=== PATIENT | male | born 1950 | race Hispanic/Latino ===

== ENCOUNTER 2017-04-22 15:45 | Inpatient (IN) | payer MEDICARE ==
[2017-04-22 16:40] LABS: BASO # 0.1 K/uL (0.0-0.2); BASO % 0.5 % (0.0-2.0); EOS % 0.2 % (0.0-4.0); HEMATOCRIT 32.9 % (35.0-51.0); LYMPH # 1.3 K/uL (1.0-4.3); LYMPH % 11.3 % (20.0-40.0); MEAN CELL VOLUME 86.1 fL (80.0-94.0); MEAN CORPUSCULAR HGB CONC 32.6 g/dL (33.0-37.0); MEAN PLATELET VOLUME 7.4 fL (7.2-11.7); MONO # 0.9 K/uL (0.0-0.8); MONO % 7.9 % (0.0-10.0); NRBC % 0.2 % (0.0-2.0); RED CELL DISTRIBUTION WIDTH 19.2 % (11.5-14.5); WHITE BLOOD COUNT 11.7 K/uL (4.8-10.8)
[2017-04-22 16:50] LABS: CHLORIDE 90 mmol/L (98-107); POTASSIUM 3.5 mmol/L (3.6-5.2); SODIUM 130 mmol/L (132-148)
[2017-04-22 16:53] LABS: ALKALINE PHOSPHATASE 100 U/L (38-126); ALT/SGPT 28 U/L (21-72); AST/SGOT 25 U/L (17-59); BILIRUBIN,TOTAL 1.3 mg/dL (0.2-1.3); BLOOD UREA NITROGEN 17 mg/dL (9-20); CALCIUM 11.2 mg/dl (8.6-10.4); CARBON DIOXIDE 32 mmol/L (22-30); GFR AFRICAN-AMERICAN > 60; GLUCOSE,RANDOM 96 mg/dL (75-110); TOTAL PROTEIN 6.9 g/dL (6.3-8.3)
[2017-04-22 16:54] LABS: ALCOHOL SERUM < 10 mg/dl (0-10)
[2017-04-22] MEDS ORDERED: Sodium Chloride 0.9% 500 ML IV ONE ×2 (17:06→18:47)
--- NOTE | 2017-04-22 17:09 | C.PDOC ---
History Of Present Illness 67 y/o male presents to ED because "my doctor told me to come in". Patient denies chest pain, shortness of breath, headache, dizziness, fever, or any other active physical complaints at this time. Pt is a poor historian. Time Seen by Provider: 04/22/17 16:01 Chief Complaint (Nursing): Shortness Of Breath History Per: Patient History/Exam Limitations: no limitations Onset/Duration Of Symptoms: Gradual Current Symptoms Are (Timing): Still Present Current Respiratory Medications: See Home Med List Severity: None Pain Scale Rating Of: 0 Associated Symptoms: denies: Fever, Chills, Sweating, Chest Pain, Bloody Cough, Heart Racing, Leg/Calf Pain, Ankle/Leg Swelling, Dizziness, Light-headedness, Anxiety, Tingling In Hands Or Face, Musle Spasms In Hands Or Feet Reports Recently: Treated By A Physician Recent travel outside of the [place]: No Additional History Per: Patient Past Medical History Reviewed: Historical Data, Nursing Documentation, Vital Signs Vital Signs: Last Vital Signs Temp 97.8 F 04/22/17 16:05 Pulse 86 04/22/17 18:15 Resp 16 04/22/17 18:15 BP 110/67 04/22/17 18:15 Pulse Ox 95 04/22/17 18:24 Family History: States: Unknown Family Hx - Social History Hx Alcohol Use: No Hx Substance Use: No Review Of Systems Except As Marked, All Systems Reviewed And Found Negative. Constitutional: Negative for: Fever, Chills Cardiovascular: Negative for: Chest Pain, Palpitations Respiratory: Negative for: Cough, Shortness of Breath Gastrointestinal: Negative for: Nausea, Vomiting, Abdominal Pain Neurological: Negative for: Headache, Dizziness Physical Exam - Physical Exam Appears: Non-toxic, Chronically Ill, Other (Appears to be short of breath) Skin: Normal Color, Warm, Dry Head: Atraumatic, Normacephalic Eye(s): bilateral: Normal Inspection Nose: Normal Oral Mucosa: Moist Neck: Normal ROM, Supple Chest: Symmetrical Cardiovascular: Rhythm Regular, No Murmur Respiratory: Decreased Breath Sounds (right side), No Rales, No Rhonchi, No Wheezing Gastrointestinal/Abdominal: Soft, No Tenderness Extremity: Normal ROM, No Pedal Edema, No Swelling Neurological/Psych: Oriented x3, Normal Speech ED Course And Treatment - Laboratory Results Result Diagrams: 04/22/17 16:34 04/22/17 16:34 ECG: Interpreted By Me, Viewed By Me ECG Rhythm: Sinus Tachycardia ECG Interpretation: No Acute Changes Rate From EC (bpm) O2 Sat by Pulse Oximetry: 95 (RA) Pulse Ox Interpretation: Normal Progress Note: Blood work, UA, angio chest CT ordered and reviewed. Pt was given IV fluids and Albuterol treatment. Case discussed and labs evalauted by Dr Thorne, agreed upon plan and treatment. Disposition - Disposition Disposition Time: 18:59 Condition: STABLE Forms: [employer] ([place]) - Clinical Impression Clinical Impression: Lung mass - PA / SCHEDULE ANALYST / Resident Statement MD/DO has reviewed & agrees with the documentation as recorded. - Scribe Statement The provider has reviewed the documentation as recorded by the Scribe Alonso Masters All medical record entries made by the Scribe were at my direction and personally dictated by me. I have reviewed the chart and agree that the record accurately reflects my personal performance of the history, physical exam, medical decision making, and the department course for this patient. I have also personally directed, reviewed, and agree with the discharge instructions and disposition.
[2017-04-22] MEDS ORDERED: Albuterol 0.083% Inhal Sol (2.5 mg/3 mL) UD IH STA (17:21)
[2017-04-22] MEDS ORDERED: Iodixanol 320 MG/ML 100 ML BOTTLE IV ONE (17:27)
[2017-04-22 17:43] LABS: ABG ALLEN TEST P; DRAW SITE LR
[2017-04-22 19:41] LABS: RBC URINE 4 /hpf (0-3); URINE BACTERIA OCC (<OCC); URINE BILIRUBIN NEGATIVE (NEGATIVE); URINE BLOOD 1+ (NEGATIVE); URINE COLOR Yellow (YELLOW); URINE GLUCOSE (UA) NORMAL (Normal); URINE KETONE TRACE mg/dL (NEGATIVE); URINE LEUKOCYTE ESTERASE NEG Leu/uL (Negative); URINE PROTEIN NEGATIVE (NEGATIVE); URINE UROBILINOGEN NORMAL mg/dL (0.2-1.0); WBC URINE 2 /hpf (0-5)
--- NOTE | 2017-04-22 21:26 | CT ---
EXAM: CT Angiography Chest With Intravenous Contrast EXAM DATE/TIME: 04/22/2017 5:01 PM CLINICAL HISTORY: 67 years old, male; Signs and symptoms; Shortness of breath; Additional info: SOB TECHNIQUE: Axial computed tomographic angiography images of the chest with intravenous contrast using pulmonary embolism protocol. All CT scans at this facility use one or more dose reduction techniques, viz.: automated exposure control; ma/kV adjustment per patient size (including targeted exams where dose is matched to indication; i.e. head); or iterative reconstruction technique. MIP reconstructed images were created and reviewed. Coronal and sagittal reformatted images were created and reviewed. CONTRAST: 100 mL of visipaque 320 administered intravenously. COMPARISON: There are no prior studies for comparison. FINDINGS: Heart, aorta and Pulmonary arteries: Heart size is normal. There is no pericardial effusion. Ascending aorta is mildly dilated, 4 cm in diameter. There is reflux of contrast into the inferior vena cava. Main pulmonary arteries unremarkable. There is perfusion of left pulmonary arteries. There is poor perfusion of the right lower lobe arteries which are encased and attenuated. There is poor perfusion of the middle lobe vessels with filling defects. Right upper lobe pulmonary artery branches are unremarkable. Lungs and pleural spaces: Trachea and main bronchi are patent. Left upper and lower lobe bronchi are patent. Right upper lobe bronchi are unremarkable.. There is encasement and occlusion of the bronchus intermedius. There is postobstructive pneumonia in the right lower lobe with probable loculated effusion. There is partial atelectasis of the right middle lobe. There are diffuse emphysematous changes bilaterally. Appearance suggests both paraseptal and centrilobular change. Right upper lobe is well aerated. Left lung is hyperinflated. There is no left effusion. There is minimal dependent atelectasis at the left base. Mediastinum: The esophagus is unremarkable. There is right hilar and subcarinal mass like adenopathy. There are mildly enlarged paratracheal and precarinal nodes. Thyroid: Thyroid is not optimally demonstrated. Bones/joints: Bony structures are osteopenic.There are degenerative changes in the osseus structures. Soft tissues: unremarkable Upper abdomen: There are no acute abnormalities in the visualized portion of the abdomen. Gallbladder is partially distended. There may be small stones. There is mild diffuse thickening of the adrenals IMPRESSION: Large right hilar and subcarinal mass with encasement and occlusion of the bronchus intermedius, partial right middle lobe atelectasis, postobstructive right lower lobe pneumonia with effusion; emphysema; ascending aortic aneurysm, no dissection; right middle lobe pulmonary emboli, attenuation of right lower lobe vessels Findings are highly suggestive of malignancy.
[2017-04-22] MEDS: Enoxaparin 60 mg Syringe SC SCH (22:40)
--- NOTE | 2017-04-23 02:31 | HP ---
HISTORY OF PRESENT ILLNESS: This is a 67-year-old white male, who came to the emergency room because of increasing shortness of breath. The patient complains of headache and dizziness. The patient has known asthma. The patient was admitted at [facility] 1 week ago for right lower lobe mass. The patient has CT-guided biopsy done 1 week ago which was only showing necrotic material. Not definitive for any malignancy. The patient signed out AMA that time. The patient came back again with the same complaints. The patient has significant weight loss and cachexia. PAST MEDICAL HISTORY: History of lung mass, right-sided pleural effusion, COPD. No hypertension, no diabetes. FAMILY HISTORY: No known inherited disease. SOCIAL HISTORY: Smoking present. No alcohol, no IVDA. ALLERGIES: NO KNOWN ALLERGY. MEDICATIONS: The patient is apparently not on any medication. PHYSICAL EXAMINATION GENERAL: This is a 67-year-old white male, tachypneic, dyspneic. VITAL SIGNS: Temperature 97.8, pulse 86, respirations 16, blood pressure 110/57 mmHg, pulse ox is 95% on room air. HEENT: Normal. NECK: JVP is flat. Carotids, no bruits. LUNGS: Has wheezing. HEART: S1 and S2 normal. No gallop. No murmur. ABDOMEN: Soft and nontender. No organomegaly. CENTRAL NERVOUS SYSTEM: No focal neurological deficits. No edema of the legs. LABORATORY DATA: On admission, white count is slightly elevated. Other workup is acceptable. The patient had CT scan of the chest done which shows right lower lobe mass, large and obstructing bronchus. The patient also has pleural effusion. IMPRESSION: 1. Lung mass, rule out malignancy. 2. Chronic obstructive pulmonary disease. 3. Shortness of breath. PLAN: The patient will be admitted to the floor. We will get consult with Dr. Morales. The patient needs biopsy of the lung again. Other workup as needed. Freda Masters MD
--- NOTE | 2017-04-23 10:07 | CP.PCM.CON ---
History of Present Illness - History of Present Illness History of Present Illness: Pulm consult note for Dr. Morales: Pulm was consulted for PE. Patient is a 67 year old male with no past medical history. He reports that he "was sent by primary". He was recently admitted for a concerning large lung mass whihc he had biopsied but then left the hospital against medical advice. He is now back with a PE in the right middle lobe. The patient was refusing to talk saying his answers and have changed since his last admission. PMHx - COPD, lung mass, aneurysm Meds - men's multivitamin Surg - none Allergies - NKDA Famhx - unknown, no fam hx of cancer Social - heavy smoker 10 cigarettes daily for 40+ years, denies alcohol or drug use. 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 Seamus Masters Review of Systems - Constitutional Constitutional: absent: Chills, Fever - Cardiovascular Cardiovascular: absent: Chest Pain, Chest Pain at Rest - Respiratory Respiratory: absent: Cough, Dyspnea, Dyspnea on Exertion Past Patient History - Past Medical History & Family History Past Medical History?: Yes - Past Social History Smoking Status: Light Smoker < 10 Cigarettes Daily - MUSCULOSKELETAL/RHEUMATOLOGICAL Hx Falls: No - PSYCHIATRIC Hx Substance Use: No Meds Allergies/Adverse Reactions: Allergies Allergy/AdvReac Type Severity Reaction Status Date / Time No Known Allergies Allergy Unverified 04/22/17 16:00 - Medications Medications: Current Medications Albuterol/Ipratropium (Duoneb 3 Mg/0.5 Mg (3 Ml) Ud) 3 ml INH RQ6 [facility] Enoxaparin Sodium (Lovenox) 60 mg SC Q12 [facility] Last Admin: 04/22/17 22:40 Dose: 60 mg Fluticasone/Salmeterol (Advair Diskus 250/50) 1 puff INH RQ12 [facility] Tiotropium [place] (Spiriva) 18 mcg INH RQ24 [facility] Physical Exam - Constitutional Appears: Non-toxic, No Acute Distress, Unkempt, Cachectic, Chronically Ill - Head Exam Head Exam: ATRAUMATIC, NORMAL INSPECTION - Respiratory Exam Respiratory Exam: Decreased Breath Sounds, Rhonchi, NORMAL BREATHING PATTERN. absent: Accessory Muscle Use, Clear to Auscultation Bilateral, Wheezes, Respiratory Distress Additional comments: on NC - Cardiovascular Exam Cardiovascular Exam: Irregular Rhythm, +S1, +S2 - GI/Abdominal Exam GI & Abdominal Exam: Normal Bowel Sounds, Soft. absent: Distended, Firm, Guarding, Tenderness - Extremities Exam Extremities exam: Positive for: normal inspection - Neurological Exam Neurological exam: Alert, Normal Gait, Oriented x3 - Psychiatric Exam Psychiatric exam: Agitated, Normal Affect - Skin Skin Exam: Dry, Intact, Normal Color, Warm Results - Vital Signs Recent Vital Signs: Last Vital Signs Temp 97.6 F 04/23/17 08:59 Pulse 80 04/23/17 08:59 Resp 20 04/23/17 08:59 BP 131/76 04/23/17 08:59 Pulse Ox 100 04/23/17 08:59 - Labs Result Diagrams: 04/22/17 16:34 04/22/17 16:34 Labs: Laboratory Results - last 24 hr 04/22/17 04/22/17 04/22/17 16:34 16:34 17:35 WBC 11.7 H RBC 3.83 L Hgb 10.7 L Hct 32.9 L MCV 86.1 MCH 28.0 MCHC 32.6 L RDW 19.2 H Plt Count 306 MPV 7.4 Neut % (Auto) 80.1 H Lymph % (Auto) 11.3 L [place] % (Auto) 7.9 Eos % (Auto) 0.2 Baso % (Auto) 0.5 Neut # 9.4 H Lymph # 1.3 [place] # 0.9 H Eos # 0.0 Baso # 0.1 Puncture Site Lr pCO2 29 L pO2 99 HCO3 26.3 ABG pH 7.52 H ABG Total CO2 24.6 ABG O2 Saturation 99.6 H ABG Base Excess 1.7 Luciano Test P ABG Potassium 2.0 L* Glucose 75 Lactate 0.9 Liter Flow 2.0 Crit Value Called To Er Crit Value Called By Ga Crit Value Read Back Y Blood Gas Notified Time 1741 Sodium 130 L 143.0 Potassium 3.5 L Chloride 90 L 115.0 H Carbon Dioxide 32 H Anion Gap 12 BUN 17 Creatinine 0.6 L Est GFR ( Amer) > 60 Est GFR (Non-Af Amer) > 60 Random Glucose 96 Calcium 11.2 H Total Bilirubin 1.3 AST 25 ALT 28 Alkaline Phosphatase 100 NT-Pro-B Natriuret Pep 1120 H Total Protein 6.9 Albumin 3.5 Globulin 3.5 Albumin/Globulin Ratio 1.0 Arterial Blood Potassium 2.0 L* Urine Color Urine Clarity Urine pH Ur Specific [place] Urine Protein Urine Glucose (UA) Urine Ketones Urine Blood Urine Nitrate Urine Bilirubin Urine Urobilinogen Ur Leukocyte Esterase Urine WBC (Auto) Urine RBC (Auto) Ur Squamous Epith Cells Urine Bacteria Urine Sperm (Auto) Urine Opiates Screen Urine Methadone Screen Ur Barbiturates Screen Ur Phencyclidine Scrn Ur Amphetamines Screen U Benzodiazepines Scrn U Oth Cocaine Metabols U Cannabinoids Screen Alcohol, Quantitative < 10 04/22/17 04/22/17 19:29 19:29 WBC RBC Hgb Hct MCV MCH MCHC RDW Plt Count MPV Neut % (Auto) Lymph % (Auto) [place] % (Auto) Eos % (Auto) Baso % (Auto) Neut # Lymph # [place] # Eos # Baso # Puncture Site pCO2 pO2 HCO3 ABG pH ABG Total CO2 ABG O2 Saturation ABG Base Excess [place] Test ABG Potassium Glucose Lactate Liter Flow Crit Value Called To Crit Value Called By Crit Value Read Back Blood Gas Notified Time Sodium Potassium Chloride Carbon Dioxide Anion Gap BUN Creatinine Est GFR ( Amer) Est GFR (Non-Af Amer) Random Glucose Calcium Total Bilirubin AST ALT Alkaline Phosphatase NT-Pro-B Natriuret Pep Total Protein Albumin Globulin Albumin/Globulin Ratio Arterial Blood Potassium Urine Color Yellow Urine Clarity Clear Urine pH 6.0 Ur Specific [place] 1.029 Urine Protein Negative Urine Glucose (UA) Normal Urine Ketones Trace Urine Blood 1+ H Urine Nitrate Negative Urine Bilirubin Negative Urine Urobilinogen Normal Ur Leukocyte Esterase Neg Urine WBC (Auto) 2 Urine RBC (Auto) 4 H Ur Squamous Epith Cells 1 Urine Bacteria Occ H Urine Sperm (Auto) Rare H Urine Opiates Screen Negative Urine Methadone Screen Negative Ur Barbiturates Screen Negative Ur Phencyclidine Scrn Negative Ur Amphetamines Screen Negative U Benzodiazepines Scrn Negative U Oth Cocaine Metabols Negative U Cannabinoids Screen Negative Alcohol, Quantitative Assessment & Plan (1) Pulmonary embolism Assessment and Plan: CT showed PE in right middle lobe Patient is not in any distress likely secondary to malignancy in lung Lovenox 60mg SC Q12 Will need anticoagulation with discharge but patient compliance with medications will need to be considered. Status: Acute (2) COPD (chronic obstructive pulmonary disease) Assessment and Plan: Duonebs prn Advair 250/50 Q12 [facility] Spiriva 10mcg INH daily Solu Medrol IV Q8 Patient with a heavy smoking history Status: Acute (3) Lung mass Assessment and Plan: Was biopsied on last visit (CT guided) Pathology showed necrotic tissue along with atypical keratinized squamous epithelial cells. Will need repeat CT guided biopsy. Status: Acute
--- NOTE | 2017-04-23 12:23 | CP.PCM.PN ---
Subjective - Date & Time of Evaluation Date of Evaluation: 04/23/17 Time of Evaluation: 12:21 - Subjective Subjective: MILD SOB AND COUGH. NO FEVER. Objective - Vital Signs/Intake and Output Vital Signs (last 24 hours): Temp Pulse Resp BP Pulse Ox 97.6 F 80 20 131/76 100 04/23/17 08:59 04/23/17 08:59 04/23/17 08:59 04/23/17 08:59 04/23/17 08:59 Intake and Output: 04/23/17 04/23/17 06:59 18:59 Intake Total 0 Balance 0 - Medications Medications: Current Medications Albuterol/Ipratropium (Duoneb 3 Mg/0.5 Mg (3 Ml) Ud) 3 ml INH RQ6 [facility] Enoxaparin Sodium (Lovenox) 60 mg SC Q12 [facility] Last Admin: 04/22/17 22:40 Dose: 60 mg Fluticasone/Salmeterol (Advair Diskus 250/50) 1 puff INH RQ12 [facility] Tiotropium [place] (Spiriva) 18 mcg INH RQ24 [facility] - Labs Labs: 04/22/17 16:34 04/22/17 16:34 - Constitutional Appears: No Acute Distress, Chronically Ill - Eye Exam Eye Exam: Normal appearance, PERRL - ENT Exam ENT Exam: Mucous Membranes Moist - Neck Exam Neck Exam: Normal Inspection - Respiratory Exam Respiratory Exam: Decreased Breath Sounds, Clear to Ausculation Bilateral. absent: Accessory Muscle Use - Cardiovascular Exam Cardiovascular Exam: REGULAR RHYTHM, +S1, +S2 - GI/Abdominal Exam GI & Abdominal Exam: Soft, Normal Bowel Sounds - Extremities Exam Extremities Exam: Full ROM, Normal Capillary Refill, Normal Inspection. absent : Joint Swelling, Pedal Edema - Back Exam Back Exam: NORMAL INSPECTION - Neurological Exam Neurological Exam: Alert, Awake, CN II-XII Intact, Normal Gait, Oriented x3 Assessment and Plan - Assessment and Plan (Free Text) Assessment: LUNG MASS. COPD. WT LOSS. Plan: FOR REPEAT CT GUIDED BIOPSY. HEMATOLOGY EVAL.
[2017-04-23] MEDS: Albuterol-Ipratrop 3 mg / 0.5 (3 ml) UD INH SCH ×2 (13:39→20:40)
[2017-04-23] MEDS: Enoxaparin 60 mg Syringe SC SCH ×2 (14:39→21:14)
[2017-04-23] MEDS: MethylPREDNISolone 40 mg Vial IVP SCH ×2 (14:40→21:14)
--- NOTE | 2017-04-23 19:06 | CARD ---
APPROVED REPORT EKG Measurement Heart [id number] <Conclusion> Sinus rhythm with premature atrial complexes Otherwise normal ECG
--- NOTE | 2017-04-23 19:07 | CARD ---
APPROVED REPORT EKG Measurement Heart [id number] [place] [id number] <Conclusion> Sinus tachycardia with premature atrial complexes Otherwise normal ECG
[2017-04-23] MEDS: Fluticasone-Salmeterol 250-50mcg Diskus INH SCH (20:38)
[2017-04-24] MEDS: Albuterol-Ipratrop 3 mg / 0.5 (3 ml) UD INH SCH ×4 (01:18→20:17)
[2017-04-24] MEDS: MethylPREDNISolone 40 mg Vial IVP SCH ×3 (05:21→22:10)
[2017-04-24] MEDS: Tiotropium 18 mcg Cap For Inhalation INH SCH (08:15)
[2017-04-24] MEDS: Fluticasone-Salmeterol 250-50mcg Diskus INH SCH ×2 (08:15→20:17)
[2017-04-24] MEDS: Enoxaparin 60 mg Syringe SC SCH ×2 (09:53→22:10)
--- NOTE | 2017-04-24 11:16 | CP.PCM.PN ---
Subjective - Date & Time of Evaluation Date of Evaluation: 04/24/17 Time of Evaluation: 11:13 - Subjective Subjective: FEELS BETTER. NO SOB. AFEBRILE. Objective - Vital Signs/Intake and Output Vital Signs (last 24 hours): Temp Pulse Resp BP Pulse Ox 97.3 F L 76 20 128/82 100 04/24/17 07:43 04/24/17 08:43 04/24/17 07:43 04/24/17 07:43 04/24/17 07:43 Intake and Output: 04/24/17 04/24/17 06:59 18:59 Intake Total 240 Balance 240 - Medications Medications: Current Medications Albuterol/Ipratropium (Duoneb 3 Mg/0.5 Mg (3 Ml) Ud) 3 ml INH RQ6 [facility] Last Admin: 04/24/17 08:15 Dose: 3 ml Enoxaparin Sodium (Lovenox) 60 mg SC Q12 [facility] Last Admin: 04/24/17 09:53 Dose: 60 mg Ceftriaxone Sodium 1 gm/ (Sodium Chloride) 100 mls @ 100 mls/hr IVPB DAILY [facility] Methylprednisolone (Solu-Medrol) 40 mg IVP Q8 [facility] Last Admin: 04/24/17 05:21 Dose: 40 mg Fluticasone/Salmeterol (Advair Diskus 250/50) 1 puff INH RQ12 [facility] Last Admin: 04/24/17 08:15 Dose: 1 puff Tiotropium [place] (Spiriva) 18 mcg INH RQ24 [facility] Last Admin: 04/24/17 08:15 Dose: 18 mcg - Labs Labs: 04/22/17 16:34 04/22/17 16:34 - Constitutional Appears: No Acute Distress, Chronically Ill - Eye Exam Eye Exam: Normal appearance, PERRL - ENT Exam ENT Exam: Mucous Membranes Moist - Respiratory Exam Respiratory Exam: Decreased Breath Sounds, NORMAL BREATHING PATTERN - Cardiovascular Exam Cardiovascular Exam: REGULAR RHYTHM, +S1, +S2 - GI/Abdominal Exam GI & Abdominal Exam: Soft, Normal Bowel Sounds. absent: Tenderness - Back Exam Back Exam: NORMAL INSPECTION - Neurological Exam Neurological Exam: Alert, Awake, CN II-XII Intact, Normal Gait, Oriented x3 - Psychiatric Exam Psychiatric exam: Normal Affect, Normal Mood Assessment and Plan - Assessment and Plan (Free Text) Assessment: LUNG MASS. PNEUMONIA. PUL EMBOLISM. Plan: FOR CT GUIDED LUNG BIOPSY. LOVENOX FOR P. EMBOLISM. GOLDEN.
[2017-04-25] MEDS: Albuterol-Ipratrop 3 mg / 0.5 (3 ml) UD INH SCH ×4 (01:30→19:55)
[2017-04-25] MEDS: MethylPREDNISolone 40 mg Vial IVP SCH ×3 (05:10→22:05)
[2017-04-25 07:27] LABS: BASO % 0.1 % (0.0-2.0); HEMATOCRIT 33.3 % (35.0-51.0); LYMPH # 0.5 K/uL (1.0-4.3); MEAN CELL VOLUME 86.9 fL (80.0-94.0); MEAN CORPUSCULAR HEMOGLOBIN 27.6 pg (27.0-31.0); MEAN CORPUSCULAR HGB CONC 31.7 g/dL (33.0-37.0); MEAN PLATELET VOLUME 7.9 fL (7.2-11.7); MONO # 0.5 K/uL (0.0-0.8); MONO % 3.8 % (0.0-10.0); PLATELET COUNT 320 K/uL (130-400); WHITE BLOOD COUNT 12.2 K/uL (4.8-10.8)
[2017-04-25] MEDS: Fluticasone-Salmeterol 250-50mcg Diskus INH SCH ×2 (07:35→19:55)
[2017-04-25] MEDS: Tiotropium 18 mcg Cap For Inhalation INH SCH (07:35)
[2017-04-25 07:39] LABS: CHLORIDE 90 mmol/L (98-107); POTASSIUM 3.9 mmol/L (3.6-5.2); SODIUM 132 mmol/L (132-148)
[2017-04-25 07:42] LABS: ALB/GLOB RATIO 0.8 (1.0-2.1); ALKALINE PHOSPHATASE 84 U/L (38-126); ALT/SGPT 32 U/L (21-72); AST/SGOT 20 U/L (17-59); BILIRUBIN,TOTAL 0.4 mg/dL (0.2-1.3); BLOOD UREA NITROGEN 16 mg/dL (9-20); CARBON DIOXIDE 34 mmol/L (22-30); GFR AFRICAN-AMERICAN > 60; GLUCOSE,RANDOM 117 mg/dL (75-110); TOTAL PROTEIN 7.6 g/dL (6.3-8.3)
[2017-04-25 07:43] LABS: CALCIUM 10.8 mg/dl (8.6-10.4)
[2017-04-25 08:48] LABS: NEUTROPHIL 94 % (50-75); TOTAL CELLS COUNTED 100
[2017-04-25] MEDS: Enoxaparin 60 mg Syringe SC SCH ×2 (11:19→22:04)
--- NOTE | 2017-04-25 13:47 | CP.PCM.CON ---
History of Present Illness - History of Present Illness History of Present Illness: 67 year old male with no past medical history. He reports that he "was sent by primary". He was recently admitted for a concerning large lung mass whc he had biopsied but then left the hospital against medical advice. He is now back with a PE in the right middle lobe. Patient denies fever but c/o cough and congestion PMHx - COPD, lung mass, aneurysm Meds - men's multivitamin Surg - none Allergies - NKDA Famhx - unknown, no fam hx of cancer Social - heavy smoker 10 cigarettes daily for 40+ years, denies alcohol or drug use. 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 Review of Systems - Constitutional Constitutional: As Per HPI, Anorexia, Malaise, Weight Loss, Weakness - EENT Eyes: absent: As Per HPI, Blind Spots, Blurred Vision, Change in Vision, Decreased Night Vision, Diplopia, Discharge, Dry Eye, Exophthalmos, Floaters, Irritation, Itchy Eyes, Loss of Peripheral Vision, Pain, Photophobia, Requires Corrective Lenses, Sees Flashes, Spots in Vision, Tunnel Vision, Other Visual Disturbances, Loss of Vision, Other Ears: absent: As Per HPI, Decreased Hearing, Ear Discharge, Ear Pain, Tinnitus, Abnormal Hearing, Disequilibrium, Dizziness, Other Nose/Mouth/Throat: absent: As Per HPI, Epistaxis, Nasal Congestion, Nasal Discharge, Nasal Obstruction, Nasal Trauma, Nose Pain, Post Nasal Drip, Sinus Pain, Sinus Pressure, Bleeding Gums, Change in Voice, Dental Pain, Dry Mouth, Dysphagia, Halitosis, Hoarsness, Lip Swelling, Mouth Lesions, Mouth Pain, Odynophagia, Sore Throat, Throat Swelling, Tongue Swelling, Facial Pain, Neck Pain, Neck Mass, Other - Cardiovascular Cardiovascular: As Per HPI - Respiratory Respiratory: As Per HPI, Cough, Dyspnea, Dyspnea on Exertion. absent: Hemoptysis - Gastrointestinal Gastrointestinal: absent: As Per HPI, Abdominal Pain, Belching, Bloating, Change in Bowel Habits, Change in Stool Character, Coffee Ground Emesis, Constipation, Cramping, Diarrhea, Dyspepsia, Dysphagia, Early Satiety, Excessive Flatus, Fecal Incontinence, Heartburn, Hematemesis, Hematochezia, Loose Stools, Melena, Nausea, Odynophagia, Temesmus, Vomiting, Other - Genitourinary Genitourinary: absent: As Per HPI, Change in Urinary Stream, Difficulty Urinating, Dysuria, Flank Pain, Hematuria, Pyuria, Nocturia, Urinary Incontinence, Urinary Frequency, Urinary Hesitance, Urinary Urgency, Voiding Freq/Small Amts, Freq UTI, Hx Renal/Bladder Calculi, Hx /Renal Surgery, Bladder Distension, Other - Musculoskeletal Musculoskeletal: absent: As Per HPI, Abnormal Gait, Arthralgias, Atrophy, Back Pain, Deformity, Joint Swelling, Limited Range of Motion, Loss of Height, Muscle Cramps, Muscle Weakness, Myalgias, Neck Pain, Numbness, Radiating Pain into Limb, Stiffness, Tingling, Other - Integumentary Integumentary: absent: As Per HPI, Acne, Alopecia, Bleeding Lesions, Change in Hair, Change in Nails, Change in Pigmentation, Changing Lesions, Dry Skin, Erythema, Furuncle, Hirsutism, Lesions, New Lesions, Non-Healing Lesions, Photosensitivity, Pruritus, Rash, Skin Pain, Skin Ulcer, Sores, Striae, Swelling , Unusual Bruising, Wounds, Jaundice, Other - Neurological Neurological: absent: As Per HPI, Abnormal Gait, Abnormal Hearing, Abnormal Movements, Abnormal Speech, Behavioral Changes, Burning Sensations, Confusion, Convulsions, Disequilibrium, Dizziness, Numbness, Focal Weakness, Frequent Falls , Headaches, Lack of Coordination, Loss of Vision, Memory Loss, Paresthesias, Radicular Pain, Restless Legs, Sensory Deficit, Syncope, Tingling, Tremor, Vertigo, Weakness, Other Visual Disturbances, Other - Psychiatric Psychiatric: absent: As Per HPI, Abnormal Sleep Pattern, Anhedonia, Anxiety, Auditory Hallucinations, Behavioral Changes, Change in Appetite, Change in Libido, Confusion, Depression, Difficulty Concentrating, Hallucinations, Homicidal Ideation, Hopelessness, Irritability, Memory Loss, Mood Swings, Panic Attacks, Paranoia, Suicidal Ideation, Visual Hallucinations, Tactile Hallucinations, Other - Endocrine Endocrine: absent: As Per HPI, Change in Body Appearance, Change in Libido, Cold Intolorance, Deepening of Voice, Excessive Sweating, Fatigue, Flushing, Heat Intolorance, Increase in Ring/Shoe/Hat Size, Palpitations, Polydipsia, Polyphagia, Polyuria, Other - Hematologic/Lymphatic Hematologic: absent: As Per HPI, Easy Bleeding, Easy Bruising, Lymphadenopathy, Other Past Patient History - Past Medical History & Family History Past Medical History?: Yes - Past Social History Smoking Status: Light Smoker < 10 Cigarettes Daily - MUSCULOSKELETAL/RHEUMATOLOGICAL Hx Falls: No - PSYCHIATRIC Hx Substance Use: No Meds Allergies/Adverse Reactions: Allergies Allergy/AdvReac Type Severity Reaction Status Date / Time No Known Allergies Allergy Unverified 04/22/17 16:00 - Medications Medications: Current Medications Albuterol/Ipratropium (Duoneb 3 Mg/0.5 Mg (3 Ml) Ud) 3 ml INH RQ6 [facility] Last Admin: 04/25/17 13:15 Dose: 3 ml Enoxaparin Sodium (Lovenox) 60 mg SC Q12 [facility] Last Admin: 04/25/17 11:19 Dose: 60 mg Ceftriaxone Sodium 1 gm/ (Dextrose) 100 mls @ 100 mls/hr IVPB DAILY [facility] Last Admin: 04/25/17 11:14 Dose: 100 mls/hr Methylprednisolone (Solu-Medrol) 40 mg IVP Q8 [facility] Last Admin: 04/25/17 05:10 Dose: 40 mg Fluticasone/Salmeterol (Advair Diskus 250/50) 1 puff INH RQ12 [facility] Last Admin: 04/25/17 07:35 Dose: 1 puff Tiotropium [place] (Spiriva) 18 mcg INH RQ24 [facility] Last Admin: 04/25/17 07:35 Dose: 18 mcg Physical Exam - Constitutional Appears: Non-toxic, Cachectic, Chronically Ill - Head Exam Head Exam: ATRAUMATIC, NORMAL INSPECTION, NORMOCEPHALIC - Eye Exam Eye Exam: EOMI, PERRL. absent: Scleral icterus - ENT Exam ENT Exam: Mucous Membranes Dry, Normal External Ear Exam, Normal Oropharynx - Neck Exam Neck exam: Negative for: Lymphadenopathy - Respiratory Exam Respiratory Exam: Decreased Breath Sounds, Prolonged Expiratory Phase, Rhonchi. absent: Respiratory Distress, Stridor - Cardiovascular Exam Cardiovascular Exam: REGULAR RHYTHM, +S1, +S2 - GI/Abdominal Exam GI & Abdominal Exam: Diminished Bowel Sounds, Distended, Soft. absent: Guarding , Rebound, Rigid, Tenderness - Rectal Exam Rectal Exam: Deferred - Exam Exam: NORMAL INSPECTION - Extremities Exam Extremities exam: Positive for: pedal pulses present. Negative for: calf tenderness, pedal edema, tenderness - Back Exam Back exam: absent: CVA tenderness (L), CVA tenderness (R), paraspinal tenderness - Neurological Exam Neurological exam: Alert, CN II-XII Intact, Oriented x3, Reflexes Normal - Psychiatric Exam Psychiatric exam: Depressed - Skin Skin Exam: Dry, Intact Results - Vital Signs Recent Vital Signs: Last Vital Signs Temp 97.6 F 04/25/17 07:35 Pulse 86 04/25/17 10:00 Resp 20 04/25/17 07:35 BP 123/76 04/25/17 07:35 Pulse Ox 100 04/25/17 07:35 - Labs Result Diagrams: 04/25/17 07:11 04/25/17 07:11 Labs: Laboratory Results - last 24 hr 04/25/17 04/25/17 07:11 07:11 WBC 12.2 H RBC 3.83 L Hgb 10.6 L Hct 33.3 L MCV 86.9 MCH 27.6 MCHC 31.7 L RDW 19.0 H Plt Count 320 MPV 7.9 Neut % (Auto) 92.1 H Lymph % (Auto) 4.0 L Ida % (Auto) 3.8 Eos % (Auto) 0.0 Baso % (Auto) 0.1 Neut # 11.2 H Lymph # 0.5 L Ida # 0.5 Eos # 0.0 Baso # 0.0 Neutrophils % (Manual) 94 H Lymphocytes % (Manual) 3 L Monocytes % (Manual) 3 Platelet Estimate Normal Hypochromasia (manual) Slight Poikilocytosis (manual Slight Anisocytosis (manual) Slight Sodium 132 Potassium 3.9 Chloride 90 L Carbon Dioxide 34 H Anion Gap 12 BUN 16 Creatinine 0.5 L Est GFR ( Amer) > 60 Est GFR (Non-Af Amer) > 60 Random Glucose 117 H Calcium 10.8 H Total Bilirubin 0.4 AST 20 ALT 32 Alkaline Phosphatase 84 Total Protein 7.6 Albumin 3.3 L Globulin 4.3 H Albumin/Globulin Ratio 0.8 L Assessment & Plan (1) COPD (chronic obstructive pulmonary disease) Status: Acute (2) Lung mass Status: Acute (3) Pulmonary embolism Status: Acute - Assessment and Plan (Free Text) Assessment: r/o pneumonia cont iv antibiotics pulm eval dr Morales
[2017-04-25] MEDS: Piperacill/Tazo 3.375gm in Dex 3.375 GM/50 ML BAG IVPB SCH ×2 (14:34→22:05)
--- NOTE | 2017-04-25 21:51 | CP.PCM.PN ---
Subjective - Date & Time of Evaluation Date of Evaluation: 04/25/17 Time of Evaluation: 14:00 - Subjective Subjective: CONDITION SAME. CH COUGH. AFEBRILE. MILD SOB. Objective - Vital Signs/Intake and Output Vital Signs (last 24 hours): Temp Pulse Resp BP Pulse Ox 97.7 F 90 20 128/80 97 04/25/17 17:09 04/25/17 17:09 04/25/17 17:09 04/25/17 17:09 04/25/17 17:09 - Medications Medications: Current Medications Albuterol/Ipratropium (Duoneb 3 Mg/0.5 Mg (3 Ml) Ud) 3 ml INH RQ6 [facility] Last Admin: 04/25/17 19:55 Dose: 3 ml Enoxaparin Sodium (Lovenox) 60 mg SC Q12 [facility] Last Admin: 04/25/17 11:19 Dose: 60 mg Piperacillin Sod/Tazobactam Sod (Zosyn 3.375 Gm Iv Premix) 3.375 gm in 50 mls @ 100 mls/hr IVPB Q8H [facility] Last Admin: 04/25/17 14:34 Dose: 100 mls/hr Methylprednisolone (Solu-Medrol) 40 mg IVP Q8 [facility] Last Admin: 04/25/17 14:32 Dose: 40 mg Fluticasone/Salmeterol (Advair Diskus 250/50) 1 puff INH RQ12 [facility] Last Admin: 04/25/17 19:55 Dose: 1 puff Tiotropium [place] (Spiriva) 18 mcg INH RQ24 [facility] Last Admin: 04/25/17 07:35 Dose: 18 mcg - Labs Labs: 04/25/17 07:11 04/25/17 07:11 - Constitutional Appears: No Acute Distress, Chronically Ill - Eye Exam Eye Exam: Normal appearance, PERRL - ENT Exam ENT Exam: Mucous Membranes Moist - Respiratory Exam Respiratory Exam: Decreased Breath Sounds, NORMAL BREATHING PATTERN - Cardiovascular Exam Cardiovascular Exam: REGULAR RHYTHM, +S1, +S2 - GI/Abdominal Exam GI & Abdominal Exam: Soft, Normal Bowel Sounds - Back Exam Back Exam: NORMAL INSPECTION - Neurological Exam Neurological Exam: Alert, Awake, CN II-XII Intact, Normal Gait, Oriented x3 - Psychiatric Exam Psychiatric exam: Normal Affect, Normal Mood Assessment and Plan - Assessment and Plan (Free Text) Assessment: R/O CA LUNGS. PNEUMONIA. COPD. Plan: CT PRESENT TREATMENT. BIOPSY IN AM.
[2017-04-26] MEDS: Albuterol-Ipratrop 3 mg / 0.5 (3 ml) UD INH SCH ×4 (02:18→20:04)
[2017-04-26] MEDS: MethylPREDNISolone 40 mg Vial IVP SCH ×3 (05:36→21:34)
[2017-04-26] MEDS: Piperacill/Tazo 3.375gm in Dex 3.375 GM/50 ML BAG IVPB SCH (05:36)
[2017-04-26] MEDS: Fluticasone-Salmeterol 250-50mcg Diskus INH SCH ×2 (07:22→20:05)
[2017-04-26] MEDS: Tiotropium 18 mcg Cap For Inhalation INH SCH (07:23)
[2017-04-26] MEDS: Enoxaparin 60 mg Syringe SC SCH ×2 (10:59→21:35)
--- NOTE | 2017-04-26 11:15 | CP.PCM.PN ---
Subjective - Date & Time of Evaluation Date of Evaluation: 04/26/17 Time of Evaluation: 06:00 - Subjective Subjective: growing enterobacter sputum iv rx adjusted nad afebrile dr shabbir smith Objective - Vital Signs/Intake and Output Vital Signs (last 24 hours): Temp Pulse Resp BP Pulse Ox 97.8 F 96 H 18 127/77 97 04/26/17 08:39 04/26/17 08:39 04/26/17 08:39 04/26/17 08:39 04/26/17 08:39 Intake and Output: 04/26/17 04/26/17 06:59 18:59 Intake Total 150 Output Total 400 Balance -250 - Medications Medications: Current Medications Albuterol/Ipratropium (Duoneb 3 Mg/0.5 Mg (3 Ml) Ud) 3 ml INH RQ6 [facility] Last Admin: 04/26/17 07:22 Dose: 3 ml Enoxaparin Sodium (Lovenox) 60 mg SC Q12 [facility] Last Admin: 04/25/17 22:04 Dose: 60 mg Ciprofloxacin (Cipro 400mg/200ml Dsw) 400 mg in 200 mls @ 133 mls/hr IVPB Q12H [facility] Methylprednisolone (Solu-Medrol) 40 mg IVP Q8 [facility] Last Admin: 04/26/17 05:36 Dose: 40 mg Fluticasone/Salmeterol (Advair Diskus 250/50) 1 puff INH RQ12 [facility] Last Admin: 04/26/17 07:22 Dose: Not Given Tiotropium [place] (Spiriva) 18 mcg INH RQ24 [facility] Last Admin: 04/26/17 07:23 Dose: Not Given - Labs Labs: 04/25/17 07:11 04/25/17 07:11 - Constitutional Appears: Non-toxic, Cachectic, Chronically Ill - Head Exam Head Exam: NORMOCEPHALIC - Eye Exam Eye Exam: PERRL. absent: Scleral icterus - ENT Exam ENT Exam: Mucous Membranes Dry - Neck Exam Neck Exam: absent: Lymphadenopathy - Respiratory Exam Respiratory Exam: Decreased Breath Sounds - Cardiovascular Exam Cardiovascular Exam: REGULAR RHYTHM - GI/Abdominal Exam GI & Abdominal Exam: Distended, Soft Assessment and Plan (1) COPD (chronic obstructive pulmonary disease) Status: Acute (2) Lung mass Status: Acute (3) Pulmonary embolism Status: Acute - Assessment and Plan (Free Text) Assessment: add cipro
--- NOTE | 2017-04-26 12:58 | CP.PCM.PN ---
Subjective - Date & Time of Evaluation Date of Evaluation: 04/26/17 Time of Evaluation: 12:55 - Subjective Subjective: PT FOR CT GUIDED BIOPSY, CANCELLED BECAUSE PT WAS FED. AFEBRILE. FOR BIOPSY IN AM. SPUTUM POSITIVE FOR ENTEROBACTOR. Objective - Vital Signs/Intake and Output Vital Signs (last 24 hours): Temp Pulse Resp BP Pulse Ox 97.8 F 96 H 18 127/77 97 04/26/17 08:39 04/26/17 08:39 04/26/17 08:39 04/26/17 08:39 04/26/17 08:39 Intake and Output: 04/26/17 04/26/17 06:59 18:59 Intake Total 150 Output Total 400 Balance -250 - Medications Medications: Current Medications Albuterol/Ipratropium (Duoneb 3 Mg/0.5 Mg (3 Ml) Ud) 3 ml INH RQ6 [facility] Last Admin: 04/26/17 07:22 Dose: 3 ml Enoxaparin Sodium (Lovenox) 60 mg SC Q12 [facility] Last Admin: 04/26/17 10:59 Dose: 60 mg Ciprofloxacin (Cipro 400mg/200ml Dsw) 400 mg in 200 mls @ 133 mls/hr IVPB Q12H [facility] Methylprednisolone (Solu-Medrol) 40 mg IVP Q8 [facility] Last Admin: 04/26/17 05:36 Dose: 40 mg Fluticasone/Salmeterol (Advair Diskus 250/50) 1 puff INH RQ12 [facility] Last Admin: 04/26/17 07:22 Dose: Not Given Tiotropium [place] (Spiriva) 18 mcg INH RQ24 [facility] Last Admin: 04/26/17 07:23 Dose: Not Given - Labs Labs: 04/25/17 07:11 04/25/17 07:11 - Constitutional Appears: No Acute Distress, Chronically Ill - Eye Exam Eye Exam: Normal appearance Pupil Exam: PERRL - ENT Exam ENT Exam: Normal Exam - Neck Exam Neck Exam: Normal Inspection - Respiratory Exam Respiratory Exam: Decreased Breath Sounds, NORMAL BREATHING PATTERN - Cardiovascular Exam Cardiovascular Exam: REGULAR RHYTHM, +S1, +S2 - GI/Abdominal Exam GI & Abdominal Exam: Soft, Normal Bowel Sounds - Extremities Exam Extremities Exam: Full ROM, Normal Capillary Refill, Normal Inspection. absent : Joint Swelling, Pedal Edema - Back Exam Back Exam: NORMAL INSPECTION - Neurological Exam Neurological Exam: Alert, Awake, CN II-XII Intact, Normal Gait, Oriented x3 Assessment and Plan - Assessment and Plan (Free Text) Assessment: PNEUMONIA. LUNG MASS. COPD. Plan: FOR BIOPSY.
[2017-04-26] MEDS: Ciprofloxacin 400mg/200ml D5W 400 MG/200 ML BAG IVPB SCH (13:43)
--- NOTE | 2017-04-26 17:30 | CP.PCM.PN ---
Subjective - Date & Time of Evaluation Date of Evaluation: 04/26/17 Time of Evaluation: 10:50 - Subjective Subjective: the patient seen and examined Dyspnea on minimal exertion For lung biopsy Objective - Vital Signs/Intake and Output Vital Signs (last 24 hours): Temp Pulse Resp BP Pulse Ox 97.8 F 93 H 20 136/65 96 04/26/17 16:00 04/26/17 16:00 04/26/17 16:00 04/26/17 16:00 04/26/17 16:00 Intake and Output: 04/26/17 04/26/17 06:59 18:59 Intake Total 700 Output Total 800 Balance -100 - Medications Medications: Current Medications Albuterol/Ipratropium (Duoneb 3 Mg/0.5 Mg (3 Ml) Ud) 3 ml INH RQ6 [facility] Last Admin: 04/26/17 13:05 Dose: Not Given Enoxaparin Sodium (Lovenox) 60 mg SC Q12 [facility] Last Admin: 04/26/17 10:59 Dose: 60 mg Ciprofloxacin (Cipro 400mg/200ml Dsw) 400 mg in 200 mls @ 133 mls/hr IVPB Q12H [facility] Last Admin: 04/26/17 13:43 Dose: 133 mls/hr Methylprednisolone (Solu-Medrol) 40 mg IVP Q8 [facility] Last Admin: 04/26/17 13:42 Dose: 40 mg Fluticasone/Salmeterol (Advair Diskus 250/50) 1 puff INH RQ12 [facility] Last Admin: 04/26/17 07:22 Dose: Not Given Tiotropium [place] (Spiriva) 18 mcg INH RQ24 [facility] Last Admin: 04/26/17 07:23 Dose: Not Given - Labs Labs: 04/25/17 07:11 04/25/17 07:11 - Head Exam Head Exam: ATRAUMATIC - Eye Exam Eye Exam: Normal appearance - ENT Exam ENT Exam: Mucous Membranes Moist - Neck Exam Neck Exam: Normal Inspection - Respiratory Exam Respiratory Exam: Decreased Breath Sounds - Cardiovascular Exam Cardiovascular Exam: REGULAR RHYTHM - GI/Abdominal Exam GI & Abdominal Exam: Soft, Normal Bowel Sounds - Extremities Exam Extremities Exam: Normal Inspection - Neurological Exam Neurological Exam: Alert, Oriented x3 Assessment and Plan (1) COPD (chronic obstructive pulmonary disease) Assessment & Plan: cont nebulizer treatment and steroids Status: Acute (2) Lung mass Assessment & Plan: for lung biopsy today Status: Acute (3) Pulmonary embolism Assessment & Plan: Continue anticoagulation Status: Acute
[2017-04-27] MEDS: Ciprofloxacin 400mg/200ml D5W 400 MG/200 ML BAG IVPB SCH ×2 (00:38→11:45)
[2017-04-27] MEDS: Albuterol-Ipratrop 3 mg / 0.5 (3 ml) UD INH SCH ×3 (01:38→13:26)
[2017-04-27] MEDS: MethylPREDNISolone 40 mg Vial IVP SCH ×2 (06:19→13:55)
[2017-04-27] MEDS: Tiotropium 18 mcg Cap For Inhalation INH SCH (07:30)
[2017-04-27] MEDS: Fluticasone-Salmeterol 250-50mcg Diskus INH SCH (07:30)
[2017-04-27] MEDS ORDERED: Midazolam 2 MG/2 ML VIAL ONE (12:22)
--- NOTE | 2017-04-27 12:27 | CP.PCM.PN ---
Subjective - Date & Time of Evaluation Date of Evaluation: 04/27/17 Time of Evaluation: 07:00 - Subjective Subjective: cultures noted await bx Objective - Vital Signs/Intake and Output Vital Signs (last 24 hours): Temp Pulse Resp BP Pulse Ox 97.4 F L 82 99 H 127/70 100 04/27/17 07:50 04/27/17 07:50 04/27/17 07:50 04/27/17 07:50 04/26/17 23:53 Intake and Output: 04/27/17 04/27/17 06:59 18:59 Intake Total 600 Output Total 500 Balance 100 - Medications Medications: Current Medications Albuterol/Ipratropium (Duoneb 3 Mg/0.5 Mg (3 Ml) Ud) 3 ml INH RQ6 [facility] Last Admin: 04/27/17 07:30 Dose: 3 ml Enoxaparin Sodium (Lovenox) 60 mg SC Q12 [facility] Last Admin: 04/26/17 21:35 Dose: Not Given Ciprofloxacin (Cipro 400mg/200ml Dsw) 400 mg in 200 mls @ 133 mls/hr IVPB Q12H [facility] Last Admin: 04/27/17 11:45 Dose: 133 mls/hr Methylprednisolone (Solu-Medrol) 40 mg IVP Q8 [facility] Last Admin: 04/27/17 06:19 Dose: 40 mg Fluticasone/Salmeterol (Advair Diskus 250/50) 1 puff INH RQ12 [facility] Last Admin: 04/27/17 07:30 Dose: 1 puff Tiotropium [place] (Spiriva) 18 mcg INH RQ24 [facility] Last Admin: 04/27/17 07:30 Dose: 18 mcg - Labs Labs: 04/25/17 07:11 04/25/17 07:11 - Constitutional Appears: Non-toxic, Cachectic, Chronically Ill - Head Exam Head Exam: NORMOCEPHALIC - Eye Exam Eye Exam: PERRL - ENT Exam ENT Exam: Mucous Membranes Dry - Neck Exam Neck Exam: absent: Lymphadenopathy - Respiratory Exam Respiratory Exam: Decreased Breath Sounds - Cardiovascular Exam Cardiovascular Exam: REGULAR RHYTHM - GI/Abdominal Exam GI & Abdominal Exam: Distended, Soft - Rectal Exam Rectal Exam: Deferred - Exam Exam: NORMAL INSPECTION - Extremities Exam Extremities Exam: absent: Pedal Edema - Back Exam Back Exam: absent: CVA tenderness (L), CVA tenderness (R) - Neurological Exam Neurological Exam: Alert, Awake, Oriented x3 - Psychiatric Exam Psychiatric exam: Normal Mood - Skin Skin Exam: Dry Assessment and Plan (1) COPD (chronic obstructive pulmonary disease) Status: Acute (2) Lung mass Status: Acute (3) Pulmonary embolism Status: Acute
--- NOTE | 2017-04-27 12:36 | CP.PCM.PN ---
Subjective - Date & Time of Evaluation Date of Evaluation: 04/27/17 Time of Evaluation: 12:34 - Subjective Subjective: WENT FOR BIOPSY. CONDITION SAME. Objective - Vital Signs/Intake and Output Vital Signs (last 24 hours): Temp Pulse Resp BP Pulse Ox 97.4 F L 82 99 H 127/70 100 04/27/17 07:50 04/27/17 07:50 04/27/17 07:50 04/27/17 07:50 04/26/17 23:53 Intake and Output: 04/27/17 04/27/17 06:59 18:59 Intake Total 600 Output Total 500 Balance 100 - Medications Medications: Current Medications Albuterol/Ipratropium (Duoneb 3 Mg/0.5 Mg (3 Ml) Ud) 3 ml INH RQ6 [facility] Last Admin: 04/27/17 07:30 Dose: 3 ml Enoxaparin Sodium (Lovenox) 60 mg SC Q12 [facility] Last Admin: 04/26/17 21:35 Dose: Not Given Ciprofloxacin (Cipro 400mg/200ml Dsw) 400 mg in 200 mls @ 133 mls/hr IVPB Q12H [facility] Last Admin: 04/27/17 11:45 Dose: 133 mls/hr Methylprednisolone (Solu-Medrol) 40 mg IVP Q8 [facility] Last Admin: 04/27/17 06:19 Dose: 40 mg Fluticasone/Salmeterol (Advair Diskus 250/50) 1 puff INH RQ12 [facility] Last Admin: 04/27/17 07:30 Dose: 1 puff Tiotropium [place] (Spiriva) 18 mcg INH RQ24 [facility] Last Admin: 04/27/17 07:30 Dose: 18 mcg - Labs Labs: 04/25/17 07:11 04/25/17 07:11 - Constitutional Appears: No Acute Distress, Chronically Ill - Eye Exam Eye Exam: Normal appearance Pupil Exam: PERRL - ENT Exam ENT Exam: Mucous Membranes Moist, Normal Exam - Respiratory Exam Respiratory Exam: Clear to Ausculation Bilateral, NORMAL BREATHING PATTERN - Cardiovascular Exam Cardiovascular Exam: REGULAR RHYTHM, +S1, +S2 - GI/Abdominal Exam GI & Abdominal Exam: Soft, Normal Bowel Sounds - Extremities Exam Extremities Exam: Full ROM, Normal Capillary Refill, Normal Inspection. absent : Joint Swelling, Pedal Edema - Back Exam Back Exam: NORMAL INSPECTION - Neurological Exam Neurological Exam: Alert, Awake, CN II-XII Intact, Normal Gait, Oriented x3 - Psychiatric Exam Psychiatric exam: Normal Affect, Normal Mood Assessment and Plan - Assessment and Plan (Free Text) Assessment: LUNG MASS. COPD. Plan: CT PRESENT MEDS. MAY DISCHARGE HOME IF STABLE POST BIOPSY.
[2017-04-27 13:09] VITALS: BP 116/72; PULSE 93; RESP 20; TEMP 97.7; O2SAT 96
--- NOTE | 2017-04-27 13:10 | PCM.SURG1 ---
Surgeon's Initial Post Op Note - Surgeon's Notes Surgeon: Ahmet Garcia MD Seo Intern: NONE Type of Anesthesia: IV Sedation Pre-Operative Diagnosis: Right Lung mass Operative Findings: Ct showed a large lung mass Post-Operative Diagnosis: Right lung mass Operation Performed: CT guided core biopsy Specimen/Specimens Removed: 18 guage core biopsy Estimated Blood Loss: EBL {In ML}: 0 Blood Products Given: N/A Drains Used: No Drains Post-Op Condition: Fair Date of Surgery/Procedure: 04/27/17 Time of Surgery/Procedure: 13:00
[2017-04-27] MEDS: Enoxaparin 60 mg Syringe SC SCH (13:55)
--- NOTE | 2017-04-27 14:49 | CP.PCM.PN ---
Subjective - Date & Time of Evaluation Date of Evaluation: 04/27/17 Time of Evaluation: 14:48 - Subjective Subjective: FULL NOTE WILL BE DICTATED Objective - Vital Signs/Intake and Output Vital Signs (last 24 hours): Temp Pulse Resp BP Pulse Ox 97.7 F 93 H 20 116/72 96 04/27/17 13:04 04/27/17 13:04 04/27/17 13:04 04/27/17 13:04 04/27/17 13:04 Intake and Output: 04/27/17 04/27/17 06:59 18:59 Intake Total 600 Output Total 500 Balance 100 - Medications Medications: Current Medications Albuterol/Ipratropium (Duoneb 3 Mg/0.5 Mg (3 Ml) Ud) 3 ml INH RQ6 [facility] Last Admin: 04/27/17 13:26 Dose: 3 ml Enoxaparin Sodium (Lovenox) 60 mg SC Q12 [facility] Last Admin: 04/27/17 13:55 Dose: Not Given Ciprofloxacin (Cipro 400mg/200ml Dsw) 400 mg in 200 mls @ 133 mls/hr IVPB Q12H [facility] Last Admin: 04/27/17 11:45 Dose: 133 mls/hr Methylprednisolone (Solu-Medrol) 40 mg IVP Q8 [facility] Last Admin: 04/27/17 13:55 Dose: 40 mg Fluticasone/Salmeterol (Advair Diskus 250/50) 1 puff INH RQ12 [facility] Last Admin: 04/27/17 07:30 Dose: 1 puff Tiotropium [place] (Spiriva) 18 mcg INH RQ24 [facility] Last Admin: 04/27/17 07:30 Dose: 18 mcg - Labs Labs: 04/25/17 07:11 04/25/17 07:11
--- NOTE | 2017-04-27 16:36 | RAD ---
PROCEDURE: CHEST RADIOGRAPH, 1 VIEW HISTORY: Status post right lung mass COMPARISON: Chest radiographs 03/26/2017 FINDINGS: LUNGS: Hazy density at the mid to inferior right lung zone again identified unchanged in appearance. COPD changes are less apparent due to underpenetration. No left-sided infiltrate. No pneumothorax bilaterally. PLEURA: Appears are pleural effusion not completely excluded. None is seen the left. CARDIOVASCULAR: Stable cardiomediastinal silhouette. OSSEOUS STRUCTURES: No significant abnormalities. VISUALIZED UPPER ABDOMEN: Normal. OTHER FINDINGS: None. IMPRESSION: No pneumothorax bilaterally. Prominent but hazy density mid to inferior right lung zone unchanged.
--- NOTE | 2017-04-27 16:54 | CP.PCM.PN ---
Subjective - Date & Time of Evaluation Date of Evaluation: 04/27/17 Time of Evaluation: 13:00 - Subjective Subjective: Patient seen and examined. Status post lung biopsy Denies shortness of breath Wants to leave/sign out AMA Objective - Vital Signs/Intake and Output Vital Signs (last 24 hours): Temp Pulse Resp BP Pulse Ox 97.7 F 93 H 20 116/72 96 04/27/17 13:04 04/27/17 13:04 04/27/17 13:04 04/27/17 13:04 04/27/17 13:04 Intake and Output: 04/27/17 04/27/17 06:59 18:59 Intake Total 600 Output Total 500 Balance 100 - Labs Labs: 04/25/17 07:11 04/25/17 07:11 - Head Exam Head Exam: ATRAUMATIC, NORMOCEPHALIC - ENT Exam ENT Exam: Mucous Membranes Moist - Neck Exam Neck Exam: Normal Inspection - Respiratory Exam Respiratory Exam: Decreased Breath Sounds - Cardiovascular Exam Cardiovascular Exam: REGULAR RHYTHM - GI/Abdominal Exam GI & Abdominal Exam: Soft, Normal Bowel Sounds - Extremities Exam Extremities Exam: Normal Inspection - Neurological Exam Neurological Exam: Alert Assessment and Plan (1) COPD (chronic obstructive pulmonary disease) Assessment & Plan: Patient advised to take rescue inhaler/ advair Status: Acute (2) Lung mass Assessment & Plan: Status post lung biopsy, follow-up report Status: Acute (3) Pulmonary embolism Assessment & Plan: Started on eliquis Status: Acute
--- NOTE | 2017-04-28 09:35 | PN ---
DATE: The patient was seen in the floor in room #571, bed A. HISTORY OF PRESENT ILLNESS: Chart, labs, imaging study, medications etc., reviewed, confirmed and discussed with the patient and all involved. Mr. Marie is a 67-year-old gentleman who was admitted with shortness of breath and chest pain. The patient was found to have acute pulmonary embolism and the patient has been started on anticoagulation with Lovenox for his pulmonary embolism. The patient is also found to have a right lung mass for which a repeat biopsy was performed by Dr. Ahmet Hall on 04/22/2017. The pathology for the same is pending. The patient is noncompliant and has not been coming for followup with his doctor. The patient had a previous biopsy that was not conclusive. I was told that the patient signed against the medical advice last admission and was not a very cooperative patient. The CT scan of the chest with contrast done on 04/22/2017 showed that the patient has acute right middle lobe pulmonary embolism. The patient has encasement/occlusion of the bronchus intermedius on the right side. The patient also had post-obstructive pneumonia. The patient also had atelectasis of the right middle lobe and diffuse emphysematous changes bilaterally. The patient also has a history of COPD. It was also found that the patient has a large right hilar and subcarinal mass adenopathy on the right side, which was highly suspicious for the lung malignancy. This was discussed in great detail with the patient and consequences of not following up regularly and continuing anticoagulation were explained to the patient. The patient is generally doing well and clinically getting better. The patient again now wants to sign against the medical advise and threatening to walk out if he is not discharged. The patient denies any chest pain, shortness of breath or palpitation now. The patient denies any headache or neurological symptoms. The patient denies any nausea, vomiting, abdominal pain, fever or diarrhea. The patient denies night sweats, fever or weight loss. The patient denies any hemoptysis. REVIEW OF SYSTEMS: As stated above. PHYSICAL EXAMINATION GENERAL: The patient is alert, awake, oriented, and ambulatory. VITAL SIGNS: The patient is afebrile. Pulse is 78, respirations are 16, and blood pressure is 120/74. HEENT: Anicteric,unremarkable. NECK: Supple. No adenopathy. CHEST: Bilateral air, somewhat decreased on the right side. No rhonchi. No rales. ABDOMEN: Soft and nontender. Bowel sounds present. No palpable hepatosplenomegaly. EXTREMITIES: No clubbing. No pedal edema. No cyanosis. NEUROLOGIC: Alert, awake, oriented and nonfocal. BACK: Examination of the back did not reveal any deformity or tenderness. ASSESSMENT AND PLAN: Mr. Marie is a 67-year-old gentleman who was admitted with acute right pulmonary embolism and large right hilar and mediastinal mass. The patient was found to have anemia with hemoglobin of 10.8. The patient also was found to have hypercalcemia with level of 10.8. The repeat lung biopsy was done by Dr. Ahmet Hall to rule out malignancy of the lung. I discussed the care of plan with the patient with Dr. Chaim Masters and all involved. I recommended that the patient will need treatment for hypercalcemia with hydration and possibly biphosphate with zoledronic acid. The patient will need a whole body PET/CT scan for staging purposes. The patient also may need CT scan of the brain and a bone scan to rule out brain and bone metastasis respectively. Once we have the lung biopsy report, I will make further recommendations for the kind of lung cancer it comes out in pathology. The patient was given an appointment to see me on 05/06/2017 at 11:00 a.m. I gave him my business card along with the date and time of appointment. The patient was reluctant and told me that he will think about that he has so many things to do and may not come. I explained the consequences to the patient. I also told the patient to have a followup with Dr. Chaim Masters. All above was communicated to the admitting physician, Dr. Chaim Masters, about the treatment plan and the patient's noncompliance. The patient also will need to continue anticoagulation for at least 6 months either with Lovenox or start Coumadin and taper off the Lovenox and maintain INR between 2 and 3. The important of maintaining anticoagulation was stressed enough and emphasized to the patient. Hopefully, the patient will come for followup. I told the patient to call if he cannot keep the appointment, we will give single alternative appointment. The patient will need a medical social consultant intervention and followup on his care. Lashaun Curry MD
--- NOTE | 2017-04-29 07:50 | CT ---
PROCEDURE: Date of procedure: 04/27/2017 Procedure: 1. CT-guided lung mass biopsy, CPT [address] Guidance for biopsy, [address] Medications: The patient was sedated by anesthesiologist along with physiologic monitoring. HISTORY: Right lower lung mass, previous biopsy was not diagnostic. TECHNIQUE: Following informed consent, the Pt's chest was marked. The Pt was placed prone on the CT table and procedure time out was performed. A noncontrast CT scan was performed. Noncontrast CT scan confirmed the presence of a large right lower lobe mass. A skin localizer was placed on the patient's right back and a repeat CT scan was performed. The skin was marked, prepped, and draped in the usual sterile fashion. After the skin was anesthetized with lidocaine and the patient sedated by the anesthesiologist, an 18 gauge core needle was advanced percutaneously under direct CT guidance into the mass. Upon confirmation of needle position, three 18-gauge core specimens were obtained and sent for routine pathology. The needle was removed and a xeroform dressing was applied. A post biopsy CT scan showed no pneumothorax. IMPRESSION: CT guided core biopsy right lung mass.
--- NOTE | 2017-05-04 13:17 | DS ---
HISTORY OF PRESENT ILLNESS: This is a 67-year-old white male who came to the Emergency Room. The patient was admitted one week prior to this admission. The patient has right lower lung mass for which CT-guided biopsy was done. The patient signed out against medical advice at that time. The patient continued to have shortness of breath and was loosing weight. The patient came to the hospital because the first biopsy was inconclusive showing only necrotic tissue. The patient needs repeat biopsy, so came to the Emergency Room. No history of hypertension, diabetes. The patient on respiratory treatment. PHYSICAL EXAMINATION: GENERAL: On admission, the patient was awake, alert, oriented, tachypneic, dyspneic. VITAL SIGNS: Normal. LUNGS: Poor air entry. HEART: Within normal. The patient's echocardiogram was normal sinus rhythm. Chest x-ray showed right lower lobe infiltrate and postoperative pneumonia. The patient also has right lower lobe mass, large. The patient has CAT scan and confirmed the diagnoses. The patient had a second lung biopsy done by CT-guided procedure. The patient signed out against medical advice. FINAL DIAGNOSES: 1. Right lower lobe lung mass. Rule out cancer of lungs. 2. Chronic obstructive pulmonary disease. PLAN: The patient will be followed by Dr. Curry and me in the office. Freda Masters MD
== END 2017-04-27 16:39 | disposition home or self-care (01) | DRG 180 ==
LOC: C.ER 15:45 → C.9E 19:13 → C.3T 22:15 → C.9E 22:41 → C.5S 22:50
PROVIDERS: ADMIT Internal Medicine; ATTEND Internal Medicine
PROC: 0BBF3ZX Excision of Right Lower Lung Lobe, Percutaneous Approach, Diagnostic (ICD-10-PCS; principal; 2017-04-27)
DX: C34.31 Malignant neoplasm of lower lobe, right bronchus or lung (principal); I26.99 Other pulmonary embolism without acute cor pulmonale; R64 Cachexia; J18.9 Pneumonia, unspecified organism; J44.0 Chronic obstructive pulmonary disease with (acute) lower respiratory infection; J95.89 Other postprocedural complications and disorders of respiratory system, not elsewhere classified; E83.52 Hypercalcemia; F17.210 Nicotine dependence, cigarettes, uncomplicated; D64.9 Anemia, unspecified; R91.8 Other nonspecific abnormal finding of lung field; Z91.19 Patient's noncompliance with other medical treatment and regimen; Y83.9 Surgical procedure, unspecified as the cause of abnormal reaction of the patient, or of later complication, without mention of misadventure at the time of the procedure; R63.4 Abnormal weight loss

== ENCOUNTER 2017-05-24 15:38 | Inpatient (IN) | payer MEDICARE ==
--- NOTE | 2017-05-24 16:46 | C.PDOC ---
Time Seen by Provider: 05/24/17 16:25 Chief Complaint (Nursing): Weakness/Neurological Deficit Past Medical History Vital Signs: Last Vital Signs Temp 97.2 F L 05/24/17 15:41 Pulse 111 H 05/24/17 15:41 Resp 20 05/24/17 15:41 BP 108/71 05/24/17 15:41 Pulse Ox 97 05/24/17 15:41 - Medical History PMH: Asthma, COPD Denies: Chronic Kidney Disease - [facility] Procedures EXCISION OF RIGHT LOWER LUNG LOBE, PERC APPROACH, DIAGN (04/22/17) EXCISION OF RIGHT LUNG, ENDO, DIAGN (04/13/17) Family History: States: Unknown Family Hx - Social History Hx Tobacco Use: Yes Hx Alcohol Use: Yes Hx Substance Use: No - Immunization History Hx Tetanus Toxoid Vaccination: No Hx Influenza Vaccination: No Hx Pneumococcal Vaccination: No ED Course And Treatment O2 Sat by Pulse Oximetry: 97 Disposition - Disposition
--- NOTE | 2017-05-24 16:55 | C.PDOC ---
History Of Present Illness 67 year old male with a PMHx of lung CA presents to the ED with complaints of increased generalized weakness and deterioration. Patient was referred to ED by Dr. Curry for evaluation. Patient was diagnosed April 2017 with lung CA and is pending start of chemotherapy. Patient lives alone and there is concern patient is unable to take care of himself at home. Patient does not have a homekeeper of visiting RN. As per neighbor, patient is becoming very short of breath when only taking a few steps. Patient denies fever, chills, chest pain, or other complaints at this time. Time Seen by Provider: 05/24/17 16:25 Chief Complaint (Nursing): Weakness/Neurological Deficit History Per: Patient History/Exam Limitations: no limitations Onset/Duration Of Symptoms: Unknown Current Symptoms Are (Timing): Still Present Reports Recently: Treated By A Physician (Dr. Curry) Recent travel outside of the [place]: No Additional History Per: Prior Records Past Medical History Reviewed: Historical Data, Nursing Documentation, Vital Signs Vital Signs: Last Vital Signs Temp 97.2 F L 05/24/17 15:41 Pulse 111 H 05/24/17 15:41 Resp 20 05/24/17 15:41 BP 108/71 05/24/17 15:41 Pulse Ox 97 05/24/17 18:11 - Medical History PMH: Asthma, COPD - [facility] Procedures EXCISION OF RIGHT LOWER LUNG LOBE, PERC APPROACH, DIAGN (04/22/17) EXCISION OF RIGHT LUNG, ENDO, DIAGN (04/13/17) Family History: States: Unknown Family Hx - Social History Hx Tobacco Use: Yes Hx Alcohol Use: Yes Hx Substance Use: No - Immunization History Hx Tetanus Toxoid Vaccination: No Hx Influenza Vaccination: No Hx Pneumococcal Vaccination: No Review Of Systems Constitutional: Positive for: Weakness (general weakness ), Other (deterioration ) Cardiovascular: Negative for: Chest Pain, Palpitations Respiratory: Positive for: Shortness of Breath. Negative for: Cough Gastrointestinal: Negative for: Nausea, Vomiting, Abdominal Pain, Diarrhea Physical Exam - Physical Exam Appears: Non-toxic, Other (Patient appears cachectic ) Skin: Warm, Dry, No Rash Head: Atraumatic, Normacephalic, No Tenderness Eye(s): bilateral: Normal Inspection, PERRL, EOMI Oral Mucosa: Moist Neck: Supple Chest: No Deformity Cardiovascular: Rhythm Regular, No Murmur Respiratory: No Rales, No Rhonchi, No Wheezing, Other (+ retractions; lungs clear to auscultation ) Gastrointestinal/Abdominal: Soft, No Tenderness, No Distention, No Guarding, No Rebound Extremity: Normal ROM, No Tenderness, No Pedal Edema, No Calf Tenderness, Capillary Refill (<2 seconds ), No Deformity, No Swelling Neurological/Psych: Oriented x3 ED Course And Treatment - Laboratory Results Result Diagrams: 05/24/17 17:14 05/24/17 17:14 ECG: Interpreted By Me, Viewed By Me ECG Rhythm: Atrial Fibrillation (with rapid ventricular response) Rate From EC (BPM) O2 Sat by Pulse Oximetry: 97 (RA) Pulse Ox Interpretation: Normal Progress Note: EKG, CXR, blood work, and labs were ordered. Progress - Re-Evaluation Re-evaluation Note: 05/24/17 16:59 D/W DR HALL: WORSENING SOB, UNABLE TO CARE FOR SELF SINCE DIAGNOSIS. WILL CONSULT Disposition - Disposition Disposition: HOSPITALIZED Disposition Time: 18:10 Condition: STABLE - POA Present On Arrival: None - Clinical Impression Clinical Impression: Lung mass, Generalized weakness, CHF exacerbation - Scribe Statement The provider has reviewed the documentation as recorded by the Scribe Shanta Loredo All medical record entries made by the Scribe were at my direction and personally dictated by me. I have reviewed the chart and agree that the record accurately reflects my personal performance of the history, physical exam, medical decision making, and the department course for this patient. I have also personally directed, reviewed, and agree with the discharge instructions and disposition. Decision To Admit - Pt Status Changed To: Hospital Disposition Of: Observation - . Bed Request Type: Regular Admitting Physician: Freda Masters Patient Diagnosis: Lung mass, Generalized weakness, CHF exacerbation
[2017-05-24 17:26] LABS: BASO % 0.3 % (0.0-2.0); HEMATOCRIT 37.4 % (35.0-51.0); LYMPH # 1.2 K/uL (1.0-4.3); LYMPH % 7.3 % (20.0-40.0); MEAN CELL VOLUME 89.6 fL (80.0-94.0); MEAN CORPUSCULAR HEMOGLOBIN 28.7 pg (27.0-31.0); MEAN PLATELET VOLUME 7.5 fL (7.2-11.7); MONO # 1.1 K/uL (0.0-0.8); MONO % 6.7 % (0.0-10.0); PLATELET COUNT 397 K/uL (130-400); WHITE BLOOD COUNT 15.8 K/uL (4.8-10.8)
[2017-05-24 17:32] LABS: INR 1.6
[2017-05-24] MEDS ORDERED: Lactated Ringer's 1,000 ML IV ONE (17:33)
[2017-05-24 17:35] LABS: BLOOD UREA NITROGEN 16 mg/dL (9-20); CALCIUM 11.4 mg/dl (8.6-10.4); CARBON DIOXIDE 39 mmol/L (22-30); CHLORIDE 87 mmol/L (98-107); GFR AFRICAN-AMERICAN > 60; GLUCOSE,RANDOM 108 mg/dL (75-110); POTASSIUM 3.5 mmol/L (3.6-5.2); SODIUM 132 mmol/L (132-148)
[2017-05-24] MEDS ORDERED: Lactated Ringer's 1,000 ML ONE (17:42)
[2017-05-24 17:52] LABS: RBC URINE 1 /hpf (0-3); URINE BACTERIA OCC (<OCC); URINE BILIRUBIN NEGATIVE (NEGATIVE); URINE BLOOD NEGATIVE (NEGATIVE); URINE COLOR Amber (YELLOW); URINE GLUCOSE (UA) NORMAL (Normal); URINE KETONE NEGATIVE (NEGATIVE); URINE LEUKOCYTE ESTERASE 1+ Leu/uL (Negative); URINE PROTEIN 2+ mg/dL (NEGATIVE); WBC URINE 4 /hpf (0-5)
[2017-05-24 18:09] LABS: NEUTROPHIL 90 % (50-75); TOTAL CELLS COUNTED 100
[2017-05-24 18:14] LABS: LARGE PLATELETS PRESENT
[2017-05-24] MEDS ORDERED: Digoxin 500 mcg/2ml (0.5 mg/2ml) Inj IVP ONE ×4 (21:18→23:05)
[2017-05-24] MEDS ORDERED: Digoxin 500 mcg/2ml (0.5 mg/2ml) Inj ONE ×3 (21:25→23:17)
[2017-05-24] MEDS ORDERED: Sodium Chloride 0.9% 1,000 ML IV SCH (21:30)
--- NOTE | 2017-05-25 06:27 | RAD ---
PROCEDURE: CHEST RADIOGRAPH, 1 VIEW HISTORY: Shortness of breath COMPARISON: X-ray dated 04/27/2017 FINDINGS: LUNGS: Persistent mass in the right mid to lower lung zone. Small right pleural effusion. Biapical pleural thickening. PLEURA: As above. CARDIOVASCULAR: Mild calcification at the aortic knob. OSSEOUS STRUCTURES: No significant abnormalities. VISUALIZED UPPER ABDOMEN: Normal. OTHER FINDINGS: None. IMPRESSION: Persistent mass in the right mid to lower lung zone. Small right pleural effusion. Biapical pleural thickening.
--- NOTE | 2017-05-25 06:39 | HP ---
HISTORY OF PRESENT ILLNESS: This is a 67-year-old white male, who was brought to the Emergency Room. The patient was referred by Dr. Curry for evaluation. The patient has a history of CA of the lungs. Recently, he was having increased generalized weakness and deterioration of the condition. The patient denies having any fever. 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 The patient also complains of dyspnea on exertion. No history of chest pain. No history of nausea, vomiting, or abdominal pain. The patient has poor appetite. The patient has a history of loss of weight. REVIEW OF SYSTEMS: GENERAL: The patient is cachectic. CARDIOVASCULAR SYSTEM: Negative for chest pain. RESPIRATORY SYSTEM: Positive for shortness of breath and cough. GASTROINTESTINAL SYSTEM: Negative for nausea, vomiting, or abdominal pain. CENTRAL NERVOUS SYSTEM: No focal neurological complaints offered. The patient has generalized weakness. EXTREMITIES: No edema of the legs. GENITOURINARY: No urinary complaints. MEDICATIONS: The patient's medications are reviewed by me. ALLERGIES: NO KNOWN ALLERGY. SOCIAL HISTORY: The patient is an ex-smoker. PAST MEDICAL HISTORY: History of CA of lungs, atherosclerotic heart disease, and pneumonia. PHYSICAL EXAMINATION: GENERAL: This is a 67-year-old white male, tachypneic, dyspneic. VITAL SIGNS: Temperature 97.2, pulse 111, respirations 20, blood pressure 108/71 mmHg, pulse ox is 97% on room air. HEENT: Normal. NECK: JVP is flat. Carotids, no bruits. LUNGS: Bilateral rales present. Poor air entry. No wheezing. HEART: S1 and S2 normal. Tachycardic. No gallop. No murmur. ABDOMEN: Soft and nontender. No organomegaly. CENTRAL NERVOUS SYSTEM: No focal neurological deficits. EXTREMITIES: No edema of the legs. LABORATORY DATA: On admission, white cell count is elevated at 15.8, hemoglobin is 12, potassium is 3.5. ProBNP is elevated. IMPRESSION: 1. Carcinoma of the lungs, rule out pneumonia. 2. Congestive heart failure with exacerbation. 3. Generalized fatigue. PLAN: The patient will be admitted to the floor. We will hydrate the patient. We will get Hematology evaluation done; probably the patient will need chemotherapy. The patient may need long term placement. We will continue all the medication. Freda Masters MD [facility] # [id number]
[2017-05-25] MEDS ORDERED: Enoxaparin 40 mg Syringe SC SCH (10:00)
--- NOTE | 2017-05-25 13:04 | CP.PCM.PN ---
Subjective - Date & Time of Evaluation Date of Evaluation: 05/25/17 Time of Evaluation: 13:01 - Subjective Subjective: CONDITION REMAINS SAME. SOB PRESENT. GENERAL DEBILITY. AFEBRILE. A. FIB CA LUNG. Objective - Vital Signs/Intake and Output Vital Signs (last 24 hours): Temp Pulse Resp BP Pulse Ox 98.2 F 88 20 115/81 100 05/25/17 08:51 05/25/17 08:51 05/25/17 08:51 05/25/17 08:51 05/25/17 08:51 Intake and Output: 05/25/17 05/25/17 06:59 18:59 Intake Total 620 Balance 620 - Medications Medications: Current Medications Apixaban (Eliquis) 5 mg PO DAILY [facility] Diltiazem HCl (Cardizem) 30 mg PO TID [facility] Enoxaparin Sodium (Lovenox) 40 mg SC DAILY [facility] Last Admin: 05/25/17 10:12 Dose: 40 mg Pneumococcal Polyvalent Vaccine (Pneumovax 23 Vaccine) 0.5 ml IM .ONCE ONE Stop: 05/27/17 10:01 - Labs Labs: 05/24/17 17:14 05/24/17 17:14 PT 17.8 SECONDS (9.7-12.2) H 05/24/17 17:14 INR 1.6 05/24/17 17:14 APTT 27 SECONDS (21-34) 05/24/17 17:14 - Constitutional Appears: In Acute Distress, Chronically Ill - Eye Exam Eye Exam: Normal appearance, PERRL - ENT Exam ENT Exam: Mucous Membranes Moist - Respiratory Exam Respiratory Exam: Decreased Breath Sounds, NORMAL BREATHING PATTERN - Cardiovascular Exam Cardiovascular Exam: Irregular Rhythm, +S1, +S2 - GI/Abdominal Exam GI & Abdominal Exam: Soft, Normal Bowel Sounds - Extremities Exam Extremities Exam: Full ROM, Normal Capillary Refill, Normal Inspection. absent : Joint Swelling, Pedal Edema - Back Exam Back Exam: NORMAL INSPECTION - Psychiatric Exam Psychiatric exam: Anxious Assessment and Plan - Assessment and Plan (Free Text) Assessment: CA LUNG. A. FIB. RESPIRATORY FAILURE. Plan: FOR ONCOLOGY EVAL. NEEDS CHEMOTHERAPY CARDIZEM PO. NEEDS ZAC OR PERMANENT NH PLACEMENT.
--- NOTE | 2017-05-25 21:49 | CARD ---
APPROVED REPORT EKG Measurement Heart [id number] <Conclusion> Atrial fibrillation with rapid ventricular response Low voltage QRS Septal infarct, age undetermined Abnormal ECG
[2017-05-26 07:54] LABS: BLOOD UREA NITROGEN 15 mg/dL (9-20); CALCIUM 10.7 mg/dl (8.6-10.4); CHLORIDE 83 mmol/L (98-107); GFR AFRICAN-AMERICAN > 60; GLUCOSE,RANDOM 99 mg/dL (75-110); POTASSIUM 3.8 mmol/L (3.6-5.2); SODIUM 132 mmol/L (132-148)
[2017-05-26 08:04] LABS: BASO % 0.1 % (0.0-2.0); EOS % 0.1 % (0.0-4.0); HEMATOCRIT 37.1 % (35.0-51.0); LYMPH # 0.9 K/uL (1.0-4.3); LYMPH % 7.1 % (20.0-40.0); MEAN CELL VOLUME 91.4 fL (80.0-94.0); MEAN CORPUSCULAR HEMOGLOBIN 29.4 pg (27.0-31.0); MEAN CORPUSCULAR HGB CONC 32.2 g/dL (33.0-37.0); MEAN PLATELET VOLUME 7.8 fL (7.2-11.7); MONO # 1.1 K/uL (0.0-0.8); MONO % 8.6 % (0.0-10.0); NRBC % 0.1 % (0.0-2.0); PLATELET COUNT 321 K/uL (130-400); RED CELL DISTRIBUTION WIDTH 17.7 % (11.5-14.5); WHITE BLOOD COUNT 12.7 K/uL (4.8-10.8)
[2017-05-26 09:11] LABS: CARBON DIOXIDE 40 mmol/L (22-30)
[2017-05-26 10:18] LABS: NEUTROPHIL 83 % (50-75); TOTAL CELLS COUNTED 100
--- NOTE | 2017-05-26 12:34 | CP.PCM.PN ---
Subjective - Date & Time of Evaluation Date of Evaluation: 05/26/17 Time of Evaluation: 12:31 - Subjective Subjective: SOB PRESENT. AFEBRILE. TELEMETRY RSR. CA LUNG. Objective - Vital Signs/Intake and Output Vital Signs (last 24 hours): Temp Pulse Resp BP Pulse Ox 97.6 F 90 20 110/76 97 05/26/17 07:00 05/26/17 09:05 05/26/17 07:00 05/26/17 07:00 05/26/17 07:00 Intake and Output: 05/26/17 05/26/17 06:59 18:59 Output Total 100 Balance -100 - Medications Medications: Current Medications Apixaban (Eliquis) 5 mg PO BID [facility] Last Admin: 05/26/17 10:40 Dose: 5 mg Diltiazem HCl (Cardizem) 30 mg PO TID [facility] Last Admin: 05/26/17 10:41 Dose: 30 mg Pneumococcal Polyvalent Vaccine (Pneumovax 23 Vaccine) 0.5 ml IM .ONCE ONE Stop: 05/27/17 10:01 - Labs Labs: 05/26/17 07:18 05/26/17 07:18 PT 17.8 SECONDS (9.7-12.2) H 05/24/17 17:14 INR 1.6 05/24/17 17:14 APTT 27 SECONDS (21-34) 05/24/17 17:14 - Constitutional Appears: In Acute Distress, Chronically Ill - Eye Exam Eye Exam: Normal appearance, PERRL - ENT Exam ENT Exam: Mucous Membranes Moist - Respiratory Exam Respiratory Exam: Decreased Breath Sounds, Wheezes, NORMAL BREATHING PATTERN - Cardiovascular Exam Cardiovascular Exam: REGULAR RHYTHM, +S1, +S2 - GI/Abdominal Exam GI & Abdominal Exam: Soft, Normal Bowel Sounds - Extremities Exam Extremities Exam: Full ROM, Normal Capillary Refill, Normal Inspection. absent : Joint Swelling, Pedal Edema - Neurological Exam Neurological Exam: Alert, Awake, CN II-XII Intact, Normal Gait, Oriented x3 - Psychiatric Exam Psychiatric exam: Anxious Assessment and Plan - Assessment and Plan (Free Text) Assessment: CA LUNGS RESP FAILURE. Plan: FOR ONCOLOGY AND PUL EVAL. RESP TREATMENT.
--- NOTE | 2017-05-26 15:46 | CP.PCM.CON ---
<Basil Mcintosh Michaelle - Last Filed: 05/26/17 19:23> History of Present Illness - History of Present Illness History of Present Illness: General Surgery: Dr Garcia Pt is a 67M sent to ED by Dr Curry. Pt has a history of squamous cell lung cancer, and presents with recent onset of generalized weakness and shortness of breath. Pt currently being evaluated for pneumonia vs acute CHF exacerbation. Pt is being set up with radiation/oncology, and surgery was consulted for medical port placement. Attempted to interview pt for more a thorough H&P for the second time today, but he was rather irate and requested I return tomorrow. Will schedule for chemo-port placement on wednesday and discuss with pt further tomorrow. Review of Systems - Review of Systems Systems not reviewed;Unavailable: Uncooperative Past Patient History - Infectious Disease Hx of Infectious Diseases: None - Past Medical History & Family History Past Medical History?: Yes - Past Social History Smoking Status: Heavy Smoker > 10 Cigarettes Daily - CARDIAC Hx Cardiac Disorders: No - PULMONARY Hx Chronic Obstructive Pulmonary Disease (COPD): Yes - NEUROLOGICAL Hx Neurological Disorder: No - HEENT Hx HEENT Problems: No - RENAL Hx Chronic Kidney Disease: No - ENDOCRINE/METABOLIC Hx Endocrine Disorders: No - HEMATOLOGICAL/ONCOLOGICAL Hx Blood Disorders: No - INTEGUMENTARY Hx Dermatological Problems: Yes Other/Comment: sacral excoriation - MUSCULOSKELETAL/RHEUMATOLOGICAL Hx Musculoskeletal Disorders: No Hx Falls: No - GASTROINTESTINAL Hx Gastrointestinal Disorders: No - GENITOURINARY/GYNECOLOGICAL Hx Genitourinary Disorders: No - PSYCHIATRIC Hx Psychophysiologic Disorder: No Hx Substance Use: No - SURGICAL HISTORY Hx Surgeries: No - ANESTHESIA Hx Anesthesia: No Meds Allergies/Adverse Reactions: Allergies Allergy/AdvReac Type Severity Reaction Status Date / Time No Known Allergies Allergy Verified 05/24/17 15:46 - Medications Medications: Current Medications Apixaban (Eliquis) 5 mg PO BID [facility] Last Admin: 05/26/17 10:40 Dose: 5 mg Diltiazem HCl (Cardizem) 30 mg PO TID [facility] Last Admin: 05/26/17 10:41 Dose: 30 mg Pneumococcal Polyvalent Vaccine (Pneumovax 23 Vaccine) 0.5 ml IM .ONCE ONE Stop: 05/27/17 10:01 Physical Exam - Constitutional Appears: Chronically Ill - Head Exam Head Exam: NORMOCEPHALIC - Eye Exam Eye Exam: Normal appearance - Respiratory Exam Respiratory Exam: absent: Accessory Muscle Use, Respiratory Distress - Neurological Exam Neurological exam: Alert - Psychiatric Exam Psychiatric exam: Agitated - Skin Skin Exam: Normal Color Results - Vital Signs Recent Vital Signs: Last Vital Signs Temp 97.6 F 05/26/17 07:00 Pulse 90 05/26/17 09:05 Resp 20 05/26/17 07:00 BP 110/76 05/26/17 07:00 Pulse Ox 97 05/26/17 07:00 - Labs Result Diagrams: 05/26/17 07:18 05/26/17 07:18 Labs: Laboratory Results - last 24 hr 05/26/17 05/26/17 07:18 07:18 WBC 12.7 H RBC 4.06 L Hgb 11.9 L Hct 37.1 MCV 91.4 MCH 29.4 MCHC 32.2 L RDW 17.7 H Plt Count 321 MPV 7.8 Neut % (Auto) 84.1 H Lymph % (Auto) 7.1 L [place] % (Auto) 8.6 Eos % (Auto) 0.1 Baso % (Auto) 0.1 Neut # 10.7 H Lymph # 0.9 L [place] # 1.1 H Eos # 0.0 Baso # 0.0 Neutrophils % (Manual) 83 H Band Neutrophils % 2 Lymphocytes % (Manual) 4 L Monocytes % (Manual) 11 H Platelet Estimate Normal Anisocytosis (manual) Slight Sodium 132 Potassium 3.8 Chloride 83 L Carbon Dioxide 40 H* Anion Gap 13 BUN 15 Creatinine 0.6 L Est GFR ( Amer) > 60 Est GFR (Non-Af Amer) > 60 Random Glucose 99 Calcium 10.7 H Assessment & Plan - Assessment and Plan (Free Text) Assessment: 67M with squamous cell lung cance Plan: will plan for chemo-port placement in [place] wednesday d/w Dr Radha Mcintosh, PGY3 <Jose Garcia B - Last Filed: 05/28/17 15:57> Meds - Medications Medications: Current Medications Albuterol/Ipratropium (Duoneb 3 Mg/0.5 Mg (3 Ml) Ud) 3 ml INH RQ6 [facility] Last Admin: 05/28/17 14:49 Dose: 3 ml Apixaban (Eliquis) 5 mg PO BID [facility] Last Admin: 05/27/17 09:36 Dose: 5 mg Diltiazem HCl (Cardizem) 30 mg PO TID [facility] Last Admin: 05/28/17 13:10 Dose: Not Given Sodium Chloride (Sodium Chloride 0.9%) 1,000 mls @ 150 mls/hr IV .Q6H40M [facility] Last Admin: 05/28/17 13:21 Dose: Not Given Zoledronic Acid (Zometa) 4 mg IV ONCE ONE Stop: 05/29/17 09:01 Results - Vital Signs Recent Vital Signs: Last Vital Signs Temp 98.0 F 05/28/17 08:18 Pulse 101 H 05/28/17 13:10 Resp 18 05/28/17 08:18 BP 100/69 05/28/17 13:10 Pulse Ox 98 05/28/17 08:18 - Labs Result Diagrams: 05/28/17 06:41 05/28/17 06:41 Labs: Laboratory Results - last 24 hr 05/27/17 05/27/17 05/28/17 07:14 17:28 06:41 WBC 15.2 H RBC 4.02 L Hgb 11.8 L Hct 36.2 MCV 90.0 MCH 29.3 MCHC 32.5 L RDW 17.5 H Plt Count 267 MPV 7.9 Sodium Potassium Chloride Carbon Dioxide Anion Gap BUN Creatinine Est GFR ( Amer) Est GFR (Non-Af Amer) Random Glucose Calcium Ionized Calcium 7.0 H Total Bilirubin AST ALT Alkaline Phosphatase Total Protein Albumin Globulin Albumin/Globulin Ratio Blood Type A POSITIVE Antibody Screen Negative 05/28/17 06:41 WBC RBC Hgb Hct MCV MCH MCHC RDW Plt Count MPV Sodium 130 L Potassium 3.6 Chloride 86 L Carbon Dioxide 40 H* Anion Gap 8 L BUN 14 Creatinine 0.5 L Est GFR ( Amer) > 60 Est GFR (Non-Af Amer) > 60 Random Glucose 126 H Calcium 9.8 Ionized Calcium Total Bilirubin 1.2 AST 19 ALT 32 Alkaline Phosphatase 80 Total Protein 5.5 L Albumin 2.8 L Globulin 2.7 Albumin/Globulin Ratio 1.0 Blood Type Antibody Screen Attending/Attestation - Attestation I have personally seen and examined this patient.: Yes I have fully participated in the care of the patient.: Yes I have reviewed all pertinent clinical information: Yes Notes (Text): Pt was seen and examined at bedside Agree with above note and assessment Pt with SCC of Lung Radiation tomorrow Portacath insertion on wednesday Reg diet c/w current mx Plan d.w pt in detail Risk and benefit explained in detail.
--- NOTE | 2017-05-26 18:23 | CP.PCM.CON ---
History of Present Illness - History of Present Illness History of Present Illness: reason for consultation: history of COPD and lung CA 67 year old male with a PMHx of lung CA presents to the ED with complaints of increased generalized weakness and deterioration. Patient was referred to ED by Dr. Curry for evaluation. Patient was diagnosed April 2017 with lung CA and is pending start of chemotherapy. Patient lives alone and there is concern patient is unable to take care of himself at home Review of Systems - Review of Systems All systems: reviewed and no additional remarkable complaints except ( Generalized weakness and shortness of breath) Past Patient History - Infectious Disease Hx of Infectious Diseases: None - Past Medical History & Family History Past Medical History?: Yes - Past Social History Smoking Status: Heavy Smoker > 10 Cigarettes Daily - CARDIAC Hx Cardiac Disorders: No - PULMONARY Hx Chronic Obstructive Pulmonary Disease (COPD): Yes - NEUROLOGICAL Hx Neurological Disorder: No - HEENT Hx HEENT Problems: No - RENAL Hx Chronic Kidney Disease: No - ENDOCRINE/METABOLIC Hx Endocrine Disorders: No - HEMATOLOGICAL/ONCOLOGICAL Hx Blood Disorders: No - INTEGUMENTARY Hx Dermatological Problems: Yes Other/Comment: sacral excoriation - MUSCULOSKELETAL/RHEUMATOLOGICAL Hx Musculoskeletal Disorders: No Hx Falls: No - GASTROINTESTINAL Hx Gastrointestinal Disorders: No - GENITOURINARY/GYNECOLOGICAL Hx Genitourinary Disorders: No - PSYCHIATRIC Hx Psychophysiologic Disorder: No Hx Substance Use: No - SURGICAL HISTORY Hx Surgeries: No - ANESTHESIA Hx Anesthesia: No Meds Allergies/Adverse Reactions: Allergies Allergy/AdvReac Type Severity Reaction Status Date / Time No Known Allergies Allergy Verified 05/24/17 15:46 - Medications Medications: Current Medications Apixaban (Eliquis) 5 mg PO BID [facility] Last Admin: 05/26/17 17:45 Dose: 5 mg Diltiazem HCl (Cardizem) 30 mg PO TID [facility] Last Admin: 05/26/17 15:16 Dose: 30 mg Pneumococcal Polyvalent Vaccine (Pneumovax 23 Vaccine) 0.5 ml IM .ONCE ONE Stop: 05/27/17 10:01 Physical Exam - Head Exam Head Exam: ATRAUMATIC, NORMOCEPHALIC - Eye Exam Eye Exam: Normal appearance - Neck Exam Neck exam: Positive for: Normal Inspection - Respiratory Exam Respiratory Exam: Decreased Breath Sounds Results - Vital Signs Recent Vital Signs: Last Vital Signs Temp 97.7 F 12/06/17 15:46 Pulse 76 05/26/17 16:54 Resp 18 05/26/17 15:46 BP 103/69 05/26/17 15:46 Pulse Ox 100 05/26/17 15:46 - Labs Result Diagrams: 05/26/17 07:18 05/26/17 07:18 Labs: Laboratory Results - last 24 hr 05/26/17 05/26/17 07:18 07:18 WBC 12.7 H RBC 4.06 L Hgb 11.9 L Hct 37.1 MCV 91.4 MCH 29.4 MCHC 32.2 L RDW 17.7 H Plt Count 321 MPV 7.8 Neut % (Auto) 84.1 H Lymph % (Auto) 7.1 L [place] % (Auto) 8.6 Eos % (Auto) 0.1 Baso % (Auto) 0.1 Neut # 10.7 H Lymph # 0.9 L [place] # 1.1 H Eos # 0.0 Baso # 0.0 Neutrophils % (Manual) 83 H Band Neutrophils % 2 Lymphocytes % (Manual) 4 L Monocytes % (Manual) 11 H Platelet Estimate Normal Anisocytosis (manual) Slight Sodium 132 Potassium 3.8 Chloride 83 L Carbon Dioxide 40 H* Anion Gap 13 BUN 15 Creatinine 0.6 L Est GFR ( Amer) > 60 Est GFR (Non-Af Amer) > 60 Random Glucose 99 Calcium 10.7 H Assessment & Plan (1) COPD (chronic obstructive pulmonary disease) Status: Acute Comment: start nebulizer treatment (2) Pulmonary embolism Status: Acute Comment: continue anticoagulation
[2017-05-26] MEDS: Albuterol-Ipratrop 3 mg / 0.5 (3 ml) UD INH SCH (20:40)
[2017-05-27] MEDS: Albuterol-Ipratrop 3 mg / 0.5 (3 ml) UD INH SCH ×4 (01:18→19:45)
--- NOTE | 2017-05-27 07:20 | CP.PCM.CON ---
History of Present Illness - History of Present Illness History of Present Illness: consult dictated BILATERAL CEREBRAL DYSUFUNCTIN -> METS/INFLAMATORY/METABOLIC DERANGEMENT PARTIAL COMPLEX SEIZURES -> EEG/MRI LEFT HEMIPARESIS -> CAROTID DOPPLER /MRI/ CONT ELIQUIS FOR NOW DVT PROPHYLAXIS Past Patient History - Infectious Disease Hx of Infectious Diseases: None - Past Medical History & Family History Past Medical History?: Yes - Past Social History Smoking Status: Heavy Smoker > 10 Cigarettes Daily - CARDIAC Hx Cardiac Disorders: No - PULMONARY Hx Chronic Obstructive Pulmonary Disease (COPD): Yes - NEUROLOGICAL Hx Neurological Disorder: No - HEENT Hx HEENT Problems: No - RENAL Hx Chronic Kidney Disease: No - ENDOCRINE/METABOLIC Hx Endocrine Disorders: No - HEMATOLOGICAL/ONCOLOGICAL Hx Blood Disorders: No - INTEGUMENTARY Hx Dermatological Problems: Yes Other/Comment: sacral excoriation - MUSCULOSKELETAL/RHEUMATOLOGICAL Hx Musculoskeletal Disorders: No Hx Falls: No - GASTROINTESTINAL Hx Gastrointestinal Disorders: No - GENITOURINARY/GYNECOLOGICAL Hx Genitourinary Disorders: No - PSYCHIATRIC Hx Psychophysiologic Disorder: No Hx Substance Use: No - SURGICAL HISTORY Hx Surgeries: No - ANESTHESIA Hx Anesthesia: No Meds Allergies/Adverse Reactions: Allergies Allergy/AdvReac Type Severity Reaction Status Date / Time No Known Allergies Allergy Verified 05/24/17 15:46 - Medications Medications: Current Medications Albuterol/Ipratropium (Duoneb 3 Mg/0.5 Mg (3 Ml) Ud) 3 ml INH RQ6 [facility] Last Admin: 05/27/17 01:18 Dose: Not Given Apixaban (Eliquis) 5 mg PO BID [facility] Last Admin: 05/26/17 17:45 Dose: 5 mg Diltiazem HCl (Cardizem) 30 mg PO TID [facility] Last Admin: 05/26/17 20:18 Dose: 30 mg Pneumococcal Polyvalent Vaccine (Pneumovax 23 Vaccine) 0.5 ml IM .ONCE ONE Stop: 05/27/17 10:01 Results - Vital Signs Recent Vital Signs: Last Vital Signs Temp 97.6 F 05/26/17 23:20 Pulse 80 05/27/17 00:00 Resp 20 05/26/17 23:20 BP 114/79 05/26/17 23:20 Pulse Ox 100 05/26/17 23:20 - Labs Result Diagrams: 05/26/17 07:18 05/26/17 07:18 Labs: Laboratory Results - last 24 hr 05/26/17 05/26/17 07:18 07:18 WBC 12.7 H RBC 4.06 L Hgb 11.9 L Hct 37.1 MCV 91.4 MCH 29.4 MCHC 32.2 L RDW 17.7 H Plt Count 321 MPV 7.8 Neut % (Auto) 84.1 H Lymph % (Auto) 7.1 L [place] % (Auto) 8.6 Eos % (Auto) 0.1 Baso % (Auto) 0.1 Neut # 10.7 H Lymph # 0.9 L [place] # 1.1 H Eos # 0.0 Baso # 0.0 Neutrophils % (Manual) 83 H Band Neutrophils % 2 Lymphocytes % (Manual) 4 L Monocytes % (Manual) 11 H Platelet Estimate Normal Anisocytosis (manual) Slight Sodium 132 Potassium 3.8 Chloride 83 L Carbon Dioxide 40 H* Anion Gap 13 BUN 15 Creatinine 0.6 L Est GFR ( Amer) > 60 Est GFR (Non-Af Amer) > 60 Random Glucose 99 Calcium 10.7 H
[2017-05-27 08:30] LABS: MAGNESIUM 1.6 mg/dL (1.6-2.3); PHOSPHOROUS 2.7 mg/dL (2.5-4.5)
--- NOTE | 2017-05-27 08:34 | CP.PCM.CON ---
History of Present Illness - History of Present Illness History of Present Illness: Mr Marie is a 67 year old male who is known to our department. We saw him as an outpatient for his lung cancer recently. He presented with shortness of breath. A CT of the chest on April 13, 2017 revealed an extensive mass in the right lower lobe invading the mediastinum and left atrium. There was invasion of the right pulmonary vein and branches. There was a right posterior 8th rib fracture and destructive changes. He was also found to have a pulmonary embolus for which he was treated with lovenox A right lung biopsy on April 15, 2017 revealed necrotic tissue. He was readmitted on April 22, 2017 with shortness of breath. A repeat CT of the chest on April 22, 2017 revealed a large right hilar and subcarinal mass. There was encasement of the bronchus intermedius. There was post-obstructive changes in the right lower lobe with embolus. A repeat lung biopsy was performed on April which showed squamous cell carcinoma. He had a CT/PET scan which revealed uptake in the right lower lobe mass with central necrosis invading the mediastinum and hilum. There was a 1.4cm right upper lobe lesion. He had a stage IIIB lung cancer. We had initially planned to treat him with chemoradiation, however the size of the tumor and invasion of the heart made this not feasible. Since we saw him, he got readmitted to [facility] with continued failure to thrive as well as worsening shortness of breath. We spoke at length with Dr Curry about palliative radiation instead given his worsening pulmonary symptoms and the scope of his disease. Review of Systems - Constitutional Constitutional: Weight Loss, Weakness - Respiratory Respiratory: Dyspnea, Dyspnea on Exertion Past Patient History - Infectious Disease Hx of Infectious Diseases: None - Past Medical History & Family History Past Medical History?: Yes - Past Social History Smoking Status: Heavy Smoker > 10 Cigarettes Daily Home Situation {Lives}: With Family - CARDIAC Hx Cardiac Disorders: No - PULMONARY Hx Chronic Obstructive Pulmonary Disease (COPD): Yes - NEUROLOGICAL Hx Neurological Disorder: No - HEENT Hx HEENT Problems: No - RENAL Hx Chronic Kidney Disease: No - ENDOCRINE/METABOLIC Hx Endocrine Disorders: No - HEMATOLOGICAL/ONCOLOGICAL Hx Blood Disorders: No - INTEGUMENTARY Hx Dermatological Problems: Yes Other/Comment: sacral excoriation - MUSCULOSKELETAL/RHEUMATOLOGICAL Hx Musculoskeletal Disorders: No Hx Falls: No - GASTROINTESTINAL Hx Gastrointestinal Disorders: No - GENITOURINARY/GYNECOLOGICAL Hx Genitourinary Disorders: No - PSYCHIATRIC Hx Psychophysiologic Disorder: No Hx Substance Use: No - SURGICAL HISTORY Hx Surgeries: No - ANESTHESIA Hx Anesthesia: No Meds Allergies/Adverse Reactions: Allergies Allergy/AdvReac Type Severity Reaction Status Date / Time No Known Allergies Allergy Verified 05/24/17 15:46 - Medications Medications: Current Medications Albuterol/Ipratropium (Duoneb 3 Mg/0.5 Mg (3 Ml) Ud) 3 ml INH RQ6 [facility] Last Admin: 05/27/17 07:43 Dose: Not Given Apixaban (Eliquis) 5 mg PO BID [facility] Last Admin: 05/26/17 17:45 Dose: 5 mg Diltiazem HCl (Cardizem) 30 mg PO TID [facility] Last Admin: 05/26/17 20:18 Dose: 30 mg Pneumococcal Polyvalent Vaccine (Pneumovax 23 Vaccine) 0.5 ml IM .ONCE ONE Stop: 05/27/17 10:01 Physical Exam - Constitutional Appears: Cachectic, Chronically Ill - Eye Exam Eye Exam: EOMI - ENT Exam ENT Exam: Mucous Membranes Moist - Respiratory Exam Respiratory Exam: Decreased Breath Sounds - Cardiovascular Exam Cardiovascular Exam: Tachycardia - GI/Abdominal Exam GI & Abdominal Exam: Normal Bowel Sounds Results - Vital Signs Recent Vital Signs: Last Vital Signs Temp 97.6 F 05/26/17 23:20 Pulse 80 05/27/17 00:00 Resp 20 05/26/17 23:20 BP 114/79 05/26/17 23:20 Pulse Ox 100 05/26/17 23:20 - Labs Result Diagrams: 05/26/17 07:18 05/26/17 07:18 Labs: Laboratory Results - last 24 hr 05/26/17 05/26/17 05/27/17 07:18 07:18 07:14 Neutrophils % (Manual) 83 H Band Neutrophils % 2 Lymphocytes % (Manual) 4 L Monocytes % (Manual) 11 H Platelet Estimate Normal Anisocytosis (manual) Slight Carbon Dioxide 40 H* Anion Gap 13 Ammonia 21 Assessment & Plan - Assessment and Plan (Free Text) Assessment: Mr Marie is a 67 year old gentleman with a locally advanced non-small cell lung cancer with rib, mediastinal as well as early heart invasion. We spoke at length with Dr Curry. Given the size and extent of his disease, we will be offering palliative radiation which he will begin today. He will also be getting systemic therapy with Dr Curry
--- NOTE | 2017-05-27 09:11 | CON ---
DATE: REASON FOR THE CONSULTATION: Change in mental status. CHIEF COMPLAINTS: The patient was brought in to [facility] emergency room with history of further workup for his diagnosed lung cancer associating with generalized weakness and shortness of breath. From neurological point of view, I was called in to evaluate his new change in mental status. HISTORY OF PRESENT ILLNESS: Mr. Ranjit Marie is a cachectic right-handed male presenting with change in mental status, which was observed during the hospitalization. No association of involuntary movements. No association of fall, head injuries, loss of consciousness, bowel or bladder incontinence. No similar episodes happened as per the documentation in the past. The patient was diagnosed lung CA in 2017, been admitted, scheduled for chemotherapy during the hospitalization. PAST MEDICAL HISTORY: Significant for lung cancer, COPD. PERSONAL HISTORY: He is a smoker as well as history of alcohol in the past. REVIEW OF SYSTEMS: A 12-point systems had been reviewed. From neuro, change in mental status. CURRENT MEDICATIONS: Cardizem, DuoNeb, Eliquis. PHYSICAL EXAMINATION: VITAL SIGNS: Blood pressure 114/79 with mean arterial pressure of 90, respiratory rate 20, temperature 97.6, pulse rate 80 regular. NECK: Supple. No carotid bruit. HEART: Sounds are regular. CHEST: Fair air entry. EXTREMITIES: Left leg seems to be externally rotated. Examination of the finger shows stage III clubbing. NEUROLOGICAL: Mental status examination: He is awake, alert, oriented to person. He knows he is in the hospital, but the name of the hospital, he corrected himself and taken time stating as [facility]. He does not know the year, but he knows the president's name. He does not know the prior president to the current president. Simple calculations, he could not be able to do it. Significant right and left confusion. Cranial nerve examination: Responds to visual threat. Pupils react to light. Extraocular movement normal. No nystagmus. No facial sensory deficit. No facial asymmetry. Hearing is normal. Tongue is midline. Good gag. Motor examination: Outstretched hands with eyes closed, no drift, mild tremor noted. Tone is such increased on his left side to compare with the right side. Deep tendon reflexes are absent. Plantars are upgoing on his left side. Sensory examination: Responds to pain symmetrically on both sides. Mild distal sensory motor neuropathy. Coordination: [id number] test is intact. Gait is deferred at this time. WORKUP: WBC 12.7, hemoglobin 11.9, hematocrit 37.7, platelet 321. PT 17.8, INR 1.6, PTT 27. Sodium 132, potassium 3.8, chloride 83, bicarbonate 40, BUN 15, creatinine 0.6, GFR more than 60, glucose 99, calcium 10.7, BNP more than 3000. Urinalysis shows 2+ proteinuria with occasional bacteria and hyaline casts. EKG, normal sinus rhythm. His chest x-ray is reported as persistent mass over the right mid and the lower lung zone with small right pleural effusion. CONCLUSION: Mr. Ranjit Marie, as per the neurological examination, he is presenting with, 1. Bilateral cerebral dysfunction, which is probably secondary to his underlying disease complicated with electrolyte imbalance versus infectious process or associated metastatic process from his primary cancer. 2. It could be partial complex seizures because of the presentation. 3. Right subcortical dysfunction manifesting as mild left hemiparesis. This could be from metastatic process or ischemic process. 4. Peripheral neuropathy. 5. Lung cancer, awaiting for his chemotherapy assessment. RECOMMENDATION: 1. Prior to Port-A-Cath placement, the patient should have MRI of the brain with and without gadolinium to rule out any metastatic process. 2. Blood workup as per the order. 3. EEG should be done to rule out any paroxysmal activities or focal slowing. In the meantime, continue the present management. The patient will be followed closely with you. Daniel Sebastian MD
[2017-05-27] MEDS ORDERED: Influenza Vaccine 60 mcg/0.5 mL SYR (4YR UP) IM ONE (10:00)
[2017-05-27] MEDS ORDERED: Pneumococcal 23-Valent Vaccine IM ONE (10:00)
--- NOTE | 2017-05-27 13:25 | CP.PCM.PN ---
Subjective - Date & Time of Evaluation Date of Evaluation: 05/27/17 Time of Evaluation: 13:22 - Subjective Subjective: CONDITION REMAINS SAME. SOB. EVALUATED BY DR. FERNANDES AND DR. MUNIZ. FOR RADIATION EVAL. LENO CATH. FOR CT HEAD. Objective - Vital Signs/Intake and Output Vital Signs (last 24 hours): Temp Pulse Resp BP Pulse Ox 98.4 F 82 20 109/73 97 05/27/17 08:00 05/27/17 08:00 05/27/17 08:00 05/27/17 08:00 05/27/17 08:00 Intake and Output: 05/27/17 05/27/17 06:59 18:59 Output Total 500 Balance -500 - Medications Medications: Current Medications Albuterol/Ipratropium (Duoneb 3 Mg/0.5 Mg (3 Ml) Ud) 3 ml INH RQ6 [facility] Last Admin: 05/27/17 07:43 Dose: Not Given Apixaban (Eliquis) 5 mg PO BID [facility] Last Admin: 05/27/17 09:36 Dose: 5 mg Diltiazem HCl (Cardizem) 30 mg PO TID [facility] Last Admin: 05/27/17 09:36 Dose: 30 mg - Labs Labs: 05/26/17 07:18 05/26/17 07:18 PT 17.8 SECONDS (9.7-12.2) H 05/24/17 17:14 INR 1.6 05/24/17 17:14 APTT 27 SECONDS (21-34) 05/24/17 17:14 - Constitutional Appears: In Acute Distress, Chronically Ill - Eye Exam Eye Exam: Normal appearance, PERRL - ENT Exam ENT Exam: Mucous Membranes Moist - Respiratory Exam Respiratory Exam: Decreased Breath Sounds, NORMAL BREATHING PATTERN - Cardiovascular Exam Cardiovascular Exam: REGULAR RHYTHM, +S1, +S2 - GI/Abdominal Exam GI & Abdominal Exam: Soft, Normal Bowel Sounds - Extremities Exam Extremities Exam: Full ROM, Normal Capillary Refill, Normal Inspection. absent : Joint Swelling, Pedal Edema - Neurological Exam Neurological Exam: Alert, Awake, CN II-XII Intact, Normal Gait, Oriented x3 - Psychiatric Exam Psychiatric exam: Anxious Assessment and Plan - Assessment and Plan (Free Text) Assessment: CA LUNGS. COPD. Plan: FOR CHEMO.
--- NOTE | 2017-05-27 14:10 | CP.PCM.PN ---
<Vamshi Hutchison - Last Filed: 05/27/17 19:18> Subjective - Date & Time of Evaluation Date of Evaluation: 05/27/17 Time of Evaluation: 08:08 - Subjective Subjective: Surgery Progress note. Dr. Garcia Pt seen and examined at bedside. No acute events overnight. Patient denies any F /C. No N/V/D. no new complaints. Objective - Vital Signs/Intake and Output Vital Signs (last 24 hours): Temp Pulse Resp BP Pulse Ox 98.4 F 82 20 109/73 97 05/27/17 08:00 05/27/17 08:00 05/27/17 08:00 05/27/17 08:00 05/27/17 08:00 Intake and Output: 05/27/17 05/27/17 06:59 18:59 Output Total 500 Balance -500 - Medications Medications: Current Medications Albuterol/Ipratropium (Duoneb 3 Mg/0.5 Mg (3 Ml) Ud) 3 ml INH RQ6 [facility] Last Admin: 05/27/17 13:38 Dose: 3 ml Apixaban (Eliquis) 5 mg PO BID [facility] Last Admin: 05/27/17 09:36 Dose: 5 mg Diltiazem HCl (Cardizem) 30 mg PO TID [facility] Last Admin: 05/27/17 09:36 Dose: 30 mg - Labs Labs: 05/26/17 07:18 05/26/17 07:18 PT 17.8 SECONDS (9.7-12.2) H 05/24/17 17:14 INR 1.6 05/24/17 17:14 APTT 27 SECONDS (21-34) 05/24/17 17:14 - Constitutional Appears: Well, No Acute Distress - Head Exam Head Exam: ATRAUMATIC, NORMAL INSPECTION, NORMOCEPHALIC - Eye Exam Eye Exam: EOMI - ENT Exam ENT Exam: Mucous Membranes Moist Assessment and Plan - Assessment and Plan (Free Text) Assessment: 67yo M with Squamous Cell nghia cancer. Surgery consulted for Chemo-Port placement - Hold Eliquis - Plan for OR Wednesday, 05/31 - NPO past midnight Wednesday Further recs as per Dr. Radha Hutchison PGY1 surgery pager:[phone] <Jose Garcia - Last Filed: 05/28/17 16:01> Objective - Vital Signs/Intake and Output Vital Signs (last 24 hours): Temp Pulse Resp BP Pulse Ox 98.0 F 101 H 18 100/69 98 05/28/17 08:18 05/28/17 13:10 05/28/17 08:18 05/28/17 13:10 05/28/17 08:18 Intake and Output: 05/28/17 05/28/17 06:59 18:59 Intake Total 400 1500 Output Total 600 Balance -200 1500 - Medications Medications: Current Medications Albuterol/Ipratropium (Duoneb 3 Mg/0.5 Mg (3 Ml) Ud) 3 ml INH RQ6 [facility] Last Admin: 05/28/17 14:49 Dose: 3 ml Apixaban (Eliquis) 5 mg PO BID [facility] Last Admin: 05/27/17 09:36 Dose: 5 mg Diltiazem HCl (Cardizem) 30 mg PO TID [facility] Last Admin: 05/28/17 13:10 Dose: Not Given Sodium Chloride (Sodium Chloride 0.9%) 1,000 mls @ 150 mls/hr IV .Q6H40M [facility] Last Admin: 05/28/17 13:21 Dose: Not Given Zoledronic Acid (Zometa) 4 mg IV ONCE ONE Stop: 05/29/17 09:01 - Labs Labs: 05/28/17 06:41 05/28/17 06:41 PT 17.8 SECONDS (9.7-12.2) H 05/24/17 17:14 INR 1.6 05/24/17 17:14 APTT 27 SECONDS (21-34) 05/24/17 17:14 Attending/Attestation - Attestation I have personally seen and examined this patient.: Yes I have fully participated in the care of the patient.: Yes I have reviewed all pertinent clinical information, including history, physical exam and plan: Yes Notes (Text): Pt was seen and examined at bedside Agree with above note and assessment Pt is on Eliquis. Hold eliquis now OR for Wednesday or Wednesday c/w current mx DC plan Plan d.w pt in detail
--- NOTE | 2017-05-27 14:41 | CP.PCM.PN ---
Subjective - Date & Time of Evaluation Date of Evaluation: 05/27/17 Time of Evaluation: 09:00 - Subjective Subjective: PATIENT SEEN AND EXAMINED dENIES COUGH, DENIES FEVER CHILLS fOR RADIATION THERAPY TODAY Objective - Vital Signs/Intake and Output Vital Signs (last 24 hours): Temp Pulse Resp BP Pulse Ox 98.4 F 82 20 109/73 97 05/27/17 08:00 05/27/17 08:00 05/27/17 08:00 05/27/17 08:00 05/27/17 08:00 Intake and Output: 05/27/17 05/27/17 06:59 18:59 Output Total 500 Balance -500 - Medications Medications: Current Medications Albuterol/Ipratropium (Duoneb 3 Mg/0.5 Mg (3 Ml) Ud) 3 ml INH RQ6 [facility] Last Admin: 05/27/17 13:38 Dose: 3 ml Apixaban (Eliquis) 5 mg PO BID [facility] Last Admin: 05/27/17 09:36 Dose: 5 mg Diltiazem HCl (Cardizem) 30 mg PO TID [facility] Last Admin: 05/27/17 09:36 Dose: 30 mg - Labs Labs: 05/26/17 07:18 05/26/17 07:18 PT 17.8 SECONDS (9.7-12.2) H 05/24/17 17:14 INR 1.6 05/24/17 17:14 APTT 27 SECONDS (21-34) 05/24/17 17:14 - Head Exam Head Exam: ATRAUMATIC, NORMOCEPHALIC - Eye Exam Eye Exam: Normal appearance - ENT Exam ENT Exam: Mucous Membranes Moist - Neck Exam Neck Exam: Normal Inspection - Respiratory Exam Respiratory Exam: Decreased Breath Sounds - Cardiovascular Exam Cardiovascular Exam: REGULAR RHYTHM - GI/Abdominal Exam GI & Abdominal Exam: Soft, Normal Bowel Sounds - Extremities Exam Extremities Exam: Normal Inspection - Neurological Exam Neurological Exam: Alert Assessment and Plan (1) COPD (chronic obstructive pulmonary disease) Assessment & Plan: CONTINUE NEBULIZETREATMENT FOR RADIATION THERAPY Status: Acute (2) Pulmonary embolism Status: Acute
[2017-05-27] MEDS ORDERED: Iodixanol 320 MG/ML 100 ML BOTTLE IV ONE (15:25)
[2017-05-28] MEDS: Albuterol-Ipratrop 3 mg / 0.5 (3 ml) UD INH SCH ×4 (01:20→19:40)
--- NOTE | 2017-05-28 06:49 | CP.PCM.PN ---
Subjective - Date & Time of Evaluation Date of Evaluation: 05/28/17 Time of Evaluation: 06:44 - Subjective Subjective: Clinically stable...being evaluated by neurologist..and Radiation MD Objective - Vital Signs/Intake and Output Vital Signs (last 24 hours): Temp Pulse Resp BP Pulse Ox 98.0 F 107 H 20 104/73 96 05/27/17 23:35 05/27/17 23:35 05/27/17 23:35 05/27/17 23:35 05/27/17 23:35 Intake and Output: 05/27/17 05/28/17 18:59 06:59 Intake Total 350 Output Total 600 Balance -250 - Medications Medications: Current Medications Albuterol/Ipratropium (Duoneb 3 Mg/0.5 Mg (3 Ml) Ud) 3 ml INH RQ6 [facility] Last Admin: 05/28/17 01:20 Dose: Not Given Apixaban (Eliquis) 5 mg PO BID [facility] Last Admin: 05/27/17 09:36 Dose: 5 mg Diltiazem HCl (Cardizem) 30 mg PO TID [facility] Last Admin: 05/27/17 17:58 Dose: 30 mg Sodium Chloride (Sodium Chloride 0.9%) 1,000 mls @ 150 mls/hr IV .Q6H40M [facility] Zoledronic Acid (Zometa) 4 mg IV ONCE ONE Stop: 05/29/17 09:01 - Labs Labs: 05/26/17 07:18 05/26/17 07:18 PT 17.8 SECONDS (9.7-12.2) H 05/24/17 17:14 INR 1.6 05/24/17 17:14 APTT 27 SECONDS (21-34) 05/24/17 17:14 Assessment and Plan - Assessment and Plan (Free Text) Assessment: @ ADVANCED UNRESECTABLE SYMPTOMATIC ADENOCARCINOMA OF LUNG. EGFR /ALK TESTING : PENDING..PALLIATIVE RADIATION EVALUATION @HYPERCALCEMIA 2* TO MALIGNANCY : IV FLUIDS AND ZOMETA TREATMENTS ORDERED. @NEURO STATUS: MRI R/O METS PORT PLACEMENT PLANNED ON WEDNESDAY ... WILL FOLLOW...
[2017-05-28] MEDS: Sodium Chloride 0.9% 1,000 ML IV SCH ×4 (06:51→21:40)
[2017-05-28 06:52] LABS: HEMATOCRIT 36.2 % (35.0-51.0); MEAN CORPUSCULAR HEMOGLOBIN 29.3 pg (27.0-31.0); MEAN CORPUSCULAR HGB CONC 32.5 g/dL (33.0-37.0); MEAN PLATELET VOLUME 7.9 fL (7.2-11.7); RED CELL DISTRIBUTION WIDTH 17.5 % (11.5-14.5); WHITE BLOOD COUNT 15.2 K/uL (4.8-10.8)
--- NOTE | 2017-05-28 08:16 | CP.PCM.PN ---
<Vamshi Hutchison - Last Filed: 05/28/17 08:13> Subjective - Date & Time of Evaluation Date of Evaluation: 05/28/17 Time of Evaluation: 07:30 - Subjective Subjective: Surgery progress note. Dr. Garcia Pt seen and examined at bedside. No acute events overnight. Patient states that he is very upset and would like to sign-out against medical advice. Does not provide any reasons for why he is upset upon questioning. He does not offer any other complaints. Objective - Vital Signs/Intake and Output Vital Signs (last 24 hours): Temp Pulse Resp BP Pulse Ox 98.0 F 107 H 20 104/73 96 05/27/17 23:35 05/27/17 23:35 05/27/17 23:35 05/27/17 23:35 05/27/17 23:35 Intake and Output: 05/28/17 05/28/17 06:59 18:59 Intake Total 400 Output Total 600 Balance -200 - Medications Medications: Current Medications Albuterol/Ipratropium (Duoneb 3 Mg/0.5 Mg (3 Ml) Ud) 3 ml INH RQ6 [facility] Last Admin: 05/28/17 07:49 Dose: 3 ml Apixaban (Eliquis) 5 mg PO BID [facility] Last Admin: 05/27/17 09:36 Dose: 5 mg Diltiazem HCl (Cardizem) 30 mg PO TID [facility] Last Admin: 05/27/17 17:58 Dose: 30 mg Sodium Chloride (Sodium Chloride 0.9%) 1,000 mls @ 150 mls/hr IV .Q6H40M [facility] Last Admin: 05/28/17 06:51 Dose: 150 mls/hr Zoledronic Acid (Zometa) 4 mg IV ONCE ONE Stop: 05/29/17 09:01 - Labs Labs: 05/28/17 06:41 05/26/17 07:18 PT 17.8 SECONDS (9.7-12.2) H 05/24/17 17:14 INR 1.6 05/24/17 17:14 APTT 27 SECONDS (21-34) 05/24/17 17:14 - Constitutional Appears: Non-toxic, No Acute Distress - Head Exam Head Exam: ATRAUMATIC, NORMAL INSPECTION, NORMOCEPHALIC - Eye Exam Eye Exam: EOMI - ENT Exam ENT Exam: Mucous Membranes Moist - Respiratory Exam Respiratory Exam: NORMAL BREATHING PATTERN. absent: Accessory Muscle Use, Respiratory Distress - Extremities Exam Extremities Exam: Normal Inspection. absent: Calf Tenderness - Neurological Exam Neurological Exam: Alert, Altered - Psychiatric Exam Psychiatric exam: Agitated - Skin Skin Exam: Dry, Intact, Normal Color, Warm Assessment and Plan - Assessment and Plan (Free Text) Assessment: 67yo M with squamous cell Lung CA. Chemo-port placement pending - Hold Eliquis - Plan for OR Wednesday, 05/31 - NPO past mn wednesday Further recs as per Dr. Radha Hutchison PGY1 surgery pager: [phone] <Jose Garcia - Last Filed: 05/28/17 16:03> Objective - Vital Signs/Intake and Output Vital Signs (last 24 hours): Temp Pulse Resp BP Pulse Ox 98.0 F 101 H 18 100/69 98 05/28/17 08:18 05/28/17 13:10 05/28/17 08:18 05/28/17 13:10 05/28/17 08:18 Intake and Output: 05/28/17 05/28/17 06:59 18:59 Intake Total 400 1500 Output Total 600 Balance -200 1500 - Medications Medications: Current Medications Albuterol/Ipratropium (Duoneb 3 Mg/0.5 Mg (3 Ml) Ud) 3 ml INH RQ6 [facility] Last Admin: 05/28/17 14:49 Dose: 3 ml Apixaban (Eliquis) 5 mg PO BID [facility] Last Admin: 05/27/17 09:36 Dose: 5 mg Diltiazem HCl (Cardizem) 30 mg PO TID [facility] Last Admin: 05/28/17 13:10 Dose: Not Given Sodium Chloride (Sodium Chloride 0.9%) 1,000 mls @ 150 mls/hr IV .Q6H40M [facility] Last Admin: 05/28/17 13:21 Dose: Not Given Zoledronic Acid (Zometa) 4 mg IV ONCE ONE Stop: 05/29/17 09:01 - Labs Labs: 05/28/17 06:41 05/28/17 06:41 PT 17.8 SECONDS (9.7-12.2) H 05/24/17 17:14 INR 1.6 05/24/17 17:14 APTT 27 SECONDS (21-34) 05/24/17 17:14 Attending/Attestation - Attestation I have personally seen and examined this patient.: Yes I have fully participated in the care of the patient.: Yes I have reviewed all pertinent clinical information, including history, physical exam and plan: Yes Notes (Text): Pt was seen and examined at bedside Agree with above note and assessment Denis stopped yesterday OR tomorrow for Portacath NPO, IVF Consent Plan d.w pt in detail Risk and benefit explained in detail.
[2017-05-28 08:41] LABS: ALKALINE PHOSPHATASE 80 U/L (38-126); ALT/SGPT 32 U/L (21-72); AST/SGOT 19 U/L (17-59); BILIRUBIN,TOTAL 1.2 mg/dL (0.2-1.3); BLOOD UREA NITROGEN 14 mg/dL (9-20); CALCIUM 9.8 mg/dl (8.6-10.4); CARBON DIOXIDE 40 mmol/L (22-30); CHLORIDE 86 mmol/L (98-107); GFR AFRICAN-AMERICAN > 60; GLUCOSE,RANDOM 126 mg/dL (75-110); POTASSIUM 3.6 mmol/L (3.6-5.2); SODIUM 130 mmol/L (132-148); TOTAL PROTEIN 5.5 g/dL (6.3-8.3)
[2017-05-28] MEDS ORDERED: Iodixanol 320 mg/ml 150 ml Bottle IV ONE (11:31)
--- NOTE | 2017-05-28 12:26 | CARD ---
APPROVED REPORT EKG Measurement Heart [id number] <Conclusion> Atrial fibrillation with rapid ventricular response Low voltage QRS Nonspecific ST and T wave abnormality Abnormal ECG
--- NOTE | 2017-05-28 12:49 | CT ---
PROCEDURE: CT HEAD WITH AND WITHOUT CONTRAST HISTORY: Ca lung COMPARISON: None available. TECHNIQUE: Axial computed tomography images were obtained through the head/brain with and without intravenous contrast enhancement. Contrast dose: 1740.52 Radiation dose: Total exam DLP = 1740.52 mGy-cm. This CT exam was performed using one or more of the following dose reduction techniques: Automated exposure control, adjustment of the mA and/or kV according to patient size, and/or use of iterative reconstruction technique. FINDINGS: HEMORRHAGE: No intracranial hemorrhage. BRAIN: No mass, mass effect or edema. No abnormal intracranial enhancement. Mild age-appropriate diffuse atrophy. Minimal periventricular white matter lucency consistent with chronic microvascular ischemic change. VENTRICLES: Unremarkable. No hydrocephalus. CALVARIUM: Unremarkable. SINUSES: Unremarkable as visualized. No significant inflammatory changes. MASTOID AIR CELLS: Unremarkable as visualized. No mastoid effusion. OTHER FINDINGS: None. IMPRESSION: No evidence of intracranial metastasis. Unremarkable contrast-enhanced CT examination of the head.
--- NOTE | 2017-05-28 12:58 | CP.PCM.PN ---
Subjective - Date & Time of Evaluation Date of Evaluation: 05/28/17 Time of Evaluation: 12:56 - Subjective Subjective: condition same. mild sob. [place]ihue. Objective - Vital Signs/Intake and Output Vital Signs (last 24 hours): Temp Pulse Resp BP Pulse Ox 98.0 F 80 18 111/73 98 05/28/17 08:18 05/28/17 08:18 05/28/17 08:18 05/28/17 08:18 05/28/17 08:18 Intake and Output: 05/28/17 05/28/17 06:59 18:59 Intake Total 400 Output Total 600 Balance -200 - Medications Medications: Current Medications Albuterol/Ipratropium (Duoneb 3 Mg/0.5 Mg (3 Ml) Ud) 3 ml INH RQ6 [facility] Last Admin: 05/28/17 07:49 Dose: 3 ml Apixaban (Eliquis) 5 mg PO BID [facility] Last Admin: 05/27/17 09:36 Dose: 5 mg Diltiazem HCl (Cardizem) 30 mg PO TID [facility] Last Admin: 05/28/17 11:12 Dose: Not Given Sodium Chloride (Sodium Chloride 0.9%) 1,000 mls @ 150 mls/hr IV .Q6H40M [facility] Last Admin: 05/28/17 06:51 Dose: 150 mls/hr Zoledronic Acid (Zometa) 4 mg IV ONCE ONE Stop: 05/29/17 09:01 - Labs Labs: 05/28/17 06:41 05/28/17 06:41 PT 17.8 SECONDS (9.7-12.2) H 05/24/17 17:14 INR 1.6 05/24/17 17:14 APTT 27 SECONDS (21-34) 05/24/17 17:14 - Constitutional Appears: No Acute Distress, Chronically Ill - Eye Exam Eye Exam: Normal appearance, PERRL - ENT Exam ENT Exam: Mucous Membranes Moist, Normal Exam - Respiratory Exam Respiratory Exam: Decreased Breath Sounds, NORMAL BREATHING PATTERN - Cardiovascular Exam Cardiovascular Exam: REGULAR RHYTHM, +S1, +S2 - GI/Abdominal Exam GI & Abdominal Exam: Soft, Normal Bowel Sounds - Extremities Exam Extremities Exam: Full ROM, Normal Capillary Refill, Normal Inspection. absent : Joint Swelling, Pedal Edema Assessment and Plan - Assessment and Plan (Free Text) Assessment: ca lungs. copd. Plan: for [facility] wednesday. ct resp treatment.
[2017-05-28] MEDS ORDERED: Digoxin 500 mcg/2ml (0.5 mg/2ml) Inj IVP ONE (21:57)
[2017-05-29] MEDS: Sodium Chloride 0.9% 1,000 ML IV SCH ×5 (00:46→22:10)
[2017-05-29] MEDS: Albuterol-Ipratrop 3 mg / 0.5 (3 ml) UD INH SCH ×4 (01:34→19:29)
[2017-05-29 08:08] LABS: HEMATOCRIT 35.2 % (35.0-51.0); MEAN CELL VOLUME 91.7 fL (80.0-94.0); MEAN CORPUSCULAR HEMOGLOBIN 29.5 pg (27.0-31.0); MEAN CORPUSCULAR HGB CONC 32.2 g/dL (33.0-37.0); MEAN PLATELET VOLUME 7.6 fL (7.2-11.7); RED CELL DISTRIBUTION WIDTH 17.3 % (11.5-14.5); WHITE BLOOD COUNT 11.8 K/uL (4.8-10.8)
[2017-05-29 08:13] LABS: INR 1.6
--- NOTE | 2017-05-29 08:43 | CP.PCM.PN ---
<Vamshi Hutchison - Last Filed: 05/29/17 08:40> Subjective - Date & Time of Evaluation Date of Evaluation: 05/29/17 Time of Evaluation: 08:40 - Subjective Subjective: surgery Progress note. Dr. Garcia Pt seen and examined at bedside. Patient upset upon questioning. He wants to go home. Denies any symptoms. Objective - Vital Signs/Intake and Output Vital Signs (last 24 hours): Temp Pulse Resp BP Pulse Ox 97.4 F L 100 H 20 101/69 98 05/29/17 07:50 05/29/17 07:50 05/29/17 07:50 05/29/17 07:50 05/29/17 07:50 Intake and Output: 05/29/17 05/29/17 06:59 18:59 Intake Total 2800 Output Total 600 Balance 2200 - Medications Medications: Current Medications Albuterol/Ipratropium (Duoneb 3 Mg/0.5 Mg (3 Ml) Ud) 3 ml INH RQ6 [facility] Last Admin: 05/29/17 01:34 Dose: 3 ml Apixaban (Eliquis) 5 mg PO BID [facility] Last Admin: 05/27/17 09:36 Dose: 5 mg Diltiazem HCl (Cardizem) 30 mg PO TID [facility] Last Admin: 05/28/17 21:39 Dose: Not Given Sodium Chloride (Sodium Chloride 0.9%) 1,000 mls @ 150 mls/hr IV .Q6H40M [facility] Last Admin: 05/29/17 07:00 Dose: Not Given Phytonadione (Vitamin K Tab) 5 mg PO ONCE ONE Stop: 05/29/17 10:01 Zoledronic Acid (Zometa) 4 mg IV ONCE ONE Stop: 05/29/17 09:01 - Labs Labs: 05/29/17 07:54 05/28/17 06:41 PT 18.8 SECONDS (9.7-12.2) H 05/29/17 07:54 INR 1.6 05/29/17 07:54 APTT 34 SECONDS (21-34) 05/29/17 07:54 - Constitutional Appears: Non-toxic, No Acute Distress, Older Than Stated Age - ENT Exam ENT Exam: Mucous Membranes Moist - Cardiovascular Exam Cardiovascular Exam: RRR. absent: JVD - GI/Abdominal Exam GI & Abdominal Exam: Soft. absent: Distended, Firm, Guarding, Rigid, Tenderness - Extremities Exam Extremities Exam: Normal Inspection. absent: Calf Tenderness - Neurological Exam Neurological Exam: Alert, Awake, Oriented x3 - Skin Skin Exam: Dry, Intact, Normal Color, Warm Assessment and Plan - Assessment and Plan (Free Text) Assessment: 67yo M with squamous cell Lung CA. Chemo-port placement pending - Hold Eliquis - OR cancelled today due INR 1.6. Administer vit K - Plan for OR Wednesday, 05/31 - NPO past mn wednesday Further recs as per Dr. Radha Hutchison PGY1 surgery pager: [phone] <Jose Garcia - Last Filed: 05/31/17 15:42> Objective - Vital Signs/Intake and Output Vital Signs (last 24 hours): Temp Pulse Resp BP Pulse Ox 97.8 F 101 H 28 H 108/72 100 05/31/17 13:15 05/31/17 13:15 05/31/17 13:15 05/31/17 13:15 05/31/17 13:15 Intake and Output: 05/31/17 05/31/17 06:59 18:59 Intake Total 1400 Balance 1400 - Medications Medications: Current Medications Albuterol/Ipratropium (Duoneb 3 Mg/0.5 Mg (3 Ml) Ud) 3 ml INH RQ6 [facility] Last Admin: 05/31/17 14:16 Dose: 3 ml Apixaban (Eliquis) 5 mg PO BID [facility] Last Admin: 05/27/17 09:36 Dose: 5 mg Digoxin (Lanoxin) 0.25 mg PO DAILY@1800 [facility] Last Admin: 05/30/17 17:35 Dose: 0.25 mg Diltiazem HCl (Cardizem) 30 mg PO TID [facility] Last Admin: 05/31/17 13:49 Dose: 30 mg Oxycodone/Acetaminophen (Percocet 5/325 Mg Tab) 1 tab PO Q6H PRN PRN Reason: Pain, moderate (4-7) Stop: 06/03/17 11:55 Zoledronic Acid (Zometa) 4 mg IV ONCE ONE Stop: 05/29/17 09:01 - Labs Labs: 05/31/17 07:19 05/31/17 07:19 PT 17.2 SECONDS (9.7-12.2) H 05/31/17 07:19 INR 1.5 05/31/17 07:19 APTT 33 SECONDS (21-34) 05/31/17 07:19 Attending/Attestation - Attestation I have personally seen and examined this patient.: Yes I have fully participated in the care of the patient.: Yes I have reviewed all pertinent clinical information, including history, physical exam and plan: Yes Notes (Text): Pt was seen and examined at bedside Agree with above note and assessment Pt with Lung cancer with INR 1.6 Vit K one dose OR on Wednesday for portacath insertion Repeat PT/INR Plan d.w pt in detail Risk and benefit explained in detail.
[2017-05-29] MEDS ORDERED: Zoledronic Acid 4 mg/100 ml Inj(Zometa) IV ONE (09:00)
[2017-05-29 09:13] LABS: ALKALINE PHOSPHATASE 76 U/L (38-126); ALT/SGPT 31 U/L (21-72); AST/SGOT 25 U/L (17-59); BILIRUBIN,TOTAL 1.2 mg/dL (0.2-1.3); BLOOD UREA NITROGEN 12 mg/dL (9-20); CALCIUM 9.2 mg/dl (8.6-10.4); CARBON DIOXIDE 38 mmol/L (22-30); CHLORIDE 92 mmol/L (98-107); GFR AFRICAN-AMERICAN > 60; GLUCOSE,RANDOM 100 mg/dL (75-110); POTASSIUM 3.7 mmol/L (3.6-5.2); SODIUM 132 mmol/L (132-148); TOTAL PROTEIN 5.3 g/dL (6.3-8.3)
[2017-05-29] MEDS ORDERED: Phytonadione 2.5 MG/0.5 TAB TAB PO ONE (10:00)
[2017-05-29] MEDS ORDERED: Digoxin 250 mcg (0.25 mg) Tab PO STA (11:01)
--- NOTE | 2017-05-29 11:01 | CP.PCM.PN ---
Subjective - Date & Time of Evaluation Date of Evaluation: 05/29/17 Time of Evaluation: 10:59 - Subjective Subjective: TACHYCARDIC. MILD SOB. COPD. CA LUNGS. BP LOW. UNABLE TO GIVE CARDIZEM. Objective - Vital Signs/Intake and Output Vital Signs (last 24 hours): Temp Pulse Resp BP Pulse Ox 97.7 F 90 20 107/71 96 05/29/17 09:41 05/29/17 09:41 05/29/17 09:41 05/29/17 09:41 05/29/17 09:41 Intake and Output: 05/29/17 05/29/17 06:59 18:59 Intake Total 2800 Output Total 600 Balance 2200 - Medications Medications: Current Medications Albuterol/Ipratropium (Duoneb 3 Mg/0.5 Mg (3 Ml) Ud) 3 ml INH RQ6 [facility] Last Admin: 05/29/17 01:34 Dose: 3 ml Apixaban (Eliquis) 5 mg PO BID [facility] Last Admin: 05/27/17 09:36 Dose: 5 mg Diltiazem HCl (Cardizem) 30 mg PO TID [facility] Last Admin: 05/29/17 10:55 Dose: Not Given Sodium Chloride (Sodium Chloride 0.9%) 1,000 mls @ 150 mls/hr IV .Q6H40M [facility] Last Admin: 05/29/17 07:00 Dose: Not Given Zoledronic Acid (Zometa) 4 mg IV ONCE ONE Stop: 05/29/17 09:01 - Labs Labs: 05/29/17 07:54 05/29/17 07:54 PT 18.8 SECONDS (9.7-12.2) H 05/29/17 07:54 INR 1.6 05/29/17 07:54 APTT 34 SECONDS (21-34) 05/29/17 07:54 - Constitutional Appears: No Acute Distress, Chronically Ill - Eye Exam Eye Exam: Normal appearance, PERRL - ENT Exam ENT Exam: Mucous Membranes Moist - Respiratory Exam Respiratory Exam: Decreased Breath Sounds, NORMAL BREATHING PATTERN - Cardiovascular Exam Cardiovascular Exam: REGULAR RHYTHM, +S1, +S2 - GI/Abdominal Exam GI & Abdominal Exam: Soft, Normal Bowel Sounds - Extremities Exam Extremities Exam: Full ROM, Normal Capillary Refill, Normal Inspection. absent : Joint Swelling, Pedal Edema Assessment and Plan - Assessment and Plan (Free Text) Assessment: ABOVE. Plan: START DIGOXIN PO. CT OTHER TREATMENT.
--- NOTE | 2017-05-29 11:08 | CP.PCM.PN ---
Subjective - Date & Time of Evaluation Date of Evaluation: 05/29/17 Time of Evaluation: 08:50 - Subjective Subjective: The patient seen and examined Getting radiation therapy Port-A-Cath canceled for elevated PT Denies shortness of breath Denies cough Patient wants to go home Objective - Vital Signs/Intake and Output Vital Signs (last 24 hours): Temp Pulse Resp BP Pulse Ox 97.7 F 90 20 107/71 96 05/29/17 09:41 05/29/17 09:41 05/29/17 09:41 05/29/17 09:41 05/29/17 09:41 Intake and Output: 05/29/17 05/29/17 06:59 18:59 Intake Total 2800 Output Total 600 Balance 2200 - Medications Medications: Current Medications Albuterol/Ipratropium (Duoneb 3 Mg/0.5 Mg (3 Ml) Ud) 3 ml INH RQ6 [facility] Last Admin: 05/29/17 01:34 Dose: 3 ml Apixaban (Eliquis) 5 mg PO BID [facility] Last Admin: 05/27/17 09:36 Dose: 5 mg Digoxin (Lanoxin) 0.25 mg PO DAILY@1800 [facility] Diltiazem HCl (Cardizem) 30 mg PO TID [facility] Last Admin: 05/29/17 10:55 Dose: Not Given Sodium Chloride (Sodium Chloride 0.9%) 1,000 mls @ 150 mls/hr IV .Q6H40M [facility] Last Admin: 05/29/17 07:00 Dose: Not Given Zoledronic Acid (Zometa) 4 mg IV ONCE ONE Stop: 05/29/17 09:01 - Labs Labs: 05/29/17 07:54 05/29/17 07:54 PT 18.8 SECONDS (9.7-12.2) H 05/29/17 07:54 INR 1.6 05/29/17 07:54 APTT 34 SECONDS (21-34) 05/29/17 07:54 Assessment and Plan (1) COPD (chronic obstructive pulmonary disease) Status: Acute (2) Pulmonary embolism Status: Acute
[2017-05-29] MEDS: Digoxin 250 mcg (0.25 mg) Tab PO SCH (17:53)
[2017-05-30] MEDS: Albuterol-Ipratrop 3 mg / 0.5 (3 ml) UD INH SCH ×4 (01:57→19:45)
[2017-05-30] MEDS: Sodium Chloride 0.9% 1,000 ML IV SCH ×2 (05:35→13:29)
--- NOTE | 2017-05-30 07:37 | CP.PCM.PN ---
Subjective - Date & Time of Evaluation Date of Evaluation: 05/30/17 Time of Evaluation: 07:20 - Subjective Subjective: General Surgery Dr. Garcia Pt S&E @bedside. Pt sleeping comfortably. NAEO per nursing notes. Objective - Vital Signs/Intake and Output Vital Signs (last 24 hours): Temp Pulse Resp BP Pulse Ox 97.2 F L 110 H 20 113/76 94 L 05/29/17 23:15 05/30/17 04:34 05/29/17 23:15 05/29/17 23:15 05/29/17 23:15 Intake and Output: 05/30/17 05/30/17 06:59 18:59 Output Total 50 Balance -50 - Medications Medications: Current Medications Albuterol/Ipratropium (Duoneb 3 Mg/0.5 Mg (3 Ml) Ud) 3 ml INH RQ6 [facility] Last Admin: 05/30/17 01:57 Dose: 3 ml Apixaban (Eliquis) 5 mg PO BID [facility] Last Admin: 05/27/17 09:36 Dose: 5 mg Digoxin (Lanoxin) 0.25 mg PO DAILY@1800 [facility] Last Admin: 05/29/17 17:53 Dose: 0.25 mg Diltiazem HCl (Cardizem) 30 mg PO TID [facility] Last Admin: 05/29/17 17:59 Dose: Not Given Sodium Chloride (Sodium Chloride 0.9%) 1,000 mls @ 150 mls/hr IV .Q6H40M [facility] Last Admin: 05/30/17 05:35 Dose: 150 mls/hr Zoledronic Acid (Zometa) 4 mg IV ONCE ONE Stop: 05/29/17 09:01 - Labs Labs: 05/29/17 07:54 05/29/17 07:54 PT 18.8 SECONDS (9.7-12.2) H 05/29/17 07:54 INR 1.6 05/29/17 07:54 APTT 34 SECONDS (21-34) 05/29/17 07:54 - Constitutional Appears: Non-toxic, No Acute Distress, Chronically Ill - Head Exam Head Exam: NORMAL INSPECTION - Respiratory Exam Respiratory Exam: NORMAL BREATHING PATTERN. absent: Respiratory Distress - Extremities Exam Extremities Exam: Normal Inspection - Neurological Exam Neurological Exam: absent: Awake - Skin Skin Exam: Normal Color Assessment and Plan - Assessment and Plan (Free Text) Assessment: 67 y/o M w/ squamous cell Lung CA - Hold Eliquis - NPO after midnight - Plan for OR Wednesday, 05/31 - cont medical management Further recs as per Dr. Radha Perez DO PGY2
--- NOTE | 2017-05-30 17:11 | CP.PCM.PN ---
Subjective - Date & Time of Evaluation Date of Evaluation: 05/30/17 Time of Evaluation: 11:00 - Subjective Subjective: CONDITION REMAINS SAME. SOB. Objective - Vital Signs/Intake and Output Vital Signs (last 24 hours): Temp Pulse Resp BP Pulse Ox 98.4 F 101 H 18 113/79 96 05/30/17 08:58 05/30/17 16:06 05/30/17 08:58 05/30/17 13:29 05/30/17 08:58 Intake and Output: 05/30/17 05/30/17 06:59 18:59 Intake Total 1550 Output Total 50 Balance -50 1550 - Medications Medications: Current Medications Albuterol/Ipratropium (Duoneb 3 Mg/0.5 Mg (3 Ml) Ud) 3 ml INH RQ6 [facility] Last Admin: 05/30/17 14:44 Dose: Not Given Apixaban (Eliquis) 5 mg PO BID [facility] Last Admin: 05/27/17 09:36 Dose: 5 mg Digoxin (Lanoxin) 0.25 mg PO DAILY@1800 [facility] Last Admin: 05/29/17 17:53 Dose: 0.25 mg Diltiazem HCl (Cardizem) 30 mg PO TID [facility] Last Admin: 05/30/17 13:30 Dose: 30 mg Sodium Chloride (Sodium Chloride 0.9%) 1,000 mls @ 150 mls/hr IV .Q6H40M [facility] Last Admin: 05/30/17 13:29 Dose: 150 mls/hr Zoledronic Acid (Zometa) 4 mg IV ONCE ONE Stop: 05/29/17 09:01 - Labs Labs: 05/29/17 07:54 05/29/17 07:54 PT 18.8 SECONDS (9.7-12.2) H 05/29/17 07:54 INR 1.6 05/29/17 07:54 APTT 34 SECONDS (21-34) 05/29/17 07:54 - Constitutional Appears: No Acute Distress, Chronically Ill - Eye Exam Eye Exam: Normal appearance, PERRL - ENT Exam ENT Exam: Mucous Membranes Moist - Respiratory Exam Respiratory Exam: Decreased Breath Sounds, NORMAL BREATHING PATTERN - Cardiovascular Exam Cardiovascular Exam: Tachycardia, +S1, +S2 - GI/Abdominal Exam GI & Abdominal Exam: Soft, Normal Bowel Sounds - Extremities Exam Extremities Exam: Full ROM, Normal Capillary Refill, Normal Inspection. absent : Joint Swelling, Pedal Edema - Back Exam Back Exam: NORMAL INSPECTION Assessment and Plan - Assessment and Plan (Free Text) Assessment: CA LUNGS. COPD. Plan: FOR LENO CATH.
[2017-05-30] MEDS: Digoxin 250 mcg (0.25 mg) Tab PO SCH (17:35)
[2017-05-31] MEDS: Sodium Chloride 0.9% 1,000 ML IV SCH ×2 (01:25→06:11)
[2017-05-31] MEDS: Albuterol-Ipratrop 3 mg / 0.5 (3 ml) UD INH SCH ×3 (03:01→14:16)
[2017-05-31 07:38] LABS: INR 1.5
[2017-05-31 07:52] LABS: HEMATOCRIT 35.6 % (35.0-51.0); MEAN CELL VOLUME 93.6 fL (80.0-94.0); MEAN CORPUSCULAR HGB CONC 33.1 g/dL (33.0-37.0); MEAN PLATELET VOLUME 7.6 fL (7.2-11.7); RED CELL DISTRIBUTION WIDTH 16.7 % (11.5-14.5); WHITE BLOOD COUNT 13.8 K/uL (4.8-10.8)
[2017-05-31 08:00] LABS: ALB/GLOB RATIO 0.7 (1.0-2.1); ALKALINE PHOSPHATASE 72 U/L (38-126); ALT/SGPT 30 U/L (21-72); AST/SGOT 20 U/L (17-59); BILIRUBIN,TOTAL 1.2 mg/dL (0.2-1.3); BLOOD UREA NITROGEN 12 mg/dL (9-20); CALCIUM 9.6 mg/dl (8.6-10.4); CARBON DIOXIDE 32 mmol/L (22-30); CHLORIDE 99 mmol/L (98-107); GFR AFRICAN-AMERICAN > 60; GLUCOSE,RANDOM 97 mg/dL (75-110); SODIUM 132 mmol/L (132-148)
[2017-05-31] MEDS ORDERED: HEPARIN-NS 5,000 UNITS/500 ML 5,000 UNIT/500 ML BAG IV ONE (10:11)
[2017-05-31] MEDS ORDERED: Ketamine 50 mg/ml Inj (10 ml) ONE (10:20)
[2017-05-31] MEDS ORDERED: Propofol 10 mg/ml 1,000 MG/100 ML VIAL ONE (10:20)
[2017-05-31] MEDS ORDERED: Midazolam 2 MG/2 ML VIAL ONE (10:23)
[2017-05-31] MEDS: Bupivacaine-Epi 0.25%-1:200,000 PF Inj ONE ×2 (10:42→11:12)
[2017-05-31] MEDS: Lidocaine 1% Inj (20ml) ONE ×2 (10:43→11:12)
[2017-05-31] MEDS ORDERED: Lactated Ringer's 1,000 ML IV ONE ×2 (10:44)
[2017-05-31] MEDS: ceFAZolin IV 2 gm in Dextrose 2 GM/50 ML BAG IVPB ONE ×2 (10:45→11:00)
--- NOTE | 2017-05-31 10:50 | CP.PCM.PN ---
Subjective - Date & Time of Evaluation Date of Evaluation: 05/31/17 Time of Evaluation: 10:48 - Subjective Subjective: PT WENT FOR [facility] CATH. AFEBRILE. CA LUNGS. Objective - Vital Signs/Intake and Output Vital Signs (last 24 hours): Temp Pulse Resp BP Pulse Ox 97.3 F L 94 H 18 107/75 100 05/31/17 08:00 05/31/17 08:00 05/31/17 08:00 05/31/17 08:00 05/31/17 08:00 Intake and Output: 05/31/17 05/31/17 06:59 18:59 Intake Total 1400 Balance 1400 - Medications Medications: Current Medications Albuterol/Ipratropium (Duoneb 3 Mg/0.5 Mg (3 Ml) Ud) 3 ml INH RQ6 [facility] Last Admin: 05/31/17 07:47 Dose: 3 ml Apixaban (Eliquis) 5 mg PO BID [facility] Last Admin: 05/27/17 09:36 Dose: 5 mg Digoxin (Lanoxin) 0.25 mg PO DAILY@1800 [facility] Last Admin: 05/30/17 17:35 Dose: 0.25 mg Diltiazem HCl (Cardizem) 30 mg PO TID [facility] Last Admin: 05/31/17 09:39 Dose: 30 mg Zoledronic Acid (Zometa) 4 mg IV ONCE ONE Stop: 05/29/17 09:01 - Labs Labs: 05/31/17 07:19 05/31/17 07:19 PT 17.2 SECONDS (9.7-12.2) H 05/31/17 07:19 INR 1.5 05/31/17 07:19 APTT 33 SECONDS (21-34) 05/31/17 07:19 - Constitutional Appears: Non-toxic, No Acute Distress, Chronically Ill - Eye Exam Eye Exam: Normal appearance, PERRL - ENT Exam ENT Exam: Mucous Membranes Moist - Respiratory Exam Respiratory Exam: Decreased Breath Sounds, NORMAL BREATHING PATTERN - Cardiovascular Exam Cardiovascular Exam: REGULAR RHYTHM, +S1, +S2 - GI/Abdominal Exam GI & Abdominal Exam: Soft, Normal Bowel Sounds - Extremities Exam Extremities Exam: Full ROM, Normal Capillary Refill, Normal Inspection. absent : Joint Swelling, Pedal Edema - Back Exam Back Exam: NORMAL INSPECTION Assessment and Plan - Assessment and Plan (Free Text) Assessment: CA LUNGS COPD. Plan: FOR CHEMO AND RADIATION TREATMENT. PT NEEDS ASSISTANCE GETTING MEDICAID FOR HOME MEDS. FOR ZAC. DISCUSSED WITH GENERAL MAGISTRATE
--- NOTE | 2017-05-31 11:05 | PN ---
DATE: 05/31/2017 NEUROLOGICAL PROBLEM: Bilateral cerebral dysfunction. PHYSICAL EXAMINATION: VITAL SIGNS: Blood pressure 101/72, mean arterial pressure of 81, respiratory rate is 16, temperature is 97.2. NEUROLOGICAL: The patient is awake, alert, oriented to person, place. He would like to go to home for this [place]. He moves all 4 extremities against the gravity. Cranial nerve examination seems to be intact. DIAGNOSTIC STUDIES: His workup, CT of the head without any focal pathology noted. ASSESSMENT AND PLAN: From a neurologic point, patient is stable. If medically stable, patient can be discharged and should have followup visit as an outpatient. Daniel Sebastian MD
[2017-05-31] MEDS ORDERED: Sodium Chloride 0.9% 20 ML IV ONE (11:31)
[2017-05-31] MEDS ORDERED: Oxycodone/Acetaminophen 5/325 mg Tab PO PRN (11:54)
--- NOTE | 2017-05-31 11:54 | PCM.SURG1 ---
Surgeon's Initial Post Op Note - Surgeon's Notes Surgeon: Radha Logging Truck Driver: Foster PGY1 Type of Anesthesia: IV Sedation, Local Pre-Operative Diagnosis: Lung cancer Operative Findings: see operative report Post-Operative Diagnosis: same Operation Performed: Right Internal Jugular Tunneled port-a-cath placement Specimen/Specimens Removed: none Estimated Blood Loss: EBL {In ML}: 20 Blood Products Given: N/A Drains Used: No Drains Post-Op Condition: Good Date of Surgery/Procedure: 05/31/17 Time of Surgery/Procedure: 11:53
--- NOTE | 2017-05-31 13:17 | RAD ---
Chest x-ray single frontal view History: Port-A-Cath placement. Comparison: 05/24/2017 Findings: Right chest wall port with tip extending to the mid right SVC. Large loculated right and moderate loculated left pleural effusion. Moderate to severe venous congestion. Confluent airspace opacifications in the right mid to lower lung zone as well as the left mid to lower lung zone. Cardiomegaly. Calcification at the aortic knob. Degenerative changes in the spine with paravertebral osteophytes. Impression: Right chest wall port with tip extending to the mid right SVC. Large loculated right and moderate loculated left pleural effusion. Moderate to severe venous congestion. Confluent airspace opacifications in the right mid to lower lung zone as well as the left mid to lower lung zone. Cardiomegaly. Calcification at the aortic knob.
[2017-05-31] MEDS: Digoxin 250 mcg (0.25 mg) Tab PO SCH (17:37)
--- NOTE | 2017-06-01 01:52 | OP ---
PROCEDURE DATE: 05/31/2017 PREOPERATIVE DIAGNOSIS: A lung cancer. POSTOPERATIVE DIAGNOSIS: A lung cancer. PROCEDURE DONE: Right IJ Port-A-Cath insertion. US guided venous access Intra Operative fluoroscopy SURGEON: Dr. Cristina Garcia. PHOTOGRAPHER PORTRAIT: Vamshi Hutchison, PGY-1 resident. PROCEDURE: The first part of the operation is right IJ Port-A-Cath insertion. Second part of the procedure is ultrasound-guided venous access. The third procedure is intraoperative fluoroscopy. ANESTHESIA: Local anesthesia plus sedation. ESTIMATED BLOOD LOSS: Around 10 mL. DRAIN: None. PATHOLOGY: None. INTRAOPERATIVE FINDINGS: The patient had patent right IJ. INTRAOPERATIVE STEPS: This is a 67-year-old male who was diagnosed with a lung cancer and the patient needed chemo and radiation and the patient was consented for the Port-A-Cath insertion, brought to the OR, placed on the operating table. After induction of the sedation, the neck and upper chest was prepped and draped, and under local anesthesia, the right IJ venous access was done. Guidewire was placed and fluoroscopic confirmation was done. After that, incision was made in the right infraclavicular area, and pouch was created. The catheter was tunneled from the pouch up to the right IJ insertion site and catheter was placed into the dilator sheath and intraoperative fluoroscopic confirmation was done for the proper placement, and the catheter was connected to the port and the port was sutured to the floor of the pouch. The wound was closed in 2 layers; subQ with a 2-0 Vicryl, skin with 4-0 Monocryl; and the dry sterile dressing was applied. Intraoperatively, the port was accessed, and the port was functioning without any blockage and there was good aspiration of the blood return. Afterwards, the port was flushed with heparin flush, as well as the straight heparin, and the dry sterile dressing was applied. The patient tolerated the procedure well. Count of the instrument and gauze was correct. There was no apparent complication. The patient was reversed from sedation and sent to the Postanesthesia Care Unit in stable condition. Jose Garcia MD [facility] # [id number] MTDD
--- NOTE | 2017-06-01 07:00 | CP.PCM.PN ---
Subjective - Date & Time of Evaluation Date of Evaluation: 06/01/17 Time of Evaluation: 06:59 - Subjective Subjective: will dictate the note Objective - Vital Signs/Intake and Output Vital Signs (last 24 hours): Temp Pulse Resp BP Pulse Ox 97.2 F L 65 20 109/78 95 06/01/17 01:00 06/01/17 01:00 06/01/17 01:00 06/01/17 01:00 06/01/17 01:00 Intake and Output: 05/31/17 06/01/17 18:59 06:59 Intake Total 400 Balance 400 - Medications Medications: Current Medications Apixaban (Eliquis) 5 mg PO BID [facility] Last Admin: 05/31/17 17:37 Dose: 5 mg Digoxin (Lanoxin) 0.25 mg PO DAILY@1800 [facility] Last Admin: 05/31/17 17:37 Dose: 0.25 mg Diltiazem HCl (Cardizem) 30 mg PO TID [facility] Last Admin: 05/31/17 17:37 Dose: 30 mg Levetiracetam (Keppra) 500 mg PO BID [facility] Oxycodone/Acetaminophen (Percocet 5/325 Mg Tab) 1 tab PO Q6H PRN PRN Reason: Pain, moderate (4-7) Stop: 06/03/17 11:55 Zoledronic Acid (Zometa) 4 mg IV ONCE ONE Stop: 05/29/17 09:01 - Labs Labs: 05/31/17 07:19 05/31/17 07:19 PT 17.2 SECONDS (9.7-12.2) H 05/31/17 07:19 INR 1.5 05/31/17 07:19 APTT 33 SECONDS (21-34) 05/31/17 07:19
--- NOTE | 2017-06-01 07:57 | PN ---
DATE: 06/01/2017 NEUROLOGICAL PROBLEM: Change in mental status. PHYSICAL EXAMINATION: VITAL SIGNS: Blood pressure 109/78, mean arterial pressure of 88, respiratory rate 18, temperature 97.2, pulse rate 65. NEUROLOGICAL: The patient's mental status, which is unchanged. He is agitated, would like to go home as he has been telling ever since his admission. He moves all 4 extremities. He knows he is in the hospital. Speech is coherent. LABORATORY DATA: His workup, electroencephalogram reviewed showed left cortical paroxysmal activities consistent with seizures. His requested MRI of the brain is still pending. ASSESSMENT AND PLAN: From neurological point of view, I would like to start him on Keppra, which was started last night 500 mg twice a day. Other treatment point of view, he has been getting radiation to be continued. The patient's condition also discussed with the oncologist. The patient will be followed closely with you. Daniel Sebastian MD
[2017-06-01 07:59] LABS: BASO % 0.2 % (0.0-2.0); EOS % 0.1 % (0.0-4.0); HEMATOCRIT 36.5 % (35.0-51.0); LYMPH # 0.5 K/uL (1.0-4.3); LYMPH % 4.6 % (20.0-40.0); MEAN CELL VOLUME 92.7 fL (80.0-94.0); MEAN CORPUSCULAR HEMOGLOBIN 30.3 pg (27.0-31.0); MEAN CORPUSCULAR HGB CONC 32.7 g/dL (33.0-37.0); MEAN PLATELET VOLUME 8.1 fL (7.2-11.7); MONO # 0.6 K/uL (0.0-0.8); MONO % 6.2 % (0.0-10.0); NRBC % 0.1 % (0.0-2.0); PLATELET COUNT 232 K/uL (130-400); RED CELL DISTRIBUTION WIDTH 16.9 % (11.5-14.5); WHITE BLOOD COUNT 10.2 K/uL (4.8-10.8)
[2017-06-01 08:17] LABS: ALKALINE PHOSPHATASE 71 U/L (38-126); ALT/SGPT 29 U/L (21-72); AST/SGOT 22 U/L (17-59); BILIRUBIN,TOTAL 1.2 mg/dL (0.2-1.3); BLOOD UREA NITROGEN 11 mg/dL (9-20); CALCIUM 9.8 mg/dl (8.6-10.4); CARBON DIOXIDE 31 mmol/L (22-30); CHLORIDE 98 mmol/L (98-107); GFR AFRICAN-AMERICAN > 60; GLUCOSE,RANDOM 80 mg/dL (75-110); POTASSIUM 3.6 mmol/L (3.6-5.2); SODIUM 131 mmol/L (132-148); TOTAL PROTEIN 4.9 g/dL (6.3-8.3)
--- NOTE | 2017-06-01 08:30 | RAD ---
PROCEDURE: CHEST RADIOGRAPH, 1 VIEW HISTORY: POST PORTCATH INSERTION COMPARISON: 05/31/2017 FINDINGS: LUNGS: Persistent large loculated right and moderate left pleural effusion. Moderate to severe venous congestion and/or interstitial infiltrates. More patchy consolidative changes in the right mid to lower lung zone and left mid to lower lung zone. Right chest wall port with tip extending to the distal right SVC. PLEURA: As above. CARDIOVASCULAR: Cardiomegaly. OSSEOUS STRUCTURES: Degenerative changes in the spine. VISUALIZED UPPER ABDOMEN: Normal. OTHER FINDINGS: None. IMPRESSION: Persistent large loculated right and moderate left pleural effusion. Moderate to severe venous congestion and/or interstitial infiltrates. More patchy consolidative changes in the right mid to lower lung zone and left mid to lower lung zone. Right chest wall port with tip extending to the distal right SVC.
[2017-06-01 10:18] LABS: NEUTROPHIL 94 % (50-75); TOTAL CELLS COUNTED 100
--- NOTE | 2017-06-01 10:30 | CP.PCM.PN ---
<FosterVamshi azar - Last Filed: 06/01/17 10:28> Subjective - Date & Time of Evaluation Date of Evaluation: 06/01/17 Time of Evaluation: 07:00 - Subjective Subjective: Surgery Progress note. Dr. Garcia Pt seen and examined at bedside. No acute events overnight. Patient denies any complaints. No N/V/D. No F/C. Planned for radiation treatment at [place] later this afternoon. Objective - Vital Signs/Intake and Output Vital Signs (last 24 hours): Temp Pulse Resp BP Pulse Ox 97.4 F L 62 20 100/70 96 06/01/17 07:00 06/01/17 07:00 06/01/17 07:00 06/01/17 07:00 06/01/17 07:00 Intake and Output: 06/01/17 06/01/17 06:59 18:59 Intake Total 400 Balance 400 - Medications Medications: Current Medications Apixaban (Eliquis) 5 mg PO BID [facility] Last Admin: 05/31/17 17:37 Dose: 5 mg Digoxin (Lanoxin) 0.25 mg PO DAILY@1800 [facility] Last Admin: 05/31/17 17:37 Dose: 0.25 mg Diltiazem HCl (Cardizem) 30 mg PO TID [facility] Last Admin: 05/31/17 17:37 Dose: 30 mg Levetiracetam (Keppra) 500 mg PO BID [facility] Oxycodone/Acetaminophen (Percocet 5/325 Mg Tab) 1 tab PO Q6H PRN PRN Reason: Pain, moderate (4-7) Stop: 06/03/17 11:55 Zoledronic Acid (Zometa) 4 mg IV ONCE ONE Stop: 05/29/17 09:01 - Labs Labs: 06/01/17 07:41 06/01/17 07:41 PT 17.2 SECONDS (9.7-12.2) H 05/31/17 07:19 INR 1.5 05/31/17 07:19 APTT 33 SECONDS (21-34) 05/31/17 07:19 - Constitutional Appears: Well, Non-toxic, No Acute Distress - Head Exam Head Exam: ATRAUMATIC, NORMAL INSPECTION, NORMOCEPHALIC - Eye Exam Eye Exam: EOMI - ENT Exam ENT Exam: Mucous Membranes Moist - Respiratory Exam Respiratory Exam: NORMAL BREATHING PATTERN. absent: Accessory Muscle Use, Respiratory Distress Additional comments: Right chest dressing was not in place this morning. Cleaned/prepped area again and replaced steri-strips and clean dressing reapplied. - Cardiovascular Exam Cardiovascular Exam: +S1, +S2. absent: JVD - GI/Abdominal Exam GI & Abdominal Exam: Soft. absent: Distended, Firm, Guarding, Rigid, Tenderness - Extremities Exam Extremities Exam: Normal Inspection. absent: Calf Tenderness - Neurological Exam Neurological Exam: Alert, Awake, Oriented x3 Assessment and Plan - Assessment and Plan (Free Text) Assessment: 67yo M with lung CA, s/p portacath placement on 05/31. POD1 - Ensure dressing is intact, clean and dry. Do not remove steristrips until they fall off on their own - Cleared for discharge from surgery standpoint - Follow up with Dr. Garcia in clinic. Call for appointment Further recs as per Dr. Deanne Hutchison PGY1 Surgery pager: [phone] <Jose Garcia B - Last Filed: 06/03/17 17:51> Objective - Vital Signs/Intake and Output Vital Signs (last 24 hours): Temp Pulse Resp BP Pulse Ox 98 F 107 H 20 110/75 95 06/02/17 19:30 06/02/17 19:30 06/02/17 19:30 06/02/17 19:30 06/02/17 19:30 Intake and Output: 06/03/17 06/03/17 06:59 18:59 Intake Total 250 Balance 250 - Labs Labs: 06/01/17 07:41 06/01/17 07:41 PT 17.2 SECONDS (9.7-12.2) H 05/31/17 07:19 INR 1.5 05/31/17 07:19 APTT 33 SECONDS (21-34) 05/31/17 07:19 Attending/Attestation - Attestation I have personally seen and examined this patient.: Yes I have fully participated in the care of the patient.: Yes I have reviewed all pertinent clinical information, including history, physical exam and plan: Yes Notes (Text): Pt was seen and examined at bedside Agree with above note and assessment
--- NOTE | 2017-06-01 12:46 | CP.PCM.PN ---
Subjective - Date & Time of Evaluation Date of Evaluation: 06/01/17 Time of Evaluation: 12:43 - Subjective Subjective: PT CAME BACK FROM RADIATION. TACHYPNIC. HYPOTENSIVE. TACHYCARDIC. CA LUNGS. COPD. Objective - Vital Signs/Intake and Output Vital Signs (last 24 hours): Temp Pulse Resp BP Pulse Ox 97.4 F L 102 H 22 115/78 98 06/01/17 07:00 06/01/17 11:57 06/01/17 11:57 06/01/17 11:57 06/01/17 11:57 Intake and Output: 06/01/17 06/01/17 06:59 18:59 Intake Total 400 Balance 400 - Medications Medications: Current Medications Apixaban (Eliquis) 5 mg PO BID [facility] Last Admin: 06/01/17 12:00 Dose: 5 mg Digoxin (Lanoxin) 0.25 mg PO DAILY@1800 [facility] Last Admin: 05/31/17 17:37 Dose: 0.25 mg Diltiazem HCl (Cardizem) 30 mg PO TID [facility] Last Admin: 06/01/17 12:00 Dose: 30 mg Levetiracetam (Keppra) 500 mg PO BID [facility] Last Admin: 06/01/17 11:59 Dose: 500 mg Oxycodone/Acetaminophen (Percocet 5/325 Mg Tab) 1 tab PO Q6H PRN PRN Reason: Pain, moderate (4-7) Stop: 06/03/17 11:55 Zoledronic Acid (Zometa) 4 mg IV ONCE ONE Stop: 05/29/17 09:01 - Labs Labs: 06/01/17 07:41 06/01/17 07:41 PT 17.2 SECONDS (9.7-12.2) H 05/31/17 07:19 INR 1.5 05/31/17 07:19 APTT 33 SECONDS (21-34) 05/31/17 07:19 - Constitutional Appears: No Acute Distress, Chronically Ill - Eye Exam Eye Exam: Normal appearance, PERRL - ENT Exam ENT Exam: Mucous Membranes Moist - Respiratory Exam Respiratory Exam: Decreased Breath Sounds, Rhonchi - Cardiovascular Exam Cardiovascular Exam: Tachycardia, REGULAR RHYTHM, +S1, +S2 - GI/Abdominal Exam GI & Abdominal Exam: Soft, Normal Bowel Sounds - Extremities Exam Extremities Exam: Full ROM, Normal Capillary Refill, Normal Inspection. absent : Joint Swelling, Pedal Edema - Back Exam Back Exam: NORMAL INSPECTION - Neurological Exam Neurological Exam: Alert, Awake, CN II-XII Intact, Normal Gait, Oriented x3 Assessment and Plan - Assessment and Plan (Free Text) Assessment: SAME. Plan: FOR D/C CARDIZEM. CT DIGOXIN. DISCUSS WITH DR. FERNANDES FOR CHEMOTHERAPY. RESP TREATMENT.
--- NOTE | 2017-06-01 14:31 | EEG ---
DATE: 05/27/2017 This is a 16-channel electroencephalogram of awake and lethargic adult. During the study, photic stimulation was performed, hyperventilation was not performed. The resting electroencephalogram began with 30 to 40 microvolts diffuse delta activities mixed with low theta activities noted which followed with paroxysmal polyspike and wave activities noted over the left cortical leads followed with generalized slow activities noted. These paroxysmal activities lasted for about 3 to 4 seconds. There is some movement artifact contaminated with the background rhythm. The photic stimulation did not evoke driving response noted at 2 to 20 Hz. IMPRESSION: This is an abnormal electroencephalogram because of polyspike and wave activities noted over the left cortical leads associated with generalized slow activities consistent with epileptiform activities. Please correlate the findings with neurological and radiological studies. Daniel Sebastian MD
[2017-06-01] MEDS ORDERED: Gadodiamide 287 MG/ML VIAL (15ML) IV ONE (15:41)
--- NOTE | 2017-06-01 16:35 | MRI ---
PROCEDURE: MRI BRAIN WITH AND WITHOUT CONTRAST HISTORY: mets COMPARISON: None. TECHNIQUE: Multiplanar, multisequence MR images of the brain were obtained with and without intravenous contrast enhancement. FINDINGS: HEMORRHAGE: None DWI: No evidence of an acute or early subacute infarction. BRAIN PARENCHYMA: Diffuse expansion of the ventriculosulcal and cisternal spaces is appreciated with white matter signal changes compatible with diffuse cerebral atrophy and chronic microangiopathy. There is no mass effect or suspicious extra-axial fluid collection identified. Midline brain and appears grossly nonfocal and there is no abnormal intracranial enhancement identified at this time. ENHANCEMENT: No abnormal intracranial enhancement. VENTRICLES: Unremarkable. No hydrocephalus. CRANIUM: Unremarkable. ORBITS: Grossly unremarkable. PARANASAL SINUSES/MASTOIDS: Clear VASCULAR SYSTEM: Skull base flow voids intact. OTHER FINDINGS: None . IMPRESSION: Age-related neuro degenerative changes are identified which appear age-appropriate in general. No abnormal intracranial enhances appreciate to define intracranial metastasis or other suspicious lesion.
[2017-06-01] MEDS: Digoxin 250 mcg (0.25 mg) Tab PO SCH (17:37)
[2017-06-02 00:41] VITALS: RESP 20
--- NOTE | 2017-06-02 14:26 | CP.PCM.PN ---
Subjective - Date & Time of Evaluation Date of Evaluation: 06/02/17 Time of Evaluation: 14:23 - Subjective Subjective: MEDICALLY STABLE. NEEDS TO CT RADIATION THERAPY. NEEDS ZAC. WENT TO [facility] FOR RADIATION. AFEBRILE. Objective - Vital Signs/Intake and Output Vital Signs (last 24 hours): Temp Pulse Resp BP Pulse Ox 98 F 110 H 20 101/67 96 06/02/17 06:50 06/02/17 14:17 06/02/17 06:50 06/02/17 06:50 06/02/17 06:50 Intake and Output: 06/02/17 06/02/17 06:59 18:59 Intake Total 100 650 Output Total 500 Balance 100 150 - Medications Medications: Current Medications Apixaban (Eliquis) 5 mg PO BID [facility] Last Admin: 06/02/17 12:05 Dose: 5 mg Digoxin (Lanoxin) 0.25 mg PO DAILY@1800 [facility] Last Admin: 06/01/17 17:37 Dose: 0.25 mg Levetiracetam (Keppra) 500 mg PO BID [facility] Last Admin: 06/02/17 12:05 Dose: 500 mg Oxycodone/Acetaminophen (Percocet 5/325 Mg Tab) 1 tab PO Q6H PRN PRN Reason: Pain, moderate (4-7) Stop: 06/03/17 11:55 Zoledronic Acid (Zometa) 4 mg IV ONCE ONE Stop: 05/29/17 09:01 - Labs Labs: 06/01/17 07:41 06/01/17 07:41 PT 17.2 SECONDS (9.7-12.2) H 05/31/17 07:19 INR 1.5 05/31/17 07:19 APTT 33 SECONDS (21-34) 05/31/17 07:19 - Constitutional Appears: No Acute Distress, Chronically Ill - Eye Exam Eye Exam: Normal appearance, PERRL - ENT Exam ENT Exam: Mucous Membranes Moist - Respiratory Exam Respiratory Exam: Decreased Breath Sounds, NORMAL BREATHING PATTERN - Cardiovascular Exam Cardiovascular Exam: REGULAR RHYTHM, +S1, +S2 - GI/Abdominal Exam GI & Abdominal Exam: Soft, Normal Bowel Sounds - Extremities Exam Extremities Exam: Full ROM, Normal Capillary Refill, Normal Inspection. absent : Joint Swelling, Pedal Edema Assessment and Plan - Assessment and Plan (Free Text) Assessment: CA LUNGS. COPD. Plan: FOR TRANSFER TO [facility] FOR ZAC AND CT OF RADIATION THERAPY. CT OTHER MANAGEMENT. DISCUSSED WITH PT ABOUT THE PLAN AND AGREED.
--- NOTE | 2017-06-02 15:50 | CP.PCM.PN ---
Subjective - Date & Time of Evaluation Date of Evaluation: 06/02/17 Time of Evaluation: 15:46 - Subjective Subjective: PT SEEN AT BEDSIDE WITH DR. Gertrude PARK AND CLEARED FOR D/C TO [facility] TODAY. AFTER A LENGTHY DISCUSSION WITH THE PT, HE HAS AGREED TO GO TO [facility] UNTIL HE IS DONE WITH THE RADIATION. I SPOKE TO TREY AT THE [facility] [phone]; SHE CONFIRMED THAT THE PT HAS 6 MORE SESSIONS LEFT AND HIS LAST DAY WILL BE ON 06/10/17; SESSIONS START AT 10 AM. TREY ALSO MADE AWARE THAT TRANSPORTATION TO AND FROM [facility] TO [place] HAS BEEN ARRANGED BY [place]. PT AGREES TO GO TO [facility] UNTIL THEN. DR. Gertrude PARK MADE ARE OF THE RADIATION DURATION. PT TO BE FOLLOWED BY DR. HILL WHILE [facility] AND AFTER ZAC D/C HE WILL F/U WITH DR. Gertrude YAN AND FLAVIO. STERI STRIPS WILL FALL OF ON THEIR OWN AND NOT TO BE REMOVED. SW TO ARRANGE TRANSPORTATION TO [facility] TODAY. Objective - Vital Signs/Intake and Output Vital Signs (last 24 hours): Temp Pulse Resp BP Pulse Ox 98 F 110 H 20 101/67 96 06/02/17 06:50 06/02/17 14:17 06/02/17 06:50 06/02/17 06:50 06/02/17 06:50 Intake and Output: 06/02/17 06/02/17 06:59 18:59 Intake Total 100 650 Output Total 500 Balance 100 150 - Medications Medications: Current Medications Apixaban (Eliquis) 5 mg PO BID [facility] Last Admin: 06/02/17 12:05 Dose: 5 mg Digoxin (Lanoxin) 0.25 mg PO DAILY@1800 [facility] Last Admin: 06/01/17 17:37 Dose: 0.25 mg Levetiracetam (Keppra) 500 mg PO BID [facility] Last Admin: 06/02/17 12:05 Dose: 500 mg Oxycodone/Acetaminophen (Percocet 5/325 Mg Tab) 1 tab PO Q6H PRN PRN Reason: Pain, moderate (4-7) Stop: 06/03/17 11:55 Zoledronic Acid (Zometa) 4 mg IV ONCE ONE Stop: 05/29/17 09:01 - Labs Labs: 06/01/17 07:41 06/01/17 07:41 PT 17.2 SECONDS (9.7-12.2) H 05/31/17 07:19 INR 1.5 05/31/17 07:19 APTT 33 SECONDS (21-34) 05/31/17 07:19
[2017-06-02 17:16] VITALS: PULSE 110
[2017-06-02] MEDS: Digoxin 250 mcg (0.25 mg) Tab PO SCH (17:16)
[2017-06-03 00:04] VITALS: BP 110/75; PULSE 107; TEMP 98; O2SAT 95
--- NOTE | 2017-06-03 16:38 | RAD ---
COMPARISON: None PROCEDURE: PORT A CATH INSERTION HISTORY: For Port-A-Cath insertion TECHNIQUE: Total fluoroscopic time utilized during the procedure: 10 point sick seconds. Total dose 0.99017 mGy cm squared FINDINGS: Submitted images from the current procedure: 1 Please refer to the physician's notes performing the procedure. Port-A-Cath tip insertion internal jugular vein approach tip at superior vena cava IMPRESSION: Less than 1 hour fluoroscopic time utilized during performance of the procedure
--- NOTE | 2017-06-08 12:08 | DS ---
HISTORY OF PRESENT ILLNESS: This is a 67-year-old white male who was sent to the emergency room from Dr. Curry's office. Patient went there for checkup. Patient has severe general debility with dizziness and fatigue. Patient has history of CA of the lungs and is pending start of chemotherapy. Patient complained of dyspnea on exertion and shortness of breath. PAST MEDICAL HISTORY: History of CA of the lungs, COPD, hypertension, atherosclerotic heart disease. SOCIAL HISTORY: Patient is smoker. No alcoholism. PHYSICAL EXAMINATION: VITAL SIGNS: On admission, patient was afebrile. Vital signs normal. Tachypneic, dyspneic. LUNGS: Have rales and wheezing allover. HEART: S1 and S2 normal. No gallop. No murmur. ABDOMEN: Soft and nontender. No organomegaly. CENTRAL NERVOUS SYSTEM: No focal neurological deficits. Patient was admitted. During the hospital course, patient has leukocytosis. Kidney functions were within normal limit. Hypokalemia was present. EKG showed atrial fibrillation with rapid ventricular rate. Patient has echocardiogram done. Pulmonary evaluation was obtained by Dr. Morales. Dr. Curry was consulted for Oncology. Patient has Port-A-Cath kept during the hospital course for future chemotherapy. Patient also has radiation treatment at [facility] done. Patient was discharged to [facility] for subacute rehab and continuation of radiation therapy. Respiratory treatment was continued. FINAL DIAGNOSES: Cancer of the lungs, generalized weakness and fatigue, chronic obstructive pulmonary disease. Freda Masters MD
== END 2017-06-02 19:45 | DRG 180 ==
LOC: C.ER 15:38 → C.9E 18:11 → C.6T 20:14 → OBSVTOIN 05-25 15:16
PROVIDERS: ADMIT Internal Medicine; ATTEND Internal Medicine
PROC: 02HV33Z Insertion of Infusion Device into Superior Vena Cava, Percutaneous Approach (ICD-10-PCS; 2017-05-31)
PROC: 0JH60WZ Insertion of Totally Implantable Vascular Access Device into Chest Subcutaneous Tissue and Fascia, Open Approach (ICD-10-PCS; principal; 2017-05-31 12:00)
DX: C34.90 Malignant neoplasm of unspecified part of unspecified bronchus or lung (principal); I26.99 Other pulmonary embolism without acute cor pulmonale; J96.90 Respiratory failure, unspecified, unspecified whether with hypoxia or hypercapnia; I48.91 Unspecified atrial fibrillation; G40.209 Localization-related (focal) (partial) symptomatic epilepsy and epileptic syndromes with complex partial seizures, not intractable, without status epilepticus; G81.94 Hemiplegia, unspecified affecting left nondominant side; G62.9 Polyneuropathy, unspecified; E83.52 Hypercalcemia; R64 Cachexia; I50.9 Heart failure, unspecified; J44.9 Chronic obstructive pulmonary disease, unspecified; F17.210 Nicotine dependence, cigarettes, uncomplicated; R53.1 Weakness

== ENCOUNTER 2017-06-17 13:07 | Inpatient (IN) | payer MEDICARE ==
[2017-06-17 13:52] LABS: BASO % 0.5 % (0.0-2.0); HEMOGLOBIN 13.4 g/dL (12.0-18.0); LYMPH # 0.3 K/uL (1.0-4.3); MEAN CELL VOLUME 94.3 fL (80.0-94.0); MEAN CORPUSCULAR HEMOGLOBIN 30.5 pg (27.0-31.0); MEAN CORPUSCULAR HGB CONC 32.3 g/dL (33.0-37.0); MEAN PLATELET VOLUME 10.9 fL (7.2-11.7); MONO # 0.3 K/uL (0.0-0.8); MONO % 4.5 % (0.0-10.0); NRBC % 0.2 % (0.0-2.0); RBC 4.38 Mil/uL (4.40-5.90); RED CELL DISTRIBUTION WIDTH 21.1 % (11.5-14.5); WHITE BLOOD COUNT 7.7 K/uL (4.8-10.8)
[2017-06-17 13:58] LABS: VENOUS BLOOD GAS BASE EXCESS 6.7 mmol/L (0.0-2.0); VENOUS BLOOD GAS PCO2 75 mmHg (40-60); VENOUS BLOOD GAS PO2 39 mm/Hg (30-55); VENOUS BLOOD PH 7.29 (7.32-7.43)
[2017-06-17 14:00] LABS: PLATELET COUNT 86 K/uL (130-400)
[2017-06-17] MEDS ORDERED: Albuterol-Ipratrop 3 mg / 0.5 (3 ml) UD ONE (14:10)
[2017-06-17 14:16] LABS: ALB/GLOB RATIO 0.9 (1.0-2.1); ALBUMIN 2.8 g/dL (3.5-5.0); ALT/SGPT 66 U/L (21-72); AST/SGOT 56 U/L (17-59); BLOOD UREA NITROGEN 42 mg/dL (9-20); CALCIUM 9.1 mg/dl (8.6-10.4); GFR AFRICAN-AMERICAN > 60; GFR NON-AFRICAN AMERICAN > 60; MAGNESIUM 1.9 mg/dL (1.6-2.3)
[2017-06-17] MEDS: Albuterol-Ipratrop 3 mg / 0.5 (3 ml) UD IH SCH ×3 (14:20→14:47)
--- NOTE | 2017-06-17 14:22 | RAD ---
PROCEDURE: CHEST RADIOGRAPH, 1 VIEW HISTORY: SOB COMPARISON: 06/01/2017 FINDINGS: LUNGS: Extensive right-sided pulmonary opacity in mid to lower right lung. . Abnormal opacity at left base improved compared to prior examination. PLEURA: Decreased right pleural effusion compared to prior examination. . No evidence of left pleural effusion. No pneumothorax. There is right apical pleural thickening. CARDIOVASCULAR: Normal heart size. Right central venous infusion port. OSSEOUS STRUCTURES: No significant abnormalities. VISUALIZED UPPER ABDOMEN: Normal. OTHER FINDINGS: None. IMPRESSION: Extensive abnormal right-sided pulmonary opacity. Possible pneumonia. Decreased right pleural effusion. Abnormal opacity at left base, improved compared to prior examination.
[2017-06-17 14:38] LABS: ANISOCYTOSIS MODERATE; BANDS 1 % (0-2); LYMPHOCYTE 3 % (20-40); MONOCYTE 5 % (0-10); NEUTROPHIL 90 % (50-75); PLATELET ESTIMATE DECREASED (NORMAL); REACTIVE LYMPHOCYTES 1 % (0-0); TARGET CELLS SLIGHT; TOTAL CELLS COUNTED 100
[2017-06-17 14:43] LABS: B-TYPE NATRIURETIC PEPTIDE 10300 pg/mL (0-900)
[2017-06-17] MEDS ORDERED: Piperacillin/Tazobact 3.375 gm 100 ML IVPB STA (15:19)
[2017-06-17] MEDS ORDERED: Magnesium Hydroxide Susp 30 ml UD PO PRN (15:48)
[2017-06-17] MEDS ORDERED: Alum-Mag Hydrox-Simethicone Susp (30 mL) PO PRN (15:48)
[2017-06-17] MEDS ORDERED: Home Med 1 UNIT (Amino Acids/Protein Hydrolys [Prostat 15 G Packet] 30 ML) PO SCH (16:00)
[2017-06-17] MEDS ORDERED: Vancomycin 1 gm/NS 200 ml 1 GM/200 ML BAG IVPB ONE (16:00)
--- NOTE | 2017-06-17 16:02 | CP.PCM.CON ---
Addendum entered and electronically signed by Renee Phillip DO 06/17/17 18:48: Physical examination: clubbing of fingernails bilaterally Original Note: <Renee Phillip - Last Filed: 06/17/17 16:03> History of Present Illness - History of Present Illness History of Present Illness: Consult Note for Dr. Calles Patient [facility] breath. Patient denies any complaints, but patient is a poor historian. Per ER physician, patient was tachypneic and required BIPAP. VBG with shock was drawn prior to BIPAP, and patient was noted to have acidemia, respiratory acidosis. 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) , COPD, s/p radiation therapy, seizure history PSH: portacath insertion may 2017 Family history: Social history: patient smokes PMD: Past Patient History - Infectious Disease Hx of Infectious Diseases: None - Past Medical History & Family History Past Medical History?: Yes - Past Social History Smoking Status: Heavy Smoker > 10 Cigarettes Daily - CARDIAC Hx Cardiac Disorders: No - PULMONARY Hx Chronic Obstructive Pulmonary Disease (COPD): Yes - NEUROLOGICAL Hx Neurological Disorder: No Hx Seizures: Yes - HEENT Hx HEENT Problems: No - RENAL Hx Chronic Kidney Disease: No - ENDOCRINE/METABOLIC Hx Endocrine Disorders: No - HEMATOLOGICAL/ONCOLOGICAL Hx Blood Disorders: No Hx Cancer: Yes (lung) - INTEGUMENTARY Hx Dermatological Problems: Yes Other/Comment: sacral excoriation - MUSCULOSKELETAL/RHEUMATOLOGICAL Hx Musculoskeletal Disorders: No Hx Falls: No - GASTROINTESTINAL Hx Gastrointestinal Disorders: No - GENITOURINARY/GYNECOLOGICAL Hx Genitourinary Disorders: No - PSYCHIATRIC Hx Psychophysiologic Disorder: No Hx Substance Use: No - SURGICAL HISTORY Hx Surgeries: No - ANESTHESIA Hx Anesthesia: No Meds Allergies/Adverse Reactions: Allergies Allergy/AdvReac Type Severity Reaction Status Date / Time No Known Allergies Allergy Verified 05/24/17 15:46 - Medications Medications: Current Medications Al Hydrox/Mg Hydrox/Simethicone (Maalox Plus 30 Ml) 30 ml PO Q4 PRN PRN Reason: GI distress Albuterol/Ipratropium (Duoneb 3 Mg/0.5 Mg (3 Ml) Ud) 3 ml INH RQ6 AYUSH Apixaban (Eliquis) 5 mg PO BID AYUSH Bacitracin (Bacitracin) gm TOP QSHIFT AYUSH Collagenase (Santyl) gm TOP DAILY ON LICENSE OF [facility] Home Med (Amino Acids/Protein Hydrolys [Prostat 15 G Packet]) 30 ml PO DAILY ON LICENSE OF [facility] Home Med (Lactose-Reduced Food [Ensure Plus]) 240 ml PO BID ON LICENSE OF [facility] Home Med (Tylenol 325mg Tab) 2 tab PO Q4 PRN PRN Reason: Fever >100.4 F Vancomycin/Sodium Chloride (Vancomycin 1 Gm/Ns 200 Ml) 1 gm in 200 mls @ 133.333 mls/hr IVPB ONCE ONE Stop: 06/17/17 17:29 Piperacillin Sod/Tazobactam (Sod 3.375 gm/ Sodium Chloride) 100 mls @ 200 mls/ hr IVPB Q8H AYUSH Vancomycin HCl 1,000 mg/ (Sodium Chloride) 250 mls @ 166.6 mls/hr IVPB ONCE ONE Stop: 06/17/17 17:20 Levetiracetam (Keppra) 500 mg PO BID ON LICENSE OF [facility] Magnesium Hydroxide (Milk Of Magnesia) 30 ml PO DAILY PRN PRN Reason: Constipation Potassium Chloride (Potassium Chloride Oral Soln) 40 meq PO DAILY ON LICENSE OF [facility] Physical Exam - Constitutional Appears: Non-toxic, No Acute Distress - Head Exam Head Exam: NORMAL INSPECTION - Eye Exam Eye Exam: EOMI, Normal appearance Pupil Exam: NORMAL ACCOMODATION - ENT Exam ENT Exam: Mucous Membranes Moist - Respiratory Exam Respiratory Exam: Accessory Muscle Use, Decreased Breath Sounds (right), Clear to Auscultation Bilateral, Respiratory Distress Additional comments: patient is on BIPAP 05/25 RR 12 FiO2 50% - Cardiovascular Exam Cardiovascular Exam: REGULAR RHYTHM, +S1, +S2 - GI/Abdominal Exam GI & Abdominal Exam: Normal Bowel Sounds, Soft. absent: Tenderness - Extremities Exam Extremities exam: Positive for: full ROM. Negative for: pedal edema Additional comments: abrasion on medial left calf - Neurological Exam Neurological exam: Alert, Altered - Psychiatric Exam Psychiatric exam: Normal Affect, Normal Mood - Skin Skin Exam: Dry, Intact, Normal Color, Pallor Results - Vital Signs Recent Vital Signs: Last Vital Signs Temp 96.9 F L 06/17/17 13:13 Pulse 95 H 06/17/17 15:41 Resp 15 06/17/17 15:41 BP 131/93 H 06/17/17 15:41 Pulse Ox 100 06/17/17 15:41 - Labs Result Diagrams: 06/17/17 13:49 06/17/17 13:49 Labs: Laboratory Results - last 24 hr 06/17/17 06/17/17 06/17/17 13:49 13:49 13:52 WBC 7.7 RBC 4.38 L Hgb 13.4 Hct 41.3 MCV 94.3 H MCH 30.5 MCHC 32.3 L RDW 21.1 H Plt Count 86 L D MPV 10.9 Neut % (Auto) 91.0 H Lymph % (Auto) 4.0 L [place] % (Auto) 4.5 Eos % (Auto) 0.0 Baso % (Auto) 0.5 Neut # 7.0 Lymph # 0.3 L [place] # 0.3 Eos # 0.0 Baso # 0.0 Neutrophils % (Manual) 90 H Band Neutrophils % 1 Lymphocytes % (Manual) 3 L Reactive Lymphs % 1 H Monocytes % (Manual) 5 Platelet Estimate Decreased L Anisocytosis (manual) Moderate Target Cells Slight pO2 39 VBG pH 7.29 L VBG pCO2 75 H* VBG HCO3 29.3 VBG Total CO2 38.4 H VBG O2 Sat (Calc) 65.3 H VBG Base Excess 6.7 H VBG Potassium 3.6 Glucose 111 H Lactate 2.9 H Crit Value Called To Crit Value Called By eJffy conrad Crit Value Read Back Y Blood Gas Notified Time 1358 Sodium 139 143.0 Potassium 3.6 Chloride 96 L 103.0 Carbon Dioxide 36 H Anion Gap 10 BUN 42 H Creatinine 0.9 Est GFR ( Amer) > 60 Est GFR (Non-Af Amer) > 60 Random Glucose 111 H Calcium 9.1 Magnesium 1.9 Total Bilirubin 1.9 H AST 56 ALT 66 Alkaline Phosphatase 81 Troponin I 0.1330 H* NT-Pro-B Natriuret Pep 98498 H Total Protein 6.0 L Albumin 2.8 L Globulin 3.2 Albumin/Globulin Ratio 0.9 L Venous Blood Potassium 3.6 Assessment & Plan - Assessment and Plan (Free Text) Assessment: 67M with PMH of pulmonary embolism (05/31/17), 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), COPD, s/p radiation therapy, seizure history Neuro: history of seizures Keppra 500mg POBID Tylenol 325mg PO Q4H PRN Cardio 06/17 EKG 91 bpm anterolateral ischemia 06/17 Troponin I 0.13 YUE 19:50 q6h x 2 Pulm hx PE (05/31/17) 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 Marli Phillip DO PGY1 - Date & Time Date: 06/17/17 Time: 16:02 <Marco Calles - Last Filed: 06/17/17 19:25> Meds - Medications Medications: Current Medications Acetaminophen (Tylenol 325mg Tab) 2 mg PO Q4 PRN PRN Reason: Fever >100.4 F Al Hydrox/Mg Hydrox/Simethicone (Maalox Plus 30 Ml) 30 ml PO Q4 PRN PRN Reason: GI distress Albuterol/Ipratropium (Duoneb 3 Mg/0.5 Mg (3 Ml) Ud) 3 ml INH RQ6 AYUSH Apixaban (Eliquis) 5 mg PO BID AYUSH Bacitracin (Bacitracin) 1 gm TOP QSHIFT AYUSH Collagenase (Santyl) 0 gm TOP DAILY AYUSH Piperacillin Sod/Tazobactam Sod (Zosyn 3.375 Gm Iv Premix) 3.375 gm in 50 mls @ 100 mls/hr IVPB Q8H AYUSH Levetiracetam (Keppra) 500 mg PO BID AYUSH Magnesium Hydroxide (Milk Of Magnesia) 30 ml PO DAILY PRN PRN Reason: Constipation Pantoprazole Sodium (Protonix Inj) 40 mg IVP Q12H ON LICENSE OF [facility] Last Admin: 12/28/17 16:55 Dose: 40 mg Potassium Chloride (Potassium Chloride Oral Soln) 40 meq PO DAILY AYUSH Results - Vital Signs Recent Vital Signs: Last Vital Signs Temp 96.4 F L 06/17/17 17:32 Pulse 92 H 06/17/17 17:32 Resp 15 06/17/17 17:32 BP 124/86 06/17/17 17:32 Pulse Ox 100 06/17/17 17:00 - Labs Result Diagrams: 06/17/17 13:49 06/17/17 13:49 Labs: Laboratory Results - last 24 hr 06/17/17 06/17/17 06/17/17 13:49 13:49 13:52 WBC 7.7 RBC 4.38 L Hgb 13.4 Hct 41.3 MCV 94.3 H MCH 30.5 MCHC 32.3 L RDW 21.1 H Plt Count 86 L D MPV 10.9 Neut % (Auto) 91.0 H Lymph % (Auto) 4.0 L [place] % (Auto) 4.5 Eos % (Auto) 0.0 Baso % (Auto) 0.5 Neut # 7.0 Lymph # 0.3 L [place] # 0.3 Eos # 0.0 Baso # 0.0 Neutrophils % (Manual) 90 H Band Neutrophils % 1 Lymphocytes % (Manual) 3 L Reactive Lymphs % 1 H Monocytes % (Manual) 5 Platelet Estimate Decreased L Anisocytosis (manual) Moderate Target Cells Slight Puncture Site pCO2 pO2 39 HCO3 ABG pH ABG Total CO2 ABG O2 Saturation ABG Base Excess Luciano Test ABG Potassium VBG pH 7.29 L VBG pCO2 75 H* VBG HCO3 29.3 VBG Total CO2 38.4 H VBG O2 Sat (Calc) 65.3 H VBG Base Excess 6.7 H VBG Potassium 3.6 A-a O2 Difference Respiratory Index Glucose 111 H Lactate 2.9 H FiO2 Inspiratory BiPAP Expiratory BiPAP Crit Value Called To Crit Value Called By Jeffy conrad Crit Value Read Back Y Blood Gas Notified Time 1358 Sodium 139 143.0 Potassium 3.6 Chloride 96 L 103.0 Carbon Dioxide 36 H Anion Gap 10 BUN 42 H Creatinine 0.9 Est GFR ( Amer) > 60 Est GFR (Non-Af Amer) > 60 Random Glucose 111 H Calcium 9.1 Magnesium 1.9 Total Bilirubin 1.9 H AST 56 ALT 66 Alkaline Phosphatase 81 Troponin I 0.1330 H* NT-Pro-B Natriuret Pep 05799 H Total Protein 6.0 L Albumin 2.8 L Globulin 3.2 Albumin/Globulin Ratio 0.9 L Arterial Blood Potassium Venous Blood Potassium 3.6 06/17/17 18:45 WBC RBC Hgb Hct MCV MCH MCHC RDW Plt Count MPV Neut % (Auto) Lymph % (Auto) [place] % (Auto) Eos % (Auto) Baso % (Auto) Neut # Lymph # [place] # Eos # Baso # Neutrophils % (Manual) Band Neutrophils % Lymphocytes % (Manual) Reactive Lymphs % Monocytes % (Manual) Platelet Estimate Anisocytosis (manual) Target Cells Puncture Site Rba pCO2 51 H pO2 61 L HCO3 30.4 H ABG pH 7.42 ABG Total CO2 34.7 H ABG O2 Saturation 93.7 L ABG Base Excess 7.2 H Luciano Test Pos ABG Potassium 3.4 L VBG pH VBG pCO2 VBG HCO3 VBG Total CO2 VBG O2 Sat (Calc) VBG Base Excess VBG Potassium A-a O2 Difference 89.0 Respiratory Index 1.5 Glucose 142 H Lactate 3.5 H FiO2 30.0 Inspiratory BiPAP 16 Expiratory BiPAP 8 Crit Value Called To Crit Value Called By Crit Value Read Back Blood Gas Notified Time Sodium 147.0 Potassium Chloride 106.0 Carbon Dioxide Anion Gap BUN Creatinine Est GFR ( Amer) Est GFR (Non-Af Amer) Random Glucose Calcium Magnesium Total Bilirubin AST ALT Alkaline Phosphatase Troponin I NT-Pro-B Natriuret Pep Total Protein Albumin Globulin Albumin/Globulin Ratio Arterial Blood Potassium 3.4 L Venous Blood Potassium Attending/Attestation - Attestation I have personally seen and examined this patient.: Yes I have fully participated in the care of the patient.: Yes I have reviewed all pertinent clinical information: Yes Notes (Text): 06/17/17 19:18 Today: May The Patient was seen and examined at the bedside, Medical records reviewed, and management issues were discussed and formulated with the house staff. I have reviewed all the relevant clinical, laboratory, hemodynamic, radiographic data and medications Events reviewed Pain issues, skin care, head of the bed elevation, glycemic control were addressed. Agree with above resident's assessment and treatment plans of care as transcribed in Dr. Phillip note. 67 Y/O M recently diagnosed with lung cancer admitted with acute hypoxemic and Hypercabnic respiratory failure, Respiratory acidosis from acute pulmonary edema , right pneumonia with pleural effusion and severe sepsis Sterted on IV Vanco and Zosyn Repeat ABG improved BIPAP as tolerates BD NEBS Q 6H PRN Discussed with the family in details diagnosis, treatment plans and alternatives , Code status: Full code Total critical care time 48 minutes
--- NOTE | 2017-06-17 16:33 | C.PDOC ---
History Of Present Illness Pt was sent in from the retirement due to respiratory distress. Time Seen by Provider: 06/17/17 13:39 Chief Complaint (Nursing): Respiratory Distress History Per: Patient, EMS, Other ([facility] records) History/Exam Limitations: clinical condition Onset/Duration Of Symptoms: Unknown Current Symptoms Are (Timing): Worse Current Respiratory Medications: See Home Med List Severity: Severe Recent travel outside of the [place]: No Additional History Per: [facility], Prior Records Past Medical History Reviewed: Historical Data, Nursing Documentation, Vital Signs Vital Signs: Last Vital Signs Temp 96.9 F L 06/17/17 13:13 Pulse 95 H 06/17/17 15:41 Resp 15 06/17/17 15:41 BP 131/93 H 06/17/17 15:41 Pulse Ox 100 06/17/17 15:41 - Medical History PMH: Asthma, COPD, Malignancy (Lung), Seizures - [facility] Procedures EXCISION OF RIGHT LOWER LUNG LOBE, PERC APPROACH, DIAGN (04/22/17) EXCISION OF RIGHT LUNG, ENDO, DIAGN (04/13/17) INSERT VAD RESERVOIR IN CHEST SUBCU/FASCIA, OPEN (05/25/17) INSERTION OF INFUSION DEV INTO SUP VENA CAVA, PERC APPROACH (05/25/17) Family History: States: Unknown Family Hx - Social History Hx Tobacco Use: Yes Hx Alcohol Use: Yes Hx Substance Use: No - Immunization History Hx Tetanus Toxoid Vaccination: No Hx Influenza Vaccination: No Hx Pneumococcal Vaccination: No Review Of Systems Review Of Systems: ROS cannot be obtained secondary to pt's inabilty to answer questions. Physical Exam - Physical Exam Appears: In Acute Distress, Chronically Ill, Other (Lethargic) Skin: Warm, Dry Eye(s): bilateral: PERRL Oral Mucosa: Dry Neck: Normal ROM, No Step Off Deformity, Supple Cardiovascular: Rhythm Regular Respiratory: Decreased Breath Sounds (on right side) Gastrointestinal/Abdominal: Soft, No Tenderness Extremity: Normal ROM Neurological/Psych: Eyes Open With Command, Slow To Respond With Command, Other (Moving all extretmities) Gait: Unable To Assess ED Course And Treatment - Laboratory Results Result Diagrams: 06/17/17 13:49 06/17/17 13:49 Lab Interpretation: Abnormal (Elevated BUN, BNP and Troponin. Hypercapnea) ECG: Interpreted By Me, Viewed By Me ECG Rhythm: Sinus Rhythm, Nonspecific Changes ECG Interpretation: Abnormal Rate From EC Pulse Ox Interpretation: Abnormal Interpretation Of Abnormal: Hypoxia on RA - Radiology CXR: Viewed By Me, Read By Radiologist CXR Interpretation: Yes: Infiltrates (right) Progress Note: Pt was placed on BiPAP in the ED. - Physician Consult Information Physician Contacted: Marco Calles Outcome Of Conversation: He evaluated pt in the ED and accepted to ICU. Progress - Interventions Interventions:: Observation, Oxygen - Medications Administered Inhaled nebulized: Anticholinergic, Beta-2 agonist Intravenous: Corticosteroid, Other (Abx) - Data Reviewed Data Reviewed: Lab, Diagnostic imaging, EKG, Old records - Patient Status Patient status: Partially improved - Critical Care Citical Care: Excluding Proc Time Critical Care Time: 60 minutes - Continuity of Care Discussed patient case with:: Patient, ED Nurse, PMD Discussed pt. case with method consultant/specialty: Pulmonary/Crit. Care - Patient Plan Patient Plan: Admission, ICU Disposition Discussed With : Freda Masters Comment: He accepted pt on his service. Doctor Will See Patient In The: Hospital Counseled Patient/Family Regarding: Studies Performed, Diagnosis - Disposition Disposition: HOSPITALIZED Disposition Time: 16:36 Condition: CRITICAL - Clinical Impression Clinical Impression: Respiratory distress, Pneumonia
[2017-06-17] MEDS ORDERED: LACTOSE REDUCED FOOD PO SCH (18:00)
[2017-06-17 18:48] LABS: ABG ALLEN TEST POS; ARTERIAL BLOOD GAS HCO3 30.4 mmol/L (21-28); ARTERIAL BLOOD GAS O2 SAT 93.7 % (95-98); ARTERIAL BLOOD GAS PCO2 51 mm/Hg (35-45); ARTERIAL BLOOD GAS PH 7.42 (7.35-7.45); ARTERIAL BLOOD GAS PO2 61 mm/Hg (80-100); ARTERIAL BLOOD GAS TCO2 34.7 mmol/L (22-28)
[2017-06-17] MEDS: Albuterol-Ipratrop 3 mg / 0.5 (3 ml) UD INH SCH (19:36)
[2017-06-17 19:45] LABS: CK-MB 4.58 ng/mL (0.0-3.38); TROPONIN I 0.119 ng/mL (0.00-0.120)
[2017-06-17] MEDS ORDERED: Piperacillin/Tazobact 3.375 GM in Sodium Chloride 100 ML IVPB SCH (22:00)
[2017-06-17] MEDS ORDERED: Bacitracin Ointment 30 GM TUBE TOP SCH (22:00)
[2017-06-17] MEDS: Bacitracin Ointment 30 GM TUBE TOP SCH (22:26)
[2017-06-18] MEDS: Piperacill/Tazo 3.375gm in Dex 3.375 GM/50 ML BAG IVPB SCH ×3 (00:39→15:28)
[2017-06-18 00:48] LABS: CK-MB 4.32 ng/mL (0.0-3.38); TROPONIN I 0.113 ng/mL (0.00-0.120)
--- NOTE | 2017-06-18 01:25 | HP ---
HISTORY OF PRESENT ILLNESS: This is a 67-year-old white male transferred from [facility]. The patient complained of having increasing shortness of breath. The patient has poor appetite. The patient also has dehydration and dry skin. The patient was tachypneic in the emergency room. The patient was started on BiPAP. The patient has blood gases done, which shows azotemia and respiratory acidosis. REVIEW OF SYSTEMS: The patient is a poor historian. RESPIRATORY: Positive for shortness of breath and cough. CARDIOVASCULAR: Negative for chest pain. GASTROINTESTINAL: Negative for nausea, vomiting or abdominal pain. CENTRAL NERVOUS SYSTEM: No focal neurological complaints offered. No edema of the legs. SKIN: Dry and warm. PSYCHIATRIC: The patient has anxiety. PAST MEDICAL HISTORY: History of hypertension; CA of lungs, squamous cell, invasive type; COPD. FAMILY HISTORY: No known inherited disease. SOCIAL HISTORY: Nonsmoker at present. Nonalcoholic. No IVDA. ALLERGIES: NO KNOWN ALLERGY. The patient is on respiratory treatment at [facility]. The patient also has radiation treatment done. PHYSICAL EXAMINATION: GENERAL: This is a 67-year-old white male, tachypneic, dyspneic with temperature 96.9, pulse 95, respirations 15, blood pressure 131/93 mmHg, pulse is 100% at room air. HEENT: Normal. NECK: JVP is flat. Carotids, no bruits. LUNGS: Has wheezing and rales. HEART: S1 and S2 normal. No gallop. No murmur. Tachycardic. ABDOMEN: Soft, nontender. No organomegaly. CENTRAL NERVOUS SYSTEM: No focal neurological deficits. Generalized fatigue present. LABORATORY DATA: On admission, white cell count is normal, hemoglobin 13.4, platelet count is 86,000, BMP shows BUN 42 and creatinine 0.9. Chest x-ray is showing possible pneumonia, right side lung mass. IMPRESSION: 1. Acute respiratory failure. 2. Chronic obstructive pulmonary disease. 3. Respiratory acidosis. 4. Cancer of lungs. 5. Hypertension. PLAN: The patient will be admitted to ICU. We will continue all the medications. We will get respiratory evaluation done. We will give respiratory treatment. The patient needs BiPAP all the time. Other workup as needed. Vinodkumar Masters, MD
[2017-06-18] MEDS: Albuterol-Ipratrop 3 mg / 0.5 (3 ml) UD INH SCH ×4 (02:15→19:17)
[2017-06-18] MEDS: Bacitracin Ointment 30 GM TUBE TOP SCH ×2 (06:08→21:48)
[2017-06-18 06:58] LABS: CK-MB 2.96 ng/mL (0.0-3.38); TROPONIN I 0.123 ng/mL (0.00-0.120)
[2017-06-18] MEDS ORDERED: Vancomycin 1 gm/NS 200 ml 1 GM/200 ML BAG IVPB ONE (07:02)
[2017-06-18] MEDS ORDERED: Sodium Chloride 0.9% 1,000 ML IV ONE (07:30)
--- NOTE | 2017-06-18 08:30 | RAD ---
HISTORY: re-evaluate COMPARISON: 06/17/2017 FINDINGS: LUNGS: Persistent extensive opacity throughout the right lung, partially sparing the apex. Patchy opacity at left base, grossly unchanged. PLEURA: Small moderate right pleural effusion and small left pleural effusion. No change. No pneumothorax. CARDIOVASCULAR: Normal heart size. No congestive change. Right IJ central venous catheter. OSSEOUS STRUCTURES: No significant abnormalities. VISUALIZED UPPER ABDOMEN: Normal. OTHER FINDINGS: None. IMPRESSION: No significant change. Extensive right-sided pulmonary opacity and patchy opacity at left base. Bilateral pleural effusion, right greater than left.
[2017-06-18] MEDS: Metoprolol 1 mg/ml Inj IVP ONE ×2 (08:42→09:06)
[2017-06-18] MEDS ORDERED: Potassium Chloride 20 mEq/15 ml LIQ UD PO SCH (10:00)
--- NOTE | 2017-06-18 10:27 | CP.CCUPN ---
<Renee Phillip - Last Filed: 06/18/17 11:02> CCU Subjective - Physician Review Subjective (Free Text): 06/18/17 10:[address] Morales Patient seen and examined at bedside. Patient is not answering questions today. Patient has atrial fibrillation with RVR and hypotensive. 06/18 08:00 HR 159, BP 83/63 after lopressor 5mg 06/18 09:04 HR 113, BP 103/75 CCU Objective - Vital Signs / Intake & Output Vital Signs (Last 4 hours): Vital Signs Pulse Resp BP Pulse Ox 06/18/17 10:16 69 18 99/72 L 98 06/18/17 10:11 69 10 L 99/72 L 97 06/18/17 10:00 68 9 L 98 06/18/17 09:30 69 9 L 97 06/18/17 09:17 69 11 L 93/69 L 96 06/18/17 09:04 113 H 17 103/75 91 L 06/18/17 09:00 106 H 15 06/18/17 08:56 98 H 16 128/80 84 L 06/18/17 08:30 159 H 28 H 06/18/17 08:25 88/64 L 06/18/17 08:19 142 H 20 88/64 L 06/18/17 08:15 123 H 19 83/63 L 94 L 06/18/17 08:00 88 21 06/18/17 07:40 89 06/18/17 07:17 148 H 19 83/63 L 82 L 06/18/17 07:00 151 H 25 H Intake and Output (Last 8hrs): Intake & Output 06/17/17 06/18/17 06/18/17 22:59 06:59 14:59 Intake Total 153 335 7760 Output Total 580 900 75 Balance -480 -570 1275 Weight 97 lb Intake: IV 25 Intake, IV Amount 85 1250 Left Forearm 0 rt subclavian port 85 1250 Oral 100 220 100 Output: Urine 580 900 75 Urethral (Adan) 580 900 75 Stool 0 Other: Voiding Method Incontinent # Voids Urethral (Adan) 0 # Bowel Movements 0 0 - Physical Exam Physical Exam Limitations: Positive for: Altered Mental Status Head: Positive for: Atraumatic, Normocephalic Pupils: Positive for: Sluggish (left eye is sluggish) Extroacular Muscles: Positive for: EOMI Conjunctiva: Positive for: Normal Nose (Internal): Positive for: Normal Inspection, No Active Bleeding Neck: Positive for: Normal Range of Motion Cardiovascular: Positive for: Irregular Rhythm, Tachycardic. Negative for: Regular Rate and Rhythm, Normal S1, S2 Upper Extremity: Positive for: Cyanosis (fingertips are slightly purple) Lower Extremity: Positive for: NORMAL PULSES, Capillary Refill < 2 s. Negative for: Edema, Swelling - Medications Active Medications: Active Medications Generic Name Dose Route Start Last Admin Trade Name Freq PRN Reason Stop Dose Admin Acetaminophen 2 mg 06/17/17 15:48 Tylenol 325mg Tab PO Q4 PRN Fever >100.4 F Al Hydrox/Mg Hydrox/Simethicone 30 ml 06/17/17 15:48 Maalox Plus 30 Ml PO Q4 PRN GI distress Albuterol/Ipratropium 3 ml 06/17/17 20:00 06/18/17 07:40 Duoneb 3 Mg/0.5 Mg (3 Ml) Ud INH 3 ml RQ6 AYUSH Administration Apixaban 5 mg 06/17/17 18:00 06/18/17 10:05 Eliquis PO 5 mg BID AYUSH Administration Bacitracin 1 gm 06/17/17 22:00 06/18/17 06:08 Bacitracin TOP Not Given QSHIFT AYUSH Collagenase 0 gm 06/18/17 10:00 Santyl TOP DAILY AYUSH Piperacillin Sod/Tazobactam Sod 3.375 gm in 50 mls @ 100 mls/hr 06/18/17 00: 00 06/18/17 08:42 Zosyn 3.375 Gm Iv Premix IVPB 100 mls/hr Q8H AYUSH Administration Diltiazem HCl 125 mg/ Sodium 125 mls @ 5 mls/hr 06/18/17 00:30 06/18/17 05:00 Chloride IV 5 mg/hr .Q24H AYUSH 5 mls/hr Protocol Titration 5 MG/HR Levetiracetam 500 mg 06/17/17 18:00 06/18/17 10:05 Keppra PO 500 mg BID AYUSH Administration Magnesium Hydroxide 30 ml 06/17/17 15:48 06/18/17 09:55 Milk Of Magnesia PO 30 ml DAILY PRN Administration Constipation Pantoprazole Sodium 40 mg 06/17/17 16:15 06/18/17 06:13 Protonix Inj IVP 40 mg Q12H AYUSH Administration Potassium Chloride 40 meq 06/18/17 10:00 06/18/17 10:09 Potassium Chloride Oral Soln PO 40 meq DAILY AYUSH Administration - Patient Studies Lab Studies: Lab Studies 06/18/17 06/18/17 06/18/17 Range/Units 06:03 06:03 00:23 WBC (4.8-10.8) K/uL RBC (4.40-5.90) Mil/uL Hgb (12.0-18.0) g/dL Hct (35.0-51.0) % MCV (80.0-94.0) fL MCH (27.0-31.0) pg MCHC (33.0-37.0) g/dL RDW (11.5-14.5) % Plt Count (130-400) K/uL MPV (7.2-11.7) fL Neut % (Auto) (50.0-75.0) % Lymph % (Auto) (20.0-40.0) % [place] % (Auto) (0.0-10.0) % Eos % (Auto) (0.0-4.0) % Baso % (Auto) (0.0-2.0) % Neut # (1.8-7.0) K/uL Lymph # (1.0-4.3) K/uL [place] # (0.0-0.8) K/uL Eos # (0.0-0.7) K/uL Baso # (0.0-0.2) K/uL Neutrophils % (Manual) (50-75) % Band Neutrophils % (0-2) % Lymphocytes % (Manual) (20-40) % Reactive Lymphs % (0-0) % Monocytes % (Manual) (0-10) % Platelet Estimate (NORMAL) Anisocytosis (manual) Target Cells Puncture Site pCO2 (35-45) mm/Hg pO2 (30-55) mm/Hg HCO3 (21-28) mmol/L ABG pH (7.35-7.45) ABG Total CO2 (22-28) mmol/L ABG O2 Saturation (95-98) % ABG Base Excess (-2.0-3.0) mmol/L Luciano Test ABG Potassium (3.6-5.2) mmol/L VBG pH (7.32-7.43) VBG pCO2 (40-60) mmHg VBG HCO3 mmol/L VBG Total CO2 (22-28) mmol/L VBG O2 Sat (Calc) (40-65) % VBG Base Excess (0.0-2.0) mmol/L VBG Potassium (3.6-5.2) mmol/L A-a O2 Difference mm/Hg Respiratory Index Glucose (75-110) mg/dl Lactate (0.7-2.1) mmol/L FiO2 % Inspiratory BiPAP Expiratory BiPAP Crit Value Called To Crit Value Called By Crit Value Read Back Blood Gas Notified Time Sodium (132-148) mmol/L Potassium (3.6-5.2) mmol/L Chloride (98-107) mmol/L Carbon Dioxide (22-30) mmol/L Anion Gap (10-20) BUN (9-20) mg/dL Creatinine (0.8-1.5) mg/dL Est GFR ( Amer) Est GFR (Non-Af Amer) Random Glucose (75-110) mg/dL Lactic Acid 3.4 H (0.7-2.1) mmol/L Calcium (8.6-10.4) mg/dl Magnesium (1.6-2.3) mg/dL Total Bilirubin (0.2-1.3) mg/dL AST (17-59) U/L ALT (21-72) U/L Alkaline Phosphatase (38-126) U/L Total Creatine Kinase 26 L 34 L (55-170) U/L CK-MB (Mass) 2.96 4.32 H (0.0-3.38) ng/mL Troponin I 0.1230 H* 0.1130 (0.00-0.120) ng/mL NT-Pro-B Natriuret Pep (0-900) pg/mL Total Protein (6.3-8.3) g/dL Albumin (3.5-5.0) g/dL Globulin (2.2-3.9) gm/dL Albumin/Globulin Ratio (1.0-2.1) Procalcitonin (0.19-0.49) NG/ML Arterial Blood Potassium (3.6-5.2) mmol/L Venous Blood Potassium (3.6-5.2) mmol/L 06/17/17 06/17/17 06/17/17 Range/Units 23:22 19:09 19:09 WBC (4.8-10.8) K/uL RBC (4.40-5.90) Mil/uL Hgb (12.0-18.0) g/dL Hct (35.0-51.0) % MCV (80.0-94.0) fL MCH (27.0-31.0) pg MCHC (33.0-37.0) g/dL RDW (11.5-14.5) % Plt Count (130-400) K/uL MPV (7.2-11.7) fL Neut % (Auto) (50.0-75.0) % Lymph % (Auto) (20.0-40.0) % [place] % (Auto) (0.0-10.0) % Eos % (Auto) (0.0-4.0) % Baso % (Auto) (0.0-2.0) % Neut # (1.8-7.0) K/uL Lymph # (1.0-4.3) K/uL [place] # (0.0-0.8) K/uL Eos # (0.0-0.7) K/uL Baso # (0.0-0.2) K/uL Neutrophils % (Manual) (50-75) % Band Neutrophils % (0-2) % Lymphocytes % (Manual) (20-40) % Reactive Lymphs % (0-0) % Monocytes % (Manual) (0-10) % Platelet Estimate (NORMAL) Anisocytosis (manual) Target Cells Puncture Site pCO2 (35-45) mm/Hg pO2 (30-55) mm/Hg HCO3 (21-28) mmol/L ABG pH (7.35-7.45) ABG Total CO2 (22-28) mmol/L ABG O2 Saturation (95-98) % ABG Base Excess (-2.0-3.0) mmol/L Luciano Test ABG Potassium (3.6-5.2) mmol/L VBG pH (7.32-7.43) VBG pCO2 (40-60) mmHg VBG HCO3 mmol/L VBG Total CO2 (22-28) mmol/L VBG O2 Sat (Calc) (40-65) % VBG Base Excess (0.0-2.0) mmol/L VBG Potassium (3.6-5.2) mmol/L A-a O2 Difference mm/Hg Respiratory Index Glucose (75-110) mg/dl Lactate (0.7-2.1) mmol/L FiO2 % Inspiratory BiPAP Expiratory BiPAP Crit Value Called To Crit Value Called By Crit Value Read Back Blood Gas Notified Time Sodium (132-148) mmol/L Potassium (3.6-5.2) mmol/L Chloride (98-107) mmol/L Carbon Dioxide (22-30) mmol/L Anion Gap (10-20) BUN (9-20) mg/dL Creatinine (0.8-1.5) mg/dL Est GFR ( Amer) Est GFR (Non-Af Amer) Random Glucose (75-110) mg/dL Lactic Acid 3.3 H 1.8 (0.7-2.1) mmol/L Calcium (8.6-10.4) mg/dl Magnesium (1.6-2.3) mg/dL Total Bilirubin (0.2-1.3) mg/dL AST (17-59) U/L ALT (21-72) U/L Alkaline Phosphatase (38-126) U/L Total Creatine Kinase 43 L (55-170) U/L CK-MB (Mass) 4.58 H (0.0-3.38) ng/mL Troponin I 0.1190 (0.00-0.120) ng/mL NT-Pro-B Natriuret Pep (0-900) pg/mL Total Protein (6.3-8.3) g/dL Albumin (3.5-5.0) g/dL Globulin (2.2-3.9) gm/dL Albumin/Globulin Ratio (1.0-2.1) Procalcitonin (0.19-0.49) NG/ML Arterial Blood Potassium (3.6-5.2) mmol/L Venous Blood Potassium (3.6-5.2) mmol/L 12/28/17 12/28/17 12/28/17 Range/Units 19:09 18:45 13:52 WBC (4.8-10.8) K/uL RBC (4.40-5.90) Mil/uL Hgb (12.0-18.0) g/dL Hct (35.0-51.0) % MCV (80.0-94.0) fL MCH (27.0-31.0) pg MCHC (33.0-37.0) g/dL RDW (11.5-14.5) % Plt Count (130-400) K/uL MPV (7.2-11.7) fL Neut % (Auto) (50.0-75.0) % Lymph % (Auto) (20.0-40.0) % [place] % (Auto) (0.0-10.0) % Eos % (Auto) (0.0-4.0) % Baso % (Auto) (0.0-2.0) % Neut # (1.8-7.0) K/uL Lymph # (1.0-4.3) K/uL [place] # (0.0-0.8) K/uL Eos # (0.0-0.7) K/uL Baso # (0.0-0.2) K/uL Neutrophils % (Manual) (50-75) % Band Neutrophils % (0-2) % Lymphocytes % (Manual) (20-40) % Reactive Lymphs % (0-0) % Monocytes % (Manual) (0-10) % Platelet Estimate (NORMAL) Anisocytosis (manual) Target Cells Puncture Site Rba pCO2 51 H (35-45) mm/Hg pO2 61 L 39 (30-55) mm/Hg HCO3 30.4 H (21-28) mmol/L ABG pH 7.42 (7.35-7.45) ABG Total CO2 34.7 H (22-28) mmol/L ABG O2 Saturation 93.7 L (95-98) % ABG Base Excess 7.2 H (-2.0-3.0) mmol/L Luciano Test Pos ABG Potassium 3.4 L (3.6-5.2) mmol/L VBG pH 7.29 L (7.32-7.43) VBG pCO2 75 H* (40-60) mmHg VBG HCO3 29.3 mmol/L VBG Total CO2 38.4 H (22-28) mmol/L VBG O2 Sat (Calc) 65.3 H (40-65) % VBG Base Excess 6.7 H (0.0-2.0) mmol/L VBG Potassium 3.6 (3.6-5.2) mmol/L A-a O2 Difference 89.0 mm/Hg Respiratory Index 1.5 Glucose 142 H 111 H (75-110) mg/dl Lactate 3.5 H 2.9 H (0.7-2.1) mmol/L FiO2 30.0 % Inspiratory BiPAP 16 Expiratory BiPAP 8 Crit Value Called To Crit Value Called By Jeffy conrad Crit Value Read Back Y Blood Gas Notified Time 1358 Sodium 147.0 143.0 (132-148) mmol/L Potassium (3.6-5.2) mmol/L Chloride 106.0 103.0 (98-107) mmol/L Carbon Dioxide (22-30) mmol/L Anion Gap (10-20) BUN (9-20) mg/dL Creatinine (0.8-1.5) mg/dL Est GFR ( Amer) Est GFR (Non-Af Amer) Random Glucose (75-110) mg/dL Lactic Acid (0.7-2.1) mmol/L Calcium (8.6-10.4) mg/dl Magnesium (1.6-2.3) mg/dL Total Bilirubin (0.2-1.3) mg/dL AST (17-59) U/L ALT (21-72) U/L Alkaline Phosphatase (38-126) U/L Total Creatine Kinase (55-170) U/L CK-MB (Mass) (0.0-3.38) ng/mL Troponin I (0.00-0.120) ng/mL NT-Pro-B Natriuret Pep (0-900) pg/mL Total Protein (6.3-8.3) g/dL Albumin (3.5-5.0) g/dL Globulin (2.2-3.9) gm/dL Albumin/Globulin Ratio (1.0-2.1) Procalcitonin 0.11 L (0.19-0.49) NG/ML Arterial Blood Potassium 3.4 L (3.6-5.2) mmol/L Venous Blood Potassium 3.6 (3.6-5.2) mmol/L 06/17/17 06/17/17 Range/Units 13:49 13:49 WBC 7.7 (4.8-10.8) K/uL RBC 4.38 L (4.40-5.90) Mil/uL Hgb 13.4 (12.0-18.0) g/dL Hct 41.3 (35.0-51.0) % MCV 94.3 H (80.0-94.0) fL MCH 30.5 (27.0-31.0) pg MCHC 32.3 L (33.0-37.0) g/dL RDW 21.1 H (11.5-14.5) % Plt Count 86 L D (130-400) K/uL MPV 10.9 (7.2-11.7) fL Neut % (Auto) 91.0 H (50.0-75.0) % Lymph % (Auto) 4.0 L (20.0-40.0) % [place] % (Auto) 4.5 (0.0-10.0) % Eos % (Auto) 0.0 (0.0-4.0) % Baso % (Auto) 0.5 (0.0-2.0) % Neut # 7.0 (1.8-7.0) K/uL Lymph # 0.3 L (1.0-4.3) K/uL [place] # 0.3 (0.0-0.8) K/uL Eos # 0.0 (0.0-0.7) K/uL Baso # 0.0 (0.0-0.2) K/uL Neutrophils % (Manual) 90 H (50-75) % Band Neutrophils % 1 (0-2) % Lymphocytes % (Manual) 3 L (20-40) % Reactive Lymphs % 1 H (0-0) % Monocytes % (Manual) 5 (0-10) % Platelet Estimate Decreased L (NORMAL) Anisocytosis (manual) Moderate Target Cells Slight Puncture Site pCO2 (35-45) mm/Hg pO2 (30-55) mm/Hg HCO3 (21-28) mmol/L ABG pH (7.35-7.45) ABG Total CO2 (22-28) mmol/L ABG O2 Saturation (95-98) % ABG Base Excess (-2.0-3.0) mmol/L Luciano Test ABG Potassium (3.6-5.2) mmol/L VBG pH (7.32-7.43) VBG pCO2 (40-60) mmHg VBG HCO3 mmol/L VBG Total CO2 (22-28) mmol/L VBG O2 Sat (Calc) (40-65) % VBG Base Excess (0.0-2.0) mmol/L VBG Potassium (3.6-5.2) mmol/L A-a O2 Difference mm/Hg Respiratory Index Glucose (75-110) mg/dl Lactate (0.7-2.1) mmol/L FiO2 % Inspiratory BiPAP Expiratory BiPAP Crit Value Called To Crit Value Called By Crit Value Read Back Blood Gas Notified Time Sodium 139 (132-148) mmol/L Potassium 3.6 (3.6-5.2) mmol/L Chloride 96 L (98-107) mmol/L Carbon Dioxide 36 H (22-30) mmol/L Anion Gap 10 (10-20) BUN 42 H (9-20) mg/dL Creatinine 0.9 (0.8-1.5) mg/dL Est GFR ( Amer) > 60 Est GFR (Non-Af Amer) > 60 Random Glucose 111 H (75-110) mg/dL Lactic Acid (0.7-2.1) mmol/L Calcium 9.1 (8.6-10.4) mg/dl Magnesium 1.9 (1.6-2.3) mg/dL Total Bilirubin 1.9 H (0.2-1.3) mg/dL AST 56 (17-59) U/L ALT 66 (21-72) U/L Alkaline Phosphatase 81 (38-126) U/L Total Creatine Kinase (55-170) U/L CK-MB (Mass) (0.0-3.38) ng/mL Troponin I 0.1330 H* (0.00-0.120) ng/mL NT-Pro-B Natriuret Pep 60670 H (0-900) pg/mL Total Protein 6.0 L (6.3-8.3) g/dL Albumin 2.8 L (3.5-5.0) g/dL Globulin 3.2 (2.2-3.9) gm/dL Albumin/Globulin Ratio 0.9 L (1.0-2.1) Procalcitonin (0.19-0.49) NG/ML Arterial Blood Potassium (3.6-5.2) mmol/L Venous Blood Potassium (3.6-5.2) mmol/L Laboratory Results - last 24 hr 06/17/17 06/17/17 06/17/17 13:49 13:49 13:52 WBC 7.7 RBC 4.38 L Hgb 13.4 Hct 41.3 MCV 94.3 H MCH 30.5 MCHC 32.3 L RDW 21.1 H Plt Count 86 L D MPV 10.9 Neut % (Auto) 91.0 H Lymph % (Auto) 4.0 L [place] % (Auto) 4.5 Eos % (Auto) 0.0 Baso % (Auto) 0.5 Neut # 7.0 Lymph # 0.3 L [place] # 0.3 Eos # 0.0 Baso # 0.0 Neutrophils % (Manual) 90 H Band Neutrophils % 1 Lymphocytes % (Manual) 3 L Reactive Lymphs % 1 H Monocytes % (Manual) 5 Platelet Estimate Decreased L Anisocytosis (manual) Moderate Target Cells Slight Puncture Site pCO2 pO2 39 HCO3 ABG pH ABG Total CO2 ABG O2 Saturation ABG Base Excess Luciano Test ABG Potassium VBG pH 7.29 L VBG pCO2 75 H* VBG HCO3 29.3 VBG Total CO2 38.4 H VBG O2 Sat (Calc) 65.3 H VBG Base Excess 6.7 H VBG Potassium 3.6 A-a O2 Difference Respiratory Index Glucose 111 H Lactate 2.9 H FiO2 Inspiratory BiPAP Expiratory BiPAP Crit Value Called To Crit Value Called By Jeffy conrad Crit Value Read Back Y Blood Gas Notified Time 1358 Sodium 139 143.0 Potassium 3.6 Chloride 96 L 103.0 Carbon Dioxide 36 H Anion Gap 10 BUN 42 H Creatinine 0.9 Est GFR ( Amer) > 60 Est GFR (Non-Af Amer) > 60 Random Glucose 111 H Lactic Acid Calcium 9.1 Magnesium 1.9 Total Bilirubin 1.9 H AST 56 ALT 66 Alkaline Phosphatase 81 Total Creatine Kinase CK-MB (Mass) Troponin I 0.1330 H* NT-Pro-B Natriuret Pep 39690 H Total Protein 6.0 L Albumin 2.8 L Globulin 3.2 Albumin/Globulin Ratio 0.9 L Procalcitonin Arterial Blood Potassium Venous Blood Potassium 3.6 06/17/17 06/17/17 06/17/17 18:45 19:09 19:09 WBC RBC Hgb Hct MCV MCH MCHC RDW Plt Count MPV Neut % (Auto) Lymph % (Auto) [place] % (Auto) Eos % (Auto) Baso % (Auto) Neut # Lymph # [place] # Eos # Baso # Neutrophils % (Manual) Band Neutrophils % Lymphocytes % (Manual) Reactive Lymphs % Monocytes % (Manual) Platelet Estimate Anisocytosis (manual) Target Cells Puncture Site Rba pCO2 51 H pO2 61 L HCO3 30.4 H ABG pH 7.42 ABG Total CO2 34.7 H ABG O2 Saturation 93.7 L ABG Base Excess 7.2 H Luciano Test Pos ABG Potassium 3.4 L VBG pH VBG pCO2 VBG HCO3 VBG Total CO2 VBG O2 Sat (Calc) VBG Base Excess VBG Potassium A-a O2 Difference 89.0 Respiratory Index 1.5 Glucose 142 H Lactate 3.5 H FiO2 30.0 Inspiratory BiPAP 16 Expiratory BiPAP 8 Crit Value Called To Crit Value Called By Crit Value Read Back Blood Gas Notified Time Sodium 147.0 Potassium Chloride 106.0 Carbon Dioxide Anion Gap BUN Creatinine Est GFR ( Amer) Est GFR (Non-Af Amer) Random Glucose Lactic Acid Calcium Magnesium Total Bilirubin AST ALT Alkaline Phosphatase Total Creatine Kinase 43 L CK-MB (Mass) 4.58 H Troponin I 0.1190 NT-Pro-B Natriuret Pep Total Protein Albumin Globulin Albumin/Globulin Ratio Procalcitonin 0.11 L Arterial Blood Potassium 3.4 L Venous Blood Potassium 06/17/17 06/17/17 06/18/17 19:09 23:22 00:23 WBC RBC Hgb Hct MCV MCH MCHC RDW Plt Count MPV Neut % (Auto) Lymph % (Auto) [place] % (Auto) Eos % (Auto) Baso % (Auto) Neut # Lymph # [place] # Eos # Baso # Neutrophils % (Manual) Band Neutrophils % Lymphocytes % (Manual) Reactive Lymphs % Monocytes % (Manual) Platelet Estimate Anisocytosis (manual) Target Cells Puncture Site pCO2 pO2 HCO3 ABG pH ABG Total CO2 ABG O2 Saturation ABG Base Excess Luciano Test ABG Potassium VBG pH VBG pCO2 VBG HCO3 VBG Total CO2 VBG O2 Sat (Calc) VBG Base Excess VBG Potassium A-a O2 Difference Respiratory Index Glucose Lactate FiO2 Inspiratory BiPAP Expiratory BiPAP Crit Value Called To Crit Value Called By Crit Value Read Back Blood Gas Notified Time Sodium Potassium Chloride Carbon Dioxide Anion Gap BUN Creatinine Est GFR ( Amer) Est GFR (Non-Af Amer) Random Glucose Lactic Acid 1.8 3.3 H Calcium Magnesium Total Bilirubin AST ALT Alkaline Phosphatase Total Creatine Kinase 34 L CK-MB (Mass) 4.32 H Troponin I 0.1130 NT-Pro-B Natriuret Pep Total Protein Albumin Globulin Albumin/Globulin Ratio Procalcitonin Arterial Blood Potassium Venous Blood Potassium 06/18/17 06/18/17 06:03 06:03 WBC RBC Hgb Hct MCV MCH MCHC RDW Plt Count MPV Neut % (Auto) Lymph % (Auto) [place] % (Auto) Eos % (Auto) Baso % (Auto) Neut # Lymph # [place] # Eos # Baso # Neutrophils % (Manual) Band Neutrophils % Lymphocytes % (Manual) Reactive Lymphs % Monocytes % (Manual) Platelet Estimate Anisocytosis (manual) Target Cells Puncture Site pCO2 pO2 HCO3 ABG pH ABG Total CO2 ABG O2 Saturation ABG Base Excess Luciano Test ABG Potassium VBG pH VBG pCO2 VBG HCO3 VBG Total CO2 VBG O2 Sat (Calc) VBG Base Excess VBG Potassium A-a O2 Difference Respiratory Index Glucose Lactate FiO2 Inspiratory BiPAP Expiratory BiPAP Crit Value Called To Crit Value Called By Crit Value Read Back Blood Gas Notified Time Sodium Potassium Chloride Carbon Dioxide Anion Gap BUN Creatinine Est GFR ( Amer) Est GFR (Non-Af Amer) Random Glucose Lactic Acid 3.4 H Calcium Magnesium Total Bilirubin AST ALT Alkaline Phosphatase Total Creatine Kinase 26 L CK-MB (Mass) 2.96 Troponin I 0.1230 H* NT-Pro-B Natriuret Pep Total Protein Albumin Globulin Albumin/Globulin Ratio Procalcitonin Arterial Blood Potassium Venous Blood Potassium EKG/Cardiology Studies: Cardiology / EKG Studies 06/17/17 13:27 EKG [ELECTROCARDIOGRAM] Stat Comment: Mode Of Transportation: BED Reason For Exam: sob Isolation: Contact 06/17/17 19:50 EKG [ELECTROCARDIOGRAM] Q6H Comment: Mode Of Transportation: Reason For Exam: sob Isolation: Contact 06/18/17 01:50 EKG [ELECTROCARDIOGRAM] Q6H Comment: Mode Of Transportation: Reason For Exam: sob Isolation: Contact 06/18/17 08:06 EKG [ELECTROCARDIOGRAM] Stat Comment: Mode Of Transportation: Reason For Exam: elevated troponin Isolation: Contact Fingerstick Blood Sugar Results: 118 Critical Care Progress Note - Nutrition Nutrition: Nutrition Category Date Time Status Pureed [Dysphagia/Modified Consistency Diet] [DIET] Diets 06/18/17 Breakfast Ordered Assessment/Plan - Assessment and Plan (Free Text) Assessment: 67M with PMH of pulmonary embolism (05/31/17), 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 Marli Phillip DO PGY1 - Date & Time Date: 06/18/17 Time: 10:38 <Morgan Morales - Last Filed: 06/18/17 17:39> CCU Objective - Vital Signs / Intake & Output Vital Signs (Last 4 hours): Vital Signs Pulse Resp BP Pulse Ox 06/18/17 15:50 72 06/18/17 15:00 73 19 95 06/18/17 14:36 79 18 98/69 L 95 06/18/17 14:30 79 21 96 06/18/17 14:18 73 17 62/14 L 96 06/18/17 14:00 123 H 18 93 L Intake and Output (Last 8hrs): Intake & Output 06/18/17 06/18/17 06/18/17 06:59 14:59 22:59 Intake Total 330 1750 Output Total 900 215 Balance -570 1535 Weight 97 lb Intake: IV 25 0 Intake, IV Amount 85 1650 Left Forearm 0 200 rt subclavian port 85 1450 Oral 220 100 Output: Urine 900 215 Urethral (Adan) 900 215 Stool 0 Other: # Voids Urethral (Adan) 0 # Bowel Movements 0 0 - Medications Active Medications: Active Medications Generic Name Dose Route Start Last Admin Trade Name Freq PRN Reason Stop Dose Admin Acetaminophen 650 mg 06/18/17 13:45 Tylenol 325mg Tab PO Q4 PRN Fever >100.4 F Al Hydrox/Mg Hydrox/Simethicone 30 ml 06/17/17 15:48 Maalox Plus 30 Ml PO Q4 PRN GI distress Albuterol/Ipratropium 3 ml 06/17/17 20:00 06/18/17 13:31 Duoneb 3 Mg/0.5 Mg (3 Ml) Ud INH 3 ml RQ6 AYUSH Administration Apixaban 5 mg 06/17/17 18:00 06/18/17 10:05 Eliquis PO 5 mg BID AYUSH Administration Bacitracin 0 gm 06/18/17 22:00 Bacitracin TOP QSHIFT AYUSH Collagenase 0 gm 06/18/17 10:00 06/18/17 10:42 Santyl TOP 1 applic DAILY AYUSH Administration Enoxaparin Sodium 45 mg 06/18/17 22:00 Lovenox SC Q12 AYUSH Piperacillin Sod/Tazobactam Sod 3.375 gm in 50 mls @ 100 mls/hr 06/18/17 00: 00 06/18/17 15:28 Zosyn 3.375 Gm Iv Premix IVPB 100 mls/hr Q8H AYUSH Administration Diltiazem HCl 125 mg/ Sodium 125 mls @ 5 mls/hr 06/18/17 00:30 06/18/17 07:00 Chloride IV 0 mg/hr .Q24H AYUSH 0 mls/hr Protocol Titration 5 MG/HR Potassium Chloride 20 meq/ 110 mls @ 50 mls/hr 06/18/17 14:00 06/18/17 17:00 Sodium Chloride IV 06/18/17 17:59 Not Given Q2H AYUSH Vancomycin/Sodium Chloride 1 gm in 200 mls @ 133.333 mls/hr 06/18/17 13:00 13:02 Vancomycin 1 Gm/Ns 200 Ml IVPB 06/23/17 13:01 133.333 mls/hr Q24H AYUSH Administration Potassium Chloride 20 meq/ 110 mls @ 110 mls/hr 06/18/17 18:00 Sodium Chloride IV 06/18/17 18:59 ONCE ONE Levetiracetam 500 mg 06/17/17 18:00 06/18/17 10:05 Keppra PO 500 mg BID AYUSH Administration Magnesium Hydroxide 30 ml 06/17/17 15:48 06/18/17 09:55 Milk Of Magnesia PO 30 ml DAILY PRN Administration Constipation Pantoprazole Sodium 40 mg 06/17/17 16:15 06/18/17 06:13 Protonix Inj IVP 40 mg Q12H AYUSH Administration - Patient Studies Lab Studies: Microbiology Studies 06/17/17 13:50 Blood Culture - Preliminary Blood NO GROWTH AFTER 24 HOURS 06/17/17 13:10 Blood Culture - Preliminary Blood NO GROWTH AFTER 24 HOURS Lab Studies 06/18/17 06/18/17 06/18/17 Range/Units 11:29 11:18 10:55 WBC (4.8-10.8) K/uL RBC (4.40-5.90) Mil/uL Hgb (12.0-18.0) g/dL Hct (35.0-51.0) % MCV (80.0-94.0) fL MCH (27.0-31.0) pg MCHC (33.0-37.0) g/dL RDW (11.5-14.5) % Plt Count (130-400) K/uL MPV (7.2-11.7) fL Neut % (Auto) (50.0-75.0) % Lymph % (Auto) (20.0-40.0) % [place] % (Auto) (0.0-10.0) % Eos % (Auto) (0.0-4.0) % Baso % (Auto) (0.0-2.0) % Neut # (1.8-7.0) K/uL Lymph # (1.0-4.3) K/uL [place] # (0.0-0.8) K/uL Eos # (0.0-0.7) K/uL Baso # (0.0-0.2) K/uL Neutrophils % (Manual) (50-75) % Band Neutrophils % (0-2) % Lymphocytes % (Manual) (20-40) % Monocytes % (Manual) (0-10) % Platelet Estimate (NORMAL) Anisocytosis (manual) Target Cells Puncture Site Rr Rr pCO2 46 H 47 H (35-45) mm/Hg pO2 111 H 95 (80-100) mm/Hg HCO3 30.3 H 31.4 H (21-28) mmol/L ABG pH 7.45 7.46 H (7.35-7.45) ABG Total CO2 33.4 H 34.8 H (22-28) mmol/L ABG O2 Saturation 99.3 H 98.5 H (95-98) % ABG Base Excess 6.9 H 8.4 H (-2.0-3.0) mmol/L ABG Hemoglobin 12.1 (11.7-17.4) g/dL ABG Carboxyhemoglobin 2.6 H (0.5-1.5) % POC ABG HHb (Measured) 1.4 (0.0-5.0) % ABG Methemoglobin 0.9 (0.0-3.0) % Luciano Test Pos Pos ABG Potassium 2.8 L (3.6-5.2) mmol/L A-a O2 Difference 45.0 60.0 mm/Hg Respiratory Index 0.4 0.6 Hgb O2 Saturation 95.1 (95.0-98.0) % Sodium 150.0 H (132-148) mmol/l Chloride 110.0 H (98-107) mmol/L Glucose 159 H (75-110) mg/dl Lactate 2.5 H (0.7-2.1) mmol/L Vent Mode Bipap Bipap FiO2 30.0 30.0 % Inspiratory BiPAP 16 16 Expiratory BiPAP 8 8 Potassium (3.6-5.2) mmol/L Carbon Dioxide (22-30) mmol/L Anion Gap (10-20) BUN (9-20) mg/dL Creatinine (0.8-1.5) mg/dL Est GFR ( Amer) Est GFR (Non-Af Amer) Random Glucose (75-110) mg/dL Lactic Acid 2.7 H (0.7-2.1) mmol/L Calcium (8.6-10.4) mg/dl Phosphorus (2.5-4.5) mg/dL Magnesium (1.6-2.3) mg/dL Total Bilirubin (0.2-1.3) mg/dL AST (17-59) U/L ALT (21-72) U/L Alkaline Phosphatase (38-126) U/L Total Creatine Kinase (55-170) U/L CK-MB (Mass) (0.0-3.38) ng/mL Troponin I (0.00-0.120) ng/mL NT-Pro-B Natriuret Pep (0-900) pg/mL Total Protein (6.3-8.3) g/dL Albumin (3.5-5.0) g/dL Globulin (2.2-3.9) gm/dL Albumin/Globulin Ratio (1.0-2.1) Procalcitonin (0.19-0.49) NG/ML TSH 3rd Generation (0.46-4.68) mIU/L Arterial Blood Potassium 2.8 L (3.6-5.2) mmol/L 06/18/17 06/18/17 06/18/17 Range/Units 10:30 10:30 10:30 WBC 10.9 H (4.8-10.8) K/uL RBC 4.03 L (4.40-5.90) Mil/uL Hgb 12.3 (12.0-18.0) g/dL Hct 37.9 (35.0-51.0) % MCV 93.8 (80.0-94.0) fL MCH 30.5 (27.0-31.0) pg MCHC 32.5 L (33.0-37.0) g/dL RDW 21.8 H (11.5-14.5) % Plt Count 67 L (130-400) K/uL MPV 10.5 (7.2-11.7) fL Neut % (Auto) 95.1 H (50.0-75.0) % Lymph % (Auto) 1.8 L (20.0-40.0) % [place] % (Auto) 3.0 (0.0-10.0) % Eos % (Auto) 0.0 (0.0-4.0) % Baso % (Auto) 0.1 (0.0-2.0) % Neut # 10.4 H (1.8-7.0) K/uL Lymph # 0.2 L (1.0-4.3) K/uL [place] # 0.3 (0.0-0.8) K/uL Eos # 0.0 (0.0-0.7) K/uL Baso # 0.0 (0.0-0.2) K/uL Neutrophils % (Manual) 89 H (50-75) % Band Neutrophils % 7 H (0-2) % Lymphocytes % (Manual) 2 L (20-40) % Monocytes % (Manual) 2 (0-10) % Platelet Estimate Decreased L (NORMAL) Anisocytosis (manual) Moderate Target Cells Slight Puncture Site pCO2 (35-45) mm/Hg pO2 (80-100) mm/Hg HCO3 (21-28) mmol/L ABG pH (7.35-7.45) ABG Total CO2 (22-28) mmol/L ABG O2 Saturation (95-98) % ABG Base Excess (-2.0-3.0) mmol/L ABG Hemoglobin (11.7-17.4) g/dL ABG Carboxyhemoglobin (0.5-1.5) % POC ABG HHb (Measured) (0.0-5.0) % ABG Methemoglobin (0.0-3.0) % Luciano Test ABG Potassium (3.6-5.2) mmol/L A-a O2 Difference mm/Hg Respiratory Index Hgb O2 Saturation (95.0-98.0) % Sodium 143 (132-148) mmol/l Chloride 102 (98-107) mmol/L Glucose (75-110) mg/dl Lactate (0.7-2.1) mmol/L Vent Mode FiO2 % Inspiratory BiPAP Expiratory BiPAP Potassium 2.9 L (3.6-5.2) mmol/L Carbon Dioxide 31 H (22-30) mmol/L Anion Gap 13 (10-20) BUN 41 H (9-20) mg/dL Creatinine 0.8 (0.8-1.5) mg/dL Est GFR ( Amer) > 60 Est GFR (Non-Af Amer) > 60 Random Glucose 141 H (75-110) mg/dL Lactic Acid (0.7-2.1) mmol/L Calcium 8.2 L (8.6-10.4) mg/dl Phosphorus 3.4 (2.5-4.5) mg/dL Magnesium 1.8 (1.6-2.3) mg/dL Total Bilirubin 1.5 H (0.2-1.3) mg/dL AST 39 (17-59) U/L ALT 49 (21-72) U/L Alkaline Phosphatase 68 (38-126) U/L Total Creatine Kinase (55-170) U/L CK-MB (Mass) (0.0-3.38) ng/mL Troponin I (0.00-0.120) ng/mL NT-Pro-B Natriuret Pep 9110 H (0-900) pg/mL Total Protein 5.4 L (6.3-8.3) g/dL Albumin 2.5 L (3.5-5.0) g/dL Globulin 2.9 (2.2-3.9) gm/dL Albumin/Globulin Ratio 0.8 L (1.0-2.1) Procalcitonin (0.19-0.49) NG/ML TSH 3rd Generation 1.35 (0.46-4.68) mIU/L Arterial Blood Potassium (3.6-5.2) mmol/L 06/18/17 06/18/17 06/18/17 Range/Units 06:03 06:03 00:23 WBC (4.8-10.8) K/uL RBC (4.40-5.90) Mil/uL Hgb (12.0-18.0) g/dL Hct (35.0-51.0) % MCV (80.0-94.0) fL MCH (27.0-31.0) pg MCHC (33.0-37.0) g/dL RDW (11.5-14.5) % Plt Count (130-400) K/uL MPV (7.2-11.7) fL Neut % (Auto) (50.0-75.0) % Lymph % (Auto) (20.0-40.0) % [place] % (Auto) (0.0-10.0) % Eos % (Auto) (0.0-4.0) % Baso % (Auto) (0.0-2.0) % Neut # (1.8-7.0) K/uL Lymph # (1.0-4.3) K/uL [place] # (0.0-0.8) K/uL Eos # (0.0-0.7) K/uL Baso # (0.0-0.2) K/uL Neutrophils % (Manual) (50-75) % Band Neutrophils % (0-2) % Lymphocytes % (Manual) (20-40) % Monocytes % (Manual) (0-10) % Platelet Estimate (NORMAL) Anisocytosis (manual) Target Cells Puncture Site pCO2 (35-45) mm/Hg pO2 (80-100) mm/Hg HCO3 (21-28) mmol/L ABG pH (7.35-7.45) ABG Total CO2 (22-28) mmol/L ABG O2 Saturation (95-98) % ABG Base Excess (-2.0-3.0) mmol/L ABG Hemoglobin (11.7-17.4) g/dL ABG Carboxyhemoglobin (0.5-1.5) % POC ABG HHb (Measured) (0.0-5.0) % ABG Methemoglobin (0.0-3.0) % Luciano Test ABG Potassium (3.6-5.2) mmol/L A-a O2 Difference mm/Hg Respiratory Index Hgb O2 Saturation (95.0-98.0) % Sodium (132-148) mmol/l Chloride (98-107) mmol/L Glucose (75-110) mg/dl Lactate (0.7-2.1) mmol/L Vent Mode FiO2 % Inspiratory BiPAP Expiratory BiPAP Potassium (3.6-5.2) mmol/L Carbon Dioxide (22-30) mmol/L Anion Gap (10-20) BUN (9-20) mg/dL Creatinine (0.8-1.5) mg/dL Est GFR ( Amer) Est GFR (Non-Af Amer) Random Glucose (75-110) mg/dL Lactic Acid 3.4 H (0.7-2.1) mmol/L Calcium (8.6-10.4) mg/dl Phosphorus (2.5-4.5) mg/dL Magnesium (1.6-2.3) mg/dL Total Bilirubin (0.2-1.3) mg/dL AST (17-59) U/L ALT (21-72) U/L Alkaline Phosphatase (38-126) U/L Total Creatine Kinase 26 L 34 L (55-170) U/L CK-MB (Mass) 2.96 4.32 H (0.0-3.38) ng/mL Troponin I 0.1230 H* 0.1130 (0.00-0.120) ng/mL NT-Pro-B Natriuret Pep (0-900) pg/mL Total Protein (6.3-8.3) g/dL Albumin (3.5-5.0) g/dL Globulin (2.2-3.9) gm/dL Albumin/Globulin Ratio (1.0-2.1) Procalcitonin (0.19-0.49) NG/ML TSH 3rd Generation (0.46-4.68) mIU/L Arterial Blood Potassium (3.6-5.2) mmol/L 06/17/17 06/17/17 06/17/17 Range/Units 23:22 19:09 19:09 WBC (4.8-10.8) K/uL RBC (4.40-5.90) Mil/uL Hgb (12.0-18.0) g/dL Hct (35.0-51.0) % MCV (80.0-94.0) fL MCH (27.0-31.0) pg MCHC (33.0-37.0) g/dL RDW (11.5-14.5) % Plt Count (130-400) K/uL MPV (7.2-11.7) fL Neut % (Auto) (50.0-75.0) % Lymph % (Auto) (20.0-40.0) % [place] % (Auto) (0.0-10.0) % Eos % (Auto) (0.0-4.0) % Baso % (Auto) (0.0-2.0) % Neut # (1.8-7.0) K/uL Lymph # (1.0-4.3) K/uL [place] # (0.0-0.8) K/uL Eos # (0.0-0.7) K/uL Baso # (0.0-0.2) K/uL Neutrophils % (Manual) (50-75) % Band Neutrophils % (0-2) % Lymphocytes % (Manual) (20-40) % Monocytes % (Manual) (0-10) % Platelet Estimate (NORMAL) Anisocytosis (manual) Target Cells Puncture Site pCO2 (35-45) mm/Hg pO2 (80-100) mm/Hg HCO3 (21-28) mmol/L ABG pH (7.35-7.45) ABG Total CO2 (22-28) mmol/L ABG O2 Saturation (95-98) % ABG Base Excess (-2.0-3.0) mmol/L ABG Hemoglobin (11.7-17.4) g/dL ABG Carboxyhemoglobin (0.5-1.5) % POC ABG HHb (Measured) (0.0-5.0) % ABG Methemoglobin (0.0-3.0) % Luciano Test ABG Potassium (3.6-5.2) mmol/L A-a O2 Difference mm/Hg Respiratory Index Hgb O2 Saturation (95.0-98.0) % Sodium (132-148) mmol/l Chloride (98-107) mmol/L Glucose (75-110) mg/dl Lactate (0.7-2.1) mmol/L Vent Mode FiO2 % Inspiratory BiPAP Expiratory BiPAP Potassium (3.6-5.2) mmol/L Carbon Dioxide (22-30) mmol/L Anion Gap (10-20) BUN (9-20) mg/dL Creatinine (0.8-1.5) mg/dL Est GFR ( Amer) Est GFR (Non-Af Amer) Random Glucose (75-110) mg/dL Lactic Acid 3.3 H 1.8 (0.7-2.1) mmol/L Calcium (8.6-10.4) mg/dl Phosphorus (2.5-4.5) mg/dL Magnesium (1.6-2.3) mg/dL Total Bilirubin (0.2-1.3) mg/dL AST (17-59) U/L ALT (21-72) U/L Alkaline Phosphatase (38-126) U/L Total Creatine Kinase 43 L (55-170) U/L CK-MB (Mass) 4.58 H (0.0-3.38) ng/mL Troponin I 0.1190 (0.00-0.120) ng/mL NT-Pro-B Natriuret Pep (0-900) pg/mL Total Protein (6.3-8.3) g/dL Albumin (3.5-5.0) g/dL Globulin (2.2-3.9) gm/dL Albumin/Globulin Ratio (1.0-2.1) Procalcitonin (0.19-0.49) NG/ML TSH 3rd Generation (0.46-4.68) mIU/L Arterial Blood Potassium (3.6-5.2) mmol/L 06/17/17 06/17/17 Range/Units 19:09 18:45 WBC (4.8-10.8) K/uL RBC (4.40-5.90) Mil/uL Hgb (12.0-18.0) g/dL Hct (35.0-51.0) % MCV (80.0-94.0) fL MCH (27.0-31.0) pg MCHC (33.0-37.0) g/dL RDW (11.5-14.5) % Plt Count (130-400) K/uL MPV (7.2-11.7) fL Neut % (Auto) (50.0-75.0) % Lymph % (Auto) (20.0-40.0) % [place] % (Auto) (0.0-10.0) % Eos % (Auto) (0.0-4.0) % Baso % (Auto) (0.0-2.0) % Neut # (1.8-7.0) K/uL Lymph # (1.0-4.3) K/uL [place] # (0.0-0.8) K/uL Eos # (0.0-0.7) K/uL Baso # (0.0-0.2) K/uL Neutrophils % (Manual) (50-75) % Band Neutrophils % (0-2) % Lymphocytes % (Manual) (20-40) % Monocytes % (Manual) (0-10) % Platelet Estimate (NORMAL) Anisocytosis (manual) Target Cells Puncture Site Rba pCO2 51 H (35-45) mm/Hg pO2 61 L (80-100) mm/Hg HCO3 30.4 H (21-28) mmol/L ABG pH 7.42 (7.35-7.45) ABG Total CO2 34.7 H (22-28) mmol/L ABG O2 Saturation 93.7 L (95-98) % ABG Base Excess 7.2 H (-2.0-3.0) mmol/L ABG Hemoglobin (11.7-17.4) g/dL ABG Carboxyhemoglobin (0.5-1.5) % POC ABG HHb (Measured) (0.0-5.0) % ABG Methemoglobin (0.0-3.0) % Luciano Test Pos ABG Potassium 3.4 L (3.6-5.2) mmol/L A-a O2 Difference 89.0 mm/Hg Respiratory Index 1.5 Hgb O2 Saturation (95.0-98.0) % Sodium 147.0 (132-148) mmol/l Chloride 106.0 (98-107) mmol/L Glucose 142 H (75-110) mg/dl Lactate 3.5 H (0.7-2.1) mmol/L Vent Mode FiO2 30.0 % Inspiratory BiPAP 16 Expiratory BiPAP 8 Potassium (3.6-5.2) mmol/L Carbon Dioxide (22-30) mmol/L Anion Gap (10-20) BUN (9-20) mg/dL Creatinine (0.8-1.5) mg/dL Est GFR ( Amer) Est GFR (Non-Af Amer) Random Glucose (75-110) mg/dL Lactic Acid (0.7-2.1) mmol/L Calcium (8.6-10.4) mg/dl Phosphorus (2.5-4.5) mg/dL Magnesium (1.6-2.3) mg/dL Total Bilirubin (0.2-1.3) mg/dL AST (17-59) U/L ALT (21-72) U/L Alkaline Phosphatase (38-126) U/L Total Creatine Kinase (55-170) U/L CK-MB (Mass) (0.0-3.38) ng/mL Troponin I (0.00-0.120) ng/mL NT-Pro-B Natriuret Pep (0-900) pg/mL Total Protein (6.3-8.3) g/dL Albumin (3.5-5.0) g/dL Globulin (2.2-3.9) gm/dL Albumin/Globulin Ratio (1.0-2.1) Procalcitonin 0.11 L (0.19-0.49) NG/ML TSH 3rd Generation (0.46-4.68) mIU/L Arterial Blood Potassium 3.4 L (3.6-5.2) mmol/L Laboratory Results - last 24 hr 06/17/17 06/17/17 06/17/17 18:45 19:09 19:09 WBC RBC Hgb Hct MCV MCH MCHC RDW Plt Count MPV Neut % (Auto) Lymph % (Auto) [place] % (Auto) Eos % (Auto) Baso % (Auto) Neut # Lymph # [place] # Eos # Baso # Neutrophils % (Manual) Band Neutrophils % Lymphocytes % (Manual) Monocytes % (Manual) Platelet Estimate Anisocytosis (manual) Target Cells Puncture Site Rba pCO2 51 H pO2 61 L HCO3 30.4 H ABG pH 7.42 ABG Total CO2 34.7 H ABG O2 Saturation 93.7 L ABG Base Excess 7.2 H ABG Hemoglobin ABG Carboxyhemoglobin POC ABG HHb (Measured) ABG Methemoglobin Luciano Test Pos ABG Potassium 3.4 L A-a O2 Difference 89.0 Respiratory Index 1.5 Hgb O2 Saturation Sodium 147.0 Chloride 106.0 Glucose 142 H Lactate 3.5 H Vent Mode FiO2 30.0 Inspiratory BiPAP 16 Expiratory BiPAP 8 Potassium Carbon Dioxide Anion Gap BUN Creatinine Est GFR ( Amer) Est GFR (Non-Af Amer) Random Glucose Lactic Acid Calcium Phosphorus Magnesium Total Bilirubin AST ALT Alkaline Phosphatase Total Creatine Kinase 43 L CK-MB (Mass) 4.58 H Troponin I 0.1190 NT-Pro-B Natriuret Pep Total Protein Albumin Globulin Albumin/Globulin Ratio Procalcitonin 0.11 L TSH 3rd Generation Arterial Blood Potassium 3.4 L 06/17/17 06/17/17 06/18/17 19:09 23:22 00:23 WBC RBC Hgb Hct MCV MCH MCHC RDW Plt Count MPV Neut % (Auto) Lymph % (Auto) [place] % (Auto) Eos % (Auto) Baso % (Auto) Neut # Lymph # [place] # Eos # Baso # Neutrophils % (Manual) Band Neutrophils % Lymphocytes % (Manual) Monocytes % (Manual) Platelet Estimate Anisocytosis (manual) Target Cells Puncture Site pCO2 pO2 HCO3 ABG pH ABG Total CO2 ABG O2 Saturation ABG Base Excess ABG Hemoglobin ABG Carboxyhemoglobin POC ABG HHb (Measured) ABG Methemoglobin Luciano Test ABG Potassium A-a O2 Difference Respiratory Index Hgb O2 Saturation Sodium Chloride Glucose Lactate Vent Mode FiO2 Inspiratory BiPAP Expiratory BiPAP Potassium Carbon Dioxide Anion Gap BUN Creatinine Est GFR ( Amer) Est GFR (Non-Af Amer) Random Glucose Lactic Acid 1.8 3.3 H Calcium Phosphorus Magnesium Total Bilirubin AST ALT Alkaline Phosphatase Total Creatine Kinase 34 L CK-MB (Mass) 4.32 H Troponin I 0.1130 NT-Pro-B Natriuret Pep Total Protein Albumin Globulin Albumin/Globulin Ratio Procalcitonin TSH 3rd Generation Arterial Blood Potassium 06/18/17 06/18/17 06/18/17 06:03 06:03 10:30 WBC RBC Hgb Hct MCV MCH MCHC RDW Plt Count MPV Neut % (Auto) Lymph % (Auto) [place] % (Auto) Eos % (Auto) Baso % (Auto) Neut # Lymph # [place] # Eos # Baso # Neutrophils % (Manual) Band Neutrophils % Lymphocytes % (Manual) Monocytes % (Manual) Platelet Estimate Anisocytosis (manual) Target Cells Puncture Site pCO2 pO2 HCO3 ABG pH ABG Total CO2 ABG O2 Saturation ABG Base Excess ABG Hemoglobin ABG Carboxyhemoglobin POC ABG HHb (Measured) ABG Methemoglobin Luciano Test ABG Potassium A-a O2 Difference Respiratory Index Hgb O2 Saturation Sodium Chloride Glucose Lactate Vent Mode FiO2 Inspiratory BiPAP Expiratory BiPAP Potassium Carbon Dioxide Anion Gap BUN Creatinine Est GFR ( Amer) Est GFR (Non-Af Amer) Random Glucose Lactic Acid 3.4 H Calcium Phosphorus Magnesium Total Bilirubin AST ALT Alkaline Phosphatase Total Creatine Kinase 26 L CK-MB (Mass) 2.96 Troponin I 0.1230 H* NT-Pro-B Natriuret Pep 9110 H Total Protein Albumin Globulin Albumin/Globulin Ratio Procalcitonin TSH 3rd Generation 1.35 Arterial Blood Potassium 06/18/17 06/18/17 06/18/17 10:30 10:30 10:55 WBC 10.9 H RBC 4.03 L Hgb 12.3 Hct 37.9 MCV 93.8 MCH 30.5 MCHC 32.5 L RDW 21.8 H Plt Count 67 L MPV 10.5 Neut % (Auto) 95.1 H Lymph % (Auto) 1.8 L [place] % (Auto) 3.0 Eos % (Auto) 0.0 Baso % (Auto) 0.1 Neut # 10.4 H Lymph # 0.2 L [place] # 0.3 Eos # 0.0 Baso # 0.0 Neutrophils % (Manual) 89 H Band Neutrophils % 7 H Lymphocytes % (Manual) 2 L Monocytes % (Manual) 2 Platelet Estimate Decreased L Anisocytosis (manual) Moderate Target Cells Slight Puncture Site pCO2 pO2 HCO3 ABG pH ABG Total CO2 ABG O2 Saturation ABG Base Excess ABG Hemoglobin ABG Carboxyhemoglobin POC ABG HHb (Measured) ABG Methemoglobin Luciano Test ABG Potassium A-a O2 Difference Respiratory Index Hgb O2 Saturation Sodium 143 Chloride 102 Glucose Lactate Vent Mode FiO2 Inspiratory BiPAP Expiratory BiPAP Potassium 2.9 L Carbon Dioxide 31 H Anion Gap 13 BUN 41 H Creatinine 0.8 Est GFR ( Amer) > 60 Est GFR (Non-Af Amer) > 60 Random Glucose 141 H Lactic Acid 2.7 H Calcium 8.2 L Phosphorus 3.4 Magnesium 1.8 Total Bilirubin 1.5 H AST 39 ALT 49 Alkaline Phosphatase 68 Total Creatine Kinase CK-MB (Mass) Troponin I NT-Pro-B Natriuret Pep Total Protein 5.4 L Albumin 2.5 L Globulin 2.9 Albumin/Globulin Ratio 0.8 L Procalcitonin TSH 3rd Generation Arterial Blood Potassium 06/18/17 06/18/17 11:18 11:29 WBC RBC Hgb Hct MCV MCH MCHC RDW Plt Count MPV Neut % (Auto) Lymph % (Auto) [place] % (Auto) Eos % (Auto) Baso % (Auto) Neut # Lymph # [place] # Eos # Baso # Neutrophils % (Manual) Band Neutrophils % Lymphocytes % (Manual) Monocytes % (Manual) Platelet Estimate Anisocytosis (manual) Target Cells Puncture Site Rr Rr pCO2 47 H 46 H pO2 95 111 H HCO3 31.4 H 30.3 H ABG pH 7.46 H 7.45 ABG Total CO2 34.8 H 33.4 H ABG O2 Saturation 98.5 H 99.3 H ABG Base Excess 8.4 H 6.9 H ABG Hemoglobin 12.1 ABG Carboxyhemoglobin 2.6 H POC ABG HHb (Measured) 1.4 ABG Methemoglobin 0.9 Luciano Test Pos Pos ABG Potassium 2.8 L A-a O2 Difference 60.0 45.0 Respiratory Index 0.6 0.4 Hgb O2 Saturation 95.1 Sodium 150.0 H Chloride 110.0 H Glucose 159 H Lactate 2.5 H Vent Mode Bipap Bipap FiO2 30.0 30.0 Inspiratory BiPAP 16 16 Expiratory BiPAP 8 8 Potassium Carbon Dioxide Anion Gap BUN Creatinine Est GFR ( Amer) Est GFR (Non-Af Amer) Random Glucose Lactic Acid Calcium Phosphorus Magnesium Total Bilirubin AST ALT Alkaline Phosphatase Total Creatine Kinase CK-MB (Mass) Troponin I NT-Pro-B Natriuret Pep Total Protein Albumin Globulin Albumin/Globulin Ratio Procalcitonin TSH 3rd Generation Arterial Blood Potassium 2.8 L EKG/Cardiology Studies: Cardiology / EKG Studies 06/17/17 19:50 EKG [ELECTROCARDIOGRAM] Q6H Comment: Mode Of Transportation: Reason For Exam: sob Isolation: Contact 06/18/17 01:50 EKG [ELECTROCARDIOGRAM] Q6H Comment: Mode Of Transportation: Reason For Exam: sob Isolation: Contact 06/18/17 08:06 EKG [ELECTROCARDIOGRAM] Stat Comment: Mode Of Transportation: Reason For Exam: elevated troponin Isolation: Contact Critical Care Progress Note - Nutrition Nutrition: Nutrition Category Date Time Status Pureed [Dysphagia/Modified Consistency Diet] [DIET] Diets 06/18/17 Breakfast Active Attending/Attestation - Attestation I have personally seen and examined this patient.: Yes I have fully participated in the care of the patient.: Yes I have reviewed all pertinent clinical information: Yes Notes (Text): 06/18/17 17:38 Patient seen and examined in the intensive care unit. patient admitted to ICU for respiratory failure/pneumonia continue IV antibiotics Hospice evaluation Status post fluid resuscitation Prognosis poor
[2017-06-18] MEDS: Collagenase 250 Units/gm Ointment(30 gm) TOP SCH (10:42)
[2017-06-18 10:53] LABS: BASO % 0.1 % (0.0-2.0); HEMOGLOBIN 12.3 g/dL (12.0-18.0); LYMPH # 0.2 K/uL (1.0-4.3); LYMPH % 1.8 % (20.0-40.0); MEAN CELL VOLUME 93.8 fL (80.0-94.0); MEAN CORPUSCULAR HEMOGLOBIN 30.5 pg (27.0-31.0); MEAN CORPUSCULAR HGB CONC 32.5 g/dL (33.0-37.0); MEAN PLATELET VOLUME 10.5 fL (7.2-11.7); MONO # 0.3 K/uL (0.0-0.8); NEUT # 10.4 K/uL (1.8-7.0); NEUT % 95.1 % (50.0-75.0); NRBC % 0.1 % (0.0-2.0); PLATELET COUNT 67 K/uL (130-400); RBC 4.03 Mil/uL (4.40-5.90); RED CELL DISTRIBUTION WIDTH 21.8 % (11.5-14.5); WHITE BLOOD COUNT 10.9 K/uL (4.8-10.8)
[2017-06-18 11:07] LABS: ALB/GLOB RATIO 0.8 (1.0-2.1); ALBUMIN 2.5 g/dL (3.5-5.0); ALT/SGPT 49 U/L (21-72); AST/SGOT 39 U/L (17-59); BLOOD UREA NITROGEN 41 mg/dL (9-20); CALCIUM 8.2 mg/dl (8.6-10.4); GFR AFRICAN-AMERICAN > 60; GFR NON-AFRICAN AMERICAN > 60
[2017-06-18 11:23] LABS: ABG ALLEN TEST POS; ARTERIAL BLOOD GAS HCO3 31.4 mmol/L (21-28); ARTERIAL BLOOD GAS HEMOGLOBIN 12.1 g/dL (11.7-17.4); ARTERIAL BLOOD GAS O2 SAT 98.5 % (95-98); ARTERIAL BLOOD GAS PCO2 47 mm/Hg (35-45); ARTERIAL BLOOD GAS PH 7.46 (7.35-7.45); ARTERIAL BLOOD GAS PO2 95 mm/Hg (80-100); ARTERIAL BLOOD GAS TCO2 34.8 mmol/L (22-28)
[2017-06-18 11:32] LABS: ABG ALLEN TEST POS; ARTERIAL BLOOD GAS HCO3 30.3 mmol/L (21-28); ARTERIAL BLOOD GAS O2 SAT 99.3 % (95-98); ARTERIAL BLOOD GAS PCO2 46 mm/Hg (35-45); ARTERIAL BLOOD GAS PH 7.45 (7.35-7.45); ARTERIAL BLOOD GAS PO2 111 mm/Hg (80-100); ARTERIAL BLOOD GAS TCO2 33.4 mmol/L (22-28)
[2017-06-18 11:46] LABS: ANISOCYTOSIS MODERATE; BANDS 7 % (0-2); LYMPHOCYTE 2 % (20-40); MONOCYTE 2 % (0-10); NEUTROPHIL 89 % (50-75); PLATELET ESTIMATE DECREASED (NORMAL); TOTAL CELLS COUNTED 100
[2017-06-18 11:47] LABS: TARGET CELLS SLIGHT
[2017-06-18 12:25] LABS: MAGNESIUM 1.8 mg/dL (1.6-2.3)
--- NOTE | 2017-06-18 12:36 | CP.PCM.PN ---
Subjective - Date & Time of Evaluation Date of Evaluation: 06/18/17 Time of Evaluation: 12:33 - Subjective Subjective: CONDITION POOR. RESTLESS. ON BIPAP. HYPOKALEMIC. DEHYDRATED. PALE. TACHYCARDIC, A.FIB. Objective - Vital Signs/Intake and Output Vital Signs (last 24 hours): Temp Pulse Resp BP Pulse Ox 97.9 F 134 H 18 99/72 L 98 06/18/17 04:00 06/18/17 11:44 06/18/17 10:16 06/18/17 10:16 06/18/17 10:16 Intake and Output: 06/18/17 06/18/17 06:59 18:59 Intake Total 430 1350 Output Total 1480 75 Balance -1050 1275 - Medications Medications: Current Medications Acetaminophen (Tylenol 325mg Tab) 2 mg PO Q4 PRN PRN Reason: Fever >100.4 F Al Hydrox/Mg Hydrox/Simethicone (Maalox Plus 30 Ml) 30 ml PO Q4 PRN PRN Reason: GI distress Albuterol/Ipratropium (Duoneb 3 Mg/0.5 Mg (3 Ml) Ud) 3 ml INH RQ6 AYUSH Last Admin: 06/18/17 07:40 Dose: 3 ml Apixaban (Eliquis) 5 mg PO BID AYUSH Last Admin: 06/18/17 10:05 Dose: 5 mg Bacitracin (Bacitracin) 1 gm TOP QSHIFT PENDING SALE TO [facility] Last Admin: 06/18/17 06:08 Dose: Not Given Collagenase (Santyl) 0 gm TOP DAILY AYUSH Last Admin: 06/18/17 10:42 Dose: 1 applic Enoxaparin Sodium (Lovenox) 45 mg SC Q12 AYUSH Piperacillin Sod/Tazobactam Sod (Zosyn 3.375 Gm Iv Premix) 3.375 gm in 50 mls @ 100 mls/hr IVPB Q8H AYUSH Last Admin: 06/18/17 08:42 Dose: 100 mls/hr Diltiazem HCl 125 mg/ Sodium (Chloride) 125 mls @ 5 mls/hr IV .Q24H AYUSH; 5 MG/ HR PRN Reason: Protocol Last Titration: 06/18/17 05:00 Dose: 5 mg/hr, 5 mls/hr Potassium Chloride (Potassium Chloride 10 Meq/100 Ml) 10 meq in 100 mls @ 100 mls/hr IVPB Q1H PENDING SALE TO [facility] Stop: 06/18/17 13:44 Potassium Chloride 20 meq/ (Sodium Chloride) 110 mls @ 50 mls/hr IV Q2H PENDING SALE TO [facility] Stop: 06/18/17 17:59 Vancomycin/Sodium Chloride (Vancomycin 1 Gm/Ns 200 Ml) 1 gm in 200 mls @ 133.333 mls/hr IVPB Q24H PENDING SALE TO [facility] Stop: 06/23/17 13:01 Levetiracetam (Keppra) 500 mg PO BID PENDING SALE TO [facility] Last Admin: 06/18/17 10:05 Dose: 500 mg Magnesium Hydroxide (Milk Of Magnesia) 30 ml PO DAILY PRN PRN Reason: Constipation Last Admin: 06/18/17 09:55 Dose: 30 ml Pantoprazole Sodium (Protonix Inj) 40 mg IVP Q12H PENDING SALE TO [facility] Last Admin: 06/18/17 06:13 Dose: 40 mg - Labs Labs: 06/18/17 10:30 06/18/17 10:30 - Constitutional Appears: In Acute Distress, Chronically Ill - Eye Exam Eye Exam: Normal appearance, PERRL - ENT Exam ENT Exam: Mucous Membranes Dry - Neck Exam Neck Exam: Normal Inspection - Respiratory Exam Respiratory Exam: Decreased Breath Sounds, Rhonchi, Respiratory Distress - Cardiovascular Exam Cardiovascular Exam: Tachycardia, Irregular Rhythm, +S1, +S2 - GI/Abdominal Exam GI & Abdominal Exam: Soft, Normal Bowel Sounds - Extremities Exam Extremities Exam: Full ROM, Normal Capillary Refill, Normal Inspection. absent : Joint Swelling, Pedal Edema - Neurological Exam Neurological Exam: Altered Assessment and Plan - Assessment and Plan (Free Text) Assessment: RESPIRATORY FAILURE. CA LUNGS. R/O SEPSIS PNEUMONIA. Plan: CONDITION POOR, PROGNOSIS GUARDED. HOSPICE EVAL. SUPPORTIVE CARE. RESP CARE.
[2017-06-18] MEDS: Vancomycin 1 gm/NS 200 ml 1 GM/200 ML BAG IVPB SCH (13:02)
--- NOTE | 2017-06-18 20:17 | CARD ---
APPROVED REPORT EXAM: Two-dimensional and M-mode echocardiogram with Doppler and color Doppler. Other Information Quality : Technically LimitedRhythm : INDICATION Dyspnea Congestive Heart Failure COPD ELEVATED BNP 2D DIMENSIONS IVSd0.8 (0.7-1.1cm)LVDd4.7 (3.9-5.9cm) LVOT Diameter2.5 (1.8-2.4cm)PWd0.8 (0.7-1.1cm) LVDs2.8 (2.5-4.0cm)FS (%) 40.4 % LVEF (%)71.1 (>50%) M-Mode DIMENSIONS Left Atrium (MM)3.59 (2.5-4.0cm)Aortic Root3.42 (2.2-3.7cm) Aortic Cusp Exc.1.37 (1.5-2.0cm) Mitral Valve E/A ratio0.0 TDI E/Lateral E'0.0E/Medial E'0.0 Tricuspid Valve TR Peak Yckzjihg138es/sTR Peak Gr.[id number] <Conclusion> SUBOPTIMAL STUDY NORMAL LV EF CALCICIED AOV WITH DIMINISHED OPENING . AOV VALVE AREA COULD NOT BE CALCULATED. APPEARS SEVERE REC. CORRIE OR CARDIAC CATH
[2017-06-18] MEDS: Enoxaparin 60 mg Syringe SC SCH (21:47)
[2017-06-19] MEDS ORDERED: Digoxin 500 mcg/2ml (0.5 mg/2ml) Inj IVP ONE ×2 (00:37→14:54)
[2017-06-19] MEDS ORDERED: Sodium Chloride 0.9% 500 ML IV ONE (00:38)
[2017-06-19] MEDS: Albuterol-Ipratrop 3 mg / 0.5 (3 ml) UD INH SCH ×4 (02:09→19:51)
[2017-06-19] MEDS: Bacitracin Ointment 30 GM TUBE TOP SCH ×3 (05:45→22:05)
[2017-06-19 06:31] LABS: BASO % 0.1 % (0.0-2.0); HEMOGLOBIN 14.1 g/dL (12.0-18.0); LYMPH # 0.4 K/uL (1.0-4.3); LYMPH % 3.4 % (20.0-40.0); MEAN CELL VOLUME 94.5 fL (80.0-94.0); MEAN CORPUSCULAR HEMOGLOBIN 30.6 pg (27.0-31.0); MEAN CORPUSCULAR HGB CONC 32.4 g/dL (33.0-37.0); MONO # 0.4 K/uL (0.0-0.8); MONO % 3.8 % (0.0-10.0); NEUT # 9.7 K/uL (1.8-7.0); NEUT % 92.7 % (50.0-75.0); NRBC % 0.2 % (0.0-2.0); PLATELET COUNT 73 K/uL (130-400); RBC 4.59 Mil/uL (4.40-5.90); WHITE BLOOD COUNT 10.5 K/uL (4.8-10.8)
[2017-06-19 06:52] LABS: ALB/GLOB RATIO 0.9 (1.0-2.1); ALBUMIN 2.9 g/dL (3.5-5.0); ALT/SGPT 46 U/L (21-72); AST/SGOT 37 U/L (17-59); BLOOD UREA NITROGEN 37 mg/dL (9-20); CALCIUM 8.6 mg/dl (8.6-10.4); GFR AFRICAN-AMERICAN > 60; GFR NON-AFRICAN AMERICAN > 60; MAGNESIUM 1.8 mg/dL (1.6-2.3)
[2017-06-19] MEDS: Piperacill/Tazo 3.375gm in Dex 3.375 GM/50 ML BAG IVPB SCH ×3 (07:55→16:37)
[2017-06-19 08:52] LABS: BANDS 1 % (0-2); LYMPHOCYTE 4 % (20-40); MONOCYTE 4 % (0-10); NEUTROPHIL 91 % (50-75); TOTAL CELLS COUNTED 100
[2017-06-19 08:53] LABS: ANISOCYTOSIS MODERATE; PLATELET ESTIMATE DECREASED (NORMAL)
[2017-06-19 08:54] LABS: HYPOCHROMIC SLIGHT; LARGE PLATELETS PRESENT; POLYCHROMIC SLIGHT; TOXIC GRANULATION PRESENT
[2017-06-19] MEDS: Enoxaparin 60 mg Syringe SC SCH ×2 (10:20→22:04)
[2017-06-19] MEDS: Collagenase 250 Units/gm Ointment(30 gm) TOP SCH (10:21)
--- NOTE | 2017-06-19 10:37 | CP.CCUPN ---
CCU Subjective - Physician Review Events Since Last Encounter (Free Text): 06/19/17 10:25 patient seen and examined in the intensive care unit. Case discussed with house staff in the morning. Patient is awake and responsive On BiPAP A. fib with rapid ventricular rate Afebrile For hospice evaluation CCU Objective - Vital Signs / Intake & Output Vital Signs (Last 4 hours): Vital Signs Temp Pulse Resp BP Pulse Ox 06/19/17 09:03 97/64 L 06/19/17 09:00 135 H 21 96 06/19/17 08:06 118 H 22 87/67 L 95 06/19/17 08:00 97 F L 123 H 17 94 L 06/19/17 07:32 114 H 06/19/17 07:30 126 H 22 96 06/19/17 07:07 125 H 16 86/64 L 92 L 06/19/17 07:04 132 H 16 121/98 H 83 L 06/19/17 07:00 131 H 25 H 82 L 06/19/17 06:30 135 H 15 96 Intake and Output (Last 8hrs): Intake & Output 06/18/17 06/19/17 06/19/17 22:59 06:59 14:59 Intake Total 100 50 410 Output Total 390 255 65 Balance -290 -205 345 Weight 98 lb 6 oz Intake: Intake, IV Amount 100 50 50 Left Forearm 50 Right Subclavian 100 50 PortaCath Oral 360 Output: Urine 390 255 65 Urethral (Adan) 390 255 65 - Physical Exam Head: Positive for: Atraumatic, Normocephalic Pupils: Positive for: Sluggish (left eye is sluggish) Extroacular Muscles: Positive for: EOMI Conjunctiva: Positive for: Normal Nose (Internal): Positive for: Normal Inspection, No Active Bleeding Neck: Positive for: Normal Range of Motion Cardiovascular: Positive for: Irregular Rhythm, Tachycardic. Negative for: Regular Rate and Rhythm, Normal S1, S2 Upper Extremity: Positive for: Cyanosis (fingertips are slightly purple) Lower Extremity: Positive for: NORMAL PULSES, Capillary Refill < 2 s. Negative for: Edema, Swelling Psychiatric: Positive for: Alert - Medications Active Medications: Active Medications Generic Name Dose Route Start Last Admin Trade Name Freq PRN Reason Stop Dose Admin Acetaminophen 650 mg 06/18/17 13:45 Tylenol 325mg Tab PO Q4 PRN Fever >100.4 F Al Hydrox/Mg Hydrox/Simethicone 30 ml 06/17/17 15:48 Maalox Plus 30 Ml PO Q4 PRN GI distress Albuterol/Ipratropium 3 ml 06/17/17 20:00 06/19/17 07:30 Duoneb 3 Mg/0.5 Mg (3 Ml) Ud INH 3 ml RQ6 AYUSH Administration Apixaban 5 mg 06/17/17 18:00 06/18/17 10:05 Eliquis PO 5 mg BID AYUSH Administration Bacitracin 0 gm 06/18/17 22:00 06/19/17 05:45 Bacitracin TOP 1 oin QSHIFT AYUSH Administration Collagenase 0 gm 06/18/17 10:00 06/19/17 10:21 Santyl TOP Not Given DAILY AYUSH Enoxaparin Sodium 45 mg 06/18/17 22:00 06/19/17 10:20 Lovenox SC 45 mg Q12 AYUSH Administration Piperacillin Sod/Tazobactam Sod 3.375 gm in 50 mls @ 100 mls/hr 06/18/17 00: 00 06/19/17 07:55 Zosyn 3.375 Gm Iv Premix IVPB 100 mls/hr Q8H AYUSH Administration Diltiazem HCl 125 mg/ Sodium 125 mls @ 5 mls/hr 06/18/17 00:30 06/19/17 00:00 Chloride IV Not Given .Q24H AYUSH Protocol 5 MG/HR Vancomycin/Sodium Chloride 1 gm in 200 mls @ 133.333 mls/hr 06/18/17 13:00 13:02 Vancomycin 1 Gm/Ns 200 Ml IVPB 06/23/17 13:01 133.333 mls/hr Q24H AYUSH Administration Levetiracetam 500 mg 06/17/17 18:00 06/19/17 10:20 Keppra PO 500 mg BID AYUSH Administration Magnesium Hydroxide 30 ml 06/17/17 15:48 06/18/17 09:55 Milk Of Magnesia PO 30 ml DAILY PRN Administration Constipation Pantoprazole Sodium 40 mg 06/17/17 16:15 06/19/17 04:00 Protonix Inj IVP 40 mg Q12H AYUSH Administration - Patient Studies Lab Studies: Microbiology Studies 06/17/17 18:55 MRSA Culture (Admit) - Final Nose MRSA NOT DETECTED 06/17/17 13:50 Blood Culture - Preliminary Blood NO GROWTH AFTER 24 HOURS 06/17/17 13:10 Blood Culture - Preliminary Blood NO GROWTH AFTER 24 HOURS Lab Studies 06/19/17 06/19/17 06/19/17 Range/Units 06:24 06:22 06:19 WBC 10.5 (4.8-10.8) K/uL RBC 4.59 (4.40-5.90) Mil/uL Hgb 14.1 (12.0-18.0) g/dL Hct 43.4 (35.0-51.0) % MCV 94.5 H (80.0-94.0) fL MCH 30.6 (27.0-31.0) pg MCHC 32.4 L (33.0-37.0) g/dL RDW 22.0 H (11.5-14.5) % Plt Count 73 L (130-400) K/uL MPV 11.0 (7.2-11.7) fL Neut % (Auto) 92.7 H (50.0-75.0) % Lymph % (Auto) 3.4 L (20.0-40.0) % [place] % (Auto) 3.8 (0.0-10.0) % Eos % (Auto) 0.0 (0.0-4.0) % Baso % (Auto) 0.1 (0.0-2.0) % Neut # 9.7 H (1.8-7.0) K/uL Lymph # 0.4 L (1.0-4.3) K/uL [place] # 0.4 (0.0-0.8) K/uL Eos # 0.0 (0.0-0.7) K/uL Baso # 0.0 (0.0-0.2) K/uL Neutrophils % (Manual) 91 H (50-75) % Band Neutrophils % 1 (0-2) % Lymphocytes % (Manual) 4 L (20-40) % Monocytes % (Manual) 4 (0-10) % Toxic Granulation Present Platelet Estimate Decreased L (NORMAL) Large Platelets Present Polychromasia Slight Hypochromasia (manual) Slight Anisocytosis (manual) Moderate Macrocytosis (manual) Slight Target Cells Puncture Site pCO2 (35-45) mm/Hg pO2 (80-100) mm/Hg HCO3 (21-28) mmol/L ABG pH (7.35-7.45) ABG Total CO2 (22-28) mmol/L ABG O2 Saturation (95-98) % ABG Base Excess (-2.0-3.0) mmol/L ABG Hemoglobin (11.7-17.4) g/dL ABG Carboxyhemoglobin (0.5-1.5) % POC ABG HHb (Measured) (0.0-5.0) % ABG Methemoglobin (0.0-3.0) % Luciano Test ABG Potassium (3.6-5.2) mmol/L A-a O2 Difference mm/Hg Respiratory Index Hgb O2 Saturation (95.0-98.0) % Glucose (75-110) mg/dl Lactate (0.7-2.1) mmol/L Vent Mode FiO2 % Inspiratory BiPAP Expiratory BiPAP Sodium 145 (132-148) mmol/L Potassium 3.7 (3.6-5.2) mmol/L Chloride 104 (98-107) mmol/L Carbon Dioxide 34 H (22-30) mmol/L Anion Gap 11 (10-20) BUN 37 H (9-20) mg/dL Creatinine 0.8 (0.8-1.5) mg/dL Est GFR ( Amer) > 60 Est GFR (Non-Af Amer) > 60 Random Glucose 96 (75-110) mg/dL Lactic Acid 3.5 H (0.7-2.1) mmol/L Calcium 8.6 (8.6-10.4) mg/dl Phosphorus 2.8 (2.5-4.5) mg/dL Magnesium 1.8 (1.6-2.3) mg/dL Total Bilirubin 2.3 H (0.2-1.3) mg/dL AST 37 (17-59) U/L ALT 46 (21-72) U/L Alkaline Phosphatase 80 (38-126) U/L NT-Pro-B Natriuret Pep (0-900) pg/mL Total Protein 6.0 L (6.3-8.3) g/dL Albumin 2.9 L (3.5-5.0) g/dL Globulin 3.1 (2.2-3.9) gm/dL Albumin/Globulin Ratio 0.9 L (1.0-2.1) TSH 3rd Generation (0.46-4.68) mIU/L Arterial Blood Potassium (3.6-5.2) mmol/L 06/18/17 06/18/17 06/18/17 Range/Units 11:29 11:18 10:55 WBC (4.8-10.8) K/uL RBC (4.40-5.90) Mil/uL Hgb (12.0-18.0) g/dL Hct (35.0-51.0) % MCV (80.0-94.0) fL MCH (27.0-31.0) pg MCHC (33.0-37.0) g/dL RDW (11.5-14.5) % Plt Count (130-400) K/uL MPV (7.2-11.7) fL Neut % (Auto) (50.0-75.0) % Lymph % (Auto) (20.0-40.0) % [place] % (Auto) (0.0-10.0) % Eos % (Auto) (0.0-4.0) % Baso % (Auto) (0.0-2.0) % Neut # (1.8-7.0) K/uL Lymph # (1.0-4.3) K/uL [place] # (0.0-0.8) K/uL Eos # (0.0-0.7) K/uL Baso # (0.0-0.2) K/uL Neutrophils % (Manual) (50-75) % Band Neutrophils % (0-2) % Lymphocytes % (Manual) (20-40) % Monocytes % (Manual) (0-10) % Toxic Granulation Platelet Estimate (NORMAL) Large Platelets Polychromasia Hypochromasia (manual) Anisocytosis (manual) Macrocytosis (manual) Target Cells Puncture Site Rr Rr pCO2 46 H 47 H (35-45) mm/Hg pO2 111 H 95 (80-100) mm/Hg HCO3 30.3 H 31.4 H (21-28) mmol/L ABG pH 7.45 7.46 H (7.35-7.45) ABG Total CO2 33.4 H 34.8 H (22-28) mmol/L ABG O2 Saturation 99.3 H 98.5 H (95-98) % ABG Base Excess 6.9 H 8.4 H (-2.0-3.0) mmol/L ABG Hemoglobin 12.1 (11.7-17.4) g/dL ABG Carboxyhemoglobin 2.6 H (0.5-1.5) % POC ABG HHb (Measured) 1.4 (0.0-5.0) % ABG Methemoglobin 0.9 (0.0-3.0) % Luciano Test Pos Pos ABG Potassium 2.8 L (3.6-5.2) mmol/L A-a O2 Difference 45.0 60.0 mm/Hg Respiratory Index 0.4 0.6 Hgb O2 Saturation 95.1 (95.0-98.0) % Glucose 159 H (75-110) mg/dl Lactate 2.5 H (0.7-2.1) mmol/L Vent Mode Bipap Bipap FiO2 30.0 30.0 % Inspiratory BiPAP 16 16 Expiratory BiPAP 8 8 Sodium 150.0 H (132-148) mmol/L Potassium (3.6-5.2) mmol/L Chloride 110.0 H (98-107) mmol/L Carbon Dioxide (22-30) mmol/L Anion Gap (10-20) BUN (9-20) mg/dL Creatinine (0.8-1.5) mg/dL Est GFR ( Amer) Est GFR (Non-Af Amer) Random Glucose (75-110) mg/dL Lactic Acid 2.7 H (0.7-2.1) mmol/L Calcium (8.6-10.4) mg/dl Phosphorus (2.5-4.5) mg/dL Magnesium (1.6-2.3) mg/dL Total Bilirubin (0.2-1.3) mg/dL AST (17-59) U/L ALT (21-72) U/L Alkaline Phosphatase (38-126) U/L NT-Pro-B Natriuret Pep (0-900) pg/mL Total Protein (6.3-8.3) g/dL Albumin (3.5-5.0) g/dL Globulin (2.2-3.9) gm/dL Albumin/Globulin Ratio (1.0-2.1) TSH 3rd Generation (0.46-4.68) mIU/L Arterial Blood Potassium 2.8 L (3.6-5.2) mmol/L 06/18/17 06/18/17 06/18/17 Range/Units 10:30 10:30 10:30 WBC 10.9 H (4.8-10.8) K/uL RBC 4.03 L (4.40-5.90) Mil/uL Hgb 12.3 (12.0-18.0) g/dL Hct 37.9 (35.0-51.0) % MCV 93.8 (80.0-94.0) fL MCH 30.5 (27.0-31.0) pg MCHC 32.5 L (33.0-37.0) g/dL RDW 21.8 H (11.5-14.5) % Plt Count 67 L (130-400) K/uL MPV 10.5 (7.2-11.7) fL Neut % (Auto) 95.1 H (50.0-75.0) % Lymph % (Auto) 1.8 L (20.0-40.0) % [place] % (Auto) 3.0 (0.0-10.0) % Eos % (Auto) 0.0 (0.0-4.0) % Baso % (Auto) 0.1 (0.0-2.0) % Neut # 10.4 H (1.8-7.0) K/uL Lymph # 0.2 L (1.0-4.3) K/uL [place] # 0.3 (0.0-0.8) K/uL Eos # 0.0 (0.0-0.7) K/uL Baso # 0.0 (0.0-0.2) K/uL Neutrophils % (Manual) 89 H (50-75) % Band Neutrophils % 7 H (0-2) % Lymphocytes % (Manual) 2 L (20-40) % Monocytes % (Manual) 2 (0-10) % Toxic Granulation Platelet Estimate Decreased L (NORMAL) Large Platelets Polychromasia Hypochromasia (manual) Anisocytosis (manual) Moderate Macrocytosis (manual) Target Cells Slight Puncture Site pCO2 (35-45) mm/Hg pO2 (80-100) mm/Hg HCO3 (21-28) mmol/L ABG pH (7.35-7.45) ABG Total CO2 (22-28) mmol/L ABG O2 Saturation (95-98) % ABG Base Excess (-2.0-3.0) mmol/L ABG Hemoglobin (11.7-17.4) g/dL ABG Carboxyhemoglobin (0.5-1.5) % POC ABG HHb (Measured) (0.0-5.0) % ABG Methemoglobin (0.0-3.0) % Luciano Test ABG Potassium (3.6-5.2) mmol/L A-a O2 Difference mm/Hg Respiratory Index Hgb O2 Saturation (95.0-98.0) % Glucose (75-110) mg/dl Lactate (0.7-2.1) mmol/L Vent Mode FiO2 % Inspiratory BiPAP Expiratory BiPAP Sodium 143 (132-148) mmol/L Potassium 2.9 L (3.6-5.2) mmol/L Chloride 102 (98-107) mmol/L Carbon Dioxide 31 H (22-30) mmol/L Anion Gap 13 (10-20) BUN 41 H (9-20) mg/dL Creatinine 0.8 (0.8-1.5) mg/dL Est GFR ( Amer) > 60 Est GFR (Non-Af Amer) > 60 Random Glucose 141 H (75-110) mg/dL Lactic Acid (0.7-2.1) mmol/L Calcium 8.2 L (8.6-10.4) mg/dl Phosphorus 3.4 (2.5-4.5) mg/dL Magnesium 1.8 (1.6-2.3) mg/dL Total Bilirubin 1.5 H (0.2-1.3) mg/dL AST 39 (17-59) U/L ALT 49 (21-72) U/L Alkaline Phosphatase 68 (38-126) U/L NT-Pro-B Natriuret Pep 9110 H (0-900) pg/mL Total Protein 5.4 L (6.3-8.3) g/dL Albumin 2.5 L (3.5-5.0) g/dL Globulin 2.9 (2.2-3.9) gm/dL Albumin/Globulin Ratio 0.8 L (1.0-2.1) TSH 3rd Generation 1.35 (0.46-4.68) mIU/L Arterial Blood Potassium (3.6-5.2) mmol/L Laboratory Results - last 24 hr 06/18/17 06/18/17 06/18/17 10:30 10:30 10:30 WBC 10.9 H RBC 4.03 L Hgb 12.3 Hct 37.9 MCV 93.8 MCH 30.5 MCHC 32.5 L RDW 21.8 H Plt Count 67 L MPV 10.5 Neut % (Auto) 95.1 H Lymph % (Auto) 1.8 L [place] % (Auto) 3.0 Eos % (Auto) 0.0 Baso % (Auto) 0.1 Neut # 10.4 H Lymph # 0.2 L [place] # 0.3 Eos # 0.0 Baso # 0.0 Neutrophils % (Manual) 89 H Band Neutrophils % 7 H Lymphocytes % (Manual) 2 L Monocytes % (Manual) 2 Toxic Granulation Platelet Estimate Decreased L Large Platelets Polychromasia Hypochromasia (manual) Anisocytosis (manual) Moderate Macrocytosis (manual) Target Cells Slight Puncture Site pCO2 pO2 HCO3 ABG pH ABG Total CO2 ABG O2 Saturation ABG Base Excess ABG Hemoglobin ABG Carboxyhemoglobin POC ABG HHb (Measured) ABG Methemoglobin Luciano Test ABG Potassium A-a O2 Difference Respiratory Index Hgb O2 Saturation Glucose Lactate Vent Mode FiO2 Inspiratory BiPAP Expiratory BiPAP Sodium 143 Potassium 2.9 L Chloride 102 Carbon Dioxide 31 H Anion Gap 13 BUN 41 H Creatinine 0.8 Est GFR ( Amer) > 60 Est GFR (Non-Af Amer) > 60 Random Glucose 141 H Lactic Acid Calcium 8.2 L Phosphorus 3.4 Magnesium 1.8 Total Bilirubin 1.5 H AST 39 ALT 49 Alkaline Phosphatase 68 NT-Pro-B Natriuret Pep 9110 H Total Protein 5.4 L Albumin 2.5 L Globulin 2.9 Albumin/Globulin Ratio 0.8 L TSH 3rd Generation 1.35 Arterial Blood Potassium 06/18/17 06/18/17 06/18/17 10:55 11:18 11:29 WBC RBC Hgb Hct MCV MCH MCHC RDW Plt Count MPV Neut % (Auto) Lymph % (Auto) [place] % (Auto) Eos % (Auto) Baso % (Auto) Neut # Lymph # [place] # Eos # Baso # Neutrophils % (Manual) Band Neutrophils % Lymphocytes % (Manual) Monocytes % (Manual) Toxic Granulation Platelet Estimate Large Platelets Polychromasia Hypochromasia (manual) Anisocytosis (manual) Macrocytosis (manual) Target Cells Puncture Site Rr Rr pCO2 47 H 46 H pO2 95 111 H HCO3 31.4 H 30.3 H ABG pH 7.46 H 7.45 ABG Total CO2 34.8 H 33.4 H ABG O2 Saturation 98.5 H 99.3 H ABG Base Excess 8.4 H 6.9 H ABG Hemoglobin 12.1 ABG Carboxyhemoglobin 2.6 H POC ABG HHb (Measured) 1.4 ABG Methemoglobin 0.9 Luciano Test Pos Pos ABG Potassium 2.8 L A-a O2 Difference 60.0 45.0 Respiratory Index 0.6 0.4 Hgb O2 Saturation 95.1 Glucose 159 H Lactate 2.5 H Vent Mode Bipap Bipap FiO2 30.0 30.0 Inspiratory BiPAP 16 16 Expiratory BiPAP 8 8 Sodium 150.0 H Potassium Chloride 110.0 H Carbon Dioxide Anion Gap BUN Creatinine Est GFR ( Amer) Est GFR (Non-Af Amer) Random Glucose Lactic Acid 2.7 H Calcium Phosphorus Magnesium Total Bilirubin AST ALT Alkaline Phosphatase NT-Pro-B Natriuret Pep Total Protein Albumin Globulin Albumin/Globulin Ratio TSH 3rd Generation Arterial Blood Potassium 2.8 L 06/19/17 06/19/17 06/19/17 06:19 06:22 06:24 WBC 10.5 RBC 4.59 Hgb 14.1 Hct 43.4 MCV 94.5 H MCH 30.6 MCHC 32.4 L RDW 22.0 H Plt Count 73 L MPV 11.0 Neut % (Auto) 92.7 H Lymph % (Auto) 3.4 L [place] % (Auto) 3.8 Eos % (Auto) 0.0 Baso % (Auto) 0.1 Neut # 9.7 H Lymph # 0.4 L [place] # 0.4 Eos # 0.0 Baso # 0.0 Neutrophils % (Manual) 91 H Band Neutrophils % 1 Lymphocytes % (Manual) 4 L Monocytes % (Manual) 4 Toxic Granulation Present Platelet Estimate Decreased L Large Platelets Present Polychromasia Slight Hypochromasia (manual) Slight Anisocytosis (manual) Moderate Macrocytosis (manual) Slight Target Cells Puncture Site pCO2 pO2 HCO3 ABG pH ABG Total CO2 ABG O2 Saturation ABG Base Excess ABG Hemoglobin ABG Carboxyhemoglobin POC ABG HHb (Measured) ABG Methemoglobin Luciano Test ABG Potassium A-a O2 Difference Respiratory Index Hgb O2 Saturation Glucose Lactate Vent Mode FiO2 Inspiratory BiPAP Expiratory BiPAP Sodium 145 Potassium 3.7 Chloride 104 Carbon Dioxide 34 H Anion Gap 11 BUN 37 H Creatinine 0.8 Est GFR ( Amer) > 60 Est GFR (Non-Af Amer) > 60 Random Glucose 96 Lactic Acid 3.5 H Calcium 8.6 Phosphorus 2.8 Magnesium 1.8 Total Bilirubin 2.3 H AST 37 ALT 46 Alkaline Phosphatase 80 NT-Pro-B Natriuret Pep Total Protein 6.0 L Albumin 2.9 L Globulin 3.1 Albumin/Globulin Ratio 0.9 L TSH 3rd Generation Arterial Blood Potassium Fingerstick Blood Sugar Results: 118 Review of Systems - Review of Systems Systems not reviewed;Unavailable: Altered Mental Status Critical Care Progress Note - Nutrition Nutrition: Nutrition Category Date Time Status Pureed [Dysphagia/Modified Consistency Diet] [DIET] Diets 06/18/17 Breakfast Active Assessment/Plan (1) Respiratory distress Current Visit: Yes Status: Acute Comment: secondary to pneumonia and squamous cell CA of lung Continue BiPAP as needed Continue IV antibiotics Digoxin and Cardizem Hospice evaluation Prognosis poor (2) Pneumonia Current Visit: Yes Status: Acute (3) COPD (chronic obstructive pulmonary disease) Current Visit: No Status: Acute (4) Pulmonary embolism Current Visit: No Status: Acute
[2017-06-19] MEDS: Sodium Chloride 0.9% 1,000 ML IV SCH ×2 (10:45→20:00)
--- NOTE | 2017-06-19 11:13 | CP.PCM.CON ---
History of Present Illness - History of Present Illness History of Present Illness: Palliative consult requested for goals of care discussion Patient is a 67 yo male admitted from [facility] with A fib and severe hypotension; BP 83/63, and unresponsive. Upon admission patient was diagnosed with dehydration and IVF started. Due to respiratory distres, patient was placed on Bi Pap and transfered to ICU. Patient is known to me from [facility] where I saw him for Palliative Care just few days ago. Patient was alert, but very confused and uncooperative. Per nursing at [facility] patient had multiple falls from bed, and for his safety mattress was placed on the floor. PMH: Lung cancer, A Fib Soc. Hx: single, has no family, the only administrative personal assistant is a friend of a friend , her name is Analia Shelton. Hx: unobtainable from patient Review of Systems - Review of Systems All systems: reviewed and no additional remarkable complaints except Review of Systems: Obtained from nursing. Per nursing patient remained on BiPap last night Past Patient History - Infectious Disease Hx of Infectious Diseases: None - Past Medical History & Family History Past Medical History?: Yes - Past Social History Smoking Status: Former Smoker - CARDIAC Hx Cardiac Disorders: No - PULMONARY Hx Chronic Obstructive Pulmonary Disease (COPD): Yes - NEUROLOGICAL Hx Seizures: Yes - HEENT Hx HEENT Problems: No - RENAL Hx Chronic Kidney Disease: No - ENDOCRINE/METABOLIC Hx Endocrine Disorders: No - HEMATOLOGICAL/ONCOLOGICAL Hx Blood Disorders: No Hx Cancer: Yes (lung) - INTEGUMENTARY Hx Dermatological Problems: Yes Other/Comment: sacral excoriation - MUSCULOSKELETAL/RHEUMATOLOGICAL Hx Musculoskeletal Disorders: No Hx Falls: No - GASTROINTESTINAL Hx Gastrointestinal Disorders: No - GENITOURINARY/GYNECOLOGICAL Hx Genitourinary Disorders: No - PSYCHIATRIC Hx Substance Use: No - SURGICAL HISTORY Hx Surgeries: No - ANESTHESIA Hx Anesthesia: No Meds Allergies/Adverse Reactions: Allergies Allergy/AdvReac Type Severity Reaction Status Date / Time No Known Allergies Allergy Verified 05/24/17 15:46 - Medications Medications: Current Medications Acetaminophen (Tylenol 325mg Tab) 650 mg PO Q4 PRN PRN Reason: Fever >100.4 F Al Hydrox/Mg Hydrox/Simethicone (Maalox Plus 30 Ml) 30 ml PO Q4 PRN PRN Reason: GI distress Albuterol/Ipratropium (Duoneb 3 Mg/0.5 Mg (3 Ml) Ud) 3 ml INH RQ6 [facility] Last Admin: 06/19/17 07:30 Dose: 3 ml Apixaban (Eliquis) 5 mg PO BID [facility] Last Admin: 06/18/17 10:05 Dose: 5 mg Bacitracin (Bacitracin) 0 gm TOP QSHIFT [facility] Last Admin: 06/19/17 05:45 Dose: 1 oin Collagenase (Santyl) 0 gm TOP DAILY [facility] Last Admin: 06/19/17 10:21 Dose: Not Given Enoxaparin Sodium (Lovenox) 45 mg SC Q12 [facility] Last Admin: 06/19/17 10:20 Dose: 45 mg Piperacillin Sod/Tazobactam Sod (Zosyn 3.375 Gm Iv Premix) 3.375 gm in 50 mls @ 100 mls/hr IVPB Q8H [facility] Last Admin: 06/19/17 07:55 Dose: 100 mls/hr Diltiazem HCl 125 mg/ Sodium (Chloride) 125 mls @ 5 mls/hr IV .Q24H [facility]; 5 MG/ HR PRN Reason: Protocol Last Admin: 06/19/17 00:00 Dose: Not Given Vancomycin/Sodium Chloride (Vancomycin 1 Gm/Ns 200 Ml) 1 gm in 200 mls @ 133.333 mls/hr IVPB Q24H [facility] Stop: 06/23/17 13:01 Last Admin: 06/18/17 13:02 Dose: 133.333 mls/hr Sodium Chloride (Sodium Chloride 0.9%) 1,000 mls @ 125 mls/hr IV .Q8H [facility] Levetiracetam (Keppra) 500 mg PO BID [facility] Last Admin: 06/19/17 10:20 Dose: 500 mg Magnesium Hydroxide (Milk Of Magnesia) 30 ml PO DAILY PRN PRN Reason: Constipation Last Admin: 06/18/17 09:55 Dose: 30 ml Pantoprazole Sodium (Protonix Inj) 40 mg IVP Q12H [facility] Last Admin: 06/19/17 04:00 Dose: 40 mg Physical Exam - Constitutional Appears: In Acute Distress - Head Exam Head Exam: ATRAUMATIC, NORMAL INSPECTION, NORMOCEPHALIC - Eye Exam Eye Exam: EOMI, Normal appearance, PERRL Pupil Exam: NORMAL ACCOMODATION, PERRL - ENT Exam ENT Exam: Normal Exam - Neck Exam Neck exam: Positive for: Normal Inspection - Respiratory Exam Respiratory Exam: Accessory Muscle Use, Decreased Breath Sounds - Cardiovascular Exam Cardiovascular Exam: Tachycardia - GI/Abdominal Exam GI & Abdominal Exam: Hypoactive Bowel Sounds - Rectal Exam Rectal Exam: Deferred - Extremities Exam Extremities exam: Positive for: normal inspection - Back Exam Back exam: NORMAL INSPECTION - Neurological Exam Neurological exam: Alert, Altered - Psychiatric Exam Psychiatric exam: Flat Affect - Skin Skin Exam: Pallor Results - Vital Signs Recent Vital Signs: Last Vital Signs Temp 97 F L 06/19/17 08:00 Pulse 123 H 06/19/17 10:02 Resp 17 06/19/17 10:02 BP 92/69 L 06/19/17 10:02 Pulse Ox 96 06/19/17 10:02 - Labs Result Diagrams: 06/19/17 06:24 06/19/17 06:19 Labs: Laboratory Results - last 24 hr 06/18/17 06/18/17 06/18/17 10:30 10:30 10:30 WBC RBC Hgb Hct MCV MCH MCHC RDW Plt Count MPV Neut % (Auto) Lymph % (Auto) [place] % (Auto) Eos % (Auto) Baso % (Auto) Neut # Lymph # [place] # Eos # Baso # Neutrophils % (Manual) 89 H Band Neutrophils % 7 H Lymphocytes % (Manual) 2 L Monocytes % (Manual) 2 Toxic Granulation Platelet Estimate Decreased L Large Platelets Polychromasia Hypochromasia (manual) Anisocytosis (manual) Moderate Macrocytosis (manual) Target Cells Slight Puncture Site pCO2 pO2 HCO3 ABG pH ABG Total CO2 ABG O2 Saturation ABG Base Excess ABG Hemoglobin ABG Carboxyhemoglobin POC ABG HHb (Measured) ABG Methemoglobin Luciano Test ABG Potassium A-a O2 Difference Respiratory Index Hgb O2 Saturation Glucose Lactate Vent Mode FiO2 Inspiratory BiPAP Expiratory BiPAP Sodium 143 Potassium 2.9 L Chloride 102 Carbon Dioxide 31 H Anion Gap 13 BUN 41 H Creatinine 0.8 Est GFR ( Amer) > 60 Est GFR (Non-Af Amer) > 60 Random Glucose 141 H Lactic Acid Calcium 8.2 L Phosphorus 3.4 Magnesium 1.8 Total Bilirubin 1.5 H AST 39 ALT 49 Alkaline Phosphatase 68 NT-Pro-B Natriuret Pep 9110 H Total Protein 5.4 L Albumin 2.5 L Globulin 2.9 Albumin/Globulin Ratio 0.8 L TSH 3rd Generation 1.35 Arterial Blood Potassium 06/18/17 06/18/17 06/18/17 10:55 11:18 11:29 WBC RBC Hgb Hct MCV MCH MCHC RDW Plt Count MPV Neut % (Auto) Lymph % (Auto) [place] % (Auto) Eos % (Auto) Baso % (Auto) Neut # Lymph # [place] # Eos # Baso # Neutrophils % (Manual) Band Neutrophils % Lymphocytes % (Manual) Monocytes % (Manual) Toxic Granulation Platelet Estimate Large Platelets Polychromasia Hypochromasia (manual) Anisocytosis (manual) Macrocytosis (manual) Target Cells Puncture Site Rr Rr pCO2 47 H 46 H pO2 95 111 H HCO3 31.4 H 30.3 H ABG pH 7.46 H 7.45 ABG Total CO2 34.8 H 33.4 H ABG O2 Saturation 98.5 H 99.3 H ABG Base Excess 8.4 H 6.9 H ABG Hemoglobin 12.1 ABG Carboxyhemoglobin 2.6 H POC ABG HHb (Measured) 1.4 ABG Methemoglobin 0.9 Luciano Test Pos Pos ABG Potassium 2.8 L A-a O2 Difference 60.0 45.0 Respiratory Index 0.6 0.4 Hgb O2 Saturation 95.1 Glucose 159 H Lactate 2.5 H Vent Mode Bipap Bipap FiO2 30.0 30.0 Inspiratory BiPAP 16 16 Expiratory BiPAP 8 8 Sodium 150.0 H Potassium Chloride 110.0 H Carbon Dioxide Anion Gap BUN Creatinine Est GFR ( Amer) Est GFR (Non-Af Amer) Random Glucose Lactic Acid 2.7 H Calcium Phosphorus Magnesium Total Bilirubin AST ALT Alkaline Phosphatase NT-Pro-B Natriuret Pep Total Protein Albumin Globulin Albumin/Globulin Ratio TSH 3rd Generation Arterial Blood Potassium 2.8 L 06/19/17 06/19/17 06/19/17 06:19 06:22 06:24 WBC 10.5 RBC 4.59 Hgb 14.1 Hct 43.4 MCV 94.5 H MCH 30.6 MCHC 32.4 L RDW 22.0 H Plt Count 73 L MPV 11.0 Neut % (Auto) 92.7 H Lymph % (Auto) 3.4 L [place] % (Auto) 3.8 Eos % (Auto) 0.0 Baso % (Auto) 0.1 Neut # 9.7 H Lymph # 0.4 L [place] # 0.4 Eos # 0.0 Baso # 0.0 Neutrophils % (Manual) 91 H Band Neutrophils % 1 Lymphocytes % (Manual) 4 L Monocytes % (Manual) 4 Toxic Granulation Present Platelet Estimate Decreased L Large Platelets Present Polychromasia Slight Hypochromasia (manual) Slight Anisocytosis (manual) Moderate Macrocytosis (manual) Slight Target Cells Puncture Site pCO2 pO2 HCO3 ABG pH ABG Total CO2 ABG O2 Saturation ABG Base Excess ABG Hemoglobin ABG Carboxyhemoglobin POC ABG HHb (Measured) ABG Methemoglobin Luciano Test ABG Potassium A-a O2 Difference Respiratory Index Hgb O2 Saturation Glucose Lactate Vent Mode FiO2 Inspiratory BiPAP Expiratory BiPAP Sodium 145 Potassium 3.7 Chloride 104 Carbon Dioxide 34 H Anion Gap 11 BUN 37 H Creatinine 0.8 Est GFR ( Amer) > 60 Est GFR (Non-Af Amer) > 60 Random Glucose 96 Lactic Acid 3.5 H Calcium 8.6 Phosphorus 2.8 Magnesium 1.8 Total Bilirubin 2.3 H AST 37 ALT 46 Alkaline Phosphatase 80 NT-Pro-B Natriuret Pep Total Protein 6.0 L Albumin 2.9 L Globulin 3.1 Albumin/Globulin Ratio 0.9 L TSH 3rd Generation Arterial Blood Potassium Assessment & Plan - Assessment and Plan (Free Text) Assessment: Palliative consult Code status Full Code, there is no Advance Directive on chart I reviewed medical records, all diagnostic studies, examined patient in the bed , interview was limited due to patient's condition Patient is alert, on Bipap, makes eye contacts , unable to participate in meaningful conversation. Breath sounds are diminished, on BiPap. The ABGs showed azotemia and acidosis. There is a large right lung mass. I saw this patient at the correction just few days ago for Palliative consult. Patient was uncooperative with AMS and unable to participate in goals of care discussion. The only administrative personal assistant was Analia, friend of a friend. I spoke to Analia on the phone asking for any close family members. Analia stated that she had known patient for > 20 years and ever since he was alone with no family. Impression * This is a very sick patient with lung cancer in acute respiratory distress * Patient's wishes for the end of life care are not known, nor is patient able to advocate for him self due to AMS * Patient has no family members Suggestion * This patient should be made DNR/DNI and placed on comfort care only * As patient can not advocate for him self and has no close family or friends, per Policy of [facility], patient can be made DNR/DNI by two MDs cosigning and agreing that further agressive interventions would be futile for this patient * In the face of his diagnosis our primary goal should be patient's comfort and promotion of peaceful Thank you very much for consulting Palliative Care
[2017-06-19] MEDS: Vancomycin 1 gm/NS 200 ml 1 GM/200 ML BAG IVPB SCH (12:06)
[2017-06-19 15:04] VITALS: PULSE 124
[2017-06-20] MEDS: Sodium Chloride 0.9% 1,000 ML IV SCH ×3 (02:00→19:30)
[2017-06-20] MEDS: Bacitracin Ointment 30 GM TUBE TOP SCH ×3 (05:52→21:46)
[2017-06-20 07:05] LABS: BASO % 0.4 % (0.0-2.0); LYMPH # 0.3 K/uL (1.0-4.3); LYMPH % 3.4 % (20.0-40.0); MEAN CELL VOLUME 95.1 fL (80.0-94.0); MEAN CORPUSCULAR HGB CONC 32.6 g/dL (33.0-37.0); MEAN PLATELET VOLUME 10.7 fL (7.2-11.7); MONO # 0.3 K/uL (0.0-0.8); MONO % 3.7 % (0.0-10.0); NEUT # 7.1 K/uL (1.8-7.0); NEUT % 92.5 % (50.0-75.0); NRBC % 0.2 % (0.0-2.0); PLATELET COUNT 53 K/uL (130-400); RBC 3.87 Mil/uL (4.40-5.90); RED CELL DISTRIBUTION WIDTH 21.5 % (11.5-14.5); WHITE BLOOD COUNT 7.7 K/uL (4.8-10.8)
[2017-06-20 07:17] LABS: ALBUMIN 2.5 g/dL (3.5-5.0); ALT/SGPT 48 U/L (21-72); AST/SGOT 34 U/L (17-59); BLOOD UREA NITROGEN 30 mg/dL (9-20); CALCIUM 8.3 mg/dl (8.6-10.4); GFR AFRICAN-AMERICAN > 60; GFR NON-AFRICAN AMERICAN > 60; MAGNESIUM 1.8 mg/dL (1.6-2.3)
[2017-06-20 07:18] LABS: ALB/GLOB RATIO 0.9 (1.0-2.1)
[2017-06-20] MEDS: Albuterol-Ipratrop 3 mg / 0.5 (3 ml) UD INH SCH ×2 (07:52→13:46)
[2017-06-20] MEDS: Piperacill/Tazo 3.375gm in Dex 3.375 GM/50 ML BAG IVPB SCH ×3 (08:00→15:59)
[2017-06-20 08:21] LABS: LYMPHOCYTE 4 % (20-40); MONOCYTE 4 % (0-10); NEUTROPHIL 92 % (50-75); TOTAL CELLS COUNTED 100
[2017-06-20 08:22] LABS: ANISOCYTOSIS SLIGHT; HYPOCHROMIC SLIGHT; PLATELET ESTIMATE DECREASED (NORMAL); POLYCHROMIC SLIGHT
[2017-06-20] MEDS: Collagenase 250 Units/gm Ointment(30 gm) TOP SCH (09:00)
[2017-06-20] MEDS: Enoxaparin 60 mg Syringe SC SCH ×2 (10:39→21:46)
--- NOTE | 2017-06-20 11:57 | CP.PCM.PN ---
Subjective - Date & Time of Evaluation Date of Evaluation: 06/19/17 Time of Evaluation: 11:00 - Subjective Subjective: CONDITION REMAINS SAME. TACHYPNIC. DYSPNIC. LETHARGIC. SEPTIC W/U NEG. ON BIPAP. END STAGE CA LUNGS. Objective - Vital Signs/Intake and Output Vital Signs (last 24 hours): Temp Pulse Resp BP Pulse Ox 97.0 F L 87 19 113/77 100 06/20/17 08:00 06/20/17 08:02 06/20/17 08:02 06/20/17 08:02 06/20/17 08:02 Intake and Output: 06/20/17 06/20/17 06:59 18:59 Intake Total 1550 780 Output Total 350 60 Balance 1200 720 - Medications Medications: Current Medications Acetaminophen (Tylenol 325mg Tab) 650 mg PO Q4 PRN PRN Reason: Fever >100.4 F Al Hydrox/Mg Hydrox/Simethicone (Maalox Plus 30 Ml) 30 ml PO Q4 PRN PRN Reason: GI distress Albuterol/Ipratropium (Duoneb 3 Mg/0.5 Mg (3 Ml) Ud) 3 ml INH RQ6 [facility] Last Admin: 06/20/17 07:52 Dose: 3 ml Apixaban (Eliquis) 5 mg PO BID [facility] Last Admin: 06/18/17 10:05 Dose: 5 mg Bacitracin (Bacitracin) 0 gm TOP QSHIFT [facility] Last Admin: 06/20/17 05:52 Dose: 1 oin Collagenase (Santyl) 0 gm TOP DAILY [facility] Last Admin: 06/20/17 09:00 Dose: 1 applic Enoxaparin Sodium (Lovenox) 45 mg SC Q12 [facility] Last Admin: 06/20/17 10:39 Dose: 45 mg Piperacillin Sod/Tazobactam Sod (Zosyn 3.375 Gm Iv Premix) 3.375 gm in 50 mls @ 100 mls/hr IVPB Q8H [facility] Last Admin: 06/20/17 08:00 Dose: 100 mls/hr Diltiazem HCl 125 mg/ Sodium (Chloride) 125 mls @ 5 mls/hr IV .Q24H [facility]; 5 MG/ HR PRN Reason: Protocol Last Admin: 06/20/17 00:00 Dose: Not Given Vancomycin/Sodium Chloride (Vancomycin 1 Gm/Ns 200 Ml) 1 gm in 200 mls @ 133.333 mls/hr IVPB Q24H [facility] Stop: 06/23/17 13:01 Last Admin: 06/19/17 12:06 Dose: 133.333 mls/hr Sodium Chloride (Sodium Chloride 0.9%) 1,000 mls @ 125 mls/hr IV .Q8H [facility] Last Admin: 06/20/17 02:00 Dose: Not Given Levetiracetam (Keppra) 500 mg PO BID [facility] Last Admin: 06/20/17 10:39 Dose: 500 mg Magnesium Hydroxide (Milk Of Magnesia) 30 ml PO DAILY PRN PRN Reason: Constipation Last Admin: 06/18/17 09:55 Dose: 30 ml Pantoprazole Sodium (Protonix Inj) 40 mg IVP Q12H [facility] Last Admin: 06/20/17 04:00 Dose: 40 mg - Labs Labs: 06/20/17 06:52 06/20/17 06:51 - Constitutional Appears: In Acute Distress, Confused, Chronically Ill - Eye Exam Eye Exam: PERRL - ENT Exam ENT Exam: Normal Exam - Respiratory Exam Respiratory Exam: Decreased Breath Sounds, Rhonchi - Cardiovascular Exam Cardiovascular Exam: Tachycardia, Irregular Rhythm, +S1, +S2 - GI/Abdominal Exam GI & Abdominal Exam: Soft, Normal Bowel Sounds Assessment and Plan - Assessment and Plan (Free Text) Assessment: RESP FAILURE. CA LUNGS COPD. Plan: FOR SUPPORTIVE CARE.
--- NOTE | 2017-06-20 12:04 | CP.PCM.PN ---
Subjective - Date & Time of Evaluation Date of Evaluation: 06/20/17 Time of Evaluation: 10:00 - Subjective Subjective: CONDITION POOR. DEHYDRATED. Objective - Vital Signs/Intake and Output Vital Signs (last 24 hours): Temp Pulse Resp BP Pulse Ox 97.0 F L 87 19 113/77 100 06/20/17 08:00 06/20/17 08:02 06/20/17 08:02 06/20/17 08:02 06/20/17 08:02 Intake and Output: 06/20/17 06/20/17 06:59 18:59 Intake Total 1550 780 Output Total 350 60 Balance 1200 720 - Medications Medications: Current Medications Acetaminophen (Tylenol 325mg Tab) 650 mg PO Q4 PRN PRN Reason: Fever >100.4 F Al Hydrox/Mg Hydrox/Simethicone (Maalox Plus 30 Ml) 30 ml PO Q4 PRN PRN Reason: GI distress Albuterol/Ipratropium (Duoneb 3 Mg/0.5 Mg (3 Ml) Ud) 3 ml INH RQ6 [facility] Last Admin: 06/20/17 07:52 Dose: 3 ml Apixaban (Eliquis) 5 mg PO BID [facility] Last Admin: 06/18/17 10:05 Dose: 5 mg Bacitracin (Bacitracin) 0 gm TOP QSHIFT [facility] Last Admin: 06/20/17 05:52 Dose: 1 oin Collagenase (Santyl) 0 gm TOP DAILY [facility] Last Admin: 06/20/17 09:00 Dose: 1 applic Enoxaparin Sodium (Lovenox) 45 mg SC Q12 [facility] Last Admin: 06/20/17 10:39 Dose: 45 mg Piperacillin Sod/Tazobactam Sod (Zosyn 3.375 Gm Iv Premix) 3.375 gm in 50 mls @ 100 mls/hr IVPB Q8H [facility] Last Admin: 06/20/17 08:00 Dose: 100 mls/hr Diltiazem HCl 125 mg/ Sodium (Chloride) 125 mls @ 5 mls/hr IV .Q24H [facility]; 5 MG/ HR PRN Reason: Protocol Last Admin: 06/20/17 00:00 Dose: Not Given Vancomycin/Sodium Chloride (Vancomycin 1 Gm/Ns 200 Ml) 1 gm in 200 mls @ 133.333 mls/hr IVPB Q24H [facility] Stop: 06/23/17 13:01 Last Admin: 06/19/17 12:06 Dose: 133.333 mls/hr Sodium Chloride (Sodium Chloride 0.9%) 1,000 mls @ 125 mls/hr IV .Q8H [facility] Last Admin: 06/20/17 02:00 Dose: Not Given Levetiracetam (Keppra) 500 mg PO BID [facility] Last Admin: 06/20/17 10:39 Dose: 500 mg Magnesium Hydroxide (Milk Of Magnesia) 30 ml PO DAILY PRN PRN Reason: Constipation Last Admin: 06/18/17 09:55 Dose: 30 ml Pantoprazole Sodium (Protonix Inj) 40 mg IVP Q12H [facility] Last Admin: 06/20/17 04:00 Dose: 40 mg - Labs Labs: 06/20/17 06:52 06/20/17 06:51 - Constitutional Appears: In Acute Distress, Chronically Ill - Eye Exam Eye Exam: PERRL - Respiratory Exam Respiratory Exam: Decreased Breath Sounds, Rales, Rhonchi - Cardiovascular Exam Cardiovascular Exam: Tachycardia, Irregular Rhythm, +S1, +S2 - GI/Abdominal Exam GI & Abdominal Exam: Soft, Normal Bowel Sounds Assessment and Plan - Assessment and Plan (Free Text) Assessment: COPD. RESP FAILURE. CA LUNGS. Plan: SUPPORTIVE CARE.
[2017-06-20] MEDS: Vancomycin 1 gm/NS 200 ml 1 GM/200 ML BAG IVPB SCH (12:45)
[2017-06-21] MEDS: Piperacill/Tazo 3.375gm in Dex 3.375 GM/50 ML BAG IVPB SCH ×3 (00:05→16:50)
[2017-06-21] MEDS: Albuterol-Ipratrop 3 mg / 0.5 (3 ml) UD INH SCH ×4 (02:07→19:42)
[2017-06-21] MEDS: Sodium Chloride 0.9% 1,000 ML IV SCH ×3 (03:35→18:41)
[2017-06-21] MEDS: Bacitracin Ointment 30 GM TUBE TOP SCH ×3 (06:06→22:18)
[2017-06-21] MEDS: Enoxaparin 60 mg Syringe SC SCH ×2 (10:16→22:19)
[2017-06-21] MEDS: Collagenase 250 Units/gm Ointment(30 gm) TOP SCH (10:19)
--- NOTE | 2017-06-21 11:55 | CP.PCM.PN ---
Subjective - Date & Time of Evaluation Date of Evaluation: 06/21/17 Time of Evaluation: 11:41 - Subjective Subjective: CONDITION REMAINS POOR. AWAKE. WEAK. CONFUSED. COPD. Objective - Vital Signs/Intake and Output Vital Signs (last 24 hours): Temp Pulse Resp BP Pulse Ox 97.7 F 82 20 120/80 95 06/21/17 08:00 06/21/17 08:00 06/21/17 08:00 06/21/17 08:00 06/21/17 08:00 Intake and Output: 06/21/17 06/21/17 06:59 18:59 Intake Total 1000 Output Total 550 Balance 450 - Medications Medications: Current Medications Acetaminophen (Tylenol 325mg Tab) 650 mg PO Q4 PRN PRN Reason: Fever >100.4 F Al Hydrox/Mg Hydrox/Simethicone (Maalox Plus 30 Ml) 30 ml PO Q4 PRN PRN Reason: GI distress Albuterol/Ipratropium (Duoneb 3 Mg/0.5 Mg (3 Ml) Ud) 3 ml INH RQ6 [facility] Last Admin: 06/21/17 07:27 Dose: 3 ml Apixaban (Eliquis) 5 mg PO BID [facility] Last Admin: 06/18/17 10:05 Dose: 5 mg Bacitracin (Bacitracin) 0 gm TOP QSHIFT [facility] Last Admin: 06/21/17 06:06 Dose: 1 oin Collagenase (Santyl) 0 gm TOP DAILY [facility] Last Admin: 06/21/17 10:19 Dose: 1 applic Diltiazem HCl (Cardizem) 60 mg PO TID [facility] Last Admin: 06/21/17 10:17 Dose: 60 mg Enoxaparin Sodium (Lovenox) 45 mg SC Q12 [facility] Last Admin: 06/21/17 10:16 Dose: 45 mg Piperacillin Sod/Tazobactam Sod (Zosyn 3.375 Gm Iv Premix) 3.375 gm in 50 mls @ 100 mls/hr IVPB Q8H [facility] Last Admin: 06/21/17 10:47 Dose: 100 mls/hr Diltiazem HCl 125 mg/ Sodium (Chloride) 125 mls @ 5 mls/hr IV .Q24H [facility]; 5 MG/ HR PRN Reason: Protocol Last Admin: 06/21/17 00:18 Dose: Not Given Vancomycin/Sodium Chloride (Vancomycin 1 Gm/Ns 200 Ml) 1 gm in 200 mls @ 133.333 mls/hr IVPB Q24H [facility] Stop: 06/23/17 13:01 Last Admin: 06/20/17 12:45 Dose: 133.333 mls/hr Sodium Chloride (Sodium Chloride 0.9%) 1,000 mls @ 125 mls/hr IV .Q8H [facility] Last Admin: 06/21/17 03:35 Dose: 125 mls/hr Levetiracetam (Keppra) 500 mg PO BID [facility] Last Admin: 06/21/17 10:16 Dose: 500 mg Magnesium Hydroxide (Milk Of Magnesia) 30 ml PO DAILY PRN PRN Reason: Constipation Last Admin: 06/18/17 09:55 Dose: 30 ml Pantoprazole Sodium (Protonix Inj) 40 mg IVP Q12H [facility] Last Admin: 06/21/17 04:20 Dose: 40 mg - Labs Labs: 06/20/17 06:52 06/20/17 06:51 - Constitutional Appears: No Acute Distress, Chronically Ill - Eye Exam Eye Exam: PERRL - ENT Exam ENT Exam: Mucous Membranes Moist - Respiratory Exam Respiratory Exam: Decreased Breath Sounds, Rhonchi, NORMAL BREATHING PATTERN - Cardiovascular Exam Cardiovascular Exam: Tachycardia, Irregular Rhythm, +S1, +S2 - GI/Abdominal Exam GI & Abdominal Exam: Soft, Normal Bowel Sounds - Extremities Exam Extremities Exam: absent: Pedal Edema - Psychiatric Exam Psychiatric exam: Anxious Assessment and Plan - Assessment and Plan (Free Text) Assessment: COPD. CA LUNGS. Plan: SUPPORTIVE CARE.
[2017-06-21] MEDS: Vancomycin 1 gm/NS 200 ml 1 GM/200 ML BAG IVPB SCH (13:05)
--- NOTE | 2017-06-21 15:36 | CP.PCM.PN ---
Subjective - Date & Time of Evaluation Date of Evaluation: 06/21/17 Time of Evaluation: 13:40 - Subjective Subjective: the patient seen and examined Awake and confused Off BiPAP No respiratory distress Being treated for COPD and and pneumonia Prognosis poor Objective - Vital Signs/Intake and Output Vital Signs (last 24 hours): Temp Pulse Resp BP Pulse Ox 97.7 F 82 20 120/80 95 06/21/17 08:00 06/21/17 08:00 06/21/17 08:00 06/21/17 08:00 06/21/17 08:00 Intake and Output: 06/21/17 06/21/17 06:59 18:59 Intake Total 1000 1200 Output Total 550 600 Balance 450 600 - Medications Medications: Current Medications Acetaminophen (Tylenol 325mg Tab) 650 mg PO Q4 PRN PRN Reason: Fever >100.4 F Al Hydrox/Mg Hydrox/Simethicone (Maalox Plus 30 Ml) 30 ml PO Q4 PRN PRN Reason: GI distress Albuterol/Ipratropium (Duoneb 3 Mg/0.5 Mg (3 Ml) Ud) 3 ml INH RQ6 [facility] Last Admin: 06/21/17 13:11 Dose: 3 ml Apixaban (Eliquis) 5 mg PO BID [facility] Last Admin: 06/18/17 10:05 Dose: 5 mg Bacitracin (Bacitracin) 0 gm TOP QSHIFT [facility] Last Admin: 06/21/17 13:06 Dose: 1 oin Collagenase (Santyl) 0 gm TOP DAILY [facility] Last Admin: 06/21/17 10:19 Dose: 1 applic Diltiazem HCl (Cardizem) 60 mg PO TID [facility] Last Admin: 06/21/17 13:05 Dose: 60 mg Enoxaparin Sodium (Lovenox) 45 mg SC Q12 [facility] Last Admin: 06/21/17 10:16 Dose: 45 mg Piperacillin Sod/Tazobactam Sod (Zosyn 3.375 Gm Iv Premix) 3.375 gm in 50 mls @ 100 mls/hr IVPB Q8H [facility] Last Admin: 06/21/17 10:47 Dose: 100 mls/hr Diltiazem HCl 125 mg/ Sodium (Chloride) 125 mls @ 5 mls/hr IV .Q24H [facility]; 5 MG/ HR PRN Reason: Protocol Last Admin: 06/21/17 00:18 Dose: Not Given Vancomycin/Sodium Chloride (Vancomycin 1 Gm/Ns 200 Ml) 1 gm in 200 mls @ 133.333 mls/hr IVPB Q24H [facility] Stop: 06/23/17 13:01 Last Admin: 06/21/17 13:05 Dose: 133.333 mls/hr Sodium Chloride (Sodium Chloride 0.9%) 1,000 mls @ 125 mls/hr IV .Q8H [facility] Last Admin: 06/21/17 13:08 Dose: 125 mls/hr Levetiracetam (Keppra) 500 mg PO BID [facility] Last Admin: 06/21/17 10:16 Dose: 500 mg Magnesium Hydroxide (Milk Of Magnesia) 30 ml PO DAILY PRN PRN Reason: Constipation Last Admin: 06/18/17 09:55 Dose: 30 ml Pantoprazole Sodium (Protonix Inj) 40 mg IVP Q12H [facility] Last Admin: 06/21/17 04:20 Dose: 40 mg - Labs Labs: 06/20/17 06:52 06/20/17 06:51 Assessment and Plan (1) Respiratory distress Status: Acute (2) Pneumonia Status: Acute (3) COPD (chronic obstructive pulmonary disease) Status: Acute (4) Pulmonary embolism Status: Acute
[2017-06-22] MEDS: Piperacill/Tazo 3.375gm in Dex 3.375 GM/50 ML BAG IVPB SCH ×3 (00:04→16:14)
[2017-06-22] MEDS: Albuterol-Ipratrop 3 mg / 0.5 (3 ml) UD INH SCH ×4 (01:36→20:18)
[2017-06-22] MEDS: Sodium Chloride 0.9% 1,000 ML IV SCH ×3 (02:10→10:17)
[2017-06-22] MEDS: Bacitracin Ointment 30 GM TUBE TOP SCH ×3 (05:46→21:48)
[2017-06-22] MEDS: Enoxaparin 60 mg Syringe SC SCH ×2 (09:23→21:49)
[2017-06-22] MEDS: Collagenase 250 Units/gm Ointment(30 gm) TOP SCH (09:36)
--- NOTE | 2017-06-22 12:05 | CP.PCM.PN ---
Subjective - Date & Time of Evaluation Date of Evaluation: 06/22/17 Time of Evaluation: 12:02 - Subjective Subjective: Confused, offers no complaints. Objective - Vital Signs/Intake and Output Vital Signs (last 24 hours): Temp Pulse Resp BP Pulse Ox 98.1 F 77 20 102/63 97 06/22/17 08:22 06/22/17 08:22 06/22/17 08:22 06/22/17 08:22 06/22/17 08:22 Intake and Output: 06/22/17 06/22/17 06:59 18:59 Intake Total 2350 Output Total 1450 Balance 900 - Medications Medications: Current Medications Acetaminophen (Tylenol 325mg Tab) 650 mg PO Q4 PRN PRN Reason: Fever >100.4 F Al Hydrox/Mg Hydrox/Simethicone (Maalox Plus 30 Ml) 30 ml PO Q4 PRN PRN Reason: GI distress Albuterol/Ipratropium (Duoneb 3 Mg/0.5 Mg (3 Ml) Ud) 3 ml INH RQ6 [facility] Last Admin: 06/22/17 07:37 Dose: 3 ml Apixaban (Eliquis) 5 mg PO BID [facility] Last Admin: 06/18/17 10:05 Dose: 5 mg Bacitracin (Bacitracin) 0 gm TOP QSHIFT [facility] Last Admin: 06/22/17 05:46 Dose: 1 oin Collagenase (Santyl) 0 gm TOP DAILY [facility] Last Admin: 06/22/17 09:36 Dose: 1 applic Diltiazem HCl (Cardizem) 60 mg PO TID [facility] Last Admin: 06/22/17 09:23 Dose: 60 mg Enoxaparin Sodium (Lovenox) 45 mg SC Q12 [facility] Last Admin: 06/22/17 09:23 Dose: 45 mg Piperacillin Sod/Tazobactam Sod (Zosyn 3.375 Gm Iv Premix) 3.375 gm in 50 mls @ 100 mls/hr IVPB Q8H [facility] Last Admin: 06/22/17 08:05 Dose: 100 mls/hr Diltiazem HCl 125 mg/ Sodium (Chloride) 125 mls @ 5 mls/hr IV .Q24H [facility]; 5 MG/ HR PRN Reason: Protocol Last Admin: 06/22/17 01:24 Dose: Not Given Vancomycin/Sodium Chloride (Vancomycin 1 Gm/Ns 200 Ml) 1 gm in 200 mls @ 133.333 mls/hr IVPB Q24H [facility] Stop: 06/23/17 13:01 Last Admin: 06/21/17 13:05 Dose: 133.333 mls/hr Levetiracetam (Keppra) 500 mg PO BID [facility] Last Admin: 06/22/17 09:24 Dose: 500 mg Magnesium Hydroxide (Milk Of Magnesia) 30 ml PO DAILY PRN PRN Reason: Constipation Last Admin: 06/18/17 09:55 Dose: 30 ml Pantoprazole Sodium (Protonix Inj) 40 mg IVP Q12H [facility] Last Admin: 06/22/17 04:22 Dose: Not Given - Labs Labs: 06/20/17 06:52 06/20/17 06:51 - Constitutional Appears: No Acute Distress, Confused - Head Exam Head Exam: ATRAUMATIC, NORMAL INSPECTION, NORMOCEPHALIC - Eye Exam Eye Exam: EOMI, Normal appearance, PERRL Pupil Exam: NORMAL ACCOMODATION, PERRL - ENT Exam ENT Exam: Mucous Membranes Moist, Normal Exam - Neck Exam Neck Exam: Full ROM, Normal Inspection - Respiratory Exam Respiratory Exam: Decreased Breath Sounds, NORMAL BREATHING PATTERN - Cardiovascular Exam Cardiovascular Exam: Tachycardia - GI/Abdominal Exam GI & Abdominal Exam: Hypoactive Bowel Sounds - Rectal Exam Rectal Exam: Deferred - Exam Exam: NORMAL INSPECTION Additional comments: Adan cath - Extremities Exam Extremities Exam: Normal Inspection - Back Exam Back Exam: NORMAL INSPECTION - Neurological Exam Neurological Exam: Alert, Altered Neuro motor strength exam: Left Upper Extremity: 2/1, Right Upper Extremity: 2/1 , Left Lower Extremity: 2/1, Right Lower Extremity: 2/1 - Psychiatric Exam Psychiatric exam: Flat Affect - Skin Skin Exam: Normal Color, Warm Assessment and Plan - Assessment and Plan (Free Text) Assessment: Patient transfer from ICU to the floor. Remains alert and confused, unable to participate in goals of care discussion. In terms of his lung cancer, prognosis is seen as poor and hospice care was suggested. BP 102/63, HR 76, O2sat 97 % RA. Patient continues IV antibiotics Tx. Cardizem drip on, for control of A Fib Today I spoke to Bailey Skelton [phone], the daughter of patient's friend Analia. Per Bailey, patient has been alone for > 20 years and never saw any family members, nor patient had talked about it. Bailey assumes that patient may had in the past, but her whereabouts are not known. Impression * Chronically ill man with lung cancer * Confusion, unable to advocate for himself * lack of family support Suggestion * DNR/DNI status would be appropriate for this patient co signed by two MDs, where one MD is a primary MD * [facility]
[2017-06-22] MEDS: Vancomycin 1 gm/NS 200 ml 1 GM/200 ML BAG IVPB SCH (12:17)
--- NOTE | 2017-06-22 13:43 | CP.PCM.PN ---
Subjective - Date & Time of Evaluation Date of Evaluation: 06/22/17 Time of Evaluation: 13:41 - Subjective Subjective: PT IMPROVING. CACHECTIC. MILD SOB. AFEBRILE. Objective - Vital Signs/Intake and Output Vital Signs (last 24 hours): Temp Pulse Resp BP Pulse Ox 98.1 F 77 20 102/63 97 06/22/17 08:22 06/22/17 08:22 06/22/17 08:22 06/22/17 08:22 06/22/17 08:22 Intake and Output: 06/22/17 06/22/17 06:59 18:59 Intake Total 2350 Output Total 1450 Balance 900 - Medications Medications: Current Medications Acetaminophen (Tylenol 325mg Tab) 650 mg PO Q4 PRN PRN Reason: Fever >100.4 F Al Hydrox/Mg Hydrox/Simethicone (Maalox Plus 30 Ml) 30 ml PO Q4 PRN PRN Reason: GI distress Albuterol/Ipratropium (Duoneb 3 Mg/0.5 Mg (3 Ml) Ud) 3 ml INH RQ6 [facility] Last Admin: 06/22/17 13:36 Dose: 3 ml Apixaban (Eliquis) 5 mg PO BID [facility] Last Admin: 06/18/17 10:05 Dose: 5 mg Bacitracin (Bacitracin) 0 gm TOP QSHIFT [facility] Last Admin: 06/22/17 13:16 Dose: 1 oin Collagenase (Santyl) 0 gm TOP DAILY [facility] Last Admin: 06/22/17 09:36 Dose: 1 applic Diltiazem HCl (Cardizem) 60 mg PO TID [facility] Last Admin: 06/22/17 13:16 Dose: 60 mg Enoxaparin Sodium (Lovenox) 45 mg SC Q12 [facility] Last Admin: 06/22/17 09:23 Dose: 45 mg Piperacillin Sod/Tazobactam Sod (Zosyn 3.375 Gm Iv Premix) 3.375 gm in 50 mls @ 100 mls/hr IVPB Q8H [facility] Last Admin: 06/22/17 08:05 Dose: 100 mls/hr Diltiazem HCl 125 mg/ Sodium (Chloride) 125 mls @ 5 mls/hr IV .Q24H [facility]; 5 MG/ HR PRN Reason: Protocol Last Admin: 06/22/17 01:24 Dose: Not Given Vancomycin/Sodium Chloride (Vancomycin 1 Gm/Ns 200 Ml) 1 gm in 200 mls @ 133.333 mls/hr IVPB Q24H [facility] Stop: 06/23/17 13:01 Last Admin: 06/22/17 12:17 Dose: 133.333 mls/hr Levetiracetam (Keppra) 500 mg PO BID [facility] Last Admin: 06/22/17 09:24 Dose: 500 mg Magnesium Hydroxide (Milk Of Magnesia) 30 ml PO DAILY PRN PRN Reason: Constipation Last Admin: 06/18/17 09:55 Dose: 30 ml Pantoprazole Sodium (Protonix Inj) 40 mg IVP Q12H [facility] Last Admin: 06/22/17 04:22 Dose: Not Given - Labs Labs: 06/20/17 06:52 06/20/17 06:51 - Constitutional Appears: No Acute Distress, Chronically Ill - Eye Exam Eye Exam: PERRL - ENT Exam ENT Exam: Normal Exam - Respiratory Exam Respiratory Exam: Decreased Breath Sounds, Rhonchi - Cardiovascular Exam Cardiovascular Exam: Irregular Rhythm, +S1, +S2 - GI/Abdominal Exam GI & Abdominal Exam: Soft, Normal Bowel Sounds - Extremities Exam Extremities Exam: Full ROM, Normal Capillary Refill, Normal Inspection. absent : Joint Swelling, Pedal Edema Assessment and Plan - Assessment and Plan (Free Text) Assessment: COPD. CA LUNGS. Plan: FOR SUPPORTIVE CARE. NEEDS ZAC. RESP CARE.
--- NOTE | 2017-06-22 14:22 | CP.PCM.PN ---
Subjective - Date & Time of Evaluation Date of Evaluation: 06/22/17 Time of Evaluation: 08:30 - Subjective Subjective: the patient seen and examined Lying comfortably in no distress Off BiPAP Responsive Continue present ttment Prognosis poor Objective - Vital Signs/Intake and Output Vital Signs (last 24 hours): Temp Pulse Resp BP Pulse Ox 98.1 F 77 20 102/63 97 06/22/17 08:22 06/22/17 08:22 06/22/17 08:22 06/22/17 08:22 06/22/17 08:22 Intake and Output: 06/22/17 06/22/17 06:59 18:59 Intake Total 2350 1450 Output Total 1450 600 Balance 900 850 - Medications Medications: Current Medications Acetaminophen (Tylenol 325mg Tab) 650 mg PO Q4 PRN PRN Reason: Fever >100.4 F Al Hydrox/Mg Hydrox/Simethicone (Maalox Plus 30 Ml) 30 ml PO Q4 PRN PRN Reason: GI distress Albuterol/Ipratropium (Duoneb 3 Mg/0.5 Mg (3 Ml) Ud) 3 ml INH RQ6 [facility] Last Admin: 06/22/17 13:36 Dose: 3 ml Apixaban (Eliquis) 5 mg PO BID [facility] Last Admin: 06/18/17 10:05 Dose: 5 mg Bacitracin (Bacitracin) 0 gm TOP QSHIFT [facility] Last Admin: 06/22/17 13:16 Dose: 1 oin Collagenase (Santyl) 0 gm TOP DAILY [facility] Last Admin: 06/22/17 09:36 Dose: 1 applic Diltiazem HCl (Cardizem) 60 mg PO TID [facility] Last Admin: 06/22/17 13:16 Dose: 60 mg Enoxaparin Sodium (Lovenox) 45 mg SC Q12 [facility] Last Admin: 06/22/17 09:23 Dose: 45 mg Piperacillin Sod/Tazobactam Sod (Zosyn 3.375 Gm Iv Premix) 3.375 gm in 50 mls @ 100 mls/hr IVPB Q8H [facility] Last Admin: 06/22/17 08:05 Dose: 100 mls/hr Diltiazem HCl 125 mg/ Sodium (Chloride) 125 mls @ 5 mls/hr IV .Q24H [facility]; 5 MG/ HR PRN Reason: Protocol Last Admin: 06/22/17 01:24 Dose: Not Given Vancomycin/Sodium Chloride (Vancomycin 1 Gm/Ns 200 Ml) 1 gm in 200 mls @ 133.333 mls/hr IVPB Q24H [facility] Stop: 06/23/17 13:01 Last Admin: 06/22/17 12:17 Dose: 133.333 mls/hr Levetiracetam (Keppra) 500 mg PO BID [facility] Last Admin: 06/22/17 09:24 Dose: 500 mg Magnesium Hydroxide (Milk Of Magnesia) 30 ml PO DAILY PRN PRN Reason: Constipation Last Admin: 06/18/17 09:55 Dose: 30 ml Pantoprazole Sodium (Protonix Inj) 40 mg IVP Q12H [facility] Last Admin: 06/22/17 04:22 Dose: Not Given - Labs Labs: 06/20/17 06:52 06/20/17 06:51 Assessment and Plan (1) Respiratory distress Status: Acute (2) Pneumonia Status: Acute (3) COPD (chronic obstructive pulmonary disease) Status: Acute (4) Pulmonary embolism Status: Acute
--- NOTE | 2017-06-22 14:28 | CARD ---
APPROVED REPORT EKG Measurement Heart [id number] <Conclusion> Atrial fibrillation Low voltage QRS Septal infarct, age undetermined T wave abnormality, consider inferolateral ischemia Abnormal ECG
--- NOTE | 2017-06-22 19:55 | CARD ---
APPROVED REPORT EKG Measurement Heart [id number] <Conclusion> Atrial fibrillation ST & T wave abnormality, consider inferior ischemia ST & T wave abnormality, consider anterolateral ischemia Abnormal ECG
--- NOTE | 2017-06-22 20:10 | CARD ---
APPROVED REPORT EKG Measurement Heart [id number] <Conclusion> Normal sinus rhythm Low voltage QRS ST & T wave abnormality, consider inferior ischemia ST & T wave abnormality, consider anterolateral ischemia Prolonged QT Abnormal ECG
[2017-06-23] MEDS: Piperacill/Tazo 3.375gm in Dex 3.375 GM/50 ML BAG IVPB SCH ×4 (00:26→23:37)
[2017-06-23] MEDS: Bacitracin Ointment 30 GM TUBE TOP SCH ×3 (05:39→21:17)
[2017-06-23] MEDS: Collagenase 250 Units/gm Ointment(30 gm) TOP SCH (09:11)
[2017-06-23] MEDS: Enoxaparin 60 mg Syringe SC SCH ×2 (09:13→21:17)
[2017-06-23 11:50] LABS: HEMOGLOBIN 12.9 g/dL (12.0-18.0); MEAN CELL VOLUME 93.8 fL (80.0-94.0); MEAN PLATELET VOLUME 10.3 fL (7.2-11.7); RBC 4.29 Mil/uL (4.40-5.90); RED CELL DISTRIBUTION WIDTH 22.6 % (11.5-14.5)
[2017-06-23] MEDS: Vancomycin 1 gm/NS 200 ml 1 GM/200 ML BAG IVPB SCH (12:13)
[2017-06-23 12:21] LABS: ALB/GLOB RATIO 0.8 (1.0-2.1); ALBUMIN 2.5 g/dL (3.5-5.0); ALT/SGPT 43 U/L (21-72); AST/SGOT 29 U/L (17-59); BLOOD UREA NITROGEN 13 mg/dL (9-20); CALCIUM 7.6 mg/dl (8.6-10.4); GFR AFRICAN-AMERICAN > 60; GFR NON-AFRICAN AMERICAN > 60
--- NOTE | 2017-06-23 12:49 | CP.PCM.PN ---
Subjective - Date & Time of Evaluation Date of Evaluation: 06/23/17 Time of Evaluation: 12:47 - Subjective Subjective: CONDITION SAME. MILD SOB. HYPOKALEMIC. COPD. CA LUNGS. Objective - Vital Signs/Intake and Output Vital Signs (last 24 hours): Temp Pulse Resp BP Pulse Ox 97.5 F L 118 H 20 88/61 L 96 06/23/17 08:00 06/23/17 08:00 06/23/17 08:00 06/23/17 08:00 06/23/17 08:00 Intake and Output: 06/23/17 06/23/17 06:59 18:59 Intake Total 920 Output Total 500 Balance 420 - Medications Medications: Current Medications Acetaminophen (Tylenol 325mg Tab) 650 mg PO Q4 PRN PRN Reason: Fever >100.4 F Al Hydrox/Mg Hydrox/Simethicone (Maalox Plus 30 Ml) 30 ml PO Q4 PRN PRN Reason: GI distress Apixaban (Eliquis) 5 mg PO BID [facility] Last Admin: 06/18/17 10:05 Dose: 5 mg Bacitracin (Bacitracin) 0 gm TOP QSHIFT [facility] Last Admin: 06/23/17 05:39 Dose: 1 applic Diltiazem HCl (Cardizem) 60 mg PO TID [facility] Last Admin: 06/23/17 09:10 Dose: Not Given Enoxaparin Sodium (Lovenox) 45 mg SC Q12 [facility] Last Admin: 06/23/17 09:13 Dose: 45 mg Piperacillin Sod/Tazobactam Sod (Zosyn 3.375 Gm Iv Premix) 3.375 gm in 50 mls @ 100 mls/hr IVPB Q8H [facility] Last Admin: 06/23/17 07:47 Dose: 100 mls/hr Vancomycin/Sodium Chloride (Vancomycin 1 Gm/Ns 200 Ml) 1 gm in 200 mls @ 133.333 mls/hr IVPB Q24H [facility] Stop: 06/23/17 13:01 Last Admin: 06/23/17 12:13 Dose: 133.333 mls/hr Potassium Chloride (Potassium Chloride 20 Meq/100 Ml) 20 meq in 100 mls @ 50 mls/hr IVPB ONCE ONE Stop: 06/23/17 14:41 Levetiracetam (Keppra) 500 mg PO BID [facility] Last Admin: 06/23/17 09:12 Dose: 500 mg Magnesium Hydroxide (Milk Of Magnesia) 30 ml PO DAILY PRN PRN Reason: Constipation Last Admin: 06/18/17 09:55 Dose: 30 ml Pantoprazole Sodium (Protonix Inj) 40 mg IVP Q12H [facility] Last Admin: 06/23/17 04:37 Dose: Not Given - Labs Labs: 06/23/17 11:41 06/23/17 11:41 - Constitutional Appears: No Acute Distress, Chronically Ill - Eye Exam Eye Exam: PERRL - ENT Exam ENT Exam: Mucous Membranes Moist - Respiratory Exam Respiratory Exam: Decreased Breath Sounds, Clear to Ausculation Bilateral, NORMAL BREATHING PATTERN - Cardiovascular Exam Cardiovascular Exam: Irregular Rhythm, +S1, +S2 - GI/Abdominal Exam GI & Abdominal Exam: Soft, Normal Bowel Sounds - Extremities Exam Extremities Exam: Full ROM, Normal Capillary Refill, Normal Inspection. absent : Joint Swelling, Pedal Edema - Neurological Exam Neurological Exam: Alert, Awake, CN II-XII Intact, Normal Gait, Oriented x3 - Psychiatric Exam Psychiatric exam: Normal Affect, Normal Mood Assessment and Plan - Assessment and Plan (Free Text) Assessment: COPD. CA LUNGS. HYPOKALEMIA. Plan: K SUPPLEMENT. RESP TREATMENT. PLACEMENT PROBLEM.
--- NOTE | 2017-06-23 18:18 | CP.PCM.PN ---
Subjective - Date & Time of Evaluation Date of Evaluation: 06/23/17 Time of Evaluation: 11:30 - Subjective Subjective: patient seen and examined. No respiratory distress Awake and responsive Afebrile Objective - Vital Signs/Intake and Output Vital Signs (last 24 hours): Temp Pulse Resp BP Pulse Ox 97.7 F 86 19 120/77 87 L 06/23/17 15:00 06/23/17 17:48 06/23/17 15:00 06/23/17 17:48 06/23/17 15:00 Intake and Output: 06/23/17 06/23/17 06:59 18:59 Intake Total 920 610 Output Total 500 Balance 420 610 - Medications Medications: Current Medications Acetaminophen (Tylenol 325mg Tab) 650 mg PO Q4 PRN PRN Reason: Fever >100.4 F Al Hydrox/Mg Hydrox/Simethicone (Maalox Plus 30 Ml) 30 ml PO Q4 PRN PRN Reason: GI distress Apixaban (Eliquis) 5 mg PO BID [facility] Last Admin: 06/18/17 10:05 Dose: 5 mg Bacitracin (Bacitracin) 0 gm TOP QSHIFT [facility] Last Admin: 06/23/17 13:38 Dose: 1 applic Diltiazem HCl (Cardizem) 60 mg PO TID [facility] Last Admin: 06/23/17 17:44 Dose: 60 mg Enoxaparin Sodium (Lovenox) 45 mg SC Q12 [facility] Last Admin: 06/23/17 09:13 Dose: 45 mg Piperacillin Sod/Tazobactam Sod (Zosyn 3.375 Gm Iv Premix) 3.375 gm in 50 mls @ 100 mls/hr IVPB Q8H [facility] Last Admin: 06/23/17 16:16 Dose: 100 mls/hr Vancomycin/Sodium Chloride (Vancomycin 1 Gm/Ns 200 Ml) 1 gm in 200 mls @ 133.333 mls/hr IVPB Q24H [facility] Stop: 06/29/17 13:01 Levetiracetam (Keppra) 500 mg PO BID [facility] Last Admin: 06/23/17 17:44 Dose: 500 mg Magnesium Hydroxide (Milk Of Magnesia) 30 ml PO DAILY PRN PRN Reason: Constipation Last Admin: 06/18/17 09:55 Dose: 30 ml Pantoprazole Sodium (Protonix Inj) 40 mg IVP Q12H [facility] Last Admin: 06/23/17 16:17 Dose: 40 mg - Labs Labs: 06/23/17 11:41 06/23/17 11:41 - Head Exam Head Exam: ATRAUMATIC, NORMOCEPHALIC - Eye Exam Eye Exam: PERRL - ENT Exam ENT Exam: Mucous Membranes Moist - Neck Exam Neck Exam: Normal Inspection - Respiratory Exam Respiratory Exam: Decreased Breath Sounds - Cardiovascular Exam Cardiovascular Exam: REGULAR RHYTHM - GI/Abdominal Exam GI & Abdominal Exam: Soft, Normal Bowel Sounds Assessment and Plan (1) Pneumonia Status: Acute (2) COPD (chronic obstructive pulmonary disease) Assessment & Plan: continue nebulizer treatment and BiPAP as needed Status: Acute (3) Pulmonary embolism Status: Acute
[2017-06-24] MEDS: Bacitracin Ointment 30 GM TUBE TOP SCH ×3 (05:17→22:00)
[2017-06-24 07:18] LABS: BLOOD UREA NITROGEN 15 mg/dL (9-20); CALCIUM 7.4 mg/dl (8.6-10.4); GFR AFRICAN-AMERICAN > 60; GFR NON-AFRICAN AMERICAN > 60
[2017-06-24] MEDS: Piperacill/Tazo 3.375gm in Dex 3.375 GM/50 ML BAG IVPB SCH ×2 (07:44→17:53)
[2017-06-24] MEDS: Enoxaparin 60 mg Syringe SC SCH ×2 (09:57→12:15)
[2017-06-24] MEDS: levETIRAcetam 100 mg/ml (5ml) Oral Syringe PO SCH ×2 (09:58→17:51)
[2017-06-24] MEDS: Vancomycin 1 gm/NS 200 ml 1 GM/200 ML BAG IVPB SCH (13:58)
[2017-06-24 14:22] LABS: BLOOD UREA NITROGEN 15 mg/dL (9-20); CALCIUM 7.3 mg/dl (8.6-10.4); GFR AFRICAN-AMERICAN > 60; GFR NON-AFRICAN AMERICAN > 60
--- NOTE | 2017-06-24 18:10 | CP.PCM.PN ---
Subjective - Date & Time of Evaluation Date of Evaluation: 06/24/17 Time of Evaluation: 11:00 - Subjective Subjective: hematuria. mild sob. afebrile. Objective - Vital Signs/Intake and Output Vital Signs (last 24 hours): Temp Pulse Resp BP Pulse Ox 97.9 F 88 22 117/72 96 06/24/17 15:15 06/24/17 15:15 06/24/17 15:15 06/24/17 15:15 06/24/17 15:15 Intake and Output: 06/24/17 06/24/17 06:59 18:59 Intake Total 360 600 Output Total 150 Balance 210 600 - Medications Medications: Current Medications Acetaminophen (Tylenol 325mg Tab) 650 mg PO Q4 PRN PRN Reason: Fever >100.4 F Al Hydrox/Mg Hydrox/Simethicone (Maalox Plus 30 Ml) 30 ml PO Q4 PRN PRN Reason: GI distress Apixaban (Eliquis) 5 mg PO BID [facility] Last Admin: 06/18/17 10:05 Dose: 5 mg Bacitracin (Bacitracin) 0 gm TOP QSHIFT [facility] Last Admin: 06/24/17 13:59 Dose: 1 applic Diltiazem HCl (Cardizem) 60 mg PO TID [facility] Last Admin: 06/24/17 17:51 Dose: 60 mg Enoxaparin Sodium (Lovenox) 45 mg SC Q12 [facility] Last Admin: 06/24/17 12:15 Dose: Not Given Piperacillin Sod/Tazobactam Sod (Zosyn 3.375 Gm Iv Premix) 3.375 gm in 50 mls @ 100 mls/hr IVPB Q8H [facility] Last Admin: 06/24/17 17:53 Dose: 100 mls/hr Vancomycin/Sodium Chloride (Vancomycin 1 Gm/Ns 200 Ml) 1 gm in 200 mls @ 133.333 mls/hr IVPB Q24H [facility] Stop: 06/29/17 13:01 Last Admin: 06/24/17 13:58 Dose: 133.333 mls/hr Levetiracetam (Keppra) 500 mg PO BID [facility] Last Admin: 06/24/17 17:51 Dose: 500 mg Magnesium Hydroxide (Milk Of Magnesia) 30 ml PO DAILY PRN PRN Reason: Constipation Last Admin: 06/18/17 09:55 Dose: 30 ml Pantoprazole Sodium (Protonix Inj) 40 mg IVP Q12H [facility] Last Admin: 06/24/17 17:51 Dose: 40 mg - Labs Labs: 06/23/17 11:41 06/24/17 13:51 - Constitutional Appears: No Acute Distress, Chronically Ill - Eye Exam Eye Exam: PERRL - ENT Exam ENT Exam: Mucous Membranes Moist - Respiratory Exam Respiratory Exam: Decreased Breath Sounds, NORMAL BREATHING PATTERN - Cardiovascular Exam Cardiovascular Exam: Irregular Rhythm, +S1, +S2 - GI/Abdominal Exam GI & Abdominal Exam: Soft, Normal Bowel Sounds - Extremities Exam Extremities Exam: Full ROM, Normal Capillary Refill, Normal Inspection. absent : Joint Swelling, Pedal Edema - Neurological Exam Neurological Exam: Alert, Awake, CN II-XII Intact, Normal Gait, Oriented x3 Assessment and Plan - Assessment and Plan (Free Text) Assessment: hematuria. copd. ca lungs. Plan: renal w/u. resp treatment. will need placement.
[2017-06-24 22:45] LABS: SQUAMOUS EPITHIAL 4 /hpf (0-5); URINE BACTERIA MOD (<OCC); URINE BILIRUBIN NEGATIVE (NEGATIVE); URINE BLOOD 3+ (NEGATIVE); URINE CLARITY Hazy (Clear); URINE COLOR Amber (YELLOW); URINE GLUCOSE (UA) NORMAL (Normal); URINE LEUKOCYTE ESTERASE TRACE Leu/uL (Negative); URINE NITRATE NEGATIVE (NEGATIVE); URINE PROTEIN 2+ mg/dL (NEGATIVE)
[2017-06-25] MEDS: Piperacill/Tazo 3.375gm in Dex 3.375 GM/50 ML BAG IVPB SCH ×3 (00:10→17:02)
[2017-06-25] MEDS: Bacitracin Ointment 30 GM TUBE TOP SCH ×3 (05:24→22:18)
[2017-06-25 08:32] LABS: ALBUMIN 2.3 g/dL (3.5-5.0); ALT/SGPT 41 U/L (21-72); AST/SGOT 24 U/L (17-59); BLOOD UREA NITROGEN 15 mg/dL (9-20); CALCIUM 7.7 mg/dl (8.6-10.4); GFR AFRICAN-AMERICAN > 60; GFR NON-AFRICAN AMERICAN > 60
[2017-06-25 08:33] LABS: ALB/GLOB RATIO 0.8 (1.0-2.1)
[2017-06-25] MEDS: levETIRAcetam 100 mg/ml (5ml) Oral Syringe PO SCH ×2 (09:56→18:05)
--- NOTE | 2017-06-25 10:23 | CP.PCM.PN ---
Subjective - Date & Time of Evaluation Date of Evaluation: 06/25/17 Time of Evaluation: 09:00 - Subjective Subjective: Patient was seen and evaluated at bedside. Patient is clinically improved. Much more awake and alert today. Appetite also improved-asking for coffee and doughnuts. No acute complaints at this time Objective - Vital Signs/Intake and Output Vital Signs (last 24 hours): Temp Pulse Resp BP Pulse Ox 97.5 F L 92 H 20 92/68 L 97 06/25/17 08:30 06/25/17 08:30 06/25/17 08:30 06/25/17 08:30 06/25/17 08:30 Intake and Output: 06/25/17 06/25/17 06:59 18:59 Intake Total 100 Output Total 400 100 Balance -400 0 - Medications Medications: Current Medications Acetaminophen (Tylenol 325mg Tab) 650 mg PO Q4 PRN PRN Reason: Fever >100.4 F Al Hydrox/Mg Hydrox/Simethicone (Maalox Plus 30 Ml) 30 ml PO Q4 PRN PRN Reason: GI distress Apixaban (Eliquis) 5 mg PO BID [facility] Last Admin: 06/18/17 10:05 Dose: 5 mg Bacitracin (Bacitracin) 0 gm TOP QSHIFT [facility] Last Admin: 06/25/17 05:24 Dose: 1 applic Diltiazem HCl (Cardizem) 60 mg PO TID [facility] Last Admin: 06/25/17 09:56 Dose: Not Given Enoxaparin Sodium (Lovenox) 45 mg SC Q12 [facility] Last Admin: 06/24/17 12:15 Dose: Not Given Piperacillin Sod/Tazobactam Sod (Zosyn 3.375 Gm Iv Premix) 3.375 gm in 50 mls @ 100 mls/hr IVPB Q8H [facility] Last Admin: 06/25/17 07:36 Dose: 100 mls/hr Vancomycin/Sodium Chloride (Vancomycin 1 Gm/Ns 200 Ml) 1 gm in 200 mls @ 133.333 mls/hr IVPB Q24H [facility] Stop: 06/29/17 13:01 Last Admin: 06/24/17 13:58 Dose: 133.333 mls/hr Potassium Chloride (Potassium Chloride 20 Meq/100 Ml) 20 meq in 100 mls @ 50 mls/hr IVPB Q2 [facility] Stop: 06/25/17 13:59 Last Admin: 06/25/17 09:56 Dose: 50 mls/hr Levetiracetam (Keppra) 500 mg PO BID [facility] Last Admin: 06/25/17 09:56 Dose: 500 mg Magnesium Hydroxide (Milk Of Magnesia) 30 ml PO DAILY PRN PRN Reason: Constipation Last Admin: 06/18/17 09:55 Dose: 30 ml Pantoprazole Sodium (Protonix Inj) 40 mg IVP Q12H [facility] Last Admin: 06/25/17 03:51 Dose: 40 mg - Labs Labs: 06/23/17 11:41 06/25/17 06:15 - Head Exam Head Exam: ATRAUMATIC, NORMOCEPHALIC - Eye Exam Eye Exam: Normal appearance - ENT Exam ENT Exam: Mucous Membranes Moist - Respiratory Exam Respiratory Exam: Decreased Breath Sounds - Cardiovascular Exam Cardiovascular Exam: REGULAR RHYTHM Assessment and Plan (1) COPD (chronic obstructive pulmonary disease) Assessment & Plan: continue nebulizer treatment Switched to by mouth prednisone Antibiotics Status: Acute (2) Pneumonia Status: Acute (3) Pulmonary embolism Status: Acute
--- NOTE | 2017-06-25 12:47 | CP.PCM.PN ---
Subjective - Date & Time of Evaluation Date of Evaluation: 06/25/17 Time of Evaluation: 12:45 - Subjective Subjective: CONDITION SAME. APPETITE IMPROVING. LESS SOB. URINE CLEAR. Objective - Vital Signs/Intake and Output Vital Signs (last 24 hours): Temp Pulse Resp BP Pulse Ox 97.5 F L 92 H 20 92/68 L 97 06/25/17 08:30 06/25/17 08:30 06/25/17 08:30 06/25/17 08:30 06/25/17 08:30 Intake and Output: 06/25/17 06/25/17 06:59 18:59 Intake Total 100 Output Total 400 100 Balance -400 0 - Medications Medications: Current Medications Acetaminophen (Tylenol 325mg Tab) 650 mg PO Q4 PRN PRN Reason: Fever >100.4 F Al Hydrox/Mg Hydrox/Simethicone (Maalox Plus 30 Ml) 30 ml PO Q4 PRN PRN Reason: GI distress Apixaban (Eliquis) 5 mg PO BID [facility] Last Admin: 06/18/17 10:05 Dose: 5 mg Bacitracin (Bacitracin) 0 gm TOP QSHIFT [facility] Last Admin: 06/25/17 05:24 Dose: 1 applic Diltiazem HCl (Cardizem) 60 mg PO TID [facility] Last Admin: 06/25/17 09:56 Dose: Not Given Enoxaparin Sodium (Lovenox) 45 mg SC Q12 [facility] Last Admin: 06/24/17 12:15 Dose: Not Given Piperacillin Sod/Tazobactam Sod (Zosyn 3.375 Gm Iv Premix) 3.375 gm in 50 mls @ 100 mls/hr IVPB Q8H [facility] Last Admin: 06/25/17 07:36 Dose: 100 mls/hr Vancomycin/Sodium Chloride (Vancomycin 1 Gm/Ns 200 Ml) 1 gm in 200 mls @ 133.333 mls/hr IVPB Q24H [facility] Stop: 06/29/17 13:01 Last Admin: 06/24/17 13:58 Dose: 133.333 mls/hr Potassium Chloride (Potassium Chloride 20 Meq/100 Ml) 20 meq in 100 mls @ 50 mls/hr IVPB Q2 [facility] Stop: 06/25/17 13:59 Last Admin: 06/25/17 09:56 Dose: 50 mls/hr Levetiracetam (Keppra) 500 mg PO BID [facility] Last Admin: 06/25/17 09:56 Dose: 500 mg Magnesium Hydroxide (Milk Of Magnesia) 30 ml PO DAILY PRN PRN Reason: Constipation Last Admin: 06/18/17 09:55 Dose: 30 ml Pantoprazole Sodium (Protonix Inj) 40 mg IVP Q12H [facility] Last Admin: 06/25/17 03:51 Dose: 40 mg - Labs Labs: 06/23/17 11:41 06/25/17 06:15 - Constitutional Appears: No Acute Distress, Chronically Ill - Eye Exam Eye Exam: PERRL - ENT Exam ENT Exam: Mucous Membranes Moist - Respiratory Exam Respiratory Exam: Decreased Breath Sounds, Rhonchi - Cardiovascular Exam Cardiovascular Exam: Irregular Rhythm, +S1, +S2 - GI/Abdominal Exam GI & Abdominal Exam: Soft, Normal Bowel Sounds - Back Exam Additional comments: SACRAL DECUBITUS ULCER. - Psychiatric Exam Psychiatric exam: Normal Affect, Normal Mood Assessment and Plan - Assessment and Plan (Free Text) Assessment: COPD. CA LUNGS. Plan: CT PRESENT TREATMENT.
[2017-06-25] MEDS: Vancomycin 1 gm/NS 200 ml 1 GM/200 ML BAG IVPB SCH (13:55)
[2017-06-26] MEDS: Piperacill/Tazo 3.375gm in Dex 3.375 GM/50 ML BAG IVPB SCH ×3 (00:50→16:13)
[2017-06-26] MEDS: Bacitracin Ointment 30 GM TUBE TOP SCH ×3 (05:38→21:27)
[2017-06-26 07:37] LABS: ALBUMIN 2.3 g/dL (3.5-5.0); ALT/SGPT 35 U/L (21-72); AST/SGOT 22 U/L (17-59); BLOOD UREA NITROGEN 17 mg/dL (9-20); CALCIUM 7.9 mg/dl (8.6-10.4); GFR AFRICAN-AMERICAN > 60; GFR NON-AFRICAN AMERICAN > 60
[2017-06-26 07:38] LABS: ALB/GLOB RATIO 0.8 (1.0-2.1)
[2017-06-26] MEDS: levETIRAcetam 100 mg/ml (5ml) Oral Syringe PO SCH ×2 (09:32→18:32)
--- NOTE | 2017-06-26 11:09 | CP.PCM.PN ---
Subjective - Date & Time of Evaluation Date of Evaluation: 06/26/17 Time of Evaluation: 11:07 - Subjective Subjective: CONDITION SAME. NO SOB [place]ID[place]. Objective - Vital Signs/Intake and Output Vital Signs (last 24 hours): Temp Pulse Resp BP Pulse Ox 97.2 F L 89 20 111/80 95 06/26/17 09:07 06/26/17 09:07 06/26/17 09:07 06/26/17 09:07 06/26/17 09:07 Intake and Output: 06/26/17 06/26/17 06:59 18:59 Intake Total 100 370 Output Total 120 230 Balance -20 140 - Medications Medications: Current Medications Acetaminophen (Tylenol 325mg Tab) 650 mg PO Q4 PRN PRN Reason: Fever >100.4 F Al Hydrox/Mg Hydrox/Simethicone (Maalox Plus 30 Ml) 30 ml PO Q4 PRN PRN Reason: GI distress Apixaban (Eliquis) 5 mg PO BID [facility] Last Admin: 06/18/17 10:05 Dose: 5 mg Bacitracin (Bacitracin) 0 gm TOP QSHIFT [facility] Last Admin: 06/26/17 05:38 Dose: 1 applic Diltiazem HCl (Cardizem) 60 mg PO TID [facility] Last Admin: 06/26/17 09:32 Dose: 60 mg Enoxaparin Sodium (Lovenox) 45 mg SC Q12 [facility] Last Admin: 06/24/17 12:15 Dose: Not Given Piperacillin Sod/Tazobactam Sod (Zosyn 3.375 Gm Iv Premix) 3.375 gm in 50 mls @ 100 mls/hr IVPB Q8H [facility] Last Admin: 06/26/17 08:35 Dose: 100 mls/hr Vancomycin/Sodium Chloride (Vancomycin 1 Gm/Ns 200 Ml) 1 gm in 200 mls @ 133.333 mls/hr IVPB Q24H [facility] Stop: 06/29/17 13:01 Last Admin: 06/25/17 13:55 Dose: 133.333 mls/hr Levetiracetam (Keppra) 500 mg PO BID [facility] Last Admin: 06/26/17 09:32 Dose: 500 mg Magnesium Hydroxide (Milk Of Magnesia) 30 ml PO DAILY PRN PRN Reason: Constipation Last Admin: 06/18/17 09:55 Dose: 30 ml Pantoprazole Sodium (Protonix Inj) 40 mg IVP Q12H [facility] Last Admin: 06/26/17 03:33 Dose: 40 mg - Labs Labs: 06/23/17 11:41 06/26/17 07:13 - Constitutional Appears: No Acute Distress, Chronically Ill - Eye Exam Eye Exam: PERRL - ENT Exam ENT Exam: Normal Exam - Respiratory Exam Respiratory Exam: Decreased Breath Sounds, NORMAL BREATHING PATTERN - Cardiovascular Exam Cardiovascular Exam: Irregular Rhythm, +S1, +S2 - GI/Abdominal Exam GI & Abdominal Exam: Soft, Normal Bowel Sounds - Extremities Exam Extremities Exam: Full ROM, Normal Capillary Refill, Normal Inspection. absent : Joint Swelling, Pedal Edema - Neurological Exam Neurological Exam: Alert, Awake, CN II-XII Intact, Normal Gait, Oriented x3 Assessment and Plan - Assessment and Plan (Free Text) Assessment: CA LUNGS. Plan: CT PRESENT TREATMENT.
[2017-06-26] MEDS: Vancomycin 1 gm/NS 200 ml 1 GM/200 ML BAG IVPB SCH (13:19)
[2017-06-27] MEDS: Piperacill/Tazo 3.375gm in Dex 3.375 GM/50 ML BAG IVPB SCH ×3 (00:52→16:06)
[2017-06-27] MEDS: Bacitracin Ointment 30 GM TUBE TOP SCH ×3 (05:38→22:03)
[2017-06-27] MEDS: levETIRAcetam 100 mg/ml (5ml) Oral Syringe PO SCH ×2 (09:38→18:26)
[2017-06-27] MEDS: Vancomycin 1 gm/NS 200 ml 1 GM/200 ML BAG IVPB SCH (12:01)
--- NOTE | 2017-06-27 14:53 | CP.PCM.PN ---
Subjective - Date & Time of Evaluation Date of Evaluation: 06/27/17 Time of Evaluation: 09:25 - Subjective Subjective: Patient seen and examined Confused No respiratory distress Afebrile Appetite fair Objective - Vital Signs/Intake and Output Vital Signs (last 24 hours): Temp Pulse Resp BP Pulse Ox 97.6 F 85 22 125/85 98 06/27/17 08:00 06/27/17 08:00 06/27/17 08:00 06/27/17 08:00 06/27/17 08:00 Intake and Output: 06/27/17 06/27/17 06:59 18:59 Intake Total 650 450 Output Total 600 Balance 50 450 - Medications Medications: Current Medications Acetaminophen (Tylenol 325mg Tab) 650 mg PO Q4 PRN PRN Reason: Fever >100.4 F Al Hydrox/Mg Hydrox/Simethicone (Maalox Plus 30 Ml) 30 ml PO Q4 PRN PRN Reason: GI distress Apixaban (Eliquis) 5 mg PO BID [facility] Last Admin: 06/18/17 10:05 Dose: 5 mg Bacitracin (Bacitracin) 0 gm TOP QSHIFT [facility] Last Admin: 06/27/17 13:11 Dose: 1 applic Diltiazem HCl (Cardizem) 60 mg PO TID [facility] Last Admin: 06/27/17 13:11 Dose: 60 mg Enoxaparin Sodium (Lovenox) 45 mg SC Q12 [facility] Last Admin: 06/24/17 12:15 Dose: Not Given Piperacillin Sod/Tazobactam Sod (Zosyn 3.375 Gm Iv Premix) 3.375 gm in 50 mls @ 100 mls/hr IVPB Q8H [facility] Last Admin: 06/27/17 07:46 Dose: 100 mls/hr Vancomycin/Sodium Chloride (Vancomycin 1 Gm/Ns 200 Ml) 1 gm in 200 mls @ 133.333 mls/hr IVPB Q24H [facility] Stop: 06/29/17 13:01 Last Admin: 06/27/17 12:01 Dose: 133.333 mls/hr Levetiracetam (Keppra) 500 mg PO BID [facility] Last Admin: 06/27/17 09:38 Dose: 500 mg Magnesium Hydroxide (Milk Of Magnesia) 30 ml PO DAILY PRN PRN Reason: Constipation Last Admin: 06/18/17 09:55 Dose: 30 ml Pantoprazole Sodium (Protonix Inj) 40 mg IVP Q12H [facility] Last Admin: 06/27/17 03:37 Dose: 40 mg - Labs Labs: 06/23/17 11:41 06/26/17 07:13 - Head Exam Head Exam: ATRAUMATIC, NORMOCEPHALIC - ENT Exam ENT Exam: Mucous Membranes Moist - Respiratory Exam Respiratory Exam: Decreased Breath Sounds - Cardiovascular Exam Cardiovascular Exam: REGULAR RHYTHM - GI/Abdominal Exam GI & Abdominal Exam: Soft, Normal Bowel Sounds - Extremities Exam Extremities Exam: Normal Inspection Assessment and Plan (1) COPD (chronic obstructive pulmonary disease) Assessment & Plan: Continue nebulizer treatment and Antibiotics Status: Acute (2) Pneumonia Status: Acute (3) Pulmonary embolism Status: Acute
[2017-06-27] MEDS: Albuterol-Ipratrop 3 mg / 0.5 (3 ml) UD INH SCH (22:00)
--- NOTE | 2017-06-27 22:33 | CP.PCM.PN ---
Subjective - Date & Time of Evaluation Date of Evaluation: 06/27/17 Time of Evaluation: 12:00 - Subjective Subjective: CONDITION SAME. SOB. Objective - Vital Signs/Intake and Output Vital Signs (last 24 hours): Temp Pulse Resp BP Pulse Ox 97.5 F L 83 20 106/77 99 06/27/17 15:00 06/27/17 15:00 06/27/17 15:00 06/27/17 15:00 06/27/17 15:00 Intake and Output: 06/27/17 06/28/17 18:59 06:59 Intake Total 450 250 Output Total 250 Balance 450 0 - Medications Medications: Current Medications Acetaminophen (Tylenol 325mg Tab) 650 mg PO Q4 PRN PRN Reason: Fever >100.4 F Al Hydrox/Mg Hydrox/Simethicone (Maalox Plus 30 Ml) 30 ml PO Q4 PRN PRN Reason: GI distress Albuterol/Ipratropium (Duoneb 3 Mg/0.5 Mg (3 Ml) Ud) 3 ml INH RQ6 [facility] Apixaban (Eliquis) 5 mg PO BID [facility] Last Admin: 06/18/17 10:05 Dose: 5 mg Bacitracin (Bacitracin) 0 gm TOP QSHIFT [facility] [place] Last Admin: 06/27/17 22:03 Dose: 1 applic Diltiazem HCl (Cardizem) 60 mg PO TID [facility] Last Admin: 06/27/17 18:26 Dose: 60 mg Enoxaparin Sodium (Lovenox) 45 mg SC Q12 [facility] [place] Last Admin: 06/24/17 12:15 Dose: Not Given Piperacillin Sod/Tazobactam Sod (Zosyn 3.375 Gm Iv Premix) 3.375 gm in 50 mls @ 100 mls/hr IVPB Q8H [facility] [place] Last Admin: 06/27/17 16:06 Dose: 100 mls/hr Vancomycin/Sodium Chloride (Vancomycin 1 Gm/Ns 200 Ml) 1 gm in 200 mls @ 133.333 mls/hr IVPB Q24H [facility] [place] Stop: 06/29/17 13:01 Last Admin: 06/27/17 12:01 Dose: 133.333 mls/hr Levetiracetam (Keppra) 500 mg PO BID [facility] [place] Last Admin: 06/27/17 18:26 Dose: 500 mg Magnesium Hydroxide (Milk Of Magnesia) 30 ml PO DAILY PRN PRN Reason: Constipation Last Admin: 06/18/17 09:55 Dose: 30 ml Pantoprazole Sodium (Protonix Inj) 40 mg IVP Q12H [facility] Last Admin: 06/27/17 16:07 Dose: 40 mg - Labs Labs: 06/23/17 11:41 06/26/17 07:13 - Constitutional Appears: No Acute Distress, Chronically Ill - Eye Exam Eye Exam: PERRL - ENT Exam ENT Exam: Mucous Membranes Moist - Respiratory Exam Respiratory Exam: Decreased Breath Sounds, NORMAL BREATHING PATTERN - Cardiovascular Exam Cardiovascular Exam: Irregular Rhythm, +S1, +S2 - GI/Abdominal Exam GI & Abdominal Exam: Soft, Normal Bowel Sounds - Extremities Exam Extremities Exam: Full ROM, Normal Capillary Refill, Normal Inspection. absent : Joint Swelling, Pedal Edema Assessment and Plan - Assessment and Plan (Free Text) Assessment: CA LUNGS. COPD. Plan: CT PRESENT TREATMENT.
[2017-06-28] MEDS: Piperacill/Tazo 3.375gm in Dex 3.375 GM/50 ML BAG IVPB SCH ×4 (00:17→23:50)
[2017-06-28] MEDS: Albuterol-Ipratrop 3 mg / 0.5 (3 ml) UD INH SCH ×2 (01:35→20:20)
[2017-06-28] MEDS: Bacitracin Ointment 30 GM TUBE TOP SCH ×3 (05:40→21:33)
[2017-06-28] MEDS: levETIRAcetam 100 mg/ml (5ml) Oral Syringe PO SCH ×2 (10:53→17:52)
--- NOTE | 2017-06-28 12:35 | CP.PCM.PN ---
Subjective - Date & Time of Evaluation Date of Evaluation: 06/28/17 Time of Evaluation: 12:34 - Subjective Subjective: CONDITION SAME. NO SOB. AFEBRILE. Objective - Vital Signs/Intake and Output Vital Signs (last 24 hours): Temp Pulse Resp BP Pulse Ox 97.4 F L 92 H 20 101/69 95 06/28/17 08:23 06/28/17 08:23 06/28/17 08:23 06/28/17 10:52 06/28/17 08:23 Intake and Output: 06/28/17 06/28/17 06:59 18:59 Intake Total 450 Output Total 525 Balance -75 - Medications Medications: Current Medications Acetaminophen (Tylenol 325mg Tab) 650 mg PO Q4 PRN PRN Reason: Fever >100.4 F Al Hydrox/Mg Hydrox/Simethicone (Maalox Plus 30 Ml) 30 ml PO Q4 PRN PRN Reason: GI distress Albuterol/Ipratropium (Duoneb 3 Mg/0.5 Mg (3 Ml) Ud) 3 ml INH RQ6 [facility] Last Admin: 06/28/17 01:35 Dose: 3 ml Apixaban (Eliquis) 5 mg PO BID [facility] Last Admin: 06/18/17 10:05 Dose: 5 mg Bacitracin (Bacitracin) 0 gm TOP QSHIFT [facility] Last Admin: 06/28/17 05:40 Dose: 1 applic Diltiazem HCl (Cardizem) 60 mg PO TID [facility] Last Admin: 06/28/17 10:53 Dose: 60 mg Enoxaparin Sodium (Lovenox) 45 mg SC Q12 [facility] Last Admin: 06/24/17 12:15 Dose: Not Given Piperacillin Sod/Tazobactam Sod (Zosyn 3.375 Gm Iv Premix) 3.375 gm in 50 mls @ 100 mls/hr IVPB Q8H [facility] Last Admin: 06/28/17 08:31 Dose: 100 mls/hr Vancomycin/Sodium Chloride (Vancomycin 1 Gm/Ns 200 Ml) 1 gm in 200 mls @ 133.333 mls/hr IVPB Q24H [facility] Stop: 06/29/17 13:01 Last Admin: 06/27/17 12:01 Dose: 133.333 mls/hr Levetiracetam (Keppra) 500 mg PO BID [facility] Last Admin: 06/28/17 10:53 Dose: 500 mg Magnesium Hydroxide (Milk Of Magnesia) 30 ml PO DAILY PRN PRN Reason: Constipation Last Admin: 06/18/17 09:55 Dose: 30 ml Pantoprazole Sodium (Protonix Inj) 40 mg IVP Q12H [facility] Last Admin: 06/28/17 03:51 Dose: 40 mg - Labs Labs: 06/23/17 11:41 06/26/17 07:13 - Constitutional Appears: No Acute Distress, Chronically Ill - Eye Exam Eye Exam: PERRL - ENT Exam ENT Exam: Mucous Membranes Moist - Respiratory Exam Respiratory Exam: Decreased Breath Sounds, Rhonchi, NORMAL BREATHING PATTERN - Cardiovascular Exam Cardiovascular Exam: Irregular Rhythm, +S1, +S2 - GI/Abdominal Exam GI & Abdominal Exam: Soft, Normal Bowel Sounds - Extremities Exam Extremities Exam: Full ROM, Normal Capillary Refill, Normal Inspection. absent : Joint Swelling, Pedal Edema Assessment and Plan - Assessment and Plan (Free Text) Assessment: COPD. CA LUNGS. Plan: FOR PLACEMENT. CT PRESENT TREATMENT.
[2017-06-28] MEDS: Vancomycin 1 gm/NS 200 ml 1 GM/200 ML BAG IVPB SCH (14:00)
--- NOTE | 2017-06-28 18:11 | CP.PCM.PN ---
Objective - Vital Signs/Intake and Output Vital Signs (last 24 hours): Temp Pulse Resp BP Pulse Ox 97.2 F L 82 21 108/78 95 06/28/17 15:00 06/28/17 15:00 06/28/17 15:00 06/28/17 15:00 06/28/17 15:00 Intake and Output: 06/28/17 06/28/17 06:59 18:59 Intake Total 450 370 Output Total 525 100 Balance -75 270 - Medications Medications: Current Medications Acetaminophen (Tylenol 325mg Tab) 650 mg PO Q4 PRN PRN Reason: Fever >100.4 F Al Hydrox/Mg Hydrox/Simethicone (Maalox Plus 30 Ml) 30 ml PO Q4 PRN PRN Reason: GI distress Albuterol/Ipratropium (Duoneb 3 Mg/0.5 Mg (3 Ml) Ud) 3 ml INH RQ6 [facility] Last Admin: 06/28/17 01:35 Dose: 3 ml Apixaban (Eliquis) 5 mg PO BID [facility] Last Admin: 06/18/17 10:05 Dose: 5 mg Bacitracin (Bacitracin) 0 gm TOP QSHIFT [facility] Last Admin: 06/28/17 14:13 Dose: 1 applic Diltiazem HCl (Cardizem) 60 mg PO TID [facility] Last Admin: 06/28/17 17:52 Dose: 60 mg Enoxaparin Sodium (Lovenox) 45 mg SC Q12 [facility] Last Admin: 06/24/17 12:15 Dose: Not Given Piperacillin Sod/Tazobactam Sod (Zosyn 3.375 Gm Iv Premix) 3.375 gm in 50 mls @ 100 mls/hr IVPB Q8H [facility] Last Admin: 06/28/17 16:14 Dose: 100 mls/hr Vancomycin/Sodium Chloride (Vancomycin 1 Gm/Ns 200 Ml) 1 gm in 200 mls @ 133.333 mls/hr IVPB Q24H [facility] Stop: 06/29/17 13:01 Last Admin: 06/28/17 14:00 Dose: 133.333 mls/hr Levetiracetam (Keppra) 500 mg PO BID [facility] Last Admin: 06/28/17 17:52 Dose: 500 mg Magnesium Hydroxide (Milk Of Magnesia) 30 ml PO DAILY PRN PRN Reason: Constipation Last Admin: 12/29/17 09:55 Dose: 30 ml Pantoprazole Sodium (Protonix Inj) 40 mg IVP Q12H [facility] Last Admin: 06/28/17 16:14 Dose: 40 mg - Labs Labs: 06/23/17 11:41 06/26/17 07:13 Assessment and Plan (1) COPD (chronic obstructive pulmonary disease) Status: Acute (2) Pneumonia Status: Acute (3) Pulmonary embolism Status: Acute
[2017-06-29 01:27] VITALS: RESP 20
[2017-06-29] MEDS: Albuterol-Ipratrop 3 mg / 0.5 (3 ml) UD INH SCH ×3 (01:47→19:19)
[2017-06-29] MEDS: Bacitracin Ointment 30 GM TUBE TOP SCH ×3 (05:36→21:11)
[2017-06-29] MEDS: Piperacill/Tazo 3.375gm in Dex 3.375 GM/50 ML BAG IVPB SCH ×2 (08:18→16:06)
[2017-06-29] MEDS: levETIRAcetam 100 mg/ml (5ml) Oral Syringe PO SCH ×2 (10:56→17:18)
--- NOTE | 2017-06-29 12:06 | CP.PCM.PN ---
Subjective - Date & Time of Evaluation Date of Evaluation: 06/29/17 Time of Evaluation: 12:05 - Subjective Subjective: PATIENT SEEN. WILL DICTATE Objective - Vital Signs/Intake and Output Vital Signs (last 24 hours): Temp Pulse Resp BP Pulse Ox 97.4 F L 118 H 20 102/77 95 06/29/17 08:00 06/29/17 08:00 06/29/17 08:00 06/29/17 08:00 06/29/17 08:00 Intake and Output: 06/29/17 06/29/17 06:59 18:59 Intake Total 300 Output Total 350 Balance -50 - Medications Medications: Current Medications Acetaminophen (Tylenol 325mg Tab) 650 mg PO Q4 PRN PRN Reason: Fever >100.4 F Al Hydrox/Mg Hydrox/Simethicone (Maalox Plus 30 Ml) 30 ml PO Q4 PRN PRN Reason: GI distress Albuterol/Ipratropium (Duoneb 3 Mg/0.5 Mg (3 Ml) Ud) 3 ml INH RQ6 [facility] Last Admin: 06/29/17 08:29 Dose: Not Given Apixaban (Eliquis) 5 mg PO BID [facility] Last Admin: 06/18/17 10:05 Dose: 5 mg Bacitracin (Bacitracin) 0 gm TOP QSHIFT [facility] Last Admin: 06/29/17 05:36 Dose: 1 applic Diltiazem HCl (Cardizem) 60 mg PO TID [facility] Last Admin: 06/29/17 10:56 Dose: 60 mg Enoxaparin Sodium (Lovenox) 45 mg SC Q12 [facility] Last Admin: 06/24/17 12:15 Dose: Not Given Piperacillin Sod/Tazobactam Sod (Zosyn 3.375 Gm Iv Premix) 3.375 gm in 50 mls @ 100 mls/hr IVPB Q8H [facility] Last Admin: 06/29/17 08:18 Dose: 100 mls/hr Vancomycin/Sodium Chloride (Vancomycin 1 Gm/Ns 200 Ml) 1 gm in 200 mls @ 133.333 mls/hr IVPB Q24H [facility] Stop: 06/29/17 13:01 Last Admin: 06/28/17 14:00 Dose: 133.333 mls/hr Levetiracetam (Keppra) 500 mg PO BID [facility] Last Admin: 06/29/17 10:56 Dose: 500 mg Magnesium Hydroxide (Milk Of Magnesia) 30 ml PO DAILY PRN PRN Reason: Constipation Last Admin: 06/18/17 09:55 Dose: 30 ml Pantoprazole Sodium (Protonix Inj) 40 mg IVP Q12H [facility] Last Admin: 06/29/17 05:35 Dose: Not Given - Labs Labs: 06/23/17 11:41 06/26/17 07:13
[2017-06-29] MEDS: Vancomycin 1 gm/NS 200 ml 1 GM/200 ML BAG IVPB SCH (12:38)
--- NOTE | 2017-06-29 13:04 | CP.PCM.PN ---
Subjective - Date & Time of Evaluation Date of Evaluation: 06/29/17 Time of Evaluation: 13:02 - Subjective Subjective: CONDITION SAME. NO SOB. HTN COPD CA LUNGS. Objective - Vital Signs/Intake and Output Vital Signs (last 24 hours): Temp Pulse Resp BP Pulse Ox 97.4 F L 118 H 20 102/77 95 06/29/17 08:00 06/29/17 08:00 06/29/17 08:00 06/29/17 08:00 06/29/17 08:00 Intake and Output: 06/29/17 06/29/17 06:59 18:59 Intake Total 300 Output Total 350 Balance -50 - Medications Medications: Current Medications Acetaminophen (Tylenol 325mg Tab) 650 mg PO Q4 PRN PRN Reason: Fever >100.4 F Al Hydrox/Mg Hydrox/Simethicone (Maalox Plus 30 Ml) 30 ml PO Q4 PRN PRN Reason: GI distress Albuterol/Ipratropium (Duoneb 3 Mg/0.5 Mg (3 Ml) Ud) 3 ml INH RQ6 [facility] Last Admin: 06/29/17 08:29 Dose: Not Given Apixaban (Eliquis) 5 mg PO BID [facility] Last Admin: 06/18/17 10:05 Dose: 5 mg Bacitracin (Bacitracin) 0 gm TOP QSHIFT [facility] Last Admin: 06/29/17 05:36 Dose: 1 applic Diltiazem HCl (Cardizem) 60 mg PO TID [facility] Last Admin: 06/29/17 10:56 Dose: 60 mg Enoxaparin Sodium (Lovenox) 45 mg SC Q12 [facility] Last Admin: 06/24/17 12:15 Dose: Not Given Piperacillin Sod/Tazobactam Sod (Zosyn 3.375 Gm Iv Premix) 3.375 gm in 50 mls @ 100 mls/hr IVPB Q8H [facility] Last Admin: 06/29/17 08:18 Dose: 100 mls/hr Levetiracetam (Keppra) 500 mg PO BID [facility] Last Admin: 06/29/17 10:56 Dose: 500 mg Magnesium Hydroxide (Milk Of Magnesia) 30 ml PO DAILY PRN PRN Reason: Constipation Last Admin: 06/18/17 09:55 Dose: 30 ml Pantoprazole Sodium (Protonix Inj) 40 mg IVP Q12H [facility] Last Admin: 06/29/17 05:35 Dose: Not Given - Labs Labs: 06/23/17 11:41 06/26/17 07:13 - Constitutional Appears: No Acute Distress, Chronically Ill - Eye Exam Eye Exam: PERRL - ENT Exam ENT Exam: Mucous Membranes Moist - Respiratory Exam Respiratory Exam: Decreased Breath Sounds, NORMAL BREATHING PATTERN - Cardiovascular Exam Cardiovascular Exam: Irregular Rhythm, +S1, +S2 - GI/Abdominal Exam GI & Abdominal Exam: Soft, Normal Bowel Sounds - Extremities Exam Extremities Exam: Full ROM, Normal Capillary Refill, Normal Inspection. absent : Joint Swelling, Pedal Edema - Back Exam Additional comments: SACRAL DECUBITUS. - Neurological Exam Neurological Exam: Alert, Awake, CN II-XII Intact, Normal Gait, Oriented x3 - Psychiatric Exam Psychiatric exam: Normal Affect, Normal Mood Assessment and Plan - Assessment and Plan (Free Text) Assessment: COPD. CA LUNGS. Plan: CT PRESENT TREATMENT.
[2017-06-30] MEDS: Albuterol-Ipratrop 3 mg / 0.5 (3 ml) UD INH SCH ×4 (01:27→19:12)
[2017-06-30] MEDS: Bacitracin Ointment 30 GM TUBE TOP SCH ×3 (06:43→21:16)
[2017-06-30] MEDS: levETIRAcetam 100 mg/ml (5ml) Oral Syringe PO SCH ×2 (09:57→17:50)
--- NOTE | 2017-06-30 12:51 | CP.PCM.PN ---
Subjective - Date & Time of Evaluation Date of Evaluation: 06/30/17 Time of Evaluation: 12:48 - Subjective Subjective: SOB. AWAKE. APPEARS CONFESED. AFEBRILE. Objective - Vital Signs/Intake and Output Vital Signs (last 24 hours): Temp Pulse Resp BP Pulse Ox 98.4 F 105 H 20 107/72 95 06/30/17 08:46 06/30/17 08:46 06/30/17 08:46 06/30/17 08:46 06/30/17 08:46 Intake and Output: 06/30/17 06/30/17 06:59 18:59 Intake Total 130 Output Total 250 Balance -120 - Medications Medications: Current Medications Acetaminophen (Tylenol 325mg Tab) 650 mg PO Q4 PRN PRN Reason: Fever >100.4 F Al Hydrox/Mg Hydrox/Simethicone (Maalox Plus 30 Ml) 30 ml PO Q4 PRN PRN Reason: GI distress Albuterol/Ipratropium (Duoneb 3 Mg/0.5 Mg (3 Ml) Ud) 3 ml INH RQ6 [facility] Last Admin: 06/30/17 07:18 Dose: 3 ml Apixaban (Eliquis) 5 mg PO BID [facility] Last Admin: 06/18/17 10:05 Dose: 5 mg Bacitracin (Bacitracin) 0 gm TOP QSHIFT [facility] Last Admin: 06/30/17 06:43 Dose: 1 applic Diltiazem HCl (Cardizem) 60 mg PO TID [facility] Last Admin: 06/30/17 09:57 Dose: 60 mg Enoxaparin Sodium (Lovenox) 45 mg SC Q12 [facility] Last Admin: 06/24/17 12:15 Dose: Not Given Levetiracetam (Keppra) 500 mg PO BID [facility] Last Admin: 06/30/17 09:57 Dose: 500 mg Magnesium Hydroxide (Milk Of Magnesia) 30 ml PO DAILY PRN PRN Reason: Constipation Last Admin: 06/18/17 09:55 Dose: 30 ml Pantoprazole Sodium (Protonix Inj) 40 mg IVP Q12H [facility] Last Admin: 06/30/17 03:19 Dose: 40 mg - Labs Labs: 06/23/17 11:41 06/26/17 07:13 - Constitutional Appears: In Acute Distress, Chronically Ill - Eye Exam Eye Exam: PERRL - ENT Exam ENT Exam: Mucous Membranes Moist, Normal Exam - Respiratory Exam Respiratory Exam: Decreased Breath Sounds, NORMAL BREATHING PATTERN - Cardiovascular Exam Cardiovascular Exam: Irregular Rhythm, +S1, +S2 - GI/Abdominal Exam GI & Abdominal Exam: Soft, Normal Bowel Sounds - Extremities Exam Extremities Exam: Full ROM, Normal Capillary Refill, Normal Inspection. absent : Joint Swelling, Pedal Edema - Neurological Exam Neurological Exam: Alert, Awake, CN II-XII Intact, Normal Gait, Oriented x3 - Psychiatric Exam Psychiatric exam: Normal Affect, Normal Mood Assessment and Plan - Assessment and Plan (Free Text) Assessment: COPD CA LUNGS. Plan: FOR RESPIRATORY TREATMENT. SUPPORTIVE CARE.
[2017-06-30] MEDS: Vancomycin 1 GM in Sodium Chloride 0.9% 200 ML IVPB SCH (17:49)
[2017-06-30] MEDS: Piperacill/Tazo 3.375gm in Dex 3.375 GM/50 ML BAG IVPB SCH (21:16)
[2017-07-01] MEDS: Albuterol-Ipratrop 3 mg / 0.5 (3 ml) UD INH SCH ×4 (01:09→19:18)
[2017-07-01] MEDS: Bacitracin Ointment 30 GM TUBE TOP SCH ×3 (05:08→22:03)
[2017-07-01] MEDS: Piperacill/Tazo 3.375gm in Dex 3.375 GM/50 ML BAG IVPB SCH ×3 (05:08→22:02)
[2017-07-01] MEDS: levETIRAcetam 100 mg/ml (5ml) Oral Syringe PO SCH ×3 (10:23→22:01)
--- NOTE | 2017-07-01 11:33 | PCM.PSYCH ---
Initial Psychiatric Evaluation - Initial Psychiatric Evaluation History of Present Illness and Precipitating Events: Consultation for competency for medical decisions Patient is a 67 year old male with a past medical history of metastatic invasive squamous cell carcinoma, COPD, radiation therapy, PE, and seizures, who was [facility]ness [facility]. Patient was admitted to the ICU for respiratory distress. Patient was seen and examined at bedside; patient is agitated, trying to put hands in mouth, hand mitts are on both hands, and patient is mumbling. Patient is non-verbal. Patient is alert, but does not appear oriented to person,place or time. History and review of systems are not obtained due to patient's condition. Past medical history obtained from EMR. PMHx: metastatic invasive squamous cell carcinoma, COPD, radiation therapy, PE, and seizures SurgHx: portacath (06/06) Current Medications: Active Medications Generic Name Dose Route Start Last Admin Trade Name Freq PRN Reason Stop Dose Admin Acetaminophen 650 mg 06/18/17 13:45 Tylenol 325mg Tab PO Q4 PRN Fever >100.4 F Albuterol/Ipratropium 3 ml 06/27/17 20:00 07/01/17 07:32 Duoneb 3 Mg/0.5 Mg (3 Ml) Ud INH 3 ml RQ6 [facility] Administration Apixaban 5 mg 06/17/17 18:00 06/18/17 10:05 Eliquis PO 5 mg BID [facility] Administration Bacitracin 0 gm 06/18/17 22:00 07/01/17 05:08 Bacitracin TOP 1 applic QSHIFT [facility] Administration Diltiazem HCl 60 mg 06/20/17 14:00 07/01/17 10:23 Cardizem PO 60 mg TID [facility] Administration Enoxaparin Sodium 45 mg 06/18/17 22:00 06/24/17 12:15 Lovenox SC Not Given Q12 [facility] Piperacillin Sod/Tazobactam Sod 3.375 gm in 50 mls @ 100 mls/hr 06/30/17 22: 00 07/01/17 05:08 Zosyn 3.375 Gm Iv Premix IVPB 100 mls/hr Q8 [facility] Administration Vancomycin HCl 1 gm/ Sodium 200 mls @ 133.333 mls/hr 06/30/17 17:30 06/30/17 17:49 Chloride IVPB 133.333 mls/hr Q24H [facility] Administration Levetiracetam 500 mg 06/24/17 10:00 07/01/17 10:23 Keppra PO 500 mg BID [facility] Administration Past Psychiatric History - Past Psychiatric History Pertinent Medical Hx (Current Medical&Sleep Prob, Allergies): Allergies Allergy/AdvReac Type Severity Reaction Status Date / Time No Known Allergies Allergy Verified 05/24/17 15:46 Albuterol/Ipratropium [Duoneb 3 mg/0.5 mg (3 ml) UD] 3 ml INH RQ6 neb 06/02/17 Apixaban [Eliquis] 5 mg PO BID tab 06/02/17 levETIRAcetam [Keppra] 500 mg PO BID tab 06/02/17 Acetaminophen [Tylenol 325mg tab] 2 tab PO DAILY 06/17/17 Aluminum Hydroxide/Magnesium [Maalox Plus 30 ml] 30 ml PO Q4 PRN 06/17/17 Amino Acids/Protein Hydrolys [Prostat 15 g packet] 30 ml PO DAILY 06/17/17 Bacitracin OINT 1 applic TP QSHIFT 06/17/17 Collagenase [Santyl] 30 applic TOP DAILY 06/17/17 Lactose-Reduced Food [Ensure Plus 240 ml] 240 ml PO BID 06/17/17 Magnesium Hydroxide [Milk of Magnesia] 30 ml PO DAILY PRN 06/17/17 Potassium Chloride [potassium chloride Solution] 40 meq PO DAILY 06/17/17 Tylenol 325mg tab 2 tab PO Q4 PRN 06/17/17 Review of Systems - Review of Systems Systems not reviewed;Unavailable: Uncooperative Mental Status Examination - Personal Presentation Personal Presentation: Looks older than stated age - Affect Affect: Constricted - Motor Activity Motor Activity: Other (Agitated) - Reliability in Providing Information Reliability in Providing Information: Poor, due to cognitve impairment - Speech Speech: Disorganized, Incoherent - Mood Mood: Anxious - Cognitive Functions Sensorium: Alert - Risk Risk: Diminished functioning DSM 5 DX - DSM 5 DSM 5 Diagnosis: Delirium secondary to medical condition - Recommended/Plan of Treatment Treatment Recommendations and Plan of Treatment: Patient has no capacity to make medical decisions. Likely delirum secondary to medical condition. Starting medications as needed for agitation. - Smoking Cessation Smoking Cessation Initiated: No
--- NOTE | 2017-07-01 12:32 | CP.PCM.PN ---
Subjective - Date & Time of Evaluation Date of Evaluation: 07/01/17 Time of Evaluation: 12:30 - Subjective Subjective: CONDITION POOR. SOB. COPD. LETHARGIC. CA LUNGS. PSYCH EVAL NOTED. NOT ABLE TO TAKE DECISIONS. Objective - Vital Signs/Intake and Output Vital Signs (last 24 hours): Temp Pulse Resp BP Pulse Ox 98.1 F 65 20 97/66 L 96 07/01/17 07:47 07/01/17 07:47 07/01/17 07:47 07/01/17 07:47 07/01/17 07:47 Intake and Output: 07/01/17 07/01/17 06:59 18:59 Intake Total 500 Output Total 300 Balance 200 - Medications Medications: Current Medications Acetaminophen (Tylenol 325mg Tab) 650 mg PO Q4 PRN PRN Reason: Fever >100.4 F Albuterol/Ipratropium (Duoneb 3 Mg/0.5 Mg (3 Ml) Ud) 3 ml INH RQ6 [facility] Last Admin: 07/01/17 07:32 Dose: 3 ml Apixaban (Eliquis) 5 mg PO BID [facility] Last Admin: 06/18/17 10:05 Dose: 5 mg Bacitracin (Bacitracin) 0 gm TOP QSHIFT [facility] Last Admin: 07/01/17 05:08 Dose: 1 applic Diltiazem HCl (Cardizem) 60 mg PO TID [facility] Last Admin: 07/01/17 10:23 Dose: 60 mg Enoxaparin Sodium (Lovenox) 45 mg SC Q12 [facility] Last Admin: 06/24/17 12:15 Dose: Not Given Piperacillin Sod/Tazobactam Sod (Zosyn 3.375 Gm Iv Premix) 3.375 gm in 50 mls @ 100 mls/hr IVPB Q8 [facility] Last Admin: 07/01/17 05:08 Dose: 100 mls/hr Vancomycin HCl 1 gm/ Sodium (Chloride) 200 mls @ 133.333 mls/hr IVPB Q24H [facility] Last Admin: 06/30/17 17:49 Dose: 133.333 mls/hr Levetiracetam (Keppra) 500 mg PO BID [facility] Last Admin: 07/01/17 10:23 Dose: 500 mg - Labs Labs: 06/23/17 11:41 06/26/17 07:13 - Constitutional Appears: Chronically Ill - Eye Exam Eye Exam: PERRL - ENT Exam ENT Exam: Normal Exam - Respiratory Exam Respiratory Exam: Decreased Breath Sounds, NORMAL BREATHING PATTERN - Cardiovascular Exam Cardiovascular Exam: Irregular Rhythm, +S1, +S2 - GI/Abdominal Exam GI & Abdominal Exam: Soft, Normal Bowel Sounds - Additional Findings Additional findings: SACRAL DECUBITUS. LETHARGIC. Assessment and Plan - Assessment and Plan (Free Text) Assessment: CIOD. CA LUNGS. Plan: CT PRESENT TREATMENT.
[2017-07-01] MEDS: Vancomycin 1 GM in Sodium Chloride 0.9% 200 ML IVPB SCH (18:00)
[2017-07-02] MEDS ORDERED: DiphenhydrAMINE 50 mg/ml Inj IM PRN (00:41)
[2017-07-02] MEDS: Albuterol-Ipratrop 3 mg / 0.5 (3 ml) UD INH SCH ×3 (02:33→13:17)
[2017-07-02] MEDS: Piperacill/Tazo 3.375gm in Dex 3.375 GM/50 ML BAG IVPB SCH ×2 (05:30→14:23)
[2017-07-02 07:57] VITALS: BP 118/70; PULSE 90; TEMP 98.5; O2SAT 96
[2017-07-02] MEDS: levETIRAcetam 100 mg/ml (5ml) Oral Syringe PO SCH (10:16)
--- NOTE | 2017-07-02 11:56 | CP.PCM.PN ---
Subjective - Date & Time of Evaluation Date of Evaluation: 07/02/17 Time of Evaluation: 11:54 - Subjective Subjective: IN DISTRESS. CONFUSED. AFEBRIKE. Objective - Vital Signs/Intake and Output Vital Signs (last 24 hours): Temp Pulse Resp BP Pulse Ox 98.5 F 90 20 118/70 96 07/02/17 07:56 07/02/17 07:56 07/02/17 07:56 07/02/17 07:56 07/02/17 07:56 Intake and Output: 07/02/17 07/02/17 06:59 18:59 Intake Total 300 Output Total 250 Balance 50 - Medications Medications: Current Medications Acetaminophen (Tylenol 325mg Tab) 650 mg PO Q4 PRN PRN Reason: Fever >100.4 F Albuterol/Ipratropium (Duoneb 3 Mg/0.5 Mg (3 Ml) Ud) 3 ml INH RQ6 [facility] Last Admin: 07/02/17 07:18 Dose: 3 ml Apixaban (Eliquis) 5 mg PO BID [facility] Last Admin: 06/18/17 10:05 Dose: 5 mg Bacitracin (Bacitracin) 0 gm TOP QSHIFT [facility] Last Admin: 07/01/17 22:03 Dose: 1 applic Diltiazem HCl (Cardizem) 60 mg PO TID [facility] Last Admin: 07/02/17 10:16 Dose: 60 mg Diphenhydramine HCl (Benadryl) 50 mg PO Q6 PRN PRN Reason: Extra Pyramidal Symptoms Diphenhydramine HCl (Benadryl) 50 mg IM Q6 PRN PRN Reason: Anxiety Enoxaparin Sodium (Lovenox) 45 mg SC Q12 [facility] Last Admin: 06/24/17 12:15 Dose: Not Given Haloperidol (Haldol) 5 mg PO Q8 PRN PRN Reason: Moderate Agitation Haloperidol Lactate (Haldol) 5 mg IM Q8 PRN PRN Reason: Moderate Agitation Piperacillin Sod/Tazobactam Sod (Zosyn 3.375 Gm Iv Premix) 3.375 gm in 50 mls @ 100 mls/hr IVPB Q8 [facility] Last Admin: 07/02/17 05:30 Dose: 100 mls/hr Vancomycin HCl 1 gm/ Sodium (Chloride) 200 mls @ 133.333 mls/hr IVPB Q24H [facility] Last Admin: 07/01/17 18:00 Dose: 133.333 mls/hr Levetiracetam (Keppra) 500 mg PO BID [facility] Last Admin: 07/02/17 10:16 Dose: 500 mg Lorazepam (Ativan) 1 mg IM Q6H PRN PRN Reason: Agitation Lorazepam (Ativan) 1 mg PO Q8H PRN PRN Reason: Severe Agitation - Labs Labs: 06/23/17 11:41 06/26/17 07:13 - Constitutional Appears: In Acute Distress, Chronically Ill - Eye Exam Eye Exam: PERRL - ENT Exam ENT Exam: Normal Exam - Respiratory Exam Respiratory Exam: Decreased Breath Sounds, NORMAL BREATHING PATTERN - Cardiovascular Exam Cardiovascular Exam: Irregular Rhythm, +S1, +S2 - GI/Abdominal Exam GI & Abdominal Exam: Soft, Normal Bowel Sounds - Neurological Exam Neurological Exam: Alert, Awake, CN II-XII Intact, Normal Gait, Oriented x3 Assessment and Plan - Assessment and Plan (Free Text) Assessment: COPD. CA LUNGS. Plan: [facility] [employer].
[2017-07-02] MEDS: Bacitracin Ointment 30 GM TUBE TOP SCH (14:27)
[2017-07-02] MEDS ORDERED: Calcium Chloride 1000 mg/10 ml Syringe IV ONE (15:21)
[2017-07-02] MEDS ORDERED: Dextrose 50% SYRINGE Inj (50 ml) ONE (15:21)
[2017-07-02] MEDS ORDERED: Magnesium Sulfate 1 gm/100 mL D5W IVPB ONE (15:21)
[2017-07-02] MEDS ORDERED: Amiodarone 150mg/3 ml vial ONE (15:21)
[2017-07-02] MEDS ORDERED: Sodium Bicarbonate (8.4%) 50 Meq Syringe ONE (15:21)
[2017-07-02] MEDS ORDERED: Etomidate 20 mg/10ml Inj IV ONE (15:27)
[2017-07-02 15:40] LABS: ARTERIAL BLOOD GAS O2 SAT 100.5 % (95-98); ARTERIAL BLOOD GAS PCO2 40 mm/Hg (35-45); ARTERIAL BLOOD GAS PO2 102 mm/Hg (80-100); ARTERIAL BLOOD GAS TCO2 20.9 mmol/L (22-28)
--- NOTE | 2017-07-02 16:28 | CP.PCM.PN ---
Subjective - Date & Time of Evaluation Date of Evaluation: 07/02/17 Time of Evaluation: 03:26 - Subjective Subjective: House Doctor Note Code Blue was called at 3:26 because nurse found patient unresponsive with no pulses. Patient was intubated by ICU attending. ACLS protocol was followed with 1 shock administered. ROSC was not achieved. Code ended at 3:56pm. Primary physician notified by nursing staff. The following medications were given at the following times: 326: Epi 1mg given 329: Bicarb 1amp 331:Calcium 2gm and Epi 1mg 332: Bicarb 1 amp 334: Epi 1mg 335: Amiodarone and Lidocaine given 336: Epi 1 mg 337: Amiodarone 338: Calcium 339: Epi 1mg 340: D50 1 amp 342: Epi 1mg 345: Epi 1mg, Mg 2gm 346: Bicarb 1 amp 347: Lidocaine 348: Epi 1mg x 2 given 3:56: End of code, time of Objective - Vital Signs/Intake and Output Vital Signs (last 24 hours): Temp Pulse Resp BP Pulse Ox 98.5 F 90 20 118/70 96 07/02/17 07:56 07/02/17 07:56 07/02/17 07:56 07/02/17 07:56 07/02/17 07:56 Intake and Output: 07/02/17 07/02/17 06:59 18:59 Intake Total 300 Output Total 250 150 Balance 50 -150 - Medications Medications: Current Medications Acetaminophen (Tylenol 325mg Tab) 650 mg PO Q4 PRN PRN Reason: Fever >100.4 F Albuterol/Ipratropium (Duoneb 3 Mg/0.5 Mg (3 Ml) Ud) 3 ml INH RQ6 [facility] Last Admin: 07/02/17 13:17 Dose: 3 ml Apixaban (Eliquis) 5 mg PO BID [facility] Last Admin: 06/18/17 10:05 Dose: 5 mg Bacitracin (Bacitracin) 0 gm TOP QSHIFT [facility] Last Admin: 07/02/17 14:27 Dose: 1 applic Diltiazem HCl (Cardizem) 60 mg PO TID [facility] Last Admin: 07/02/17 14:26 Dose: 60 mg Diphenhydramine HCl (Benadryl) 50 mg PO Q6 PRN PRN Reason: Extra Pyramidal Symptoms Diphenhydramine HCl (Benadryl) 50 mg IM Q6 PRN PRN Reason: Anxiety Enoxaparin Sodium (Lovenox) 45 mg SC Q12 [facility] Last Admin: 06/24/17 12:15 Dose: Not Given Haloperidol (Haldol) 5 mg PO Q8 PRN PRN Reason: Moderate Agitation Haloperidol Lactate (Haldol) 5 mg IM Q8 PRN PRN Reason: Moderate Agitation Piperacillin Sod/Tazobactam Sod (Zosyn 3.375 Gm Iv Premix) 3.375 gm in 50 mls @ 100 mls/hr IVPB Q8 [facility] Last Admin: 07/02/17 14:23 Dose: 100 mls/hr Vancomycin HCl 1 gm/ Sodium (Chloride) 200 mls @ 133.333 mls/hr IVPB Q24H [facility] Last Admin: 07/01/17 18:00 Dose: 133.333 mls/hr Levetiracetam (Keppra) 500 mg PO BID [facility] Last Admin: 07/02/17 10:16 Dose: 500 mg Lorazepam (Ativan) 1 mg IM Q6H PRN PRN Reason: Agitation Lorazepam (Ativan) 1 mg PO Q8H PRN PRN Reason: Severe Agitation - Labs Labs: 06/23/17 11:41 06/26/17 07:13
--- NOTE | 2017-07-02 16:34 | PCM.PROC ---
Procedures Attestation:: I certify that I have explained the specified Operation(s) or Procedure(s), risks, benefits and reasonable alternatives to the Patient and/or other person responsible. The opportunity was given to ask questions and all questions answered - Intubation Sedative: None Laryngoscope: Loy ET Tube Size: 7.5 ET Tube Uncuffed: No ET Tube Secured at Depth: 22 ET Tube Secured Locarion: Teeth ET Tube Placement Confirmation: Visualized Passing Through Cords, Breath Sounds Equal Bilaterally, No Breath Sounds Over Epigastrum, Confirmation w/Capnometry Patient Tolerated Procedure: Well Procedure Immediate Complications: None
--- NOTE | 2017-07-02 17:14 | CP.PCM.PRO ---
Pronouncement of Note - Clinical Findings Physical Exam: No Response Verbal/Painful Stimuli, Absent Heart & Breath Sounds , Pupils Fixed & Dilated - Notifications Pronouncement Notifications: Atending Notified Shelf Filler Notified: Yes - Autopsy Autopsy Requested: No [place] [id number]
== END 2017-07-02 18:00 | DRG 208 ==
LOC: C.ER 13:07 → C.9I 16:37 → C.3T 06-20 17:21
PROVIDERS: ADMIT Internal Medicine; ATTEND Internal Medicine
PROC: 0BH18EZ Insertion of Endotracheal Airway into Trachea, Via Natural or Artificial Opening Endoscopic (ICD-10-PCS; principal; 2017-06-17)
PROC: 5A1945Z Respiratory Ventilation, 24-96 Consecutive Hours (ICD-10-PCS; 2017-06-17)
DX: J96.01 Acute respiratory failure with hypoxia (principal); I26.99 Other pulmonary embolism without acute cor pulmonale; J18.9 Pneumonia, unspecified organism; E87.2 Acidosis; F05 Delirium due to known physiological condition; J44.0 Chronic obstructive pulmonary disease with (acute) lower respiratory infection; C34.90 Malignant neoplasm of unspecified part of unspecified bronchus or lung; E86.0 Dehydration; E87.6 Hypokalemia; J96.02 Acute respiratory failure with hypercapnia; I10 Essential (primary) hypertension; F17.200 Nicotine dependence, unspecified, uncomplicated